=== PATIENT | female | born 1975 | race Caucasian/White ===

== ENCOUNTER 2017-08-16 11:15 | Outpatient (RCR) | payer OTHER, MEDICAID, SELFPAY ==
--- NOTE | 2017-06-28 11:58 | PT.OTN ---
Addendum entered and electronically signed by Sybil Waite, PT 06/28/17 13:56: Transition note: On June 21, 2017 our therapy services consisting of Speech, Occupational, and Physical Therapy transitioned from the [employer] electronic documentation system to a new [employer] electronic documentation system.?? All documentation prior to June 21 can be found under [employer] saved data. From June 21 forward all medical record documentation will be in [employer]. Original Note: Physical Therapy Treatment Note PT-OP-A Visit Information Start: 06/28/17 10:33 Freq: Status: Active Protocol: Activity Type Activity Date Activity User E-Sign Co-Sign Detail Recorded Client Recorded Date Recorded By Document 06/28/17 10:35 LRN [id number] 06/28/17 11:24 LRN 06/28/17 10:35 Out-Patient Physical Therapy Visit Information [Visit Information] -Visit Type Treatment Note -Visit Start Time 10:32 -Visit Stop Time 11:15 -Total Visit Minutes 43 -Visit Number 10, 3 since last Re-eval -Number of SYSTEM SAFETY ENGINEER Visits 0 [Evaluation Information] -Evaluation Date 04/22/17 PT-OP-C Subjective Start: 06/28/17 10:33 Freq: Status: Active Protocol: Activity Type Activity Date Activity User E-Sign Co-Sign Detail Recorded Client Recorded Date Recorded By Document 06/28/17 10:35 LRN [id number] 06/28/17 11:24 LRN 06/28/17 10:35 OP-PT Subjective [Patient Comments] -Patient Comments C/O stomach pain this morning. Had coffee yesterday and had to use bathroom more. -Patient Reported Progress Improving PT-OP-I Pelvic Floor Start: 06/28/17 10:33 Freq: Status: Active Protocol: Activity Type Activity Date Activity User E-Sign Co-Sign Detail Recorded Client Recorded Date Recorded By Document 06/28/17 10:35 LRN [id number] 06/28/17 11:52 LRN 06/28/17 10:35 Pelvic Floor Assessment [Pelvic Clock] -Pelvic Clock 3-6 Tenderness -Pelvic Clock Other Primarily Pelvic Clock 4- 5 PT-OP-Q Treatments Start: 06/28/17 10:33 Freq: Status: Active Protocol: Activity Type Activity Date Activity User E-Sign Co-Sign Detail Recorded Client Recorded Date Recorded By Document 06/28/17 10:35 [facility] [id number] 06/28/17 11:24 LRN 06/28/17 10:35 Cardio Equipment [Bicycle (Upright)] -Duration (Minutes) 8 -Resistance 2 -Seat Position Min Therapeutic Exercises [Supine Exercises] 4 -Supine Exercise Name PF contraction with Ball Squeeze and hips in IR -Side bilateral -Reps/Minutes 10 3 -Supine Exercise Name Happy Baby Pose -Reps/Minutes 6 2 -Supine Exercise Name MET and MFR stretch to Iliacus -Side bilateral -Reps/Minutes 3 reps 1 -Supine Exercise Name Iliopsoas stretch, followed by active hip ext -Side bilateral -Equipment Used 1 -Reps/Minutes 2 [Standing Exercises] 1 -Standing Exercise Name Squat with R hip AD T-Band resistance -Reps/Minutes 10 Manual Therapy Treatment [Soft Tissue Mobilization] 1 -Body Location Pelvic Floor stretch 3-6 O' Clock -Mobilization Type Myofascial Release Sustained Pressure Trigger Point Release -Intensity/Depth Superficial -Body Position Supine Self-Care/Home Management Treatment [Activities] -Self-Care/Home Management Activities Brief discussion of ex's this week to work on ( strengthening 3 -6 PF Clock, relaxation of PF with urinating), continuation of therapy for decreasing frequency of urination. PT-OP-T Assessment and Plan Start: 06/28/17 10:33 Freq: Status: Active Protocol: Activity Type Activity Date Activity User E-Sign Co-Sign Detail Recorded Client Recorded Date Recorded By Document 06/28/17 10:35 [facility] [id number] 06/28/17 11:24 [facility] 06/28/17 10:35 Physical Therapy Assessment [Impairments] -Impairments ROM Strength -Other Impairments Increased tone on PF Clock 3-6 . Lack of complete HEP. Increased frequency of urination. Degree of Urge 1-2/3. [Assessment Summary] -Assessment Pt has improved in degree of urgency of urination from 2-3/3 to 1-2/3 with voiding. Her frequency is high (every 1-2 hours). She has tenderness in the PF 4-5 O' Clock. Pt may have a dropped bladder from PF weakness, but tightness in the 3-6 PF Clock limiting flow with urination times higher than 10 sec's. Physical Therapy Plan [Frequency and Duration] -Frequency of Treatment 1x/Week -Duration of Treatment 7 weeks left, 3 visits since Re-eval -Plan of Care Start Date 04/22/17 -Plan of Care End Date 08/21/17 [Next Visit Focus/Plan] -Next Visit Plan Continue Current Rehabilitation Program ( decrease frequency & urgency of urination). Education in bladder retraining. Strengthen R>L Pelvic Floor. Stretch to R hip flexor > L. EMG Biofeedback for strengthening followed by relaxation of PF with bolster . Recheck hip mobility for symmetry.
--- NOTE | 2017-07-05 10:50 | PT.OTN ---
Physical Therapy Treatment Note PT-OP-A Visit Information Start: 06/28/17 10:33 Freq: Status: Active Protocol: Document 07/05/17 10:32 LRN (Rec: 07/05/17 11:21 LRN [id number]) Out-Patient Physical Therapy Visit Information Visit Information Visit Type Treatment Note Visit Start Time 10:35 Visit Stop Time 11:20 Total Visit Minutes 45 Visit Number 11, 4 since Re-eval Number of MONORAIL CRANE OPERATOR Visits 0 Evaluation Information Evaluation Date 04/22/17 PT-OP-C Subjective Start: 06/28/17 10:33 Freq: Status: Active Protocol: Document 07/05/17 10:32 LRN (Rec: 07/05/17 11:21 LRN [id number]) OP-PT Subjective Patient Comments Patient Comments Did stretches this morning. Less often voiding; there fore a little better. States last week GERD was making stomach painful. Requests hold on internal manual therapy. PT-OP-I Pelvic Floor Start: 06/28/17 10:33 Freq: Status: Active Protocol: Document 07/05/17 10:32 LRN (Rec: 07/05/17 11:21 LRN [id number]) Pelvic Floor Assessment SEMG (uV) Baseline 2.39 Quick Contraction 8.18 10 Second Contraction 7.95 Relaxation Fair PT-OP-Q Treatments Start: 06/28/17 10:33 Freq: Status: Active Protocol: Document 07/05/17 10:32 LRN (Rec: 07/05/17 11:21 LRN [id number]) Therapeutic Exercises Supine Exercises 6 Supine Exercise Name PF Long hold 10 sec strengthening Equipment Used EMG biofeedback with vaginal electrode Reps/Minutes 10 reps 5 Supine Exercise Name PF Quick contraction strengthening Equipment Used EMG biofeedback with vaginal electrode Reps/Minutes 10 3 Supine Exercise Name Happy Baby Pose Reps/Minutes 6 2 Supine Exercise Name MET and MFR stretch to Iliacus Side bilateral Reps/Minutes 3 reps 1 Supine Exercise Name Iliopsoas stretch, followed by active hip ext Side bilateral Equipment Used 1 Reps/Minutes 2 Self-Care/Home Management Treatment Activities Self-Care/Home Management Activities Pt educated and discussed PF retraining using urge deference technique to delay times between urination, with use of 1 delay for 3-10 minutes delay for a few days and progressing as tolerated. PT-OP-T Assessment and Plan Start: 06/28/17 10:33 Freq: Status: Active Protocol: Document 07/05/17 10:32 LRN (Rec: 07/08/17 17:19 LRN [id number]) Physical Therapy Assessment Assessment Summary Assessment Pt is now able to perform a visible PF contraction that is mild in intensity; therefore weakness still persists. Pt is on the end of her menstrual cycle; therefore hold on internal assessment and treatment until next visit. Physical Therapy Plan Frequency and Duration Frequency of Treatment 1x/Week Duration of Treatment 6 weeks left, 4 visits since Re-eval Plan of Care Start Date 04/22/17 Plan of Care End Date 08/21/17 Next Visit Focus/Plan Next Visit Plan Manual stretch to PF and assessment for tightness/ tenderness. Decrease frequency and urgency of urination. Strengthen R>L PF. Stretch hip flexors R>L.
--- NOTE | 2017-07-08 17:20 | PT.OTN ---
Physical Therapy Treatment Note PT-OP-A Visit Information Start: 06/28/17 10:33 Freq: Status: Active Protocol: Document 07/05/17 10:32 LRN (Rec: 07/05/17 11:21 LRN [id number]) Out-Patient Physical Therapy Visit Information Visit Information Visit Type Treatment Note Visit Start Time 10:35 Visit Stop Time 11:20 Total Visit Minutes 45 Visit Number 11, 4 since Re-eval Number of HARVEST WORKER FIELD CROP Visits 0 Evaluation Information Evaluation Date 04/22/17 PT-OP-C Subjective Start: 06/28/17 10:33 Freq: Status: Active Protocol: Document 07/05/17 10:32 LRN (Rec: 07/05/17 11:21 LRN [id number]) OP-PT Subjective Patient Comments Patient Comments Did stretches this morning. Less often voiding; there fore a little better. States last week GERD was making stomach painful. Requests hold on internal manual therapy. PT-OP-I Pelvic Floor Start: 06/28/17 10:33 Freq: Status: Active Protocol: Document 07/05/17 10:32 LRN (Rec: 07/05/17 11:21 LRN [id number]) Pelvic Floor Assessment SEMG (uV) Baseline 2.39 Quick Contraction 8.18 10 Second Contraction 7.95 Relaxation Fair PT-OP-Q Treatments Start: 06/28/17 10:33 Freq: Status: Active Protocol: Document 07/05/17 10:32 LRN (Rec: 07/05/17 11:21 LRN [id number]) Therapeutic Exercises Supine Exercises 6 Supine Exercise Name PF Long hold 10 sec strengthening Equipment Used EMG biofeedback with vaginal electrode Reps/Minutes 10 reps 5 Supine Exercise Name PF Quick contraction strengthening Equipment Used EMG biofeedback with vaginal electrode Reps/Minutes 10 3 Supine Exercise Name Happy Baby Pose Reps/Minutes 6 2 Supine Exercise Name MET and MFR stretch to Iliacus Side bilateral Reps/Minutes 3 reps 1 Supine Exercise Name Iliopsoas stretch, followed by active hip ext Side bilateral Equipment Used 1 Reps/Minutes 2 Self-Care/Home Management Treatment Activities Self-Care/Home Management Activities Pt educated and discussed PF retraining using urge deference technique to delay times between urination, with use of 1 delay for 3-10 minutes delay for a few days and progressing as tolerated. PT-OP-T Assessment and Plan Start: 06/28/17 10:33 Freq: Status: Active Protocol: Document 07/05/17 10:32 LRN (Rec: 07/08/17 17:19 LRN [id number]) Physical Therapy Assessment Assessment Summary Assessment Pt is now able to perform a visible PF contraction that is mild in intensity; therefore weakness still persists. Pt is on the end of her menstrual cycle; therefore hold on internal assessment and treatment until next visit. Physical Therapy Plan Frequency and Duration Frequency of Treatment 1x/Week Duration of Treatment 6 weeks left, 4 visits since Re-eval Plan of Care Start Date 04/22/17 Plan of Care End Date 08/21/17 Next Visit Focus/Plan Next Visit Plan Manual stretch to PF and assessment for tightness/ tenderness. Decrease frequency and urgency of urination. Strengthen R>L PF. Stretch hip flexors R>L.
--- NOTE | 2017-07-12 11:44 | PT.OTN ---
Physical Therapy Treatment Note PT-OP-A Visit Information Start: 06/28/17 10:33 Freq: Status: Active Protocol: Document 07/12/17 10:34 LRN (Rec: 07/12/17 11:43 LRN [id number]) Out-Patient Physical Therapy Visit Information Visit Information Visit Type Treatment Note Visit Start Time 10:34 Visit Stop Time 11:14 Total Visit Minutes 40 Visit Number 12, 5 since Re-eval Evaluation Information Evaluation Date 04/22/17 PT-OP-C Subjective Start: 06/28/17 10:33 Freq: Status: Active Protocol: Document 07/12/17 10:34 LRN (Rec: 07/12/17 11:43 LRN [id number]) OP-PT Subjective Patient Comments Patient Comments A little better. Has been trying to delay and it might be a little better. Changed coffee, so having more crampsa . PT-OP-I Pelvic Floor Start: 06/28/17 10:33 Freq: Status: Active Protocol: Document 07/05/17 10:32 LRN (Rec: 07/05/17 11:21 LRN [id number]) Pelvic Floor Assessment SEMG (uV) Baseline 2.39 Quick Contraction 8.18 10 Second Contraction 7.95 Relaxation Fair PT-OP-Q Treatments Start: 06/28/17 10:33 Freq: Status: Active Protocol: Document 07/12/17 10:34 LRN (Rec: 07/12/17 11:43 LRN [id number]) Cardio Equipment Bicycle (Upright) Duration (Minutes) 8 Resistance 4 Seat Position Min Therapeutic Exercises Supine Exercises 6 Supine Exercise Name PF Long hold 10 sec strengthening Equipment Used For BKFO: Lev 1 T-Band resistance for R side Reps/Minutes 10 2 Supine Exercise Name MET and MFR stretch to Iliacus Side bilateral Reps/Minutes 3 reps 1 Supine Exercise Name Iliopsoas stretch, followed by active hip ext Side bilateral Equipment Used 1 Reps/Minutes 2 Standing Exercises 1 Standing Exercise Name Down Dog pose for 10 sec PF contractions Side right Resistance T-Band Lev 1 reistive AD Reps/Minutes 10x Manual Therapy Treatment Soft Tissue Mobilization 1 Body Location Pelvic Floor lateral sides and 12-3 O'Clock Mobilization Type Myofascial Release Sustained Pressure Intensity/Depth Superficial Body Position Supine Comments 10' Self-Care/Home Management Treatment Activities Self-Care/Home Management Activities Pt I/S to do bladder diary for next few days and continue to work on urge deference tedhnique and change normal routine for the next few days. PT-OP-T Assessment and Plan Start: 06/28/17 10:33 Freq: Status: Active Protocol: Document 07/12/17 10:34 LRN (Rec: 07/12/17 11:43 LRN [id number]) Physical Therapy Assessment Assessment Summary Assessment I was able to get symmetry of the PF except at the PF 3 O' Clock area. Mild tightness was present post treatment. Physical Therapy Plan Frequency and Duration Frequency of Treatment 1x/Week Duration of Treatment 5 weeks left, 5 visits since Re-eval Plan of Care Start Date 04/22/17 Plan of Care End Date 08/21/17 Next Visit Focus/Plan Next Visit Plan Assess response to PF stretching. Work towards decrease in frequency/urgency of urination. Strengthen PF R >L, stretch to hip flexors R>L for better pelvic posturing. Please Sign and Return: I have reviewed this Plan of Care and certify that the skilled therapy services above are required to meet the patient???s needs. Physician Signature Date Printed Name and Credentials Clinical Instructor Signature Printed Name and Credentials
--- NOTE | 2017-07-19 12:44 | PT.OTN ---
Physical Therapy Treatment Note PT-OP-A Visit Information Start: 06/28/17 10:33 Freq: Status: Active Protocol: Document 07/19/17 11:21 LRN (Rec: 07/19/17 12:36 LRN [id number]) Out-Patient Physical Therapy Visit Information Visit Information Visit Type Treatment Note Visit Start Time 11:21 Visit Stop Time 12:11 Total Visit Minutes 50 Visit Number 13, 6 since Re-eval Number of BLADE GRADER OPERATOR Visits 0 Evaluation Information Evaluation Date 04/22/17 PT-OP-C Subjective Start: 06/28/17 10:33 Freq: Status: Active Protocol: Document 07/19/17 11:21 LRN (Rec: 07/19/17 12:36 LRN [id number]) OP-PT Subjective Patient Comments Patient Comments States she didn't write things down, but noticed her urination between voiding is longer and noticed the urination times were smaller 8 -12 sec's. Was travelling, so schedule was different. PT-OP-I Pelvic Floor Start: 06/28/17 10:33 Freq: Status: Active Protocol: Document 07/05/17 10:32 LRN (Rec: 07/05/17 11:21 LRN [id number]) Pelvic Floor Assessment SEMG (uV) Baseline 2.39 Quick Contraction 8.18 10 Second Contraction 7.95 Relaxation Fair PT-OP-Q Treatments Start: 06/28/17 10:33 Freq: Status: Active Protocol: Document 07/19/17 11:21 LRN (Rec: 07/19/17 12:36 LRN [id number]) Cardio Equipment Bicycle (Upright) Duration (Minutes) 8 Resistance 4 Seat Position Min Therapeutic Exercises Supine Exercises 6 Supine Exercise Name PF Long hold 10 sec strengthening Equipment Used For BKFO: Lev 1 T-Band resistance for R side Reps/Minutes 10 2 Supine Exercise Name MET and MFR stretch to Iliacus Side bilateral Reps/Minutes 1 reps 1 Supine Exercise Name Iliopsoas stretch, followed by active hip ext Side bilateral Reps/Minutes 2 reps Sidelying Exercises 2 Sidelying Exercise Name Hip AD/reverse clamshell Side right Reps/Minutes 8 Comments 2x with PF contracted f/b 2x without PF contracted 1 Sidelying Exercise Name Clamshell Side right Reps/Minutes 10 x 2 Comments 2x with PF contraction f/b 2x without PF contraction Manual Therapy Treatment Soft Tissue Mobilization 1 Body Location Pelvic Floor lateral sides and 12-6 O'Clock Mobilization Type Myofascial Release Sustained Pressure Intensity/Depth Superficial Body Position Supine Comments 10' Self-Care/Home Management Treatment Activities Self-Care/Home Management Activities I/S pt to add PF strengthening with hip AD and to monitor urination times/frequency. PT-OP-T Assessment and Plan Start: 06/28/17 10:33 Freq: Status: Active Protocol: Document 07/19/17 11:21 LRN (Rec: 07/19/17 12:36 LRN [id number]) Physical Therapy Assessment Impairments Impairments ROM Strength Other Impairments Increased tone on PF Clock 3-6 . Lack of complete HEP. Increased frequency of urination. Degree of Urge 1-2/3. Progress Towards Goals Progress Comments Pt reports less frequency of voiding in AM, and less sec's to complete voiding (8-12 sec voids). Assessment Summary Assessment After PF stretching, mild return of tightness (no pain) at PF 4 O'clock. Lower L abdominal tightness at pubic symphysis/groin was present. Physical Therapy Plan Frequency and Duration Frequency of Treatment 1x/Week Duration of Treatment 4 weeks left, 6 visits since Re-eval Plan of Care Start Date 04/22/17 Plan of Care End Date 08/21/17 Next Visit Focus/Plan Next Visit Plan Progress towards independent program with DC in 2 weeks. Strength PF R>L, stretch hip flexors R>L. Work to decr freq/urgency of urination.
--- NOTE | 2017-07-26 12:49 | PT.OTN ---
Current Diagnoses Pelvic and perineal pain (07/26/17) Physical Therapy Treatment Note PT-OP-A Visit Information Start: 06/28/17 10:33 Freq: Status: Active Protocol: Document 07/26/17 09:03 LRN (Rec: 07/26/17 09:53 LRN [id number]) Out-Patient Physical Therapy Visit Information Visit Information Visit Type Treatment Note Visit Note 7 since Re-eval Visit Start Time 09:03 Visit Stop Time 09:45 Total Visit Minutes 42 Visit Number 14 Number of LITIGATION LEGAL ASSISTANT Visits 0 PT-OP-C Subjective Start: 06/28/17 10:33 Freq: Status: Active Protocol: Document 07/26/17 09:03 LRN (Rec: 07/26/17 09:53 LRN [id number]) OP-PT Subjective Patient Comments Patient Comments States after last session the urinary flow was same or a little less. Her frequency between urination is better at 1.2hrs in the morning and as much as 3 hours in PM. She no longer has leakage but wears a minipad. Time to urinate is ~8-10 sec's. Patient Reported Progress Improving PT-OP-I Pelvic Floor Start: 06/28/17 10:33 Freq: Status: Active Protocol: Document 07/26/17 09:03 LRN (Rec: 07/26/17 09:53 LRN [id number]) Pelvic Floor Assessment Urine Leaks Per Day 0 Voiding Frequency 1.5-3 hrs. Pads Used In 24 Hours 1 Urine Pad Type Panty Liner Pelvic Clock Pelvic Clock 3-6 Tightness Pelvic Clock Other Minimal tightness of PF 3-6 Clock PT-OP-Q Treatments Start: 06/28/17 10:33 Freq: Status: Active Protocol: Document 07/26/17 09:03 LRN (Rec: 07/26/17 09:53 LRN [id number]) Therapeutic Exercises Supine Exercises 6 Supine Exercise Name PF Long hold 10 sec strengthening Equipment Used For BKFO: Lev 1 T-Band resistance for R side Reps/Minutes 10 4 Supine Exercise Name PF contraction with Ball Squeeze and hips in IR Side bilateral Reps/Minutes 10 2 Supine Exercise Name MET and MFR stretch to Iliacus Side bilateral Reps/Minutes 1 reps 1 Supine Exercise Name Iliopsoas stretch, followed by active hip ext Side bilateral Reps/Minutes 2 reps Manual Therapy Treatment Soft Tissue Mobilization 1 Body Location Pelvic Floor lateral sides and 12-6 O'Clock Mobilization Type Myofascial Release Sustained Pressure Intensity/Depth Superficial Body Position Supine Comments 9' PT-OP-T Assessment and Plan Start: 06/28/17 10:33 Freq: Status: Active Protocol: Document 07/26/17 09:03 LRN (Rec: 07/26/17 09:53 LRN [id number]) Physical Therapy Assessment Impairments Other Impairments Increased tone on PF Clock 4-5 . Goals Three Impairment Sluggish PF contractions Fci Goal (LTG) 10 reps of superficial PF contractions to be able to decrease urgency and frequency of urination. Two Impairment Decreased PF endurance of 3 sec holds Fishing Captain Goal (LTG) No leakage with pt able to hold a 10 sec PF contraction prior to fatigue to allow for more normal urination times. One Impairment Decreased PF strength of 2/5, 3/5 with assist muscles Fishing Captain Goal (LTG) PF strength to no less than 3/ 5 to decrease leakage. Progress Towards Goals Progress Comments Pt voiding times are less at 8 -10 sec's. Frequency is less in AM ~1.5 hrs between voids. In PM sometimes 3 hrs reported between voids. No leakage, but pt wearing liner daily. Assessment Summary Assessment Good relaxation of PF 4-5 O' Clock, otherwise symmetrical. Pt freq and urge has decreased and voiding sec' decreased; therefore pt PF support is improving. Physical Therapy Plan Frequency and Duration Frequency of Treatment 1x/Week Duration of Treatment 1 more visit Plan of Care Start Date 04/22/17 Plan of Care End Date 08/21/17 Next Visit Focus/Plan Next Visit Plan DC next visit, recheck strength per Biofeedback, review HEP. Strengthen PF R>L, stretch hip flexors R>L. Work to decr freq/urgency of urination. [ End ]
--- NOTE | 2017-08-09 14:05 | PT.OTN ---
Current Diagnoses Pelvic and perineal pain (08/09/17) Physical Therapy Treatment Note PT-OP-A Visit Information Start: 06/28/17 10:33 Freq: Status: Active Protocol: Document 08/09/17 11:17 LRN (Rec: 08/09/17 11:28 LRN [id number]) Out-Patient Physical Therapy Visit Information Visit Information Visit Type Treatment Note Visit Note 8 since POC Visit Start Time 11:17 Visit Stop Time 12:00 Total Visit Minutes 43 Visit Number 15 Number of CARBON DIOXIDE OPERATOR Visits 0 Evaluation Information Evaluation Date 04/22/17 PT-OP-C Subjective Start: 06/28/17 10:33 Freq: Status: Active Protocol: Document 08/09/17 11:17 LRN (Rec: 08/09/17 11:28 LRN [id number]) OP-PT Subjective Patient Comments Patient Comments Forgot Electrode, will bring next visit. Little bit improved change. As long as not drinking coffee has a good gap between voiding, 2 hours. In afternoon it is 3 hours. PT-OP-I Pelvic Floor Start: 06/28/17 10:33 Freq: Status: Active Protocol: Document 07/26/17 09:03 LRN (Rec: 07/26/17 09:53 LRN [id number]) Pelvic Floor Assessment Urine Leaks Per Day 0 Voiding Frequency 1.5-3 hrs. Pads Used In 24 Hours 1 Urine Pad Type Panty Liner Pelvic Clock Pelvic Clock 3-6 Tightness Pelvic Clock Other Minimal tightness of PF 3-6 Clock PT-OP-Q Treatments Start: 06/28/17 10:33 Freq: Status: Active Protocol: Document 08/09/17 11:17 LRN (Rec: 08/09/17 11:28 LRN [id number]) Cardio Equipment Bicycle (Upright) Duration (Minutes) 8 Resistance 4 Seat Position Min Therapeutic Exercises Supine Exercises 6 Supine Exercise Name Progressed to squat walks 2 Supine Exercise Name MET and MFR stretch to Iliacus Side bilateral Reps/Minutes 3 reps 1 Supine Exercise Name Iliopsoas stretch, followed by active hip ext Side bilateral Reps/Minutes 2 reps Sidelying Exercises 2 Sidelying Exercise Name Hip AD/reverse clamshell Side right Reps/Minutes 10 x 3 Comments 5x with PF contracted f/b 2x without PF contracted 1 Sidelying Exercise Name Clamshell Side right Reps/Minutes 10 x 3 Comments 5x with PF contraction f/b 5x without PF contraction Standing Exercises 2 Standing Exercise Name Squat walking Side bilateral Resistance Lev2 T-Band Reps/Minutes 10 stepping R, 15 stepping L - 2 sets Comments Physical cuing to maintain pelvic stability 1 Standing Exercise Name Down Dog pose for 10 sec and 10 Quick Flick PF contractions Side bilateral Reps/Minutes 10x Other Exercises 1 Other Exercise Name Kneeling Hip flexor stretch Side bilateral Reps/Minutes 4' PT-OP-T Assessment and Plan Start: 06/28/17 10:33 Freq: Status: Active Protocol: Document 08/09/17 11:17 LRN (Rec: 08/09/17 11:28 LRN [id number]) Physical Therapy Assessment Goals Three Impairment Sluggish PF contractions Jail Goal (LTG) 10 reps of superficial PF contractions to be able to decrease urgency and frequency of urination. Two Impairment Decreased PF endurance of 3 sec holds Jail Goal (LTG) No leakage with pt able to hold a 10 sec PF contraction prior to fatigue to allow for more normal urination times. One Impairment Decreased PF strength of 2/5, 3/5 with assist muscles [employer] Iam Consultant Goal (LTG) PF strength to no less than 3/ 5 to decrease leakage. Assessment Summary Assessment Pt forgot her vaginal electrode; therefore will assess PF strength at next visit. Pt needs her written HEP for good recall of ex's. Physical Therapy Plan Frequency and Duration Frequency of Treatment 1x/Week Duration of Treatment 1 more visit Plan of Care Start Date 04/22/17 Plan of Care End Date 08/21/17 Next Visit Focus/Plan Next Note Type Discharge Summary Next Visit Plan HEP, DC next visit, recheck strength per Biofeedback, review HEP. Strengthen PF R>L, stretch hip flexors R>L. Work to decr freq/urgency of urination. [ End ]
--- NOTE | 2017-08-16 17:00 | PT.OTN ---
Current Diagnoses Pelvic and perineal pain (08/16/17) Physical Therapy Treatment Note PT-OP-A Visit Information Start: 06/28/17 10:33 Freq: Status: Active Protocol: Document 08/16/17 11:20 LRN (Rec: 08/16/17 11:36 LRN [id number]) Out-Patient Physical Therapy Visit Information Visit Information Visit Type Discharge Summary Visit Note 9 since POC Visit Start Time 11:20 Visit Stop Time 12:00 Total Visit Minutes 40 Visit Number 16 Number of PUBLIC AID ELIGIBILITY ASSISTANT Visits 0 Evaluation Information Evaluation Date 04/22/17 PT-OP-C Subjective Start: 06/28/17 10:33 Freq: Status: Active Protocol: Document 08/16/17 11:20 LRN (Rec: 08/16/17 11:36 LRN [id number]) OP-PT Subjective Patient Comments Patient Comments Got IUD inserted 08/11/17 and had a seizure. Feels she is ready to be placed on HEP. PT-OP-I Pelvic Floor Start: 06/28/17 10:33 Freq: Status: Active Protocol: Document 07/26/17 09:03 LRN (Rec: 07/26/17 09:53 LRN [id number]) Pelvic Floor Assessment Urine Leaks Per Day 0 Voiding Frequency 1.5-3 hrs. Pads Used In 24 Hours 1 Urine Pad Type Panty Liner Pelvic Clock Pelvic Clock 3-6 Tightness Pelvic Clock Other Minimal tightness of PF 3-6 Clock PT-OP-K Range of Motion Start: 08/16/17 11:40 Freq: Status: Active Protocol: Document 08/16/17 11:20 LRN (Rec: 08/16/17 16:46 LRN [id number]) Hip Goniometric Range of Motion Hip Measured in Degrees Right Passive Internal Rotation 15 External Rotation 75 Left Passive Internal Rotation 20 External Rotation 75 PT-OP-Q Treatments Start: 06/28/17 10:33 Freq: Status: Active Protocol: Document 08/16/17 11:20 LRN (Rec: 08/16/17 16:46 LRN [id number]) Cardio Equipment Bicycle (Upright) Duration (Minutes) 10 Resistance 4 Seat Position Min Therapeutic Exercises Supine Exercises 1 Supine Exercise Name Iliopsoas, Hip ER, IR, Happy Baby Pose stretch Side bilateral Reps/Minutes 2 reps each Standing Exercises 3 Standing Exercise Name Plie Resistance T-Band, Ball Reps/Minutes 10 each direction Comments Extra time taken for training Self-Care/Home Management Treatment Education Patient Education Home Exercise Program Activities Self-Care/Home Management Activities Handout issued for standing ex . Reviewed self care for PF strengthening on HEP. PT-OP-T Assessment and Plan Start: 06/28/17 10:33 Freq: Status: Active Protocol: Document 08/16/17 11:20 LRN (Rec: 08/16/17 11:36 LRN [id number]) Physical Therapy Assessment Progress Towards Goals Progress Comments The pt has made some good improvement overall. Her voiding times are less at 8-10 sec's. Frequency is less in AM ~1.5 hrs between voids. In PM sometimes 3 hrs reported between voids. No leakage, but pt wearing liner daily as a precaution. Assessment Summary Assessment Overall pt has shown good relaxation of PF 4-5 O'Clock, otherwise symmetrical. Pt freq and urge has decreased and voiding sec's has decreased; therefore indicating PF support has improved. With insertion of an IUD use of a vaginal electrode is deferred; therefore the pt's HEP was reviewed and the pt will be placed on a HEP to continue to work towards PF strengthening and maintaining her PF tone and hip mobility. Physical Therapy Plan Discharge Physical Therapy Discharge Comments Unable to use vaginal electrode to assess pt PF strength. The pt has progressed through PF rehab and has been educated in a HEP that she can continue to work towards improving her level of continence. The pt may seek further therapy in the future if she has medical changes that result in changes in her level of continence. Next Visit Focus/Plan Next Visit Plan DC from PT
== END 2017-12-01 12:06 ==
LOC: PHYS 11:15
PROVIDERS: Family Provider Family Medicine; PCP Family Medicine; Visit Provider Physician Assistant
DX: R10.2 Pelvic and perineal pain (principal)
CPT/HCPCS: 97110; 97140; 97535

== ENCOUNTER → 2017-10-28 20:05 | Outpatient (CLI) | payer OTHER, MEDICAID, SELFPAY | PROVIDERS: Family Provider Family Medicine; PCP Family Medicine; Visit Provider Physician Assistant | DX: N39.0 Urinary tract infection, site not specified (principal) | CPT/HCPCS: 87086 ==

== ENCOUNTER → 2018-02-20 09:34 | Outpatient (CLI) | payer OTHER, MEDICAID, SELFPAY ==
[2018-02-20 10:36] LABS: Add Manual Diff / Slide Review NO; Basophils Percent Auto 0.4 % (0-2); Eosinophils Percent Auto 2.7 % (2-4); Hematocrit 41.3 % (36-46); Lymphocytes Percent Auto 30.3 % (25-40); Mean Corpuscular HGB Conc 33.8 % (30-36); Mean Corpuscular Hemoglobin 33.3 PG (26-34); Mean Corpuscular Volume 98.6 fL (80-100); Monocytes Percent Auto 11.6 % (3-14); Neutrophils Absolute Auto 2300 /uL (1500-7000); Platelet Count 206 X10^3/uL (150-400); Red Blood Cell Count 4.19 X10^6/uL (4.0-5.2); Red Cell Distribution Width 12.9 % (11.6-14.8); White Blood Cell Count 4.2 X10^3/uL (4.5-11.0)
[2018-02-20 10:57] LABS: Alanine Aminotransferase 25 IU/L (9-52); Albumin 4.4 g/dL (3.5-5.0); Albumin Globulin Ratio 1.5 (1.0-2.8); Alkaline Phosphatase 55 U/L (38-126); Aspartate Aminotransferase 23 IU/L (14-36); BUN Creatinine Ratio 11.3 (6-22); Bilirubin Total 0.4 mg/dL (0.2-1.3); Blood Urea Nitrogen 9 mg/dL (7-17); Calcium 9.5 mg/dL (8.4-10.2); Carbon Dioxide 30 mmol/L (22-32); Chloride 100 mmol/L (98-107); Estimated Glomerular Filt Rate > 60.0 mL/min (>60); Globulin 2.9 g/dL (1.7-4.1); Glucose 69 mg/dL (70-100); HEMOLYSIS < 15 (0-50); Potassium 4.2 mmol/L (3.4-5.1); Sodium 138 mmol/L (137-145); Total Protein 7.3 g/dL (6.3-8.2)
== END ==
PROVIDERS: Family Provider Family Medicine; PCP Family Medicine; Visit Provider Registered Nurse
DX: R10.9 Unspecified abdominal pain (principal); R19.7 Diarrhea, unspecified
CPT/HCPCS: 36415; 80053; 85025

== ENCOUNTER → 2018-02-21 15:35 | Outpatient (CLI) | payer OTHER, MEDICAID, SELFPAY | PROVIDERS: Family Provider Family Medicine; PCP Family Medicine; Visit Provider Family Medicine | DX: R19.7 Diarrhea, unspecified (principal) | CPT/HCPCS: 87015; 87045; 87177; 87427 ==

== ENCOUNTER → 2018-03-11 10:36 | Outpatient (CLI) | payer OTHER, MEDICAID, SELFPAY | PROVIDERS: Family Provider Family Medicine; PCP Family Medicine; Visit Provider Physician Assistant | DX: R10.2 Pelvic and perineal pain (principal); N89.8 Other specified noninflammatory disorders of vagina | CPT/HCPCS: 87210; 87252 ==

== ENCOUNTER 2018-03-11 10:51 | Emergency (ER) | payer OTHER, MEDICAID, SELFPAY ==
[2018-03-11 11:04] VITALS: BP 110/72; PULSE 88; RESP 18; TEMP 37; O2SAT 96; BMI 27.3
[2018-03-11 11:30] VITALS: BP 102/66; PULSE 99; O2SAT 100
[2018-03-11 11:41] LABS: Add Manual Diff / Slide Review NO; Basophils Absolute Auto 0 /uL (0-100); Basophils Percent Auto 0.3 % (0-2); Eosinophils Absolute Auto 100 /uL (0-450); Hematocrit 40.7 % (36-46); Hemoglobin 13.6 g/dL (12.0-16.0); Lymphocytes Absolute Auto 1000 /uL (1100-4500); Lymphocytes Percent Auto 18.7 % (25-40); Mean Corpuscular HGB Conc 33.4 % (30-36); Mean Corpuscular Hemoglobin 32.8 PG (26-34); Mean Corpuscular Volume 98.3 fL (80-100); Monocytes Absolute Auto 800 /uL (0-900); Monocytes Percent Auto 14.4 % (3-14); Neutrophils Absolute Auto 3600 /uL (1500-7000); Neutrophils Percent Auto 65.6 % (50-75); Platelet Count 224 X10^3/uL (150-400); Red Blood Cell Count 4.14 X10^6/uL (4.0-5.2); Red Cell Distribution Width 12.8 % (11.6-14.8); White Blood Cell Count 5.5 X10^3/uL (4.5-11.0)
[2018-03-11 11:46] LABS: BUN Creatinine Ratio 16.3 (6-22); Blood Urea Nitrogen 13 mg/dL (7-17); Calcium 9.5 mg/dL (8.4-10.2); Carbon Dioxide 28 mmol/L (22-32); Chloride 100 mmol/L (98-107); Estimated Glomerular Filt Rate > 60.0 mL/min (>60); Glucose 77 mg/dL (70-100); HEMOLYSIS 39 (0-50); Sodium 137 mmol/L (137-145)
[2018-03-11 12:03] LABS: RBC Urine None Seen (0-5/HPF)
[2018-03-11 12:14] LABS: Bacteria Urine Many (>30); Squamous Epithelial Cell Urine 1-5 /HPF; WBC Urine 1-5/HPF (0-5/HPF)
[2018-03-11 12:15] LABS: Culture Indicated Urine Specimen Cultured
--- NOTE | 2018-03-11 13:03 | ED.SEIZURE ---
HPI - Seizure <Clementine Fay PA-C - Last Filed: 03/11/18 17:14> General Chief Complaint: Seizure Stated Complaint: seizure Time Seen by Provider: 03/11/18 11:33 Source: patient and EMS Mode of arrival: EMS Limitations: no limitations History of Present Illness HPI Narrative: This 42-year-old female was at the walk-in clinic when she had a seizure. She has a long-time history of seizures for which she takes Tegretol. She states it is common for her to have breakthrough seizures when she goes to any type of medical visit. She states that she went to the clinic to be seen for possible UTI. She states that she has had frequency, urgency, and dysuria for a day or 2. She has not had any flank pain (has some chronic low back pain that is unchanged), denies nausea or vomiting, but did have a temperature in the 100-101 range yesterday and 99 this morning. She does not think that her sinus symptoms are worse. She denies any other new complaints today. She is feeling a little bit sleepy now as is typical after a seizure for her, no other complaints. Related Data Home Medications Medication Instructions Recorded Confirmed acetaminophen 325 mg PO PRN #0 01/29/16 03/11/18 Previous Rx's Medication Instructions Recorded oxybutynin chloride 5 mg PO BIDP #180 tab 10/07/16 carbamazepine 200 mg PO BID #180 tab 11/09/17 pantoprazole 40 mg tablet,delayed 40 mg PO QDAY #90 tab 01/04/18 release sertraline 100 mg tablet 100 mg PO DAILY #90 tab 01/04/18 trazodone 100 mg tablet 100 mg PO HS #90 tab 01/04/18 ciprofloxacin HCl 500 mg PO Q12H #14 tab 03/11/18 phenazopyridine 200 mg PO TID PRN #6 tab 03/11/18 Allergies Allergy/AdvReac Type Severity Reaction Status Date / Time No Known Drug Allergies Allergy Verified 03/11/18 09:44 Review of Systems <Clementine Fay PA-C - Last Filed: 03/11/18 17:14> Review of Systems ROS Unobtainable: All systems reviewed & are unremarkable except as noted in HPI and below Exam <KVNG Benitez Last Filed: 03/11/18 17:14> Narrative Exam Narrative: GENERAL APPEARANCE: Patient sitting comfortably, in no distress. HEENT: PERRL, EOMI, normal TMs and oropharynx with some PND noted, minimal generalized sinus tenderness NECK: Supple LUNGS: Clear to auscultation bilaterally. HEART: Rate and rhythm regular without murmur, normal S1 and S2, no S3 or S4. ABDOMEN: Soft, moderate suprapubic tenderness, ND, + BS x 4 quadrants. No palpable masses. No CVAT NEUROLOGIC: Alert and oriented, normal speech, and coordination. MUSCULOSKELETAL: Full Csp AROM without tenderness Initial Vital Signs Initial Vital Signs: Vital Signs Temperature 98.6 F 03/11/18 11:04 Pulse Rate 88 03/11/18 11:04 Respiratory Rate 18 03/11/18 11:04 Blood Pressure 110/72 03/11/18 11:04 Pulse Oximetry 96 03/11/18 11:04 <Naman Church DO - Last Filed: 03/11/18 17:40> Initial Vital Signs Initial Vital Signs: Vital Signs Temperature 98.6 F 03/11/18 11:04 Pulse Rate 88 03/11/18 11:04 Respiratory Rate 18 03/11/18 11:04 Blood Pressure 110/72 03/11/18 11:04 Pulse Oximetry 96 03/11/18 11:04 Course <Clementine Fay PA-C - Last Filed: 03/11/18 17:14> Additional Information: Patient has a known seizure disorder and had a seizure in medical office setting which is common for her. She appears to have early pyelonephritis versus UTI, appropriate for outpatient treatment (her fever could also be from ongoing upper respiratory/sinus symptoms, no fever here today.) She stated that she has done well with Cipro in the past so will start on this and agreed to return if any acutely worsening symptoms while cultures are pending, otherwise advised follow-up with her PCP in the next 2 or 3 days to assess progress and review cultures. Orders Ordered: ED Orders 03/11/18 10:40 Basic Metabolic Panel Stat Complete Blood Count AUTO DIFF Stat 03/11/18 11:45 Urine Culture Stat Urine Microscopic Stat Vital Signs - 8 hr 03/11/18 11:04 03/11/18 11:30 03/11/18 13:17 Temperature 98.6 F Pulse Rate 88 99 H 102 H Respiratory Rate 18 16 Blood Pressure 110/72 Blood Pressure [Left Arm] 102/66 103/63 Pulse Oximetry 96 100 97 03/11/18 13:40 Temperature Pulse Rate 97 H Respiratory Rate 18 Blood Pressure 109/74 Blood Pressure [Left Arm] Pulse Oximetry 98 <Naman Church DO - Last Filed: 03/11/18 17:40> Orders Ordered: ED Orders 03/11/18 10:40 Basic Metabolic Panel Stat Complete Blood Count AUTO DIFF Stat 03/11/18 11:45 Urine Culture Stat Urine Microscopic Stat Vital Signs - 8 hr 03/11/18 11:04 03/11/18 11:30 03/11/18 13:17 Temperature 98.6 F Pulse Rate 88 99 H 102 H Respiratory Rate 18 16 Blood Pressure 110/72 Blood Pressure [Left Arm] 102/66 103/63 Pulse Oximetry 96 100 97 03/11/18 13:40 Temperature Pulse Rate 97 H Respiratory Rate 18 Blood Pressure 109/74 Blood Pressure [Left Arm] Pulse Oximetry 98 MDM - Seizure <Clementine Fay PA-C - Last Filed: 03/11/18 17:14> Lab Data Result diagrams: 03/11/18 10:40 03/11/18 10:40 Lab Results 03/11/18 03/11/18 03/11/18 Range/Units 10:40 10:40 11:45 WBC 5.5 (4.5-11.0) X10^3/uL RBC 4.14 (4.0-5.2) X10^6/uL Hgb 13.6 (12.0-16.0) g/dL Hct 40.7 (36-46) % MCV 98.3 (80-100) fL MCH 32.8 (26-34) PG MCHC 33.4 (30-36) % RDW 12.8 (11.6-14.8) % Plt Count 224 (150-400) X10^3/uL Neut % (Auto) 65.6 (50-75) % Lymph % (Auto) 18.7 L (25-40) % [place] % (Auto) 14.4 H (3-14) % Eos % (Auto) 1.0 L (2-4) % Baso % (Auto) 0.3 (0-2) % Neut # (Auto) 3600 (8701-0538) /uL Lymph # (Auto) 1000 L (4753-0393) /uL [place] # (Auto) 800 (0-900) /uL Eos # (Auto) 100 (0-450) /uL Baso # (Auto) 0 (0-100) /uL Sodium 137 (137-145) mmol/L Potassium 4.0 (3.4-5.1) mmol/L Chloride 100 (98-107) mmol/L Carbon Dioxide 28 (22-32) mmol/L BUN 13 (7-17) mg/dL Creatinine 0.80 (0.52-1.04) mg/dL Estimated GFR > 60.0 (>60) mL/min BUN/Creatinine Ratio 16.3 (6-22) Glucose 77 (70-100) mg/dL Calcium 9.5 (8.4-10.2) mg/dL Urine RBC None seen (0-5/HPF) Urine WBC 1-5/hpf (0-5/HPF) Ur Squamous Epith Cells 1-5 /hpf Urine Bacteria Many (>30) H (None) Ur Culture Indicated? Specimen cultured Point of Care Testing Test Results Negative Urine Dip Bedside Urine Glucose Negative Bedside Urine Bilirubin - Negative Bedside Urine Ketone - Negative Urine Specific [place] 1.010 Bedside Urine Occult Blood - Negative Bedside Urine pH 7.0 Bedside Urine Protein - Negative Bedside Urine Urobilinogen - Negative Bedside Urine Nitrite - Negative Bedside Urine Leukocytes +/- 15 Esterase <Naman Church, DO - Last Filed: 03/11/18 17:40> Lab Data Lab Results 03/11/18 03/11/18 03/11/18 Range/Units 10:40 10:40 11:45 WBC 5.5 (4.5-11.0) X10^3/uL RBC 4.14 (4.0-5.2) X10^6/uL Hgb 13.6 (12.0-16.0) g/dL Hct 40.7 (36-46) % MCV 98.3 (80-100) fL MCH 32.8 (26-34) PG MCHC 33.4 (30-36) % RDW 12.8 (11.6-14.8) % Plt Count 224 (150-400) X10^3/uL Neut % (Auto) 65.6 (50-75) % Lymph % (Auto) 18.7 L (25-40) % [place] % (Auto) 14.4 H (3-14) % Eos % (Auto) 1.0 L (2-4) % Baso % (Auto) 0.3 (0-2) % Neut # (Auto) 3600 (8488-3798) /uL Lymph # (Auto) 1000 L (7601-0139) /uL [place] # (Auto) 800 (0-900) /uL Eos # (Auto) 100 (0-450) /uL Baso # (Auto) 0 (0-100) /uL Sodium 137 (137-145) mmol/L Potassium 4.0 (3.4-5.1) mmol/L Chloride 100 (98-107) mmol/L Carbon Dioxide 28 (22-32) mmol/L BUN 13 (7-17) mg/dL Creatinine 0.80 (0.52-1.04) mg/dL Estimated GFR > 60.0 (>60) mL/min BUN/Creatinine Ratio 16.3 (6-22) Glucose 77 (70-100) mg/dL Calcium 9.5 (8.4-10.2) mg/dL Urine RBC None seen (0-5/HPF) Urine WBC 1-5/hpf (0-5/HPF) Ur Squamous Epith Cells 1-5 /hpf Urine Bacteria Many (>30) H (None) Ur Culture Indicated? Specimen cultured Point of Care Testing Test Results Negative Urine Dip Bedside Urine Glucose Negative Bedside Urine Bilirubin - Negative Bedside Urine Ketone - Negative Urine Specific [place] 1.010 Bedside Urine Occult Blood - Negative Bedside Urine pH 7.0 Bedside Urine Protein - Negative Bedside Urine Urobilinogen - Negative Bedside Urine Nitrite - Negative Bedside Urine Leukocytes +/- 15 Esterase Discharge Plan Departure Patient Disposition: Home Clinical Impression: Pyelonephritis, Seizure Discharge Date/Time: 03/11/18 13:41 Interventions: ED Discharge Assessment Last Done: 03/11/18 13:40 Instructions: DI for Kidney Infection Activity Restrictions/Additional Instructions: I have sent in a prescription for ciprofloxacin for you (Cipro) to start since you have done well with this in the past. This covers bladder and kidney infections, as it seems you could have the start of a kidney infection given that you have had a bit of a fever at home. Please greens picker the prescription and started right away, take your 2nd dose this evening. I have sent in a pain reliever for the urinary tract that you can take for a couple of days if you needed. Please return as we talked about if you have any acutely worsening symptoms, or new symptoms such as vomiting. Please follow-up with your PCP in 2-3 days to assess your progress and review your urine culture Please rest after a seizure as you usually would since it is not unusual for you to have a seizure at a medical visit. Prescriptions: New ciprofloxacin HCl 500 mg tablet 500 mg PO Q12H Qty: 14 RF: 0 phenazopyridine 200 mg tablet 200 mg PO TID PRN (Reason: pain with urination) Qty: 6 RF: 0 No Action acetaminophen 325 MG tablet 325 mg PO PRNQty: 0 RF: 0 oxybutynin chloride 5 MG tablet 5 mg PO BIDP Qty: 180 RF: 3 carbamazepine 200 mg tablet 200 mg PO BID Qty: 180 RF: 1 pantoprazole 40 mg tablet,delayed release (DR/EC) 40 mg PO QDAY Qty: 90 RF: 3 sertraline 100 mg tablet 100 mg PO DAILY Qty: 90 RF: 1 trazodone 100 mg tablet 100 mg PO HS Qty: 90 RF: 1 Referrals: Kristin Borden DO [Primary Care Provider] - <Naman Church DO - Last Filed: 03/11/18 17:40> Cosign ED Attending Tay Attestation: I was available for consultation during this patient's emergency department encounter
[2018-03-11 13:17] VITALS: BP 103/63; PULSE 102; RESP 16; O2SAT 97
[2018-03-11 13:40] VITALS: BP 109/74; PULSE 97; RESP 18; O2SAT 98
== END 2018-03-11 13:41 | disposition home or self-care (01) ==
PROVIDERS: Emergency Medicine; Emergency Provider Internal Medicine; Family Provider Family Medicine; PCP Family Medicine
DX: N12 Tubulo-interstitial nephritis, not specified as acute or chronic (principal); R56.9 Unspecified convulsions
CPT/HCPCS: 80048; 81003; 81015; 81025; 85025; 87086; 99283

== ENCOUNTER → 2018-03-13 11:21 | Outpatient (CLI) | payer OTHER, MEDICAID, SELFPAY ==
[2018-03-13 13:36] LABS: Urine N gonorrhoeae NOT DETECTED
[2018-03-13 13:43] LABS: Urine Chlamydia NOT DETECTED
[2018-03-13 16:49] LABS: Hepatitis B Surface Antigen NEGATIVE s/c (NEGATIVE)
[2018-03-13 17:17] LABS: HIV 1 and 2 Antibody NEGATIVE (NEGATIVE); Hep C Virus Ab w/Reflex Quant NEGATIVE s/c (NEGATIVE)
[2018-03-15 12:26] LABS: RPR Screen Nonreactive (Nonreactive)
[2018-03-15 12:50] LABS: HSV 1 IgM Screen Negative (Negative); HSV 2 IgM Screen Negative (Negative)
== END ==
PROVIDERS: Family Provider Family Medicine; PCP Family Medicine; Visit Provider Physician Assistant
DX: R10.2 Pelvic and perineal pain (principal); N89.8 Other specified noninflammatory disorders of vagina
CPT/HCPCS: 36415; 86592; 86694; 86703; 86803; 87340; 87491; 87591

== ENCOUNTER 2018-04-18 18:12 | Emergency (ER) | payer OTHER, MEDICAID, SELFPAY ==
[2018-04-18 18:15] VITALS: BP 135/98; PULSE 69; RESP 20; TEMP 36.6; O2SAT 100
--- NOTE | 2018-04-18 19:00 | ED.HEATRA ---
HPI - Head Injury General Chief complaint: Head Injury Stated complaint: LACERATION OF RIGHT UPPER SIDE OF FACE Time Seen by Provider: 04/18/18 18:26 Source: patient Mode of arrival: ambulatory Limitations: no limitations History of Present Illness HPI Narrative: 42-year-old female nonsmoker with history of epilepsy presents to the emergency department after she tripped and fell, striking her head on a curb. She states she fell for purely mechanical reasons and upon striking her head denies loss of consciousness. She has full recall of the event and denies any neurologic symptoms such as blurred vision, numbness, tingling or weakness. She denies other injuries such as neck or back pain. She did suffer a small laceration oriented vertically above her right eyebrow. She takes no blood thinners and denies use of alcohol or street drugs. MD Complaint: head injury Onset (ago): minute(s) Mechanism of Injury: fall Place: home Loss of Consciousness: no Location of injury: frontal Severity: mild Radiation: none Other Injuries: none Associated symptoms: denies other symptoms Related Data Home Medications Medication Instructions Recorded Confirmed acetaminophen 325 mg PO PRN #0 01/29/16 03/28/18 Previous Rx's Medication Instructions Recorded oxybutynin chloride 5 mg PO BIDP #180 tab 10/07/16 carbamazepine 200 mg PO BID #180 tab 11/09/17 pantoprazole 40 mg tablet,delayed 40 mg PO QDAY #90 tab 01/04/18 release sertraline 100 mg tablet 100 mg PO DAILY #90 tab 01/04/18 trazodone 100 mg tablet 100 mg PO HS #90 tab 01/04/18 Allergies Allergy/AdvReac Type Severity Reaction Status Date / Time No Known Drug Allergies Allergy Verified 03/28/18 09:05 Review of Systems Review of Systems ROS Unobtainable: All systems reviewed & are unremarkable except as noted in HPI and below Constitutional Denies chills, Denies fever(s), Reports headache(s), Denies lethargy and Denies weakness Eyes Denies change in vision, Denies eye discharge, Denies irritation and Denies loss of vision ENT Ears, Nose, Mouth, and Throat: Denies change in voice, Reports headache(s), Denies neck pain and Denies sore throat Cardiovascular Denies chest pain, Denies irregular heart rhythm, Denies lightheadedness, Denies palpitations, Denies dyspnea, Denies dyspnea on exertion and Denies orthopnea Respiratory Denies cough, Denies dyspnea, Denies dyspnea on exertion and Denies wheezing Gastrointestinal Gastrointestinal: Denies abdominal pain, Denies change in bowel habits, Denies diarrhea, Denies nausea and Denies vomiting Genitourinary Denies hematuria, Denies flank pain, Denies urinary incontinence and Denies urinary urgency Musculoskeletal Denies neck pain Integumentary/Breasts Denies pruritus, Denies erythema, Denies rash and Reports wounds Neurologic Denies confusion, Reports headache(s), Denies loss of vision and Denies weakness Psychiatric Denies anxiety, Denies confusion, Denies depression, Denies homicidal ideation and Denies suicidal ideation Endocrine Denies palpitations Hematologic/Lymphatic Denies easy bruising Allergic/Immunologic Denies wheezing PFSH Medical History CTS (carpal tunnel syndrome) (Chronic 2007) Frequent UTI (Chronic) Ovarian cyst (Chronic) Seizures (Chronic) Abnormal Pap smear of cervix (Resolved) Anemia (Resolved 2003) Chicken pox (Resolved ~1987) Gallstone pancreatitis (Resolved) Kidney stones (Resolved 2004) Miscarriage (Resolved) Surgical History History of D&C (Resolved) History of ERCP (Resolved 01/2016) History of cholecystectomy (Resolved) Family History Grandfather Diabetes mellitus Grandmother Paraplegia Grandmother Pre-diabetes Brother No problems noted. Father No problems noted. Mother No problems noted. Grandfather No problems noted. Social History Smoking Status: Never smoker Family History Grandfather Diabetes mellitus Grandmother Paraplegia Grandmother Pre-diabetes Brother No problems noted. Father No problems noted. Mother No problems noted. Grandfather No problems noted. Social History Smoking Status: Never smoker Exam Narrative Exam Narrative: GEN: 42-year-old female appears younger than stated age. GCS 15. AOx3 and in mild distress HEAD: 1.5 cm superficial vertically oriented laceration above right brow. No hematoma or evidence depressed skull fracture NECK: no midline tenderness, step-off, pain on the midline or with axial loading EYES: Pupils are equal, round, and reactive to light and accommodation. Extraoccular muscles are intact bilaterally. There is no subconjunctival hemorrhage or exudate. CHEST: Lungs are clear to auscultation bilaterally and free of wheezes, rales, or rhonchi. Heart rate is regular rhythm, there are no murmurs, clicks, rubs, or gallops. There is no chest wall tenderness. ABD: Abdomen is soft and nontender. There is no guarding or rebound. Bowel sounds are normal in all 4 quadrants. There is no mass or organomegaly. EXT: Full painless ROM of all extremities with no loss of sensation or strength. SKIN: Warm, pink, and dry. No erythema or rash Initial Vital Signs Initial Vital Signs: Vital Signs Temperature 97.9 F 04/18/18 18:15 Pulse Rate 69 04/18/18 18:15 Respiratory Rate 20 04/18/18 18:15 Blood Pressure 135/98 H 04/18/18 18:15 Pulse Oximetry 100 04/18/18 18:15 Procedures Laceration Repair Laceration 1: Site: face Side (If applicable): right Size (cm): 1.5 Description: linear Depth: simple, single layer Pre-repair: wound explored Skin layer closed with: dermabond Course Vital Signs - 8 hr 04/18/18 18:15 04/18/18 19:18 Temperature 97.9 F 98.4 F Pulse Rate 69 71 Respiratory Rate 20 16 Blood Pressure 135/98 H Blood Pressure [Left Arm] 128/66 Pulse Oximetry 100 100 Discharge Plan Departure Patient Disposition: Home Clinical Impression: Closed head injury Qualifiers: Encounter type: initial encounter Qualified Code(s): S09.90XA - Unspecified injury of head, initial encounter Laceration of face Qualifiers: Encounter type: initial encounter Qualified Code(s): S01.81XA - Laceration without foreign body of other part of head, initial encounter Discharge Date/Time: 04/18/18 19:23 Interventions: ED Discharge Assessment Last Done: 04/18/18 19:22 Activity Restrictions/Additional Instructions: *You have been diagnosed with [ minor head injury with facial laceration ] *What to do: *Take medications as directed: Tylenol or Motrin for pain *Follow up with your primary care provider in 2-3 days, call for an appointment. Let them know you were seen in the Emergency Department and that we ask that you be seen in follow up *Return to ER if you should have any new, worsening or concerning symptoms, such as [ increasing headache, neurologic symptoms such as blurred vision, numbness or tingling of her extremities, persistent vomiting or other bothersome symptoms] Please keep the wound clean and dry to the best of your ability. Please monitor for signs of infection such as redness to the skin or increasing pain. Prescriptions: No Action acetaminophen 325 MG tablet 325 mg PO PRNQty: 0 RF: 0 oxybutynin chloride 5 MG tablet 5 mg PO BIDP Qty: 180 RF: 3 carbamazepine 200 mg tablet 200 mg PO BID Qty: 180 RF: 1 pantoprazole 40 mg tablet,delayed release (DR/EC) 40 mg PO QDAY Qty: 90 RF: 3 sertraline 100 mg tablet 100 mg PO DAILY Qty: 90 RF: 1 trazodone 100 mg tablet 100 mg PO HS Qty: 90 RF: 1 Referrals: Kristin Borden DO [Primary Care Provider] -
[2018-04-18 19:18] VITALS: BP 128/66; PULSE 71; RESP 16; TEMP 36.9; O2SAT 100
== END 2018-04-18 19:23 | disposition home or self-care (01) ==
PROVIDERS: Emergency Provider Emergency Medicine; Family Provider Family Medicine; PCP Family Medicine
DX: S01.81XA Laceration without foreign body of other part of head, initial encounter (principal); W01.0XXA Fall on same level from slipping, tripping and stumbling without subsequent striking against object, initial encounter
CPT/HCPCS: 99283

== ENCOUNTER 2018-05-05 19:08 | Emergency (ER) | payer OTHER, MEDICAID, SELFPAY ==
[2018-05-05 19:58] VITALS: BP 128/80; PULSE 110; RESP 17; TEMP 37.6; O2SAT 99
[2018-05-05] MEDS: SODIUM CHLORIDE 0.9% 1,000 ML 1000 ML IV (23:20)
[2018-05-05 23:33] LABS: Add Manual Diff / Slide Review NO; Basophils Absolute Auto 0 /uL (0-100); Basophils Percent Auto 0.3 % (0-2); Eosinophils Absolute Auto 100 /uL (0-450); Eosinophils Percent Auto 1.3 % (2-4); Hematocrit 40.6 % (36-46); Hemoglobin 13.7 g/dL (12.0-16.0); Lymphocytes Absolute Auto 1800 /uL (1100-4500); Lymphocytes Percent Auto 28.9 % (25-40); Mean Corpuscular HGB Conc 33.9 % (30-36); Mean Corpuscular Hemoglobin 33.2 PG (26-34); Monocytes Absolute Auto 500 /uL (0-900); Monocytes Percent Auto 7.5 % (3-14); Neutrophils Absolute Auto 3900 /uL (1500-7000); Platelet Count 207 X10^3/uL (150-400); Red Blood Cell Count 4.14 X10^6/uL (4.0-5.2); Red Cell Distribution Width 13.4 % (11.6-14.8); White Blood Cell Count 6.3 X10^3/uL (4.5-11.0)
--- NOTE | 2018-05-05 23:33 | ED.ABDPAIN ---
HPI - Abdominal Pain General Chief Complaint: Abdominal Pain Stated Complaint: STOMACH PAIN FEVER Time Seen by Provider: 05/05/18 23:02 Source: patient Mode of arrival: ambulatory Limitations: no limitations History of Present Illness HPI narrative: Patient is a 42-year-old female who has been feeling nauseated for the past 4 days. She has had frequent episodes of diarrhea. No actual vomiting. She also has some periumbilical pain. She has a history of pancreatitis from cholelithiasis. She has since had a cholecystectomy. His she does have some overall abdominal discomfort. She denies fever or chills. MD complaint: abdominal pain Location: periumbilical Severity: moderate Quality: cramping Related Data Home Medications Medication Instructions Recorded Confirmed acetaminophen 325 mg PO PRN #0 01/29/16 03/28/18 Previous Rx's Medication Instructions Recorded oxybutynin chloride 5 mg PO BIDP #180 tab 10/07/16 carbamazepine 200 mg PO BID #180 tab 11/09/17 pantoprazole 40 mg tablet,delayed 40 mg PO QDAY #90 tab 01/04/18 release sertraline 100 mg tablet 100 mg PO DAILY #90 tab 01/04/18 trazodone 100 mg tablet 100 mg PO HS #90 tab 01/04/18 ondansetron 4 mg PO Q6-8H PRN #10 tab 05/06/18 Allergies Allergy/AdvReac Type Severity Reaction Status Date / Time No Known Drug Allergies Allergy Verified 03/28/18 09:05 Review of Systems Review of Systems GENERAL: Denies chills, fatigue, malaise, fever, sweats, travel HEENT: Denies sinus pain, ear pain, sore throat, difficulty swallowing, neck pain RESPIRATORY: Denies dyspnea, cough, wheezing, hemoptysis, sputum. CARDIOVASCULAR: Denies chest pain, palpitations, orthopnea, edema GASTROINTESTINAL: See HPI : Denies dysuria, frequency, incontinence, hematuria, urinary retention, flank pain. MUSCULOSKELETAL: Denies weakness, joint pain, or bony pain SKIN: No rash, no erythema, no pruritus NEUROLOGIC: Denies weakness, dizziness, headache, numbness, change in speech, confusion PSYCHIATRIC: No concerning psychosocial issues. 12 point review of systems is negative except for those stated above and HPI [facility] Medical History CTS (carpal tunnel syndrome) (Chronic 2007) Frequent UTI (Chronic) Ovarian cyst (Chronic) Seizures (Chronic) Abnormal Pap smear of cervix (Resolved) Anemia (Resolved 2003) Chicken pox (Resolved ~1987) Gallstone pancreatitis (Resolved) Kidney stones (Resolved 2004) Miscarriage (Resolved) Surgical History History of D&C (Resolved) History of ERCP (Resolved 01/2016) History of cholecystectomy (Resolved) Family History Grandfather Diabetes mellitus Grandmother Paraplegia Grandmother Pre-diabetes Brother No problems noted. Father No problems noted. Mother No problems noted. Grandfather No problems noted. Social History Smoking Status: Never smoker Family History Grandfather Diabetes mellitus Grandmother Paraplegia Grandmother Pre-diabetes Brother No problems noted. Father No problems noted. Mother No problems noted. Grandfather No problems noted. Social History Smoking Status: Never smoker Exam Initial Vital Signs Initial Vital Signs: Vital Signs Temperature 99.6 F 05/05/18 19:58 Pulse Rate 110 H 05/05/18 19:58 Respiratory Rate 17 05/05/18 19:58 Blood Pressure 128/80 05/05/18 19:58 Pulse Oximetry 99 05/05/18 19:58 GENERAL: Well-appearing, well-nourished and in no acute distress. HEENT: Head atraumatic,EOMI, pupils reactive, CARDIOVASCULAR: Regular rate and rhythm without murmurs, rubs or gallops. RESPIRATORY: Breath sounds equal bilaterally, no wheezes rales or rhonchi. ABDOMEN: Soft, mild periumbilical tenderness no guarding or rebound EXTREMITIES: Normal range of motion, no clubbing or edema. Neurovascularly intact NEUROLOGICAL: Alert and oriented x4.Normal gait and speech. SKIN: Warm, dry, no laceration, no petechiae, no rashes or lesions. Course Orders Ordered: ED Orders 05/05/18 22:55 Complete Blood Count AUTO DIFF Stat Comprehensive Metabolic Panel Stat Lipase Stat Discontinued Medications Sodium Chloride (Normal Saline 0.9%) 1,000 mls @ 1,000 mls/hr IV CONT ALFONSO Last Infusion: 05/06/18 01:07 Dose: 1,000 mls/hr Admin: 05/05/18 23:20 Dose: 1,000 mls/hr Ondansetron HCl (Zofran) 4 mg IV NOW ONE Stop: 05/05/18 23:26 Last Admin: 05/05/18 23:44 Dose: 4 mg Ondansetron HCl (Zofran Odt Prepack) 1 bottle MISC SEEINSTR ONE Stop: 05/06/18 00:59 Last Admin: 05/06/18 01:14 Dose: 1 bottle Pantoprazole Sodium (Protonix) 40 mg IV NOW ONE Stop: 05/05/18 23:26 Last Admin: 05/05/18 23:44 Dose: 40 mg Vital Signs - 8 hr 05/06/18 00:25 Pulse Rate 110 H Respiratory Rate 20 Blood Pressure [Left Arm] 100/50 L Pulse Oximetry 99 MDM - Abdominal Pain Lab Data Attestation: I reviewed the patient's lab results. Result diagrams: 05/05/18 22:55 05/05/18 22:55 Lab Results 05/05/18 05/05/18 Range/Units 22:55 22:55 WBC 6.3 (4.5-11.0) X10^3/uL RBC 4.14 (4.0-5.2) X10^6/uL Hgb 13.7 (12.0-16.0) g/dL Hct 40.6 (36-46) % MCV 98.0 (80-100) fL MCH 33.2 (26-34) PG MCHC 33.9 (30-36) % RDW 13.4 (11.6-14.8) % Plt Count 207 (150-400) X10^3/uL Neut % (Auto) 62.0 (50-75) % Lymph % (Auto) 28.9 (25-40) % [place] % (Auto) 7.5 (3-14) % Eos % (Auto) 1.3 L (2-4) % Baso % (Auto) 0.3 (0-2) % Neut # (Auto) 3900 (4164-4131) /uL Lymph # (Auto) 1800 (5992-4326) /uL [place] # (Auto) 500 (0-900) /uL Eos # (Auto) 100 (0-450) /uL Baso # (Auto) 0 (0-100) /uL Sodium 138 (137-145) mmol/L Potassium 3.7 (3.4-5.1) mmol/L Chloride 102 (98-107) mmol/L Carbon Dioxide 26 (22-32) mmol/L BUN 8 (7-17) mg/dL Creatinine 0.70 (0.52-1.04) mg/dL Estimated GFR > 60.0 (>60) mL/min BUN/Creatinine Ratio 11.4 (6-22) Glucose 100 (70-100) mg/dL Calcium 9.3 (8.4-10.2) mg/dL Total Bilirubin 0.4 (0.2-1.3) mg/dL AST 25 (14-36) IU/L ALT 28 (9-52) IU/L Alkaline Phosphatase 73 (38-126) U/L Total Protein 8.1 (6.3-8.2) g/dL Albumin 4.8 (3.5-5.0) g/dL Globulin 3.3 (1.7-4.1) g/dL Albumin/Globulin Ratio 1.5 (1.0-2.8) Lipase 79 (23-300) U/L [facility] Narrative Medical decision making narrative: Abdomen is reexamined no right lower quadrant tenderness. She has no leukocytosis. At this time I see no need for any imaging. No sign of pancreatitis or appendicitis. She is tolerating oral fluids and feels better after Zofran. Discharge Plan Departure Patient Disposition: Home Clinical Impression: Gastroenteritis Discharge Date/Time: 05/06/18 01:20 Interventions: ED Discharge Assessment Last Done: 05/06/18 01:20 Instructions: DI for Viral Gastroenteritis -- Adult Activity Restrictions/Additional Instructions: *You have been diagnosed with gastroenteritis *What to do: Increase fluid intake as tolerated recommend Gatorade or Gatorade like product *Continue to take medications as directed --> [facility] [place] Zofran 4 mg every 6-8 hours if needed for nausea or vomiting *Follow up with your primary care provider in 2-3 days *Return to ER if you should have unable to tolerate oral fluids, increasing abdominal pain or any new, worsening or concerning symptoms Prescriptions: New ondansetron 4 mg tablet,disintegrating 4 mg PO Q6-8H PRN (Reason: nausea and vomiting) Qty: 10 RF: 0 No Action acetaminophen 325 MG tablet 325 mg PO PRNQty: 0 RF: 0 oxybutynin chloride 5 MG tablet 5 mg PO BIDP Qty: 180 RF: 3 carbamazepine 200 mg tablet 200 mg PO BID Qty: 180 RF: 1 pantoprazole 40 mg tablet,delayed release (DR/EC) 40 mg PO QDAY Qty: 90 RF: 3 sertraline 100 mg tablet 100 mg PO DAILY Qty: 90 RF: 1 trazodone 100 mg tablet 100 mg PO HS Qty: 90 RF: 1 Referrals: Kristin Borden DO [Primary Care Provider] -
[2018-05-05 23:42] LABS: Alanine Aminotransferase 28 IU/L (9-52); Albumin 4.8 g/dL (3.5-5.0); Albumin Globulin Ratio 1.5 (1.0-2.8); Alkaline Phosphatase 73 U/L (38-126); Aspartate Aminotransferase 25 IU/L (14-36); BUN Creatinine Ratio 11.4 (6-22); Bilirubin Total 0.4 mg/dL (0.2-1.3); Blood Urea Nitrogen 8 mg/dL (7-17); Calcium 9.3 mg/dL (8.4-10.2); Carbon Dioxide 26 mmol/L (22-32); Chloride 102 mmol/L (98-107); Estimated Glomerular Filt Rate > 60.0 mL/min (>60); Globulin 3.3 g/dL (1.7-4.1); Glucose 100 mg/dL (70-100); HEMOLYSIS < 15 (0-50); Lipase 79 U/L (23-300); Potassium 3.7 mmol/L (3.4-5.1); Sodium 138 mmol/L (137-145); Total Protein 8.1 g/dL (6.3-8.2)
[2018-05-05] MEDS: ONDANSETRON 4 MG/2 ML INJ IV (23:44)
[2018-05-05] MEDS: PANTOPRAZOLE 40 MG VIAL IV (23:44)
[2018-05-06 00:25] VITALS: BP 100/50; PULSE 110; RESP 20; O2SAT 99
[2018-05-06] MEDS: ONDANSETRON 4 MG ODT PREPACK 1 BOTTLE MISC (01:14)
== END 2018-05-06 01:20 | disposition home or self-care (01) ==
PROVIDERS: Emergency Provider Emergency Medicine; Family Provider Family Medicine; PCP Family Medicine
DX: K52.9 Noninfective gastroenteritis and colitis, unspecified (principal)
CPT/HCPCS: 80053; 83690; 85025; 96361; 96374; 96375; 99283; 99284; C9113; J2405

== ENCOUNTER → 2018-08-30 15:26 | Outpatient (CLI) | payer OTHER, MEDICAID, SELFPAY ==
[2018-08-30 17:12] LABS: Alanine Aminotransferase 23 IU/L (9-52); Albumin 4.9 g/dL (3.5-5.0); Albumin Globulin Ratio 1.6 (1.0-2.8); Alkaline Phosphatase 68 U/L (38-126); Aspartate Aminotransferase 22 IU/L (14-36); Bilirubin Total 0.4 mg/dL (0.2-1.3); Blood Urea Nitrogen 8 mg/dL (7-17); Calcium 9.7 mg/dL (8.4-10.2); Carbon Dioxide 26 mmol/L (22-32); Chloride 102 mmol/L (98-107); Estimated Glomerular Filt Rate > 60.0 mL/min (>60); Glucose 98 mg/dL (70-100); HEMOLYSIS < 15 (0-50); Potassium 3.7 mmol/L (3.4-5.1); Sodium 141 mmol/L (137-145); Total Protein 7.9 g/dL (6.3-8.2)
== END ==
PROVIDERS: PCP Family Medicine; Visit Provider Physician Assistant
DX: R19.7 Diarrhea, unspecified (principal); R10.30 Lower abdominal pain, unspecified
CPT/HCPCS: 36415; 80053; 82784; 83516; 86255

== ENCOUNTER → 2018-11-09 08:48 | Outpatient (CLI) | payer OTHER, MEDICAID, SELFPAY ==
[2018-11-09 09:35] LABS: Hematocrit 40.8 % (36-46); Hemoglobin 13.8 g/dL (12.0-16.0); Mean Corpuscular HGB Conc 33.8 % (30-36); Mean Corpuscular Hemoglobin 32.6 PG (26-34); Mean Corpuscular Volume 96.5 fL (80-100); Platelet Count 207 X10^3/uL (150-400); Red Blood Cell Count 4.23 X10^6/uL (4.0-5.2); Red Cell Distribution Width 12.8 % (11.6-14.8); White Blood Cell Count 4.9 X10^3/uL (4.5-11.0)
[2018-11-09 10:28] LABS: Rheumatoid Factor < 8.6 IU/mL (<12.0)
[2018-11-09 10:31] LABS: TSH w/ Reflex to FT4 1.03 uIU/mL (0.47-4.68)
[2018-11-09 10:39] LABS: Neutrophils Absolute Manual 3528 /uL (3000-5900); Total Cells Counted 100
[2018-11-09 10:40] LABS: RBC Morphology Normal Morphology
[2018-11-12 22:20] LABS: ANA Screen, IFA NEGATIVE (NEGATIVE)
== END ==
PROVIDERS: PCP Family Medicine; Visit Provider Family Medicine
DX: M25.50 Pain in unspecified joint (principal)
CPT/HCPCS: 36415; 84443; 85025; 86038; 86430

== ENCOUNTER → 2019-10-04 15:57 | Outpatient (CLI) | payer OTHER, MEDICAID, SELFPAY ==
[2019-10-04 18:21] LABS: Add Manual Diff / Slide Review NO; Basophils Absolute Auto 0 /uL (0-100); Basophils Percent Auto 0.5 % (0-2); Eosinophils Absolute Auto 100 /uL (0-450); Eosinophils Percent Auto 1.9 % (2-4); Hematocrit 37.3 % (36-46); Hemoglobin 12.7 g/dL (12.0-16.0); Lymphocytes Absolute Auto 1400 /uL (1100-4500); Lymphocytes Percent Auto 23.6 % (25-40); Mean Corpuscular HGB Conc 34.1 % (30-36); Mean Corpuscular Hemoglobin 32.1 PG (26-34); Mean Corpuscular Volume 94.2 fL (80-100); Monocytes Absolute Auto 500 /uL (0-900); Neutrophils Absolute Auto 3800 /uL (1500-7000); Platelet Count 257 X10^3/uL (150-400); Red Blood Cell Count 3.96 X10^6/uL (4.0-5.2); Red Cell Distribution Width 12.7 % (11.6-14.8); White Blood Cell Count 5.8 X10^3/uL (4.5-11.0)
[2019-10-04 18:38] LABS: Alanine Aminotransferase 17 IU/L (<35); Albumin 4.5 g/dL (3.5-5.0); Albumin Globulin Ratio 1.6 (1.0-2.8); Alkaline Phosphatase 76 U/L (38-126); Amylase 50 U/L (30-110); Aspartate Aminotransferase 25 IU/L (14-36); BUN Creatinine Ratio 9.5 (6-22); Bilirubin Total 0.3 mg/dL (0.2-1.3); Blood Urea Nitrogen 7 mg/dL (7-17); Calcium 9.3 mg/dL (8.4-10.2); Carbon Dioxide 28 mmol/L (22-32); Chloride 101 mmol/L (98-107); Estimated Glomerular Filt Rate > 60.0 mL/min (>60); Globulin 2.9 g/dL (1.7-4.1); Glucose 100 mg/dL (70-100); HEMOLYSIS < 15 (0-50); Lipase 83 U/L (23-300); Potassium 4.2 mmol/L (3.4-5.1); Sodium 136 mmol/L (137-145); Total Protein 7.4 g/dL (6.3-8.2)
[2019-10-04 19:03] LABS: TSH w/ Reflex to FT4 1.86 uIU/mL (0.47-4.68)
== END ==
PROVIDERS: PCP Family Medicine; Referring Provider Family Medicine; Visit Provider Family Medicine
DX: R14.0 Abdominal distension (gaseous) (principal)
CPT/HCPCS: 36415; 80053; 82150; 83690; 84443; 85025

== ENCOUNTER 2019-12-24 10:30 | Outpatient (RCR) | payer OTHER, MEDICAID, SELFPAY ==
--- NOTE | 2019-04-24 16:44 | PT.OIE ---
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) Past Medical History (Last Updated 03/05/19 @ 09:35 by Kristin Borden DO) Abnormal Pap smear of cervix (Resolved) Anemia (Resolved 2003) Chicken pox (Resolved ~1987) Choledocholithiasis (Resolved) CTS (carpal tunnel syndrome) (Chronic 2007) Cyst of ovary (Inactive 06/02/15) Frequent UTI (Chronic) Gallstone pancreatitis (Resolved) Hereditary spastic paraplegia (Acute) Kidney stones (Resolved 2004) Miscarriage (Resolved) Ovarian cyst (Chronic) Seizures (Chronic) Past Surgical History (Last Reviewed 03/05/19 @ 09:34 by Kristin Borden DO) History of cholecystectomy (Resolved) History of D&C (Resolved) History of ERCP (Resolved 01/2016) Visit Care Team Role Provider Type Kristin Borden DO Attending Provider Physician Primary Care Provider Referring Provider Specialty: Family Practice Address: [address] [place] [address], [facility] Email: [email or web address] Physical Therapy Initial Evaluation PT-OP-A Visit Information Start: 04/24/19 09:34 Freq: Status: Active Protocol: Document 04/24/19 09:45 DCW (Rec: 04/24/19 16:44 DCW [id number]) Out-Patient Physical Therapy Visit Information Visit Information Visit Type Initial Evaluation Visit Start Time 09:45 Visit Stop Time 10:30 Total Visit Minutes 45 Visit Number 1 Number of CORPORATE INVESTIGATOR Visits 0 Evaluation Information Evaluation Date 04/24/19 PT-OP-B Current Condition Start: 04/24/19 09:34 Freq: Status: Active Protocol: Document 04/24/19 09:45 DCW (Rec: 04/24/19 16:44 DCW [id number]) Current Condition History of Current Condition Current Complaints General stiffness, decreased flexibility History of Current Condition Pt is a 43 year old female presenting with a recent diagnosis of Hereditary Spastic Paraplegia. Pt notes she has notices that it has recently been a little more visible, and she has noticed some increased difficulty in doing some thing. Noticed she has felt some difficulty walking and decreased balance, as well as generalized stiffness and increased tone. Treatment Goals Patient/Caregiver Goals Pt is interested in learning how to stretch and keep herself limber to hopefully help slow progress on disease process. Personal Factors Other Personal Factors That May Effect Depression, LBP, Hx Vertigo, Therapy/Recovery Seizure disorder PT-OP-C Subjective Start: 04/24/19 13:33 Freq: Status: Active Protocol: Document 04/24/19 09:45 DCW (Rec: 04/24/19 16:44 DCW [id number]) OP-PT Subjective Patient Comments Patient Comments I know there's no cure for it , but I really need to keep everything stretched out. PT-OP-D Balance Start: 04/24/19 13:33 Freq: Status: Active Protocol: Document 04/24/19 09:45 DCW (Rec: 04/24/19 16:44 DCW [id number]) OP-PT Balance Assessment Standing Balance Static Standing Balance Ability Normal Dynamic Standing Balance Ability Fair Balance Tests Narayanan Balance Test Narayanan Balance Test Score 52/56 Single Limb Standing Single Limb- Right 3 seconds Single Limb- Left 3 seconds Tandem Tandem Standing 5 seconds Narayanan Balance Assessment Evaluation Sitting to Standing Ability Independent w/out Hands Unsupported Stance Safely- 2 minutes Sitting Unsupported, Feet on Floor Safely- 2 minutes Standing to Sitting Ability Safely, Minimal Hand Use Transfer Ability Safely, Minimal Hand Use Unsupported Stance- Eyes Closed Safely, 10 seconds Unsupported Stance- Eyes Open Independent, 1 minute Reaching Forward Standing Safely, 5 inches Pick- Up Object From Floor Independent/Safe Look Behind Shoulder - Standing Shifts Weight Well Turning 360 Degrees Turns Bilateral, < 4 secs Unsupported Stance, Alternating Feet on (I)- 8 Steps in 20 secs Stair Unsupported Tandem Stance Holds Tandem- 30 seconds Unilateral Leg Stance Lifts Leg/Holds > 3 secs Total Score Narayanan Total Score (out of 56 points) 52 Narayanan Impairment Rating 1 to 19% Impaired (Score 45-55 ) Mccurdy Fall Scale Copyright Permission PT-OP-E Functional Tests Start: 04/24/19 13:33 Freq: Status: Active Protocol: Document 04/24/19 09:45 DCW (Rec: 04/24/19 16:44 DCW [id number]) Functional Tests Functional Gait Assessment Score 18/30 Functional Gait Assessment Impairment 40 to <60% Impaired (Score 13- Rating 18) PT-OP-G Mobility & Gait Start: 04/24/19 13:33 Freq: Status: Active Protocol: Document 04/24/19 09:45 DCW (Rec: 04/24/19 16:44 DCW [id number]) OP Gait Assessment Gait Gait Assistance Required: Independent Assistive Devices Assistive Device None Gait Deviations General Gait Pattern Decreased Stride Length, Decreased Feet Clearance, Lateral Trunk Lean,Wide Based Gait Factors Limiting Gait Function Factors Limiting Gait Function Abnormal Tonal Influences,Poor Balance Comments Gait Comments Pt has significant supination during gait, walking on the lateral edge of her shoes. Stair Climbing Evaluation Devices Stair Climbing Assistive Devices None Technique/Endurance Stair Climbing Direction Ascend and Descend Stair Climbing Technique Step Over Step PT-OP-H Neuro Start: 04/24/19 13:33 Freq: Status: Active Protocol: Document 04/24/19 09:45 DCW (Rec: 04/24/19 16:44 DCW [id number]) Sensation Evaluation Gross Sensation Gross Sensation WNL Coordination Evaluation Lower Extremity Tests Right Alternate Heel to Knee; Heel to Toe Test Normal Performance Heel on Figueroa Test Normal Performance Left Alternate Heel to Knee; Heel to Toe Test Normal Performance Heel on Figueroa Test Normal Performance Deep Tendon Reflex & Clonus Assessment Deep Tendon Reflex Right Achilles Deep Tendon Reflex 3+ Normal But Brisk Right Patellar Deep Tendon Reflex 4+ Brisk Left Achilles Deep Tendon Reflex 3+ Normal But Brisk Left Patellar Deep Tendon Reflex 4+ Brisk Ankle Clonus Bilateral Clonus Assessment 3 Beats Muscle Tone Tone Assessment Lower Extremity Muscle Tone Comments Moderate-Severe hypertonicity through bilateral gastrosoleus complex PT-OP-J Posture/Palpation/Skin Start: 04/24/19 13:33 Freq: Status: Active Protocol: Document 04/24/19 09:45 DCW (Rec: 04/24/19 16:44 DCW [id number]) Posture Evaluation Position Standing Evaluation View Lateral Weight Distribution Weight Shifted Anterior Hip Posture (L) Flexed,(R) Flexed Knee Posture (L) Genu Recurvatum,(R) Genu Recurvatum Ankle/Foot Posture (L) Plantarflexed,(R) Plantarflexed Foot Arch (L) High Arch,(R) High Arch PT-OP-K Range of Motion Start: 04/24/19 13:33 Freq: Status: Active Protocol: Document 04/24/19 09:45 DCW (Rec: 04/24/19 16:44 DCW [id number]) Hip Goniometric Range of Motion Hip Right Passive Internal Rotation 5 External Rotation 48 Left Passive Testing Position Supine Internal Rotation 8 External Rotation 52 Hip ROM Limitations Hip ROM Limitations Muscle Tone Knee Goniometric Range of Motion Knee Left Patient Position Supine Flexion Active (degrees) 121 Hyper-Extension Active 6 Right Patient Position Supine Flexion Active (degrees) 122 Hyper-Extension Active 6 Ankle and Foot Goniometric Range of Motion Ankle and Foot Right Active Dorsiflexion with Knee Flexed 3 Plantarflexion 65 Inversion 40 Eversion 32 Left Active Dorsiflexion with Knee Flexed 5 Plantarflexion 65 Inversion 44 Eversion 35 Ankle and Foot ROM Limitations ROM Limitations Soft Tissue Tightness, Contracture,Muscle Tone PT-OP-L Special Tests Start: 04/24/19 13:33 Freq: Status: Active Protocol: Document 04/24/19 09:45 DCW (Rec: 04/24/19 16:44 DCW [id number]) Special Tests Hip Special Tests Straight Leg Raise Test Results Hamstring tightness at 53? bilaterally PT-OP-M Strength Start: 04/24/19 13:33 Freq: Status: Active Protocol: Document 04/24/19 09:45 DCW (Rec: 04/24/19 16:44 DCW [id number]) Hip Strength Hip Manual Muscle Testing Right Flexion (L2) 4 Good Abduction 4+ Good+ Adduction 4+ Good+ External Rotation 4 Good Internal Rotation 4 Good Left Flexion (L2) 4- Good- Abduction 4+ Good+ Adduction 4+ Good+ External Rotation 4 Good Internal Rotation 4 Good Knee Strength Knee Manual Muscle Testing Right Flexion (S2) 4+ Good+ Extension (L3) 4 Good Left Flexion (S2) 4+ Good+ Extension (L3) 4 Good Ankle/Foot Strength Ankle and Foot Manual Muscle Testing Right Dorsiflexion (L4) 4 Good Plantarflexion (S1) 4 Good Left Dorsiflexion (L4) 4- Good- Plantarflexion (S1) 4 Good PT-OP-Q Treatments Start: 04/24/19 13:33 Freq: Status: Active Protocol: Document 04/24/19 09:45 DCW (Rec: 04/24/19 16:44 DCW [id number]) Therapeutic Exercises Standing Exercises 1 Standing Exercise Name Runner's stretch Side bilateral PT-OP-T Assessment and Plan Start: 04/24/19 09:34 Freq: Status: Active Protocol: Document 04/24/19 09:45 DCW (Rec: 04/24/19 16:44 DCW [id number]) Physical Therapy Assessment Rehab Potential Rehabilitation Potential Fair Evaluation Complexity Number of Personal Factors/Comorbidities 3 or More Number of Body Systems Impaired 4 or More Clinical Presentation at Evaluation Evolving Impairments Impairments Balance,Gait,Posture,ROM,Soft Tissue Mobility,Strength,Tone Other Concerns Fall Risk Yes, per score on FGA Goals Three Impairment Pt ambulates with excessive supination Mcfp Goal (LTG) Pt to ambulate in a proper heel to gait pattern with a neutral forefoot 50% of the time without prompting LTG Duration 07/17/19 Two Impairment Pt stands with hyperextension and forward trunk lean Financial Services Education Consultant Goal (LTG) Pt to improve ankle dorsiflexion to 10? in order to allow her to stand straight upright without needing to hyperextend knees. LTG Duration 07/17/19 One Impairment Pt does not have an appropriate home exercise program Short Term Goal (STG) Pt to be independent and compliant with an appropriate HEP STG Duration 06/05/19 Assessment Summary Assessment Pt presents with increased tone, decreased ROM, impaired gait, and balance disturbances consistent with her diagnosis of Hereditary Spastic Paraplegia. Pt's postural dysfunction appears to be caused by her hypertonic gastrosoleus, resulting in an ankle that is difficult to get to neutral dorsiflexion, causing hyperextension in her knees and a forward trunk lean to maintain upright posture. Pt also ambulates with severe supination, walking only on the outer edge of her shoes, as well as increased hip sway and a wide ABDIEL during gait. Due to the progressive nature of this disorder, pt will be best served with education on increasing ROM and flexibility as much as possible, as well as training for balance, transfers, gait, and use of assistive devices as her symptoms progress. Physical Therapy Plan Frequency and Duration Frequency of Treatment 2x/Week Duration of Treatment 12 weeks Plan of Care Start Date 04/24/19 Plan of Care End Date 07/17/19 Therapeutic Interventions Therapeutic Interventions Aquatic Therapy,Balance Training,Coordination Training ,Gait Training,Home Exercise Program,Manual Therapy, Neuromuscular Re-education, Patient/Caregiver Education, Self-Care/Home Management,Soft Tissue Mobilization, Therapeutic Activities, Therapeutic Exercises Modalities Cold Pack/Ice Massage,Electric Stimulation,Hot Packs, Ultrasound Next Visit Focus/Plan Next Note Type Treatment Note Next Visit Plan Stretching/Flexibility training, STM, Gait training
--- NOTE | 2019-04-24 16:45 | PT.OPPOC ---
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) Visit Care Team Role Provider Type Kristin Borden DO Attending Provider Physician Primary Care Provider Referring Provider Specialty: Family Practice Address: [address] [place] [address], [id number] Email: [email or web address] Plan Of Care PT-OP-T Assessment and Plan Start: 04/24/19 09:34 Freq: Status: Active Protocol: Document 04/24/19 09:45 DCW (Rec: 04/24/19 16:44 DCW [id number]) Physical Therapy Assessment Rehab Potential Rehabilitation Potential Fair Evaluation Complexity Number of Personal Factors/Comorbidities 3 or More Number of Body Systems Impaired 4 or More Clinical Presentation at Evaluation Evolving Impairments Impairments Balance,Gait,Posture,ROM,Soft Tissue Mobility,Strength,Tone Other Concerns Fall Risk Yes, per score on FGA Goals Three Impairment Pt ambulates with excessive supination Pre Sales Network Engineer Goal (LTG) Pt to ambulate in a proper heel to gait pattern with a neutral forefoot 50% of the time without prompting LTG Duration 07/17/19 Two Impairment Pt stands with hyperextension and forward trunk lean Snf Goal (LTG) Pt to improve ankle dorsiflexion to 10? in order to allow her to stand straight upright without needing to hyperextend knees. LTG Duration 07/17/19 One Impairment Pt does not have an appropriate home exercise program Short Term Goal (STG) Pt to be independent and compliant with an appropriate HEP STG Duration 06/05/19 Assessment Summary Assessment Pt presents with increased tone, decreased ROM, impaired gait, and balance disturbances consistent with her diagnosis of Hereditary Spastic Paraplegia. Pt's postural dysfunction appears to be caused by her hypertonic gastrosoleus, resulting in an ankle that is difficult to get to neutral dorsiflexion, causing hyperextension in her knees and a forward trunk lean to maintain upright posture. Pt also ambulates with severe supination, walking only on the outer edge of her shoes, as well as increased hip sway and a wide ABDIEL during gait. Due to the progressive nature of this disorder, pt will be best served with education on increasing ROM and flexibility as much as possible, as well as training for balance, transfers, gait, and use of assistive devices as her symptoms progress. Physical Therapy Plan Frequency and Duration Frequency of Treatment 2x/Week Duration of Treatment 12 weeks Plan of Care Start Date 04/24/19 Plan of Care End Date 07/17/19 Therapeutic Interventions Therapeutic Interventions Aquatic Therapy,Balance Training,Coordination Training ,Gait Training,Home Exercise Program,Manual Therapy, Neuromuscular Re-education, Patient/Caregiver Education, Self-Care/Home Management,Soft Tissue Mobilization, Therapeutic Activities, Therapeutic Exercises Modalities Cold Pack/Ice Massage,Electric Stimulation,Hot Packs, Ultrasound Next Visit Focus/Plan Next Note Type Treatment Note Next Visit Plan Stretching/Flexibility training, STM, Gait training Plan of Care Dates Plan of Care Start Date 04/24/19 Plan of Care End Date 07/17/19 Electronically Signed by: Andrew Hollis, PT 04/24/19 1010 Please Sign and Return: I have reviewed this Plan of Care and certify that the skilled therapy services above are required to meet the patient?s needs. Physician Signature Date Printed Name and Credentials Clinical Instructor Signature Printed Name and Credentials
--- NOTE | 2019-04-26 09:49 | PT.OTN ---
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) Stiffness of unspecified hip, not elsewhere classified (04/26/19) Stiffness of unspecified ankle, not elsewhere classified (04/26/19) Other abnormalities of gait and mobility (04/26/19) Abnormal posture (04/26/19) Physical Therapy Treatment Note PT-OP-A Visit Information Start: 04/24/19 09:34 Freq: Status: Active Protocol: Document 04/26/19 09:04 KS (Rec: 04/26/19 10:19 KS [email or web address]) Out-Patient Physical Therapy Visit Information Visit Information Visit Type Treatment Note Visit Start Time 09:04 Visit Stop Time 09:49 Total Visit Minutes 45 Visit Number 2 Number of SUPERVISOR SOLDER MAKING Visits 1 PT-OP-B Current Condition Start: 04/24/19 09:34 Freq: Status: Active Protocol: Document 04/24/19 09:45 DCW (Rec: 04/24/19 16:44 DCW [id number]) Current Condition History of Current Condition Current Complaints General stiffness, decreased flexibility History of Current Condition Pt is a 43 year old female presenting with a recent diagnosis of Hereditary Spastic Paraplegia. Pt notes she has notices that it has recently been a little more visible, and she has noticed some increased difficulty in doing some thing. Noticed she has felt some difficulty walking and decreased balance, as well as generalized stiffness and increased tone. Treatment Goals Patient/Caregiver Goals Pt is interested in learning how to stretch and keep herself limber to hopefully help slow progress on disease process. Personal Factors Other Personal Factors That May Effect Depression, LBP, Hx Vertigo, Therapy/Recovery Seizure disorder PT-OP-C Subjective Start: 04/24/19 13:33 Freq: Status: Active Protocol: Document 04/26/19 09:04 KS (Rec: 04/26/19 10:19 KS [email or web address]) OP-PT Subjective Patient Comments Patient Comments Pt reports that she has been stretching more at home. PT-OP-D Balance Start: 04/24/19 13:33 Freq: Status: Active Protocol: Document 04/24/19 09:45 DCW (Rec: 04/24/19 16:44 DCW [id number]) OP-PT Balance Assessment Standing Balance Static Standing Balance Ability Normal Dynamic Standing Balance Ability Fair Balance Tests Narayanan Balance Test Narayanan Balance Test Score 52/56 Single Limb Standing Single Limb- Right 3 seconds Single Limb- Left 3 seconds Tandem Tandem Standing 5 seconds Narayanan Balance Assessment Evaluation Sitting to Standing Ability Independent w/out Hands Unsupported Stance Safely- 2 minutes Sitting Unsupported, Feet on Floor Safely- 2 minutes Standing to Sitting Ability Safely, Minimal Hand Use Transfer Ability Safely, Minimal Hand Use Unsupported Stance- Eyes Closed Safely, 10 seconds Unsupported Stance- Eyes Open Independent, 1 minute Reaching Forward Standing Safely, 5 inches Pick- Up Object From Floor Independent/Safe Look Behind Shoulder - Standing Shifts Weight Well Turning 360 Degrees Turns Bilateral, < 4 secs Unsupported Stance, Alternating Feet on (I)- 8 Steps in 20 secs Stair Unsupported Tandem Stance Holds Tandem- 30 seconds Unilateral Leg Stance Lifts Leg/Holds > 3 secs Total Score Narayanan Total Score (out of 56 points) 52 Narayanan Impairment Rating 1 to 19% Impaired (Score 45-55 ) Mccurdy Fall Scale Copyright Permission PT-OP-E Functional Tests Start: 04/24/19 13:33 Freq: Status: Active Protocol: Document 04/24/19 09:45 DCW (Rec: 04/24/19 16:44 DCW [id number]) Functional Tests Functional Gait Assessment Score 18/30 Functional Gait Assessment Impairment 40 to <60% Impaired (Score 13- Rating 18) PT-OP-G Mobility & Gait Start: 04/24/19 13:33 Freq: Status: Active Protocol: Document 04/24/19 09:45 DCW (Rec: 04/24/19 16:44 DCW [id number]) OP Gait Assessment Gait Gait Assistance Required: Independent Assistive Devices Assistive Device None Gait Deviations General Gait Pattern Decreased Stride Length, Decreased Feet Clearance, Lateral Trunk Lean,Wide Based Gait Factors Limiting Gait Function Factors Limiting Gait Function Abnormal Tonal Influences,Poor Balance Comments Gait Comments Pt has significant supination during gait, walking on the lateral edge of her shoes. Stair Climbing Evaluation Devices Stair Climbing Assistive Devices None Technique/Endurance Stair Climbing Direction Ascend and Descend Stair Climbing Technique Step Over Step PT-OP-H Neuro Start: 04/24/19 13:33 Freq: Status: Active Protocol: Document 04/24/19 09:45 DCW (Rec: 04/24/19 16:44 DCW [id number]) Sensation Evaluation Gross Sensation Gross Sensation WNL Coordination Evaluation Lower Extremity Tests Right Alternate Heel to Knee; Heel to Toe Test Normal Performance Heel on Figueroa Test Normal Performance Left Alternate Heel to Knee; Heel to Toe Test Normal Performance Heel on Figueroa Test Normal Performance Deep Tendon Reflex & Clonus Assessment Deep Tendon Reflex Right Achilles Deep Tendon Reflex 3+ Normal But Brisk Right Patellar Deep Tendon Reflex 4+ Brisk Left Achilles Deep Tendon Reflex 3+ Normal But Brisk Left Patellar Deep Tendon Reflex 4+ Brisk Ankle Clonus Bilateral Clonus Assessment 3 Beats Muscle Tone Tone Assessment Lower Extremity Muscle Tone Comments Moderate-Severe hypertonicity through bilateral gastrosoleus complex PT-OP-J Posture/Palpation/Skin Start: 04/24/19 13:33 Freq: Status: Active Protocol: Document 04/24/19 09:45 DCW (Rec: 04/24/19 16:44 DCW [id number]) Posture Evaluation Position Standing Evaluation View Lateral Weight Distribution Weight Shifted Anterior Hip Posture (L) Flexed,(R) Flexed Knee Posture (L) Genu Recurvatum,(R) Genu Recurvatum Ankle/Foot Posture (L) Plantarflexed,(R) Plantarflexed Foot Arch (L) High Arch,(R) High Arch PT-OP-K Range of Motion Start: 04/24/19 13:33 Freq: Status: Active Protocol: Document 04/24/19 09:45 DCW (Rec: 04/24/19 16:44 DCW [id number]) Hip Goniometric Range of Motion Hip Right Passive Internal Rotation 5 External Rotation 48 Left Passive Testing Position Supine Internal Rotation 8 External Rotation 52 Hip ROM Limitations Hip ROM Limitations Muscle Tone Knee Goniometric Range of Motion Knee Left Patient Position Supine Flexion Active (degrees) 121 Hyper-Extension Active 6 Right Patient Position Supine Flexion Active (degrees) 122 Hyper-Extension Active 6 Ankle and Foot Goniometric Range of Motion Ankle and Foot Right Active Dorsiflexion with Knee Flexed 3 Plantarflexion 65 Inversion 40 Eversion 32 Left Active Dorsiflexion with Knee Flexed 5 Plantarflexion 65 Inversion 44 Eversion 35 Ankle and Foot ROM Limitations ROM Limitations Soft Tissue Tightness, Contracture,Muscle Tone PT-OP-L Special Tests Start: 04/24/19 13:33 Freq: Status: Active Protocol: Document 04/24/19 09:45 DCW (Rec: 04/24/19 16:44 DCW [id number]) Special Tests Hip Special Tests Straight Leg Raise Test Results Hamstring tightness at 53? bilaterally PT-OP-M Strength Start: 04/24/19 13:33 Freq: Status: Active Protocol: Document 04/24/19 09:45 DCW (Rec: 04/24/19 16:44 DCW [id number]) Hip Strength Hip Manual Muscle Testing Right Flexion (L2) 4 Good Abduction 4+ Good+ Adduction 4+ Good+ External Rotation 4 Good Internal Rotation 4 Good Left Flexion (L2) 4- Good- Abduction 4+ Good+ Adduction 4+ Good+ External Rotation 4 Good Internal Rotation 4 Good Knee Strength Knee Manual Muscle Testing Right Flexion (S2) 4+ Good+ Extension (L3) 4 Good Left Flexion (S2) 4+ Good+ Extension (L3) 4 Good Ankle/Foot Strength Ankle and Foot Manual Muscle Testing Right Dorsiflexion (L4) 4 Good Plantarflexion (S1) 4 Good Left Dorsiflexion (L4) 4- Good- Plantarflexion (S1) 4 Good PT-OP-Q Treatments Start: 04/24/19 13:33 Freq: Status: Active Protocol: Document 04/26/19 09:04 KS (Rec: 04/26/19 10:19 KS [email or web address]) Cardio Equipment Recumbent Elliptical ([employer]) Duration (Minutes) 7 Resistance 5 Therapeutic Exercises Supine Exercises 6 Supine Exercise Name Figure 4 stretch Side bilateral Reps/Minutes 2x30s 5 Supine Exercise Name Hamstring stretch Side bilateral Reps/Minutes 3x30s 4 Supine Exercise Name Lower Trunk Rotation Side bilateral Reps/Minutes 10 each 2 Supine Exercise Name Bridges Side bilateral Reps/Minutes 1x10 Comments cues for pelvic tilt/ TA activation Sidelying Exercises 2 Sidelying Exercise Name Upper trunk rotation Side bilateral Reps/Minutes 10 each 1 Sidelying Exercise Name Clamshells Side bilateral Reps/Minutes 10 each Other Exercises 1 Other Exercise Name Jewels pose Comments walk hands side to side PT-OP-T Assessment and Plan Start: 04/24/19 09:34 Freq: Status: Active Protocol: Document 04/26/19 09:04 KS (Rec: 04/26/19 10:19 KS [email or web address]) Physical Therapy Assessment Rehab Potential Rehabilitation Potential Fair Evaluation Complexity Number of Personal Factors/Comorbidities 3 or More Number of Body Systems Impaired 4 or More Clinical Presentation at Evaluation Evolving Impairments Impairments Balance,Gait,Posture,ROM,Soft Tissue Mobility,Strength,Tone Other Concerns Fall Risk Yes, per score on FGA Goals Three Impairment Pt ambulates with excessive supination Fci Goal (LTG) Pt to ambulate in a proper heel to gait pattern with a neutral forefoot 50% of the time without prompting LTG Duration 07/17/19 Two Impairment Pt stands with hyperextension and forward trunk lean Protection Specialist Goal (LTG) Pt to improve ankle dorsiflexion to 10? in order to allow her to stand straight upright without needing to hyperextend knees. LTG Duration 07/17/19 One Impairment Pt does not have an appropriate home exercise program Short Term Goal (STG) Pt to be independent and compliant with an appropriate HEP STG Duration 06/05/19 Assessment Summary Assessment Pt was able to tolerate all spinal mobility and stretching exercises well today as well as glute strengthening exercises. Discussed importance of stretching 2x per day as tolerated to help maintain ROM. Pt will benefit from continued stretching, balance, and strengthening exercises in an efoort to help slow natural progression of pts disorder. Physical Therapy Plan Frequency and Duration Frequency of Treatment 2x/Week Duration of Treatment 12 weeks Plan of Care Start Date 04/24/19 Plan of Care End Date 07/17/19 Therapeutic Interventions Therapeutic Interventions Aquatic Therapy,Balance Training,Coordination Training ,Gait Training,Home Exercise Program,Manual Therapy, Neuromuscular Re-education, Patient/Caregiver Education, Self-Care/Home Management,Soft Tissue Mobilization, Therapeutic Activities, Therapeutic Exercises Modalities Cold Pack/Ice Massage,Electric Stimulation,Hot Packs, Ultrasound Next Visit Focus/Plan Next Note Type Treatment Note Next Visit Plan Stretching/Flexibility training, STM, Gait training
--- NOTE | 2019-05-01 17:11 | PT.OTN ---
Current Diagnoses Hereditary spastic paraplegia (05/01/19) Stiffness of unspecified hip, not elsewhere classified (05/01/19) Stiffness of unspecified ankle, not elsewhere classified (05/01/19) Other abnormalities of gait and mobility (05/01/19) Abnormal posture (05/01/19) Physical Therapy Treatment Note PT-OP-A Visit Information Start: 04/24/19 09:34 Freq: Status: Active Protocol: Document 05/01/19 16:45 SP (Rec: 05/01/19 16:55 SP [email or web address]) Out-Patient Physical Therapy Visit Information Visit Information Visit Type Treatment Note Visit Start Time 03:20 Visit Stop Time 03:59 Total Visit Minutes 39 Visit Number 3 Number of MANUFACTURING ASSISTANT Visits 0 PT-OP-B Current Condition Start: 04/24/19 09:34 Freq: Status: Active Protocol: Document 04/24/19 09:45 DCW (Rec: 04/24/19 16:44 DCW [id number]) Current Condition History of Current Condition Current Complaints General stiffness, decreased flexibility History of Current Condition Pt is a 43 year old female presenting with a recent diagnosis of Hereditary Spastic Paraplegia. Pt notes she has notices that it has recently been a little more visible, and she has noticed some increased difficulty in doing some thing. Noticed she has felt some difficulty walking and decreased balance, as well as generalized stiffness and increased tone. Treatment Goals Patient/Caregiver Goals Pt is interested in learning how to stretch and keep herself limber to hopefully help slow progress on disease process. Personal Factors Other Personal Factors That May Effect Depression, LBP, Hx Vertigo, Therapy/Recovery Seizure disorder PT-OP-C Subjective Start: 04/24/19 13:33 Freq: Status: Active Protocol: Document 05/01/19 16:45 SP (Rec: 05/01/19 16:55 SP [id number]) OP-PT Subjective Patient Comments Patient Comments Pt reports she has been completing her stretches daily . She walked 4 miles yesterday and felt ok but feels like her right side is more difficult to move. PT-OP-D Balance Start: 04/24/19 13:33 Freq: Status: Active Protocol: Document 04/24/19 09:45 DCW (Rec: 04/24/19 16:44 DCW [id number]) OP-PT Balance Assessment Standing Balance Static Standing Balance Ability Normal Dynamic Standing Balance Ability Fair Balance Tests Narayanan Balance Test Narayanan Balance Test Score 52/56 Single Limb Standing Single Limb- Right 3 seconds Single Limb- Left 3 seconds Tandem Tandem Standing 5 seconds Narayanan Balance Assessment Evaluation Sitting to Standing Ability Independent w/out Hands Unsupported Stance Safely- 2 minutes Sitting Unsupported, Feet on Floor Safely- 2 minutes Standing to Sitting Ability Safely, Minimal Hand Use Transfer Ability Safely, Minimal Hand Use Unsupported Stance- Eyes Closed Safely, 10 seconds Unsupported Stance- Eyes Open Independent, 1 minute Reaching Forward Standing Safely, 5 inches Pick- Up Object From Floor Independent/Safe Look Behind Shoulder - Standing Shifts Weight Well Turning 360 Degrees Turns Bilateral, < 4 secs Unsupported Stance, Alternating Feet on (I)- 8 Steps in 20 secs Stair Unsupported Tandem Stance Holds Tandem- 30 seconds Unilateral Leg Stance Lifts Leg/Holds > 3 secs Total Score Naraynaan Total Score (out of 56 points) 52 Narayanan Impairment Rating 1 to 19% Impaired (Score 45-55 ) Mccurdy Fall Scale Copyright Permission PT-OP-E Functional Tests Start: 04/24/19 13:33 Freq: Status: Active Protocol: Document 04/24/19 09:45 DCW (Rec: 04/24/19 16:44 DCW [id number]) Functional Tests Functional Gait Assessment Score 18/30 Functional Gait Assessment Impairment 40 to <60% Impaired (Score 13- Rating 18) PT-OP-G Mobility & Gait Start: 04/24/19 13:33 Freq: Status: Active Protocol: Document 04/24/19 09:45 DCW (Rec: 04/24/19 16:44 DCW [id number]) OP Gait Assessment Gait Gait Assistance Required: Independent Assistive Devices Assistive Device None Gait Deviations General Gait Pattern Decreased Stride Length, Decreased Feet Clearance, Lateral Trunk Lean,Wide Based Gait Factors Limiting Gait Function Factors Limiting Gait Function Abnormal Tonal Influences,Poor Balance Comments Gait Comments Pt has significant supination during gait, walking on the lateral edge of her shoes. Stair Climbing Evaluation Devices Stair Climbing Assistive Devices None Technique/Endurance Stair Climbing Direction Ascend and Descend Stair Climbing Technique Step Over Step PT-OP-H Neuro Start: 04/24/19 13:33 Freq: Status: Active Protocol: Document 04/24/19 09:45 DCW (Rec: 04/24/19 16:44 DCW [id number]) Sensation Evaluation Gross Sensation Gross Sensation WNL Coordination Evaluation Lower Extremity Tests Right Alternate Heel to Knee; Heel to Toe Test Normal Performance Heel on Figueroa Test Normal Performance Left Alternate Heel to Knee; Heel to Toe Test Normal Performance Heel on Figueroa Test Normal Performance Deep Tendon Reflex & Clonus Assessment Deep Tendon Reflex Right Achilles Deep Tendon Reflex 3+ Normal But Brisk Right Patellar Deep Tendon Reflex 4+ Brisk Left Achilles Deep Tendon Reflex 3+ Normal But Brisk Left Patellar Deep Tendon Reflex 4+ Brisk Ankle Clonus Bilateral Clonus Assessment 3 Beats Muscle Tone Tone Assessment Lower Extremity Muscle Tone Comments Moderate-Severe hypertonicity through bilateral gastrosoleus complex PT-OP-J Posture/Palpation/Skin Start: 04/24/19 13:33 Freq: Status: Active Protocol: Document 04/24/19 09:45 DCW (Rec: 04/24/19 16:44 DCW [id number]) Posture Evaluation Position Standing Evaluation View Lateral Weight Distribution Weight Shifted Anterior Hip Posture (L) Flexed,(R) Flexed Knee Posture (L) Genu Recurvatum,(R) Genu Recurvatum Ankle/Foot Posture (L) Plantarflexed,(R) Plantarflexed Foot Arch (L) High Arch,(R) High Arch PT-OP-K Range of Motion Start: 04/24/19 13:33 Freq: Status: Active Protocol: Document 04/24/19 09:45 DCW (Rec: 04/24/19 16:44 DCW [id number]) Hip Goniometric Range of Motion Hip Right Passive Internal Rotation 5 External Rotation 48 Left Passive Testing Position Supine Internal Rotation 8 External Rotation 52 Hip ROM Limitations Hip ROM Limitations Muscle Tone Knee Goniometric Range of Motion Knee Left Patient Position Supine Flexion Active (degrees) 121 Hyper-Extension Active 6 Right Patient Position Supine Flexion Active (degrees) 122 Hyper-Extension Active 6 Ankle and Foot Goniometric Range of Motion Ankle and Foot Right Active Dorsiflexion with Knee Flexed 3 Plantarflexion 65 Inversion 40 Eversion 32 Left Active Dorsiflexion with Knee Flexed 5 Plantarflexion 65 Inversion 44 Eversion 35 Ankle and Foot ROM Limitations ROM Limitations Soft Tissue Tightness, Contracture,Muscle Tone PT-OP-L Special Tests Start: 04/24/19 13:33 Freq: Status: Active Protocol: Document 04/24/19 09:45 DCW (Rec: 04/24/19 16:44 DCW [id number]) Special Tests Hip Special Tests Straight Leg Raise Test Results Hamstring tightness at 53? bilaterally PT-OP-M Strength Start: 04/24/19 13:33 Freq: Status: Active Protocol: Document 04/24/19 09:45 DCW (Rec: 04/24/19 16:44 DCW [id number]) Hip Strength Hip Manual Muscle Testing Right Flexion (L2) 4 Good Abduction 4+ Good+ Adduction 4+ Good+ External Rotation 4 Good Internal Rotation 4 Good Left Flexion (L2) 4- Good- Abduction 4+ Good+ Adduction 4+ Good+ External Rotation 4 Good Internal Rotation 4 Good Knee Strength Knee Manual Muscle Testing Right Flexion (S2) 4+ Good+ Extension (L3) 4 Good Left Flexion (S2) 4+ Good+ Extension (L3) 4 Good Ankle/Foot Strength Ankle and Foot Manual Muscle Testing Right Dorsiflexion (L4) 4 Good Plantarflexion (S1) 4 Good Left Dorsiflexion (L4) 4- Good- Plantarflexion (S1) 4 Good PT-OP-Q Treatments Start: 04/24/19 13:33 Freq: Status: Active Protocol: Document 05/01/19 16:45 SP (Rec: 05/01/19 16:55 SP [email or web address]) Cardio Equipment Recumbent Elliptical ([employer]) Duration (Minutes) 6 Resistance 5 Gym Equipment Shuttle Balance weightshift Comments 1. feet apart 2. feet staggered (UE support) Therapeutic Exercises Supine Exercises clam shells Side bilateral Resistance L1 Reps/Minutes 30 open book Side bilateral Reps/Minutes 10 6 Supine Exercise Name Figure 4 stretch Side bilateral Reps/Minutes 30s 5 Supine Exercise Name Hamstring stretch Side bilateral Equipment Used towel Reps/Minutes 30s 4 Supine Exercise Name Lower Trunk Rotation Side bilateral Reps/Minutes 10 each 2 Supine Exercise Name Bridges Side bilateral Reps/Minutes 2x10 Comments cues to slow down and hold at top Prone Exercises paul pose Side bilateral Standing Exercises pelvic tilts Comments on wall PT-OP-T Assessment and Plan Start: 04/24/19 09:34 Freq: Status: Active Protocol: Document 05/01/19 16:45 SP (Rec: 03/10/20 16:55 SP [email or web address]) Physical Therapy Assessment Goals Three Impairment Pt ambulates with excessive supination Extrusion Process Operator Goal (LTG) Pt to ambulate in a proper heel to gait pattern with a neutral forefoot 50% of the time without prompting LTG Duration 07/17/19 Two Impairment Pt stands with hyperextension and forward trunk lean Extrusion Process Operator Goal (LTG) Pt to improve ankle dorsiflexion to 10? in order to allow her to stand straight upright without needing to hyperextend knees. LTG Duration 07/17/19 One Impairment Pt does not have an appropriate home exercise program Short Term Goal (STG) Pt to be independent and compliant with an appropriate HEP STG Duration 06/05/19 Assessment Summary Assessment Pt was able to tolerate all stretches without increased back pain. She required cueing for pelvic tilt and bridge exercises. Pt required UE support during balance activities. Physical Therapy Plan Frequency and Duration Frequency of Treatment 2x/Week Duration of Treatment 12 weeks Plan of Care Start Date 04/24/19 Plan of Care End Date 07/17/19 Next Visit Focus/Plan Next Note Type Treatment Note Next Visit Plan stretching, gait training, PNF , balance.
--- NOTE | 2019-05-04 13:02 | PT.OTN ---
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) Stiffness of unspecified hip, not elsewhere classified (05/04/19) Stiffness of unspecified ankle, not elsewhere classified (05/04/19) Other abnormalities of gait and mobility (05/04/19) Abnormal posture (05/04/19) Physical Therapy Treatment Note PT-OP-A Visit Information Start: 04/24/19 09:34 Freq: Status: Active Protocol: Document 05/04/19 12:12 SP (Rec: 05/04/19 15:50 SP [id number]) Out-Patient Physical Therapy Visit Information Visit Information Visit Type Treatment Note Visit Start Time 12:15 Visit Stop Time 13:02 Total Visit Minutes 47 Visit Number 4 Number of ASSISTANT PROJECT ENGINEER Visits 3 PT-OP-B Current Condition Start: 04/24/19 09:34 Freq: Status: Active Protocol: Document 04/24/19 09:45 DCW (Rec: 04/24/19 16:44 DCW [id number]) Current Condition History of Current Condition Current Complaints General stiffness, decreased flexibility History of Current Condition Pt is a 43 year old female presenting with a recent diagnosis of Hereditary Spastic Paraplegia. Pt notes she has notices that it has recently been a little more visible, and she has noticed some increased difficulty in doing some thing. Noticed she has felt some difficulty walking and decreased balance, as well as generalized stiffness and increased tone. Treatment Goals Patient/Caregiver Goals Pt is interested in learning how to stretch and keep herself limber to hopefully help slow progress on disease process. Personal Factors Other Personal Factors That May Effect Depression, LBP, Hx Vertigo, Therapy/Recovery Seizure disorder PT-OP-C Subjective Start: 04/24/19 13:33 Freq: Status: Active Protocol: Document 05/04/19 12:12 SP (Rec: 05/04/19 15:50 SP [id number]) OP-PT Subjective Patient Comments Patient Comments Pt reported compliant with cat camel exercises and would like to work on the other exercises given few treatments ago due to not sure if doing correctly on side and brought a copy for her chart to view. No pain or concerns to report pre PT. PT-OP-D Balance Start: 04/24/19 13:33 Freq: Status: Active Protocol: Document 04/24/19 09:45 DCW (Rec: 04/24/19 16:44 DCW [id number]) OP-PT Balance Assessment Standing Balance Static Standing Balance Ability Normal Dynamic Standing Balance Ability Fair Balance Tests Narayanan Balance Test Narayanan Balance Test Score 52/56 Single Limb Standing Single Limb- Right 3 seconds Single Limb- Left 3 seconds Tandem Tandem Standing 5 seconds Narayanan Balance Assessment Evaluation Sitting to Standing Ability Independent w/out Hands Unsupported Stance Safely- 2 minutes Sitting Unsupported, Feet on Floor Safely- 2 minutes Standing to Sitting Ability Safely, Minimal Hand Use Transfer Ability Safely, Minimal Hand Use Unsupported Stance- Eyes Closed Safely, 10 seconds Unsupported Stance- Eyes Open Independent, 1 minute Reaching Forward Standing Safely, 5 inches Pick- Up Object From Floor Independent/Safe Look Behind Shoulder - Standing Shifts Weight Well Turning 360 Degrees Turns Bilateral, < 4 secs Unsupported Stance, Alternating Feet on (I)- 8 Steps in 20 secs Stair Unsupported Tandem Stance Holds Tandem- 30 seconds Unilateral Leg Stance Lifts Leg/Holds > 3 secs Total Score Narayanan Total Score (out of 56 points) 52 Narayanan Impairment Rating 1 to 19% Impaired (Score 45-55 ) Mccurdy Fall Scale Copyright Permission PT-OP-E Functional Tests Start: 04/24/19 13:33 Freq: Status: Active Protocol: Document 04/24/19 09:45 DCW (Rec: 04/24/19 16:44 [facility] [id number]) Functional Tests Functional Gait Assessment Score 18/30 Functional Gait Assessment Impairment 40 to <60% Impaired (Score 13- Rating 18) PT-OP-G Mobility & Gait Start: 04/24/19 13:33 Freq: Status: Active Protocol: Document 04/24/19 09:45 DCW (Rec: 04/24/19 16:44 [facility] [id number]) OP Gait Assessment Gait Gait Assistance Required: Independent Assistive Devices Assistive Device None Gait Deviations General Gait Pattern Decreased Stride Length, Decreased Feet Clearance, Lateral Trunk Lean,Wide Based Gait Factors Limiting Gait Function Factors Limiting Gait Function Abnormal Tonal Influences,Poor Balance Comments Gait Comments Pt has significant supination during gait, walking on the lateral edge of her shoes. Stair Climbing Evaluation Devices Stair Climbing Assistive Devices None Technique/Endurance Stair Climbing Direction Ascend and Descend Stair Climbing Technique Step Over Step PT-OP-H Neuro Start: 04/24/19 13:33 Freq: Status: Active Protocol: Document 04/24/19 09:45 DCW (Rec: 04/24/19 16:44 DCW [id number]) Sensation Evaluation Gross Sensation Gross Sensation WNL Coordination Evaluation Lower Extremity Tests Right Alternate Heel to Knee; Heel to Toe Test Normal Performance Heel on Figueroa Test Normal Performance Left Alternate Heel to Knee; Heel to Toe Test Normal Performance Heel on Figueroa Test Normal Performance Deep Tendon Reflex & Clonus Assessment Deep Tendon Reflex Right Achilles Deep Tendon Reflex 3+ Normal But Brisk Right Patellar Deep Tendon Reflex 4+ Brisk Left Achilles Deep Tendon Reflex 3+ Normal But Brisk Left Patellar Deep Tendon Reflex 4+ Brisk Ankle Clonus Bilateral Clonus Assessment 3 Beats Muscle Tone Tone Assessment Lower Extremity Muscle Tone Comments Moderate-Severe hypertonicity through bilateral gastrosoleus complex PT-OP-J Posture/Palpation/Skin Start: 04/24/19 13:33 Freq: Status: Active Protocol: Document 04/24/19 09:45 DCW (Rec: 04/24/19 16:44 DCW [id number]) Posture Evaluation Position Standing Evaluation View Lateral Weight Distribution Weight Shifted Anterior Hip Posture (L) Flexed,(R) Flexed Knee Posture (L) Genu Recurvatum,(R) Genu Recurvatum Ankle/Foot Posture (L) Plantarflexed,(R) Plantarflexed Foot Arch (L) High Arch,(R) High Arch PT-OP-K Range of Motion Start: 04/24/19 13:33 Freq: Status: Active Protocol: Document 04/24/19 09:45 DCW (Rec: 04/24/19 16:44 DCW [id number]) Hip Goniometric Range of Motion Hip Right Passive Internal Rotation 5 External Rotation 48 Left Passive Testing Position Supine Internal Rotation 8 External Rotation 52 Hip ROM Limitations Hip ROM Limitations Muscle Tone Knee Goniometric Range of Motion Knee Left Patient Position Supine Flexion Active (degrees) 121 Hyper-Extension Active 6 Right Patient Position Supine Flexion Active (degrees) 122 Hyper-Extension Active 6 Ankle and Foot Goniometric Range of Motion Ankle and Foot Right Active Dorsiflexion with Knee Flexed 3 Plantarflexion 65 Inversion 40 Eversion 32 Left Active Dorsiflexion with Knee Flexed 5 Plantarflexion 65 Inversion 44 Eversion 35 Ankle and Foot ROM Limitations ROM Limitations Soft Tissue Tightness, Contracture,Muscle Tone PT-OP-L Special Tests Start: 04/24/19 13:33 Freq: Status: Active Protocol: Document 04/24/19 09:45 DCW (Rec: 04/24/19 16:44 DCW [id number]) Special Tests Hip Special Tests Straight Leg Raise Test Results Hamstring tightness at 53? bilaterally PT-OP-M Strength Start: 04/24/19 13:33 Freq: Status: Active Protocol: Document 04/24/19 09:45 DCW (Rec: 04/24/19 16:44 DCW [id number]) Hip Strength Hip Manual Muscle Testing Right Flexion (L2) 4 Good Abduction 4+ Good+ Adduction 4+ Good+ External Rotation 4 Good Internal Rotation 4 Good Left Flexion (L2) 4- Good- Abduction 4+ Good+ Adduction 4+ Good+ External Rotation 4 Good Internal Rotation 4 Good Knee Strength Knee Manual Muscle Testing Right Flexion (S2) 4+ Good+ Extension (L3) 4 Good Left Flexion (S2) 4+ Good+ Extension (L3) 4 Good Ankle/Foot Strength Ankle and Foot Manual Muscle Testing Right Dorsiflexion (L4) 4 Good Plantarflexion (S1) 4 Good Left Dorsiflexion (L4) 4- Good- Plantarflexion (S1) 4 Good PT-OP-Q Treatments Start: 04/24/19 13:33 Freq: Status: Active Protocol: Document 05/04/19 12:12 SP (Rec: 05/04/19 15:50 SP [id number]) Cardio Equipment Recumbent Elliptical (Biodex) Duration (Minutes) 6 Resistance 5 Therapeutic Exercises Supine Exercises 4 Supine Exercise Name Lower Trunk Rotation Side bilateral Reps/Minutes 10 each Sidelying Exercises 2 Sidelying Exercise Name Upper trunk rotation Side bilateral Reps/Minutes 10 each Standing Exercises resisted press outs Standing Exercise Name anchored mid door press outs at navel height Side bilateral Resistance Tb #1 out to mod tension distance Reps/Minutes 2x10 Comments PPT, scap stab (add HEP) resisted side stepping Standing Exercise Name anchored mid door, hold at navel height Side bilateral Resistance TB #1 Reps/Minutes 3 side steps x5 reps R and L x2 sets Comments cued soft knee and scap stab (add HEP) lateral band walk Resistance Tb #2 loop Reps/Minutes 10 ft x2 laps R and L Comments PPT, soft knee ( add HEP) sit to stands Standing Exercise Name eccentric squats Resistance 14# DB Equipment Used 18 chair Reps/Minutes x10 Comments cued hip hinge (add HEP) Neuro Re-Education Treatment Balance Activities tandem Details add HEP Equipment back to wall, chair front Comments 1.tandem: head turns, EC Floor 2. blue cushion feet together, stagger head turns PT-OP-T Assessment and Plan Start: 04/24/19 09:34 Freq: Status: Active Protocol: Document 05/04/19 12:12 SP (Rec: 05/04/19 15:50 SP [id number]) Physical Therapy Assessment Goals Three Impairment Pt ambulates with excessive supination Fpc Goal (LTG) Pt to ambulate in a proper heel to gait pattern with a neutral forefoot 50% of the time without prompting LTG Duration 07/17/19 Two Impairment Pt stands with hyperextension and forward trunk lean Fpc Goal (LTG) Pt to improve ankle dorsiflexion to 10? in order to allow her to stand straight upright without needing to hyperextend knees. LTG Duration 07/17/19 One Impairment Pt does not have an appropriate home exercise program Short Term Goal (STG) Pt to be independent and compliant with an appropriate HEP STG Duration 06/05/19 Assessment Summary Assessment Pt responded well to added standing LE strengthening and balance exercises, no pain. Pt reported does feel tiring but in a good way. Provided cuing for proper form incluidng soft knee bend to reduce hyper knee ext finds herself doing. Only reviewed LTR stretching today, suggested to perform rest of stretching at home later with verbal agreement and felt can perform on own but would like to review all next tx for recall and fform. Physical Therapy Plan Frequency and Duration Frequency of Treatment 2x/Week Duration of Treatment 12 weeks Plan of Care Start Date 04/24/19 Plan of Care End Date 07/17/19 Therapeutic Interventions Therapeutic Interventions Aquatic Therapy,Balance Training,Coordination Training ,Gait Training,Home Exercise Program,Manual Therapy, Neuromuscular Re-education, Patient/Caregiver Education, Self-Care/Home Management,Soft Tissue Mobilization, Therapeutic Activities, Therapeutic Exercises Modalities Cold Pack/Ice Massage,Electric Stimulation,Hot Packs, Ultrasound Next Visit Focus/Plan Next Note Type Treatment Note Next Visit Plan Assess response to last tx: see assessment review ex and stretching performed last tx. Continue per PT POC: stretching, gait training, PNF , balance.
--- NOTE | 2019-05-08 09:00 | PT.OTN ---
Current Diagnoses Hereditary spastic paraplegia (05/08/19) Stiffness of unspecified hip, not elsewhere classified (05/08/19) Stiffness of unspecified ankle, not elsewhere classified (05/08/19) Other abnormalities of gait and mobility (05/08/19) Abnormal posture (05/08/19) Physical Therapy Treatment Note PT-OP-A Visit Information Start: 04/24/19 09:34 Freq: Status: Active Protocol: Document 05/08/19 08:20 SP (Rec: 05/08/19 09:02 SP [id number]) Out-Patient Physical Therapy Visit Information Visit Information Visit Type Treatment Note Visit Start Time 08:20 Visit Stop Time 09:00 Total Visit Minutes 40 Visit Number 6 Number of SECURITY ORDERLY Visits 4 PT-OP-B Current Condition Start: 04/24/19 09:34 Freq: Status: Active Protocol: Document 04/24/19 09:45 DCW (Rec: 04/24/19 16:44 DCW [id number]) Current Condition History of Current Condition Current Complaints General stiffness, decreased flexibility History of Current Condition Pt is a 43 year old female presenting with a recent diagnosis of Hereditary Spastic Paraplegia. Pt notes she has notices that it has recently been a little more visible, and she has noticed some increased difficulty in doing some thing. Noticed she has felt some difficulty walking and decreased balance, as well as generalized stiffness and increased tone. Treatment Goals Patient/Caregiver Goals Pt is interested in learning how to stretch and keep herself limber to hopefully help slow progress on disease process. Personal Factors Other Personal Factors That May Effect Depression, LBP, Hx Vertigo, Therapy/Recovery Seizure disorder PT-OP-C Subjective Start: 04/24/19 13:33 Freq: Status: Active Protocol: Document 05/08/19 08:20 SP (Rec: 05/08/19 09:02 SP [id number]) OP-PT Subjective Patient Comments Patient Comments Pt reported her R knee had discomfort so used knee brace yesterday and seems to be doing better today. LB and calves are stiff today. Pt stated didnt try balance activities given last tx but is doing strengthening/ stretching that already knows. PT-OP-D Balance Start: 04/24/19 13:33 Freq: Status: Active Protocol: Document 04/24/19 09:45 DCW (Rec: 04/24/19 16:44 DCW [id number]) OP-PT Balance Assessment Standing Balance Static Standing Balance Ability Normal Dynamic Standing Balance Ability Fair Balance Tests Narayanan Balance Test Narayanan Balance Test Score 52/56 Single Limb Standing Single Limb- Right 3 seconds Single Limb- Left 3 seconds Tandem Tandem Standing 5 seconds Narayanan Balance Assessment Evaluation Sitting to Standing Ability Independent w/out Hands Unsupported Stance Safely- 2 minutes Sitting Unsupported, Feet on Floor Safely- 2 minutes Standing to Sitting Ability Safely, Minimal Hand Use Transfer Ability Safely, Minimal Hand Use Unsupported Stance- Eyes Closed Safely, 10 seconds Unsupported Stance- Eyes Open Independent, 1 minute Reaching Forward Standing Safely, 5 inches Pick- Up Object From Floor Independent/Safe Look Behind Shoulder - Standing Shifts Weight Well Turning 360 Degrees Turns Bilateral, < 4 secs Unsupported Stance, Alternating Feet on (I)- 8 Steps in 20 secs Stair Unsupported Tandem Stance Holds Tandem- 30 seconds Unilateral Leg Stance Lifts Leg/Holds > 3 secs Total Score Narayanan Total Score (out of 56 points) 52 Narayanan Impairment Rating 1 to 19% Impaired (Score 45-55 ) Mccurdy Fall Scale Copyright Permission PT-OP-E Functional Tests Start: 04/24/19 13:33 Freq: Status: Active Protocol: Document 04/24/19 09:45 DC (Rec: 04/24/19 16:44 [facility] [id number]) Functional Tests Functional Gait Assessment Score 18/30 Functional Gait Assessment Impairment 40 to <60% Impaired (Score 13- Rating 18) PT-OP-G Mobility & Gait Start: 04/24/19 13:33 Freq: Status: Active Protocol: Document 04/24/19 09:45 DC (Rec: 04/24/19 16:44 [facility] [id number]) OP Gait Assessment Gait Gait Assistance Required: Independent Assistive Devices Assistive Device None Gait Deviations General Gait Pattern Decreased Stride Length, Decreased Feet Clearance, Lateral Trunk Lean,Wide Based Gait Factors Limiting Gait Function Factors Limiting Gait Function Abnormal Tonal Influences,Poor Balance Comments Gait Comments Pt has significant supination during gait, walking on the lateral edge of her shoes. Stair Climbing Evaluation Devices Stair Climbing Assistive Devices None Technique/Endurance Stair Climbing Direction Ascend and Descend Stair Climbing Technique Step Over Step PT-OP-H Neuro Start: 04/24/19 13:33 Freq: Status: Active Protocol: Document 04/24/19 09:45 DCW (Rec: 04/24/19 16:44 DCW [id number]) Sensation Evaluation Gross Sensation Gross Sensation WNL Coordination Evaluation Lower Extremity Tests Right Alternate Heel to Knee; Heel to Toe Test Normal Performance Heel on Figueroa Test Normal Performance Left Alternate Heel to Knee; Heel to Toe Test Normal Performance Heel on Figueroa Test Normal Performance Deep Tendon Reflex & Clonus Assessment Deep Tendon Reflex Right Achilles Deep Tendon Reflex 3+ Normal But Brisk Right Patellar Deep Tendon Reflex 4+ Brisk Left Achilles Deep Tendon Reflex 3+ Normal But Brisk Left Patellar Deep Tendon Reflex 4+ Brisk Ankle Clonus Bilateral Clonus Assessment 3 Beats Muscle Tone Tone Assessment Lower Extremity Muscle Tone Comments Moderate-Severe hypertonicity through bilateral gastrosoleus complex PT-OP-J Posture/Palpation/Skin Start: 04/24/19 13:33 Freq: Status: Active Protocol: Document 04/24/19 09:45 DCW (Rec: 04/24/19 16:44 DCW [id number]) Posture Evaluation Position Standing Evaluation View Lateral Weight Distribution Weight Shifted Anterior Hip Posture (L) Flexed,(R) Flexed Knee Posture (L) Genu Recurvatum,(R) Genu Recurvatum Ankle/Foot Posture (L) Plantarflexed,(R) Plantarflexed Foot Arch (L) High Arch,(R) High Arch PT-OP-K Range of Motion Start: 04/24/19 13:33 Freq: Status: Active Protocol: Document 04/24/19 09:45 DCW (Rec: 04/24/19 16:44 DCW [id number]) Hip Goniometric Range of Motion Hip Right Passive Internal Rotation 5 External Rotation 48 Left Passive Testing Position Supine Internal Rotation 8 External Rotation 52 Hip ROM Limitations Hip ROM Limitations Muscle Tone Knee Goniometric Range of Motion Knee Left Patient Position Supine Flexion Active (degrees) 121 Hyper-Extension Active 6 Right Patient Position Supine Flexion Active (degrees) 122 Hyper-Extension Active 6 Ankle and Foot Goniometric Range of Motion Ankle and Foot Right Active Dorsiflexion with Knee Flexed 3 Plantarflexion 65 Inversion 40 Eversion 32 Left Active Dorsiflexion with Knee Flexed 5 Plantarflexion 65 Inversion 44 Eversion 35 Ankle and Foot ROM Limitations ROM Limitations Soft Tissue Tightness, Contracture,Muscle Tone PT-OP-L Special Tests Start: 04/24/19 13:33 Freq: Status: Active Protocol: Document 04/24/19 09:45 DCW (Rec: 04/24/19 16:44 DCW [id number]) Special Tests Hip Special Tests Straight Leg Raise Test Results Hamstring tightness at 53? bilaterally PT-OP-M Strength Start: 04/24/19 13:33 Freq: Status: Active Protocol: Document 04/24/19 09:45 DCW (Rec: 04/24/19 16:44 DCW [id number]) Hip Strength Hip Manual Muscle Testing Right Flexion (L2) 4 Good Abduction 4+ Good+ Adduction 4+ Good+ External Rotation 4 Good Internal Rotation 4 Good Left Flexion (L2) 4- Good- Abduction 4+ Good+ Adduction 4+ Good+ External Rotation 4 Good Internal Rotation 4 Good Knee Strength Knee Manual Muscle Testing Right Flexion (S2) 4+ Good+ Extension (L3) 4 Good Left Flexion (S2) 4+ Good+ Extension (L3) 4 Good Ankle/Foot Strength Ankle and Foot Manual Muscle Testing Right Dorsiflexion (L4) 4 Good Plantarflexion (S1) 4 Good Left Dorsiflexion (L4) 4- Good- Plantarflexion (S1) 4 Good PT-OP-Q Treatments Start: 04/24/19 13:33 Freq: Status: Active Protocol: Document 05/08/19 08:20 SP (Rec: 05/08/19 09:02 SP [id number]) Cardio Equipment Recumbent Bicycle Duration (Minutes) 5 Resistance 4 Seat Position 2 Other responded well, good hip loosening warm up reported Therapeutic Exercises Supine Exercises clam shells Side bilateral Resistance L1 Reps/Minutes 30 open book Side bilateral Reps/Minutes 10 5 Supine Exercise Name Hamstring stretch Side bilateral Equipment Used towel/strap Reps/Minutes 30s 4 Supine Exercise Name Lower Trunk Rotation Side bilateral Reps/Minutes 10 each 2 Supine Exercise Name Bridges Side bilateral Reps/Minutes 2x10 Comments cues to slow down and hold at top Standing Exercises calf stretch Standing Exercise Name runner stretch at wall Side bilateral Reps/Minutes 30 x2 resisted press outs Standing Exercise Name anchored mid door press outs at navel height Side bilateral Resistance (Tb #1 press out HEP) orange sport cord today Reps/Minutes 2x10 Comments PPT, scap stab (HEP review) resisted side stepping Standing Exercise Name anchored mid door, hold at navel height Side bilateral Resistance (TB #1 HEP) orange sport cord today Reps/Minutes 3 side steps x5 reps R and L x2 sets Comments cued soft knee and scap stab (add HEP) sit to stands Standing Exercise Name eccentric squats Resistance 14# DB Equipment Used 18 chair Reps/Minutes x10 Comments cued hip hinge (HEP review) pelvic tilts Reps/Minutes 10 sec hold x10 Comments on wall HEP review Neuro Re-Education Treatment Balance Activities tandem Details review HEP Equipment back to wall, chair front Comments 1.tandem: head turns, EC Floor 2. blue cushion feet together, stagger head turns PT-OP-T Assessment and Plan Start: 04/24/19 09:34 Freq: Status: Active Protocol: Document 05/08/19 08:20 SP (Rec: 05/08/19 09:02 SP [id number]) Physical Therapy Assessment Goals Three Impairment Pt ambulates with excessive supination Chcf Goal (LTG) Pt to ambulate in a proper heel to gait pattern with a neutral forefoot 50% of the time without prompting LTG Duration 07/17/19 Two Impairment Pt stands with hyperextension and forward trunk lean Senior Energy Market Coordinator Goal (LTG) Pt to improve ankle dorsiflexion to 10? in order to allow her to stand straight upright without needing to hyperextend knees. LTG Duration 07/17/19 One Impairment Pt does not have an appropriate home exercise program Short Term Goal (STG) Pt to be independent and compliant with an appropriate HEP STG Duration 06/05/19 Assessment Summary Assessment HEP review, cued required for proper LB alignment and form during standing exercises to decrease LB and neck recruitment. Good from with supine and standing stretching . Physical Therapy Plan Frequency and Duration Frequency of Treatment 2x/Week Duration of Treatment 12 weeks Plan of Care Start Date 04/24/19 Plan of Care End Date 07/17/19 Therapeutic Interventions Therapeutic Interventions Aquatic Therapy,Balance Training,Coordination Training ,Gait Training,Home Exercise Program,Manual Therapy, Neuromuscular Re-education, Patient/Caregiver Education, Self-Care/Home Management,Soft Tissue Mobilization, Therapeutic Activities, Therapeutic Exercises Modalities Cold Pack/Ice Massage,Electric Stimulation,Hot Packs, Ultrasound Next Visit Focus/Plan Next Note Type Treatment Note Next Visit Plan Assess response to last tx: Continue to review HEP for proper form and recall. Next tx progress into gait progression. Continue per PT POC: stretching, gait training, PNF , balance.
--- NOTE | 2019-05-10 09:52 | PT.OTN ---
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) Stiffness of unspecified hip, not elsewhere classified (05/10/19) Stiffness of unspecified ankle, not elsewhere classified (05/10/19) Other abnormalities of gait and mobility (05/10/19) Abnormal posture (05/10/19) Physical Therapy Treatment Note PT-OP-A Visit Information Start: 04/24/19 09:34 Freq: Status: Active Protocol: Document 05/10/19 09:07 (Rec: 05/10/19 09:52 [id number]) Out-Patient Physical Therapy Visit Information Visit Information Visit Type Treatment Note Visit Start Time 09:05 Visit Stop Time 09:46 Total Visit Minutes 41 Visit Number 7 Number of SOIL CHEMIST Visits 0 PT-OP-B Current Condition Start: 04/24/19 09:34 Freq: Status: Active Protocol: Document 04/24/19 09:45 DCW (Rec: 04/24/19 16:44 DCW [id number]) Current Condition History of Current Condition Current Complaints General stiffness, decreased flexibility History of Current Condition Pt is a 43 year old female presenting with a recent diagnosis of Hereditary Spastic Paraplegia. Pt notes she has notices that it has recently been a little more visible, and she has noticed some increased difficulty in doing some thing. Noticed she has felt some difficulty walking and decreased balance, as well as generalized stiffness and increased tone. Treatment Goals Patient/Caregiver Goals Pt is interested in learning how to stretch and keep herself limber to hopefully help slow progress on disease process. Personal Factors Other Personal Factors That May Effect Depression, LBP, Hx Vertigo, Therapy/Recovery Seizure disorder PT-OP-C Subjective Start: 04/24/19 13:33 Freq: Status: Active Protocol: Document 05/10/19 09:07 (Rec: 05/10/19 09:52 [id number]) OP-PT Subjective Patient Comments Patient Comments Im doing pretty good i tend to feel less stiff once i move around and do my exercises. PT-OP-D Balance Start: 04/24/19 13:33 Freq: Status: Active Protocol: Document 04/24/19 09:45 DCW (Rec: 04/24/19 16:44 DCW [id number]) OP-PT Balance Assessment Standing Balance Static Standing Balance Ability Normal Dynamic Standing Balance Ability Fair Balance Tests Narayanan Balance Test Narayanan Balance Test Score 52/56 Single Limb Standing Single Limb- Right 3 seconds Single Limb- Left 3 seconds Tandem Tandem Standing 5 seconds Narayanan Balance Assessment Evaluation Sitting to Standing Ability Independent w/out Hands Unsupported Stance Safely- 2 minutes Sitting Unsupported, Feet on Floor Safely- 2 minutes Standing to Sitting Ability Safely, Minimal Hand Use Transfer Ability Safely, Minimal Hand Use Unsupported Stance- Eyes Closed Safely, 10 seconds Unsupported Stance- Eyes Open Independent, 1 minute Reaching Forward Standing Safely, 5 inches Pick- Up Object From Floor Independent/Safe Look Behind Shoulder - Standing Shifts Weight Well Turning 360 Degrees Turns Bilateral, < 4 secs Unsupported Stance, Alternating Feet on (I)- 8 Steps in 20 secs Stair Unsupported Tandem Stance Holds Tandem- 30 seconds Unilateral Leg Stance Lifts Leg/Holds > 3 secs Total Score Narayanan Total Score (out of 56 points) 52 Narayanan Impairment Rating 1 to 19% Impaired (Score 45-55 ) Mccurdy Fall Scale Copyright Permission PT-OP-E Functional Tests Start: 04/24/19 13:33 Freq: Status: Active Protocol: Document 04/24/19 09:45 DCW (Rec: 04/24/19 16:44 DCW [id number]) Functional Tests Functional Gait Assessment Score 18/30 Functional Gait Assessment Impairment 40 to <60% Impaired (Score 13- Rating 18) PT-OP-G Mobility & Gait Start: 04/24/19 13:33 Freq: Status: Active Protocol: Document 04/24/19 09:45 DCW (Rec: 04/24/19 16:44 DCW [id number]) OP Gait Assessment Gait Gait Assistance Required: Independent Assistive Devices Assistive Device None Gait Deviations General Gait Pattern Decreased Stride Length, Decreased Feet Clearance, Lateral Trunk Lean,Wide Based Gait Factors Limiting Gait Function Factors Limiting Gait Function Abnormal Tonal Influences,Poor Balance Comments Gait Comments Pt has significant supination during gait, walking on the lateral edge of her shoes. Stair Climbing Evaluation Devices Stair Climbing Assistive Devices None Technique/Endurance Stair Climbing Direction Ascend and Descend Stair Climbing Technique Step Over Step PT-OP-H Neuro Start: 04/24/19 13:33 Freq: Status: Active Protocol: Document 04/24/19 09:45 DCW (Rec: 04/24/19 16:44 DCW [id number]) Sensation Evaluation Gross Sensation Gross Sensation WNL Coordination Evaluation Lower Extremity Tests Right Alternate Heel to Knee; Heel to Toe Test Normal Performance Heel on Figueroa Test Normal Performance Left Alternate Heel to Knee; Heel to Toe Test Normal Performance Heel on Figueroa Test Normal Performance Deep Tendon Reflex & Clonus Assessment Deep Tendon Reflex Right Achilles Deep Tendon Reflex 3+ Normal But Brisk Right Patellar Deep Tendon Reflex 4+ Brisk Left Achilles Deep Tendon Reflex 3+ Normal But Brisk Left Patellar Deep Tendon Reflex 4+ Brisk Ankle Clonus Bilateral Clonus Assessment 3 Beats Muscle Tone Tone Assessment Lower Extremity Muscle Tone Comments Moderate-Severe hypertonicity through bilateral gastrosoleus complex PT-OP-J Posture/Palpation/Skin Start: 04/24/19 13:33 Freq: Status: Active Protocol: Document 04/24/19 09:45 DCW (Rec: 04/24/19 16:44 DCW [id number]) Posture Evaluation Position Standing Evaluation View Lateral Weight Distribution Weight Shifted Anterior Hip Posture (L) Flexed,(R) Flexed Knee Posture (L) Genu Recurvatum,(R) Genu Recurvatum Ankle/Foot Posture (L) Plantarflexed,(R) Plantarflexed Foot Arch (L) High Arch,(R) High Arch PT-OP-K Range of Motion Start: 04/24/19 13:33 Freq: Status: Active Protocol: Document 04/24/19 09:45 DCW (Rec: 04/24/19 16:44 DCW [id number]) Hip Goniometric Range of Motion Hip Right Passive Internal Rotation 5 External Rotation 48 Left Passive Testing Position Supine Internal Rotation 8 External Rotation 52 Hip ROM Limitations Hip ROM Limitations Muscle Tone Knee Goniometric Range of Motion Knee Left Patient Position Supine Flexion Active (degrees) 121 Hyper-Extension Active 6 Right Patient Position Supine Flexion Active (degrees) 122 Hyper-Extension Active 6 Ankle and Foot Goniometric Range of Motion Ankle and Foot Right Active Dorsiflexion with Knee Flexed 3 Plantarflexion 65 Inversion 40 Eversion 32 Left Active Dorsiflexion with Knee Flexed 5 Plantarflexion 65 Inversion 44 Eversion 35 Ankle and Foot ROM Limitations ROM Limitations Soft Tissue Tightness, Contracture,Muscle Tone PT-OP-L Special Tests Start: 04/24/19 13:33 Freq: Status: Active Protocol: Document 04/24/19 09:45 DCW (Rec: 04/24/19 16:44 DCW [id number]) Special Tests Hip Special Tests Straight Leg Raise Test Results Hamstring tightness at 53? bilaterally PT-OP-M Strength Start: 04/24/19 13:33 Freq: Status: Active Protocol: Document 04/24/19 09:45 DCW (Rec: 04/24/19 16:44 DCW [id number]) Hip Strength Hip Manual Muscle Testing Right Flexion (L2) 4 Good Abduction 4+ Good+ Adduction 4+ Good+ External Rotation 4 Good Internal Rotation 4 Good Left Flexion (L2) 4- Good- Abduction 4+ Good+ Adduction 4+ Good+ External Rotation 4 Good Internal Rotation 4 Good Knee Strength Knee Manual Muscle Testing Right Flexion (S2) 4+ Good+ Extension (L3) 4 Good Left Flexion (S2) 4+ Good+ Extension (L3) 4 Good Ankle/Foot Strength Ankle and Foot Manual Muscle Testing Right Dorsiflexion (L4) 4 Good Plantarflexion (S1) 4 Good Left Dorsiflexion (L4) 4- Good- Plantarflexion (S1) 4 Good PT-OP-Q Treatments Start: 04/24/19 13:33 Freq: Status: Active Protocol: Document 05/10/19 09:07 (Rec: 05/10/19 09:52 [id number]) Cardio Equipment Elliptical Duration (Minutes) 5 Resistance 1 Recumbent Stepper (Sci-Fit) Duration (Minutes) 5 Resistance 5 Gym Equipment Shuttle Balance red Details PT provides perturbations Comments knee unlocked. static stance x 5 mins with perturbations. followed by staggered stance weightshift Details ankle rocks with unlocked knees Reps/Duration red Comments 5 mins Neuro Re-Education Treatment Balance Activities balance discs Surface yellow and blue discs Reps/Duration 8 mins Comments semi- squat positions. next to grab bar ankle board Equipment ankle board Reps/Duration 6 mins Comments knee unlocked + ball throw/ catch with PT PT-OP-T Assessment and Plan Start: 04/24/19 09:34 Freq: Status: Active Protocol: Document 05/10/19 09:07 (Rec: 05/10/19 09:52 [id number]) Physical Therapy Assessment Goals Three Impairment Pt ambulates with excessive supination Lap Runner Goal (LTG) Pt to ambulate in a proper heel to gait pattern with a neutral forefoot 50% of the time without prompting LTG Duration 07/17/19 Two Impairment Pt stands with hyperextension and forward trunk lean Lap Runner Goal (LTG) Pt to improve ankle dorsiflexion to 10? in order to allow her to stand straight upright without needing to hyperextend knees. LTG Duration 07/17/19 One Impairment Pt does not have an appropriate home exercise program Short Term Goal (STG) Pt to be independent and compliant with an appropriate HEP STG Duration 06/05/19 Assessment Summary Assessment Tx focused primarily ankle strategy on balance board, balance disc, ankle board. Pt needed cues to avoid knee extension during balancing activities. Pt timoteo tx well. Physical Therapy Plan Next Visit Focus/Plan Next Note Type Treatment Note Next Visit Plan Assess response to last tx: Continue to review HEP for proper form and recall. Next tx progress into gait progression. Continue per PT POC: ankle strategy and static and dynamic balance training stretching, gait training, PNF , balance.
--- NOTE | 2019-05-14 13:05 | PT-OP ANOTE ---
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 Pt confirmed and would like to keep next appt as scheduled on 05/29/19.
--- NOTE | 2019-08-21 11:16 | PT.OTN ---
Current Diagnoses Hereditary spastic paraplegia (08/21/19) Stiffness of unspecified hip, not elsewhere classified (08/21/19) Stiffness of unspecified ankle, not elsewhere classified (08/21/19) Abnormal posture (08/21/19) Physical Therapy Treatment Note PT-OP-A Visit Information Start: 04/24/19 09:34 Freq: Status: Active Protocol: Document 08/21/19 10:31 [facility] (Rec: 08/21/19 11:16 [facility] [id number]) Out-Patient Physical Therapy Visit Information Visit Information Visit Type Treatment Note Visit Start Time 10:31 Visit Stop Time 11:11 Total Visit Minutes 40 Visit Number 8 Number of REHABILITATION SUPERVISOR Visits 0 PT-OP-B Current Condition Start: 04/24/19 09:34 Freq: Status: Active Protocol: Document 04/24/19 09:45 DCW (Rec: 04/24/19 16:44 DCW [id number]) Current Condition History of Current Condition Current Complaints General stiffness, decreased flexibility History of Current Condition Pt is a 43 year old female presenting with a recent diagnosis of Hereditary Spastic Paraplegia. Pt notes she has notices that it has recently been a little more visible, and she has noticed some increased difficulty in doing some thing. Noticed she has felt some difficulty walking and decreased balance, as well as generalized stiffness and increased tone. Treatment Goals Patient/Caregiver Goals Pt is interested in learning how to stretch and keep herself limber to hopefully help slow progress on disease process. Personal Factors Other Personal Factors That May Effect Depression, LBP, Hx Vertigo, Therapy/Recovery Seizure disorder PT-OP-C Subjective Start: 04/24/19 13:33 Freq: Status: Active Protocol: Document 08/21/19 10:31 [facility] (Rec: 08/21/19 11:16 [facility] [id number]) OP-PT Subjective Patient Comments Patient Comments Pt reports doing exercises but wants to go over how to do them PT-OP-D Balance Start: 04/24/19 13:33 Freq: Status: Active Protocol: Document 04/24/19 09:45 DCW (Rec: 04/24/19 16:44 DCW [id number]) OP-PT Balance Assessment Standing Balance Static Standing Balance Ability Normal Dynamic Standing Balance Ability Fair Balance Tests Narayanan Balance Test Narayanan Balance Test Score 52/56 Single Limb Standing Single Limb- Right 3 seconds Single Limb- Left 3 seconds Tandem Tandem Standing 5 seconds Narayanan Balance Assessment Evaluation Sitting to Standing Ability Independent w/out Hands Unsupported Stance Safely- 2 minutes Sitting Unsupported, Feet on Floor Safely- 2 minutes Standing to Sitting Ability Safely, Minimal Hand Use Transfer Ability Safely, Minimal Hand Use Unsupported Stance- Eyes Closed Safely, 10 seconds Unsupported Stance- Eyes Open Independent, 1 minute Reaching Forward Standing Safely, 5 inches Pick- Up Object From Floor Independent/Safe Look Behind Shoulder - Standing Shifts Weight Well Turning 360 Degrees Turns Bilateral, < 4 secs Unsupported Stance, Alternating Feet on (I)- 8 Steps in 20 secs Stair Unsupported Tandem Stance Holds Tandem- 30 seconds Unilateral Leg Stance Lifts Leg/Holds > 3 secs Total Score Narayanan Total Score (out of 56 points) 52 Narayanan Impairment Rating 1 to 19% Impaired (Score 45-55 ) Mccurdy Fall Scale Copyright Permission PT-OP-E Functional Tests Start: 04/24/19 13:33 Freq: Status: Active Protocol: Document 04/24/19 09:45 DCW (Rec: 04/24/19 16:44 DCW [id number]) Functional Tests Functional Gait Assessment Score 18/30 Functional Gait Assessment Impairment 40 to <60% Impaired (Score 13- Rating 18) PT-OP-G Mobility & Gait Start: 04/24/19 13:33 Freq: Status: Active Protocol: Document 04/24/19 09:45 DCW (Rec: 04/24/19 16:44 DCW [id number]) OP Gait Assessment Gait Gait Assistance Required: Independent Assistive Devices Assistive Device None Gait Deviations General Gait Pattern Decreased Stride Length, Decreased Feet Clearance, Lateral Trunk Lean,Wide Based Gait Factors Limiting Gait Function Factors Limiting Gait Function Abnormal Tonal Influences,Poor Balance Comments Gait Comments Pt has significant supination during gait, walking on the lateral edge of her shoes. Stair Climbing Evaluation Devices Stair Climbing Assistive Devices None Technique/Endurance Stair Climbing Direction Ascend and Descend Stair Climbing Technique Step Over Step PT-OP-H Neuro Start: 04/24/19 13:33 Freq: Status: Active Protocol: Document 04/24/19 09:45 DCW (Rec: 04/24/19 16:44 DCW [id number]) Sensation Evaluation Gross Sensation Gross Sensation WNL Coordination Evaluation Lower Extremity Tests Right Alternate Heel to Knee; Heel to Toe Test Normal Performance Heel on Figueroa Test Normal Performance Left Alternate Heel to Knee; Heel to Toe Test Normal Performance Heel on Figueroa Test Normal Performance Deep Tendon Reflex & Clonus Assessment Deep Tendon Reflex Right Achilles Deep Tendon Reflex 3+ Normal But Brisk Right Patellar Deep Tendon Reflex 4+ Brisk Left Achilles Deep Tendon Reflex 3+ Normal But Brisk Left Patellar Deep Tendon Reflex 4+ Brisk Ankle Clonus Bilateral Clonus Assessment 3 Beats Muscle Tone Tone Assessment Lower Extremity Muscle Tone Comments Moderate-Severe hypertonicity through bilateral gastrosoleus complex PT-OP-J Posture/Palpation/Skin Start: 04/24/19 13:33 Freq: Status: Active Protocol: Document 04/24/19 09:45 DCW (Rec: 04/24/19 16:44 DCW [id number]) Posture Evaluation Position Standing Evaluation View Lateral Weight Distribution Weight Shifted Anterior Hip Posture (L) Flexed,(R) Flexed Knee Posture (L) Genu Recurvatum,(R) Genu Recurvatum Ankle/Foot Posture (L) Plantarflexed,(R) Plantarflexed Foot Arch (L) High Arch,(R) High Arch PT-OP-K Range of Motion Start: 04/24/19 13:33 Freq: Status: Active Protocol: Document 08/21/19 10:31 [facility] (Rec: 08/21/19 11:16 [facility] [id number]) Ankle and Foot Goniometric Range of Motion Ankle and Foot Right Active Dorsiflexion with Knee Flexed 10 Dorsiflexion with Knee Extended 10 Left Active Dorsiflexion with Knee Flexed 10 Dorsiflexion with Knee Extended 10 Ankle and Foot ROM Limitations ROM Limitations Soft Tissue Tightness, Contracture,Muscle Tone PT-OP-L Special Tests Start: 04/24/19 13:33 Freq: Status: Active Protocol: Document 04/24/19 09:45 DCW (Rec: 04/24/19 16:44 DCW [id number]) Special Tests Hip Special Tests Straight Leg Raise Test Results Hamstring tightness at 53? bilaterally PT-OP-M Strength Start: 04/24/19 13:33 Freq: Status: Active Protocol: Document 08/21/19 10:31 [facility] (Rec: 08/21/19 11:16 [facility] [id number]) Hip Strength Hip Manual Muscle Testing Right Flexion (L2) 3+ Fair+ Extension (S1) 4 Good Abduction 4 Good External Rotation 3+ Fair+ Internal Rotation 3+ Fair+ Left Flexion (L2) 3+ Fair+ Extension (S1) 4 Good Abduction 4- Good- External Rotation 3+ Fair+ Internal Rotation 3+ Fair+ Comments pain abd Knee Strength Knee Manual Muscle Testing Right Flexion (S2) 4+ Good+ Extension (L3) 4+ Good+ Left Flexion (S2) 4+ Good+ Extension (L3) 4+ Good+ Ankle/Foot Strength Ankle and Foot Manual Muscle Testing Right Dorsiflexion (L4) 4 Good Plantarflexion (S1) 3+ Fair+ Comments 8 calf raisesR Left Dorsiflexion (L4) 4- Good- Plantarflexion (S1) 2+ Poor+ Comments unable to single leg heel raises PT-OP-Q Treatments Start: 04/24/19 13:33 Freq: Status: Active Protocol: Document 08/21/19 10:31 [facility] (Rec: 08/21/19 11:16 [facility] [id number]) Cardio Equipment Recumbent Stepper (Sci-Fit) Duration (Minutes) 5 Resistance 3 Therapeutic Exercises Standing Exercises resisted press outs Standing Exercise Name anchored mid door press outs at navel height Side bilateral Resistance (Tb #1 press out HEP) orange sport cord today Reps/Minutes 8 Comments PPT, scap stab (HEP review) resisted side stepping Standing Exercise Name anchored mid door, hold at navel height Side bilateral Resistance (TB #1 HEP) orange sport cord today Reps/Minutes 3 side steps x5 reps R and L x2 sets Comments cued soft knee and scap stab (add HEP) lateral band walk Resistance Tb #1 loop Reps/Minutes 10 ft laps R and L Comments PPT, soft knee ( add HEP) sit to stands Standing Exercise Name squat Reps/Minutes 8 Other Exercises 1 Other Exercise Name cat/camel Neuro Re-Education Treatment Balance Activities FGA Details PT-OP-T Assessment and Plan Start: 04/24/19 09:34 Freq: Status: Active Protocol: Document 08/21/19 10:31 [facility] (Rec: 08/21/19 11:16 [facility] [id number]) Physical Therapy Assessment Goals balance Impairment FGA Levee Superintendent Goal (LTG) Pt will improve FGA to to dec risk for falls. LTG Duration 10/21/19 Three Impairment Pt ambulates with excessive supination Levee Superintendent Goal (LTG) Pt to ambulate in a proper heel to gait pattern with a neutral forefoot 50% of the time without prompting LTG Duration 10/21/19 Two Impairment Pt stands with hyperextension and forward trunk lean Fdc Goal (LTG) Pt to improve ankle dorsiflexion to 10? in order to allow her to stand straight upright without needing to hyperextend knees. LTG Duration achieved One Impairment Pt does not have an appropriate home exercise program Short Term Goal (STG) Pt to be independent and compliant with an appropriate HEP STG Duration 09/20/19 Fdc Goal (LTG) Pt will have at least 4+/5 LE strength in all planes to allow greater ease of activity LTG Duration 10/21/19 Assessment Summary Assessment Pt has made progress with ankle flexibility, but is demonstrating inc weakness over the 3 months pt was not attending PT d/t clinic closure and COVID concerns. She would beneit from resuming PT to cont to work on her gait, balance, and strength. Physical Therapy Plan Frequency and Duration Frequency of Treatment 2x/Week Duration of Treatment 2 months Plan of Care Start Date 08/21/19 Plan of Care End Date 10/21/19 Therapeutic Interventions Therapeutic Interventions Aquatic Therapy,Balance Training,Coordination Training ,Gait Training,Home Exercise Program,Manual Therapy, Neuromuscular Re-education, Patient/Caregiver Education, Self-Care/Home Management,Soft Tissue Mobilization, Therapeutic Activities, Therapeutic Exercises Modalities Cold Pack/Ice Massage,Electric Stimulation,Hot Packs, Ultrasound Next Visit Focus/Plan Next Note Type Treatment Note Next Visit Plan work on balance and standing dynamic strengthening
--- NOTE | 2019-08-21 11:16 | PT.OPPOC ---
Physical, Occupational & Speech Therapy At [facility] Current Diagnoses Hereditary spastic paraplegia (08/21/19) Stiffness of unspecified hip, not elsewhere classified (08/21/19) Stiffness of unspecified ankle, not elsewhere classified (08/21/19) Abnormal posture (08/21/19) Visit Care Team Role Provider Type Kristin Borden DO Attending Provider Physician Primary Care Provider Referring Provider Specialty: [facility] Address: [address] [place] [address], [address] Email: [email or web address] Plan Of Care PT-OP-T Assessment and Plan Start: 04/24/19 09:34 Freq: Status: Active Protocol: Document 08/21/19 10:31 [facility] (Rec: 08/21/19 11:16 [facility] [id number]) Physical Therapy Assessment Goals balance Impairment FGA Cherry Cutter Goal (LTG) Pt will improve FGA to /30 to dec risk for falls. LTG Duration 10/21/19 Three Impairment Pt ambulates with excessive supination Assisted Goal (LTG) Pt to ambulate in a proper heel to gait pattern with a neutral forefoot 50% of the time without prompting LTG Duration 10/21/19 Two Impairment Pt stands with hyperextension and forward trunk lean Cherry Cutter Goal (LTG) Pt to improve ankle dorsiflexion to 10? in order to allow her to stand straight upright without needing to hyperextend knees. LTG Duration achieved One Impairment Pt does not have an appropriate home exercise program Short Term Goal (STG) Pt to be independent and compliant with an appropriate HEP STG Duration 09/20/19 Assisted Goal (LTG) Pt will have at least 4+/5 LE strength in all planes to allow greater ease of activity LTG Duration 10/21/19 Assessment Summary Assessment Pt has made progress with ankle flexibility, but is demonstrating inc weakness over the 3 months pt was not attending PT d/t clinic closure and COVID concerns. She would beneit from resuming PT to cont to work on her gait, balance, and strength. Physical Therapy Plan Frequency and Duration Frequency of Treatment 2x/Week Duration of Treatment 2 months Plan of Care Start Date 08/21/19 Plan of Care End Date 10/21/19 Therapeutic Interventions Therapeutic Interventions Aquatic Therapy,Balance Training,Coordination Training ,Gait Training,Home Exercise Program,Manual Therapy, Neuromuscular Re-education, Patient/Caregiver Education, Self-Care/Home Management,Soft Tissue Mobilization, Therapeutic Activities, Therapeutic Exercises Modalities Cold Pack/Ice Massage,Electric Stimulation,Hot Packs, Ultrasound Next Visit Focus/Plan Next Note Type Treatment Note Next Visit Plan work on balance and standing dynamic strengthening Plan of Care Dates Plan of Care Start Date 08/21/19 Plan of Care End Date 10/21/19 Electronically Signed by: Amparo Stallworth, PT 08/21/19 9009 Please Sign and Return: I have reviewed this Plan of Care and certify that the skilled therapy services above are required to meet the patient?s needs. Physician Signature Date Printed Name and Credentials Clinical Instructor Signature Printed Name and Credentials
--- NOTE | 2019-08-27 13:45 | PT.OTN ---
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) Stiffness of unspecified hip, not elsewhere classified (08/27/19) Stiffness of unspecified ankle, not elsewhere classified (08/27/19) Abnormal posture (08/27/19) Physical Therapy Treatment Note PT-OP-A Visit Information Start: 04/24/19 09:34 Freq: Status: Active Protocol: Document 08/27/19 13:00 SP (Rec: 08/27/19 14:07 SP [id number]) Out-Patient Physical Therapy Visit Information Visit Information Visit Type Treatment Note Visit Start Time 13:00 Visit Stop Time 13:45 Total Visit Minutes 45 Visit Number 9 Number of CHAIN DYER Visits 1 PT-OP-B Current Condition Start: 04/24/19 09:34 Freq: Status: Active Protocol: Document 04/24/19 09:45 DCW (Rec: 04/24/19 16:44 DCW [id number]) Current Condition History of Current Condition Current Complaints General stiffness, decreased flexibility History of Current Condition Pt is a 43 year old female presenting with a recent diagnosis of Hereditary Spastic Paraplegia. Pt notes she has notices that it has recently been a little more visible, and she has noticed some increased difficulty in doing some thing. Noticed she has felt some difficulty walking and decreased balance, as well as generalized stiffness and increased tone. Treatment Goals Patient/Caregiver Goals Pt is interested in learning how to stretch and keep herself limber to hopefully help slow progress on disease process. Personal Factors Other Personal Factors That May Effect Depression, LBP, Hx Vertigo, Therapy/Recovery Seizure disorder PT-OP-C Subjective Start: 04/24/19 13:33 Freq: Status: Active Protocol: Document 08/27/19 13:00 SP (Rec: 08/27/19 14:07 SP [id number]) OP-PT Subjective Patient Comments Patient Comments Pt stated compliant with HEP standing with no problems. PT-OP-D Balance Start: 04/24/19 13:33 Freq: Status: Active Protocol: Document 04/24/19 09:45 DCW (Rec: 04/24/19 16:44 DCW [id number]) OP-PT Balance Assessment Standing Balance Static Standing Balance Ability Normal Dynamic Standing Balance Ability Fair Balance Tests Narayanan Balance Test Narayanan Balance Test Score 52/56 Single Limb Standing Single Limb- Right 3 seconds Single Limb- Left 3 seconds Tandem Tandem Standing 5 seconds Narayanan Balance Assessment Evaluation Sitting to Standing Ability Independent w/out Hands Unsupported Stance Safely- 2 minutes Sitting Unsupported, Feet on Floor Safely- 2 minutes Standing to Sitting Ability Safely, Minimal Hand Use Transfer Ability Safely, Minimal Hand Use Unsupported Stance- Eyes Closed Safely, 10 seconds Unsupported Stance- Eyes Open Independent, 1 minute Reaching Forward Standing Safely, 5 inches Pick- Up Object From Floor Independent/Safe Look Behind Shoulder - Standing Shifts Weight Well Turning 360 Degrees Turns Bilateral, < 4 secs Unsupported Stance, Alternating Feet on (I)- 8 Steps in 20 secs Stair Unsupported Tandem Stance Holds Tandem- 30 seconds Unilateral Leg Stance Lifts Leg/Holds > 3 secs Total Score Narayanan Total Score (out of 56 points) 52 Narayanan Impairment Rating 1 to 19% Impaired (Score 45-55 ) Mccurdy Fall Scale Copyright Permission PT-OP-E Functional Tests Start: 04/24/19 13:33 Freq: Status: Active Protocol: Document 04/24/19 09:45 DCW (Rec: 04/24/19 16:44 DCW [id number]) Functional Tests Functional Gait Assessment Score 18/30 Functional Gait Assessment Impairment 40 to <60% Impaired (Score 13- Rating 18) PT-OP-G Mobility & Gait Start: 04/24/19 13:33 Freq: Status: Active Protocol: Document 04/24/19 09:45 DCW (Rec: 04/24/19 16:44 DCW [id number]) OP Gait Assessment Gait Gait Assistance Required: Independent Assistive Devices Assistive Device None Gait Deviations General Gait Pattern Decreased Stride Length, Decreased Feet Clearance, Lateral Trunk Lean,Wide Based Gait Factors Limiting Gait Function Factors Limiting Gait Function Abnormal Tonal Influences,Poor Balance Comments Gait Comments Pt has significant supination during gait, walking on the lateral edge of her shoes. Stair Climbing Evaluation Devices Stair Climbing Assistive Devices None Technique/Endurance Stair Climbing Direction Ascend and Descend Stair Climbing Technique Step Over Step PT-OP-H Neuro Start: 04/24/19 13:33 Freq: Status: Active Protocol: Document 04/24/19 09:45 DCW (Rec: 04/24/19 16:44 DCW [id number]) Sensation Evaluation Gross Sensation Gross Sensation WNL Coordination Evaluation Lower Extremity Tests Right Alternate Heel to Knee; Heel to Toe Test Normal Performance Heel on Figueroa Test Normal Performance Left Alternate Heel to Knee; Heel to Toe Test Normal Performance Heel on Figueroa Test Normal Performance Deep Tendon Reflex & Clonus Assessment Deep Tendon Reflex Right Achilles Deep Tendon Reflex 3+ Normal But Brisk Right Patellar Deep Tendon Reflex 4+ Brisk Left Achilles Deep Tendon Reflex 3+ Normal But Brisk Left Patellar Deep Tendon Reflex 4+ Brisk Ankle Clonus Bilateral Clonus Assessment 3 Beats Muscle Tone Tone Assessment Lower Extremity Muscle Tone Comments Moderate-Severe hypertonicity through bilateral gastrosoleus complex PT-OP-J Posture/Palpation/Skin Start: 04/24/19 13:33 Freq: Status: Active Protocol: Document 04/24/19 09:45 DCW (Rec: 04/24/19 16:44 DCW [id number]) Posture Evaluation Position Standing Evaluation View Lateral Weight Distribution Weight Shifted Anterior Hip Posture (L) Flexed,(R) Flexed Knee Posture (L) Genu Recurvatum,(R) Genu Recurvatum Ankle/Foot Posture (L) Plantarflexed,(R) Plantarflexed Foot Arch (L) High Arch,(R) High Arch PT-OP-K Range of Motion Start: 04/24/19 13:33 Freq: Status: Active Protocol: Document 08/21/19 10:31 [facility] (Rec: 08/21/19 11:16 [facility] [id number]) Ankle and Foot Goniometric Range of Motion Ankle and Foot Right Active Dorsiflexion with Knee Flexed 10 Dorsiflexion with Knee Extended 10 Left Active Dorsiflexion with Knee Flexed 10 Dorsiflexion with Knee Extended 10 Ankle and Foot ROM Limitations ROM Limitations Soft Tissue Tightness, Contracture,Muscle Tone PT-OP-L Special Tests Start: 04/24/19 13:33 Freq: Status: Active Protocol: Document 04/24/19 09:45 DCW (Rec: 04/24/19 16:44 DCW [id number]) Special Tests Hip Special Tests Straight Leg Raise Test Results Hamstring tightness at 53? bilaterally PT-OP-M Strength Start: 04/24/19 13:33 Freq: Status: Active Protocol: Document 08/21/19 10:31 [facility] (Rec: 08/21/19 11:16 [facility] [id number]) Hip Strength Hip Manual Muscle Testing Right Flexion (L2) 3+ Fair+ Extension (S1) 4 Good Abduction 4 Good External Rotation 3+ Fair+ Internal Rotation 3+ Fair+ Left Flexion (L2) 3+ Fair+ Extension (S1) 4 Good Abduction 4- Good- External Rotation 3+ Fair+ Internal Rotation 3+ Fair+ Comments pain abd Knee Strength Knee Manual Muscle Testing Right Flexion (S2) 4+ Good+ Extension (L3) 4+ Good+ Left Flexion (S2) 4+ Good+ Extension (L3) 4+ Good+ Ankle/Foot Strength Ankle and Foot Manual Muscle Testing Right Dorsiflexion (L4) 4 Good Plantarflexion (S1) 3+ Fair+ Comments 8 calf raisesR Left Dorsiflexion (L4) 4- Good- Plantarflexion (S1) 2+ Poor+ Comments unable to single leg heel raises PT-OP-Q Treatments Start: 04/24/19 13:33 Freq: Status: Active Protocol: Document 08/27/19 13:00 SP (Rec: 08/27/19 14:07 SP [id number]) Cardio Equipment Recumbent Stepper (Sci-Fit) Duration (Minutes) 6 Resistance 3 Therapeutic Exercises Supine Exercises soheila stretch w/ strap Side bilateral Reps/Minutes 30 x2 figure 4 Side bilateral Reps/Minutes 30x3 HS stretch Side bilateral Reps/Minutes 30 x3 Standing Exercises eccentric squat taps Resistance AROM, 10# DB Chris Reps/Minutes 10 reps each (18 chair) Comments cued knees parallel with feet Single Leg Stance Standing Exercise Name step taps Equipment Used 8 step Reps/Minutes 3x10 alternating BLE Comments cued level pelvis calf stretch Standing Exercise Name gastroc/soleus Side bilateral Reps/Minutes 30 x3 resisted press outs Standing Exercise Name anchored mid door press outs at navel height Side bilateral Resistance (Tb #1 press out HEP) orange sport cord today Reps/Minutes 8 Comments PPT, scap stab (HEP review) resisted side stepping Standing Exercise Name anchored mid door, hold at navel height Side bilateral Resistance (TB #1 HEP) orange sport cord today Reps/Minutes 3 side steps x5 reps R and L x2 sets Comments cued soft knee and scap stab (add HEP) lateral band walk Resistance Tb green loop (L2 HEP) Reps/Minutes 10 ft x2 laps Comments PPT, soft knee, scap stab Other Exercises 1 Other Exercise Name quadruped cat/camel Reps/Minutes x10 PT-OP-T Assessment and Plan Start: 04/24/19 09:34 Freq: Status: Active Protocol: Document 08/27/19 13:00 SP (Rec: 08/27/19 14:07 SP [id number]) Physical Therapy Assessment Goals balance Impairment FGA 30 Custodial Goal (LTG) Pt will improve FGA to 25/30 to dec risk for falls. LTG Duration 10/21/19 Three Impairment Pt ambulates with excessive supination Custodial Goal (LTG) Pt to ambulate in a proper heel to gait pattern with a neutral forefoot 50% of the time without prompting LTG Duration 10/21/19 Two Impairment Pt stands with hyperextension and forward trunk lean Protection Specialist Goal (LTG) Pt to improve ankle dorsiflexion to 10? in order to allow her to stand straight upright without needing to hyperextend knees. LTG Duration achieved One Impairment Pt does not have an appropriate home exercise program Short Term Goal (STG) Pt to be independent and compliant with an appropriate HEP STG Duration 09/20/19 Protection Specialist Goal (LTG) Pt will have at least 4+/5 LE strength in all planes to allow greater ease of activity LTG Duration 10/21/19 Assessment Summary Assessment Pt required cuing for proper form during TB/Sport cord and assist recall, provided hand outs for visual assist. Add LE stretching to assist tightness reported experiences with positive feedback. Introduced single leg step taps initally WB into moving foot initially then encouraged light contact to improve balance with little more challenged on SLS on L but able to perform. Physical Therapy Plan Frequency and Duration Frequency of Treatment 2x/Week Duration of Treatment 2 months Plan of Care Start Date 08/21/19 Plan of Care End Date 10/21/19 Therapeutic Interventions Therapeutic Interventions Aquatic Therapy,Balance Training,Coordination Training ,Gait Training,Home Exercise Program,Manual Therapy, Neuromuscular Re-education, Patient/Caregiver Education, Self-Care/Home Management,Soft Tissue Mobilization, Therapeutic Activities, Therapeutic Exercises Modalities Cold Pack/Ice Massage,Electric Stimulation,Hot Packs, Ultrasound Next Visit Focus/Plan Next Note Type Treatment Note Next Visit Plan Assess response to last tx. Continue HEP review for recall with sheets in chair has at home. Dynamic standing strengthening and flexibility.
--- NOTE | 2019-08-29 09:51 | PT.OTN ---
Current Diagnoses Hereditary spastic paraplegia (08/29/19) Stiffness of unspecified hip, not elsewhere classified (08/29/19) Stiffness of unspecified ankle, not elsewhere classified (08/29/19) Abnormal posture (08/29/19) Physical Therapy Treatment Note PT-OP-A Visit Information Start: 04/24/19 09:34 Freq: Status: Active Protocol: Document 08/29/19 09:07 [facility] (Rec: 08/29/19 09:49 [facility] [id number]) Out-Patient Physical Therapy Visit Information Visit Information Visit Type Treatment Note Visit Start Time 09:05 Visit Stop Time 09:44 Total Visit Minutes 39 Visit Number 10 Number of ADVERTISING 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 Pt notes she has notices that it has recently been a little more visible, and she has noticed some increased difficulty in doing some thing. Noticed she has felt some difficulty walking and decreased balance, as well as generalized stiffness and increased tone. Treatment Goals Patient/Caregiver Goals Pt is interested in learning how to stretch and keep herself limber to hopefully help slow progress on disease process. Personal Factors Other Personal Factors That May Effect Depression, LBP, Hx Vertigo, Therapy/Recovery Seizure disorder PT-OP-C Subjective Start: 04/24/19 13:33 Freq: Status: Active Protocol: Document 08/29/19 09:07 [facility] (Rec: 08/29/19 09:49 [facility] [id number]) OP-PT Subjective Patient Comments Patient Comments The stair stepping exercise sometimes irritates her knee. She has been doing exercises but wants to make sure she is doing them well PT-OP-D Balance Start: 04/24/19 13:33 Freq: Status: Active Protocol: Document 04/24/19 09:45 DCW (Rec: 04/24/19 16:44 DCW [id number]) OP-PT Balance Assessment Standing Balance Static Standing Balance Ability Normal Dynamic Standing Balance Ability Fair Balance Tests Narayanan Balance Test Narayanan Balance Test Score 52/56 Single Limb Standing Single Limb- Right 3 seconds Single Limb- Left 3 seconds Tandem Tandem Standing 5 seconds Narayanan Balance Assessment Evaluation Sitting to Standing Ability Independent w/out Hands Unsupported Stance Safely- 2 minutes Sitting Unsupported, Feet on Floor Safely- 2 minutes Standing to Sitting Ability Safely, Minimal Hand Use Transfer Ability Safely, Minimal Hand Use Unsupported Stance- Eyes Closed Safely, 10 seconds Unsupported Stance- Eyes Open Independent, 1 minute Reaching Forward Standing Safely, 5 inches Pick- Up Object From Floor Independent/Safe Look Behind Shoulder - Standing Shifts Weight Well Turning 360 Degrees Turns Bilateral, < 4 secs Unsupported Stance, Alternating Feet on (I)- 8 Steps in 20 secs Stair Unsupported Tandem Stance Holds Tandem- 30 seconds Unilateral Leg Stance Lifts Leg/Holds > 3 secs Total Score Narayanan Total Score (out of 56 points) 52 Narayanan Impairment Rating 1 to 19% Impaired (Score 45-55 ) Mccurdy Fall Scale Copyright Permission PT-OP-E Functional Tests Start: 04/24/19 13:33 Freq: Status: Active Protocol: Document 04/24/19 09:45 DCW (Rec: 04/24/19 16:44 DCW [id number]) Functional Tests Functional Gait Assessment Score 18/30 Functional Gait Assessment Impairment 40 to <60% Impaired (Score 13- Rating 18) PT-OP-G Mobility & Gait Start: 04/24/19 13:33 Freq: Status: Active Protocol: Document 04/24/19 09:45 DCW (Rec: 04/24/19 16:44 DCW [id number]) OP Gait Assessment Gait Gait Assistance Required: Independent Assistive Devices Assistive Device None Gait Deviations General Gait Pattern Decreased Stride Length, Decreased Feet Clearance, Lateral Trunk Lean,Wide Based Gait Factors Limiting Gait Function Factors Limiting Gait Function Abnormal Tonal Influences,Poor Balance Comments Gait Comments Pt has significant supination during gait, walking on the lateral edge of her shoes. Stair Climbing Evaluation Devices Stair Climbing Assistive Devices None Technique/Endurance Stair Climbing Direction Ascend and Descend Stair Climbing Technique Step Over Step PT-OP-H Neuro Start: 04/24/19 13:33 Freq: Status: Active Protocol: Document 04/24/19 09:45 DCW (Rec: 04/24/19 16:44 DCW [id number]) Sensation Evaluation Gross Sensation Gross Sensation WNL Coordination Evaluation Lower Extremity Tests Right Alternate Heel to Knee; Heel to Toe Test Normal Performance Heel on Figueroa Test Normal Performance Left Alternate Heel to Knee; Heel to Toe Test Normal Performance Heel on Figueroa Test Normal Performance Deep Tendon Reflex & Clonus Assessment Deep Tendon Reflex Right Achilles Deep Tendon Reflex 3+ Normal But Brisk Right Patellar Deep Tendon Reflex 4+ Brisk Left Achilles Deep Tendon Reflex 3+ Normal But Brisk Left Patellar Deep Tendon Reflex 4+ Brisk Ankle Clonus Bilateral Clonus Assessment 3 Beats Muscle Tone Tone Assessment Lower Extremity Muscle Tone Comments Moderate-Severe hypertonicity through bilateral gastrosoleus complex PT-OP-J Posture/Palpation/Skin Start: 04/24/19 13:33 Freq: Status: Active Protocol: Document 04/24/19 09:45 DCW (Rec: 04/24/19 16:44 [facility] [id number]) Posture Evaluation Position Standing Evaluation View Lateral Weight Distribution Weight Shifted Anterior Hip Posture (L) Flexed,(R) Flexed Knee Posture (L) Genu Recurvatum,(R) Genu Recurvatum Ankle/Foot Posture (L) Plantarflexed,(R) Plantarflexed Foot Arch (L) High Arch,(R) High Arch PT-OP-K Range of Motion Start: 04/24/19 13:33 Freq: Status: Active Protocol: Document 08/21/19 10:31 [facility] (Rec: 08/21/19 11:16 [facility] [id number]) Ankle and Foot Goniometric Range of Motion Ankle and Foot Right Active Dorsiflexion with Knee Flexed 10 Dorsiflexion with Knee Extended 10 Left Active Dorsiflexion with Knee Flexed 10 Dorsiflexion with Knee Extended 10 Ankle and Foot ROM Limitations ROM Limitations Soft Tissue Tightness, Contracture,Muscle Tone PT-OP-L Special Tests Start: 04/24/19 13:33 Freq: Status: Active Protocol: Document 04/24/19 09:45 DCW (Rec: 04/24/19 16:44 [facility] [id number]) Special Tests Hip Special Tests Straight Leg Raise Test Results Hamstring tightness at 53? bilaterally PT-OP-M Strength Start: 04/24/19 13:33 Freq: Status: Active Protocol: Document 08/21/19 10:31 [facility] (Rec: 08/21/19 11:16 [facility] [id number]) Hip Strength Hip Manual Muscle Testing Right Flexion (L2) 3+ Fair+ Extension (S1) 4 Good Abduction 4 Good External Rotation 3+ Fair+ Internal Rotation 3+ Fair+ Left Flexion (L2) 3+ Fair+ Extension (S1) 4 Good Abduction 4- Good- External Rotation 3+ Fair+ Internal Rotation 3+ Fair+ Comments pain abd Knee Strength Knee Manual Muscle Testing Right Flexion (S2) 4+ Good+ Extension (L3) 4+ Good+ Left Flexion (S2) 4+ Good+ Extension (L3) 4+ Good+ Ankle/Foot Strength Ankle and Foot Manual Muscle Testing Right Dorsiflexion (L4) 4 Good Plantarflexion (S1) 3+ Fair+ Comments 8 calf raisesR Left Dorsiflexion (L4) 4- Good- Plantarflexion (S1) 2+ Poor+ Comments unable to single leg heel raises PT-OP-Q Treatments Start: 04/24/19 13:33 Freq: Status: Active Protocol: Document 08/29/19 09:07 [facility] (Rec: 08/29/19 09:49 [facility] [id number]) Cardio Equipment Recumbent Stepper (Sci-Fit) Duration (Minutes) 6 Resistance 4 Gym Equipment Shuttle Balance red Comments fwd & side: WBOS & NBOS fwd; staggered stance Therapeutic Exercises Supine Exercises soheila stretch w/ strap Side bilateral Reps/Minutes 30 Comments no strap figure 4 Side bilateral Reps/Minutes 30 HS stretch Side bilateral Reps/Minutes 30 Standing Exercises eccentric squat taps Resistance 10# DB Chris Reps/Minutes 15 Comments cued knees parallel with feet Single Leg Stance Standing Exercise Name step taps Equipment Used 8 step Reps/Minutes 15 alternating BLE Comments cued level pelvis calf stretch Standing Exercise Name gastroc/soleus Side bilateral Reps/Minutes 30 x3 resisted press outs Standing Exercise Name anchored mid door press outs at navel height Side bilateral Resistance (Tb #1 press out HEP) orange sport cord today Reps/Minutes 10 Comments PPT, scap stab (HEP review) resisted side stepping Standing Exercise Name anchored mid door, hold at navel height Side bilateral Resistance L2 Reps/Minutes 3 stepsx8 ea Comments cued soft knee and scap stab (add HEP) lateral band walk Resistance Tb green loop (L2 HEP) Reps/Minutes 20ft Comments PPT, soft knee, scap stab PT-OP-T Assessment and Plan Start: 04/24/19 09:34 Freq: Status: Active Protocol: Document 08/29/19 09:07 [facility] (Rec: 08/29/19 09:49 [facility] [id number]) Physical Therapy Assessment Goals balance Impairment FGA Market Research Manager Goal (LTG) Pt will improve FGA to 25/30 to dec risk for falls. LTG Duration 10/21/19 Three Impairment Pt ambulates with excessive supination Market Research Manager Goal (LTG) Pt to ambulate in a proper heel to gait pattern with a neutral forefoot 50% of the time without prompting LTG Duration 10/21/19 Two Impairment Pt stands with hyperextension and forward trunk lean Market Research Manager Goal (LTG) Pt to improve ankle dorsiflexion to 10? in order to allow her to stand straight upright without needing to hyperextend knees. LTG Duration achieved One Impairment Pt does not have an appropriate home exercise program Short Term Goal (STG) Pt to be independent and compliant with an appropriate HEP STG Duration 09/20/19 Market Research Manager Goal (LTG) Pt will have at least 4+/5 LE strength in all planes to allow greater ease of activity LTG Duration 10/21/19 Assessment Summary Assessment Pt required cueing with squats for knee position and posture with other standing exercises . Challenged on balance board with side facing & staggered stance Physical Therapy Plan Frequency and Duration Frequency of Treatment 2x/Week Duration of Treatment 2 months Plan of Care Start Date 08/21/19 Plan of Care End Date 10/21/19 Next Visit Focus/Plan Next Note Type Treatment Note Next Visit Plan review HEP as needed and cont to work on balance and strengthening
--- NOTE | 2019-09-04 09:43 | PT.OTN ---
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) Stiffness of unspecified hip, not elsewhere classified (09/04/19) Stiffness of unspecified ankle, not elsewhere classified (09/04/19) Abnormal posture (09/04/19) Physical Therapy Treatment Note PT-OP-A Visit Information Start: 04/24/19 09:34 Freq: Status: Active Protocol: Document 09/04/19 09:04 [facility] (Rec: 09/04/19 09:43 [facility] [id number]) Out-Patient Physical Therapy Visit Information Visit Information Visit Type Treatment Note Visit Start Time 09:02 Visit Stop Time 09:42 Total Visit Minutes 40 Visit Number 11 Number of CARBURETOR REPAIRER Visits 0 PT-OP-B Current Condition Start: 04/24/19 09:34 Freq: Status: Active Protocol: Document 04/24/19 09:45 DCW (Rec: 04/24/19 16:44 DCW [id number]) Current Condition History of Current Condition Current Complaints General stiffness, decreased flexibility History of Current Condition Pt is a 43 year old female presenting with a recent diagnosis of Hereditary Spastic Paraplegia. Pt notes she has notices that it has recently been a little more visible, and she has noticed some increased difficulty in doing some thing. Noticed she has felt some difficulty walking and decreased balance, as well as generalized stiffness and increased tone. Treatment Goals Patient/Caregiver Goals Pt is interested in learning how to stretch and keep herself limber to hopefully help slow progress on disease process. Personal Factors Other Personal Factors That May Effect Depression, LBP, Hx Vertigo, Therapy/Recovery Seizure disorder PT-OP-C Subjective Start: 04/24/19 13:33 Freq: Status: Active Protocol: Document 09/04/19 09:04 [facility] (Rec: 09/04/19 09:43 [facility] [id number]) OP-PT Subjective Patient Comments Patient Comments Pt reports she did a long walk this weekend which was good. Wants to cont to work on her form with her current exercises. PT-OP-D Balance Start: 04/24/19 13:33 Freq: Status: Active Protocol: Document 04/24/19 09:45 DCW (Rec: 04/24/19 16:44 DCW [id number]) OP-PT Balance Assessment Standing Balance Static Standing Balance Ability Normal Dynamic Standing Balance Ability Fair Balance Tests Narayanan Balance Test Narayanan Balance Test Score 52/56 Single Limb Standing Single Limb- Right 3 seconds Single Limb- Left 3 seconds Tandem Tandem Standing 5 seconds Narayanan Balance Assessment Evaluation Sitting to Standing Ability Independent w/out Hands Unsupported Stance Safely- 2 minutes Sitting Unsupported, Feet on Floor Safely- 2 minutes Standing to Sitting Ability Safely, Minimal Hand Use Transfer Ability Safely, Minimal Hand Use Unsupported Stance- Eyes Closed Safely, 10 seconds Unsupported Stance- Eyes Open Independent, 1 minute Reaching Forward Standing Safely, 5 inches Pick- Up Object From Floor Independent/Safe Look Behind Shoulder - Standing Shifts Weight Well Turning 360 Degrees Turns Bilateral, < 4 secs Unsupported Stance, Alternating Feet on (I)- 8 Steps in 20 secs Stair Unsupported Tandem Stance Holds Tandem- 30 seconds Unilateral Leg Stance Lifts Leg/Holds > 3 secs Total Score Narayanan Total Score (out of 56 points) 52 Narayanan Impairment Rating 1 to 19% Impaired (Score 45-55 ) Mccurdy Fall Scale Copyright Permission PT-OP-E Functional Tests Start: 04/24/19 13:33 Freq: Status: Active Protocol: Document 04/24/19 09:45 DCW (Rec: 04/24/19 16:44 DCW [id number]) Functional Tests Functional Gait Assessment Score 18/30 Functional Gait Assessment Impairment 40 to <60% Impaired (Score 13- Rating 18) PT-OP-G Mobility & Gait Start: 04/24/19 13:33 Freq: Status: Active Protocol: Document 04/24/19 09:45 DCW (Rec: 04/24/19 16:44 DCW [id number]) OP Gait Assessment Gait Gait Assistance Required: Independent Assistive Devices Assistive Device None Gait Deviations General Gait Pattern Decreased Stride Length, Decreased Feet Clearance, Lateral Trunk Lean,Wide Based Gait Factors Limiting Gait Function Factors Limiting Gait Function Abnormal Tonal Influences,Poor Balance Comments Gait Comments Pt has significant supination during gait, walking on the lateral edge of her shoes. Stair Climbing Evaluation Devices Stair Climbing Assistive Devices None Technique/Endurance Stair Climbing Direction Ascend and Descend Stair Climbing Technique Step Over Step PT-OP-H Neuro Start: 04/24/19 13:33 Freq: Status: Active Protocol: Document 04/24/19 09:45 DCW (Rec: 04/24/19 16:44 DCW [id number]) Sensation Evaluation Gross Sensation Gross Sensation WNL Coordination Evaluation Lower Extremity Tests Right Alternate Heel to Knee; Heel to Toe Test Normal Performance Heel on Figueroa Test Normal Performance Left Alternate Heel to Knee; Heel to Toe Test Normal Performance Heel on Figueroa Test Normal Performance Deep Tendon Reflex & Clonus Assessment Deep Tendon Reflex Right Achilles Deep Tendon Reflex 3+ Normal But Brisk Right Patellar Deep Tendon Reflex 4+ Brisk Left Achilles Deep Tendon Reflex 3+ Normal But Brisk Left Patellar Deep Tendon Reflex 4+ Brisk Ankle Clonus Bilateral Clonus Assessment 3 Beats Muscle Tone Tone Assessment Lower Extremity Muscle Tone Comments Moderate-Severe hypertonicity through bilateral gastrosoleus complex PT-OP-J Posture/Palpation/Skin Start: 04/24/19 13:33 Freq: Status: Active Protocol: Document 04/24/19 09:45 DCW (Rec: 04/24/19 16:44 [facility] [id number]) Posture Evaluation Position Standing Evaluation View Lateral Weight Distribution Weight Shifted Anterior Hip Posture (L) Flexed,(R) Flexed Knee Posture (L) Genu Recurvatum,(R) Genu Recurvatum Ankle/Foot Posture (L) Plantarflexed,(R) Plantarflexed Foot Arch (L) High Arch,(R) High Arch PT-OP-K Range of Motion Start: 04/24/19 13:33 Freq: Status: Active Protocol: Document 08/21/19 10:31 [facility] (Rec: 08/21/19 11:16 [facility] [id number]) Ankle and Foot Goniometric Range of Motion Ankle and Foot Right Active Dorsiflexion with Knee Flexed 10 Dorsiflexion with Knee Extended 10 Left Active Dorsiflexion with Knee Flexed 10 Dorsiflexion with Knee Extended 10 Ankle and Foot ROM Limitations ROM Limitations Soft Tissue Tightness, Contracture,Muscle Tone PT-OP-L Special Tests Start: 04/24/19 13:33 Freq: Status: Active Protocol: Document 04/24/19 09:45 DCW (Rec: 04/24/19 16:44 [facility] [id number]) Special Tests Hip Special Tests Straight Leg Raise Test Results Hamstring tightness at 53? bilaterally PT-OP-M Strength Start: 04/24/19 13:33 Freq: Status: Active Protocol: Document 08/21/19 10:31 [facility] (Rec: 08/21/19 11:16 [facility] [id number]) Hip Strength Hip Manual Muscle Testing Right Flexion (L2) 3+ Fair+ Extension (S1) 4 Good Abduction 4 Good External Rotation 3+ Fair+ Internal Rotation 3+ Fair+ Left Flexion (L2) 3+ Fair+ Extension (S1) 4 Good Abduction 4- Good- External Rotation 3+ Fair+ Internal Rotation 3+ Fair+ Comments pain abd Knee Strength Knee Manual Muscle Testing Right Flexion (S2) 4+ Good+ Extension (L3) 4+ Good+ Left Flexion (S2) 4+ Good+ Extension (L3) 4+ Good+ Ankle/Foot Strength Ankle and Foot Manual Muscle Testing Right Dorsiflexion (L4) 4 Good Plantarflexion (S1) 3+ Fair+ Comments 8 calf raisesR Left Dorsiflexion (L4) 4- Good- Plantarflexion (S1) 2+ Poor+ Comments unable to single leg heel raises PT-OP-Q Treatments Start: 04/24/19 13:33 Freq: Status: Active Protocol: Document 09/04/19 09:04 [facility] (Rec: 09/04/19 09:43 [facility] [id number]) Cardio Equipment Recumbent Elliptical (Biodex) Duration (Minutes) 6 Resistance 5 Seat Position 3 Gym Equipment Shuttle Balance red Reps/Duration head turns with fwd WBOS & NBOS Comments fwd & side: WBOS & NBOS fwd; staggered stance weightshift Details fwd/back &side/side Therapeutic Exercises Standing Exercises eccentric squat taps Resistance 10# DB Chris Reps/Minutes 3x10 Comments cued knees parallel with feet Single Leg Stance Standing Exercise Name step taps Equipment Used 8 step Reps/Minutes 15 alternating BLE Comments cued level pelvis calf stretch Standing Exercise Name gastroc/soleus Side bilateral Reps/Minutes 30sec resisted press outs Standing Exercise Name anchored mid door press outs at navel height Side bilateral Resistance L2 Reps/Minutes 10x3 Comments -in slight squat resisted side stepping Standing Exercise Name anchored mid door, hold at navel height Side bilateral Resistance L2 Reps/Minutes 3 stepsx8 ea Comments cued soft knee and scap stab (add HEP) lateral band walk Resistance Tb green loop (L2 HEP) Reps/Minutes 20ft Comments PPT, soft knee, scap stab 3 Standing Exercise Name wall posture 2 Standing Exercise Name hip flexor stretch Side bilateral Reps/Minutes 30 sec PT-OP-T Assessment and Plan Start: 04/24/19 09:34 Freq: Status: Active Protocol: Document 09/04/19 09:04 [facility] (Rec: 09/04/19 09:43 [facility] [id number]) Physical Therapy Assessment Goals balance Impairment FGA Usp Goal (LTG) Pt will improve FGA to 25/30 to dec risk for falls. LTG Duration 10/21/19 Three Impairment Pt ambulates with excessive supination Usp Goal (LTG) Pt to ambulate in a proper heel to gait pattern with a neutral forefoot 50% of the time without prompting LTG Duration 10/21/19 Two Impairment Pt stands with hyperextension and forward trunk lean Zig Zag Stitcher Goal (LTG) Pt to improve ankle dorsiflexion to 10? in order to allow her to stand straight upright without needing to hyperextend knees. LTG Duration achieved One Impairment Pt does not have an appropriate home exercise program Short Term Goal (STG) Pt to be independent and compliant with an appropriate HEP STG Duration 09/20/19 Zig Zag Stitcher Goal (LTG) Pt will have at least 4+/5 LE strength in all planes to allow greater ease of activity LTG Duration 10/21/19 Assessment Summary Assessment PT requires cueing for back posture and occasionally for shoulders during exercises. Pt 's inc lordosis likely affects ability to get into good posture but she is able to self correct some to be in a better position but requires cueing. Physical Therapy Plan Frequency and Duration Frequency of Treatment 2x/Week Duration of Treatment 2 months Plan of Care Start Date 08/21/19 Plan of Care End Date 10/21/19 Next Visit Focus/Plan Next Note Type Treatment Note Next Visit Plan review HEP as needed and cont to work on balance and strengthening
--- NOTE | 2019-09-06 14:31 | PT.OTN ---
Current Diagnoses Hereditary spastic paraplegia (09/06/19) Stiffness of unspecified hip, not elsewhere classified (09/06/19) Stiffness of unspecified ankle, not elsewhere classified (09/06/19) Abnormal posture (09/06/19) Physical Therapy Treatment Note PT-OP-A Visit Information Start: 04/24/19 09:34 Freq: Status: Active Protocol: Document 09/06/19 13:41 [facility] (Rec: 09/06/19 14:31 [facility] [id number]) Out-Patient Physical Therapy Visit Information Visit Information Visit Type Treatment Note Visit Start Time 13:46 Visit Stop Time 14:25 Total Visit Minutes 39 Visit Number 12 Number of OFFICE SUPPORT CLERK Visits 0 PT-OP-B Current Condition Start: 04/24/19 09:34 Freq: Status: Active Protocol: Document 04/24/19 09:45 DCW (Rec: 04/24/19 16:44 DCW [id number]) Current Condition History of Current Condition Current Complaints General stiffness, decreased flexibility History of Current Condition Pt is a 43 year old female presenting with a recent diagnosis of Hereditary Spastic Paraplegia. Pt notes she has notices that it has recently been a little more visible, and she has noticed some increased difficulty in doing some thing. Noticed she has felt some difficulty walking and decreased balance, as well as generalized stiffness and increased tone. Treatment Goals Patient/Caregiver Goals Pt is interested in learning how to stretch and keep herself limber to hopefully help slow progress on disease process. Personal Factors Other Personal Factors That May Effect Depression, LBP, Hx Vertigo, Therapy/Recovery Seizure disorder PT-OP-C Subjective Start: 04/24/19 13:33 Freq: Status: Active Protocol: Document 09/06/19 13:41 [facility] (Rec: 09/06/19 14:31 [facility] [id number]) OP-PT Subjective Patient Comments Patient Comments Pt just did a mile walk with a hill so unsure if she will be a little tired. Feels like posture and balance ae her main problems PT-OP-D Balance Start: 04/24/19 13:33 Freq: Status: Active Protocol: Document 04/24/19 09:45 DCW (Rec: 04/24/19 16:44 DCW [id number]) OP-PT Balance Assessment Standing Balance Static Standing Balance Ability Normal Dynamic Standing Balance Ability Fair Balance Tests Narayanan Balance Test Narayanan Balance Test Score 52/56 Single Limb Standing Single Limb- Right 3 seconds Single Limb- Left 3 seconds Tandem Tandem Standing 5 seconds Narayanan Balance Assessment Evaluation Sitting to Standing Ability Independent w/out Hands Unsupported Stance Safely- 2 minutes Sitting Unsupported, Feet on Floor Safely- 2 minutes Standing to Sitting Ability Safely, Minimal Hand Use Transfer Ability Safely, Minimal Hand Use Unsupported Stance- Eyes Closed Safely, 10 seconds Unsupported Stance- Eyes Open Independent, 1 minute Reaching Forward Standing Safely, 5 inches Pick- Up Object From Floor Independent/Safe Look Behind Shoulder - Standing Shifts Weight Well Turning 360 Degrees Turns Bilateral, < 4 secs Unsupported Stance, Alternating Feet on (I)- 8 Steps in 20 secs Stair Unsupported Tandem Stance Holds Tandem- 30 seconds Unilateral Leg Stance Lifts Leg/Holds > 3 secs Total Score Narayanan Total Score (out of 56 points) 52 Narayanan Impairment Rating 1 to 19% Impaired (Score 45-55 ) Mccurdy Fall Scale Copyright Permission PT-OP-E Functional Tests Start: 04/24/19 13:33 Freq: Status: Active Protocol: Document 04/24/19 09:45 DCW (Rec: 04/24/19 16:44 DCW [id number]) Functional Tests Functional Gait Assessment Score 18/30 Functional Gait Assessment Impairment 40 to <60% Impaired (Score 13- Rating 18) PT-OP-G Mobility & Gait Start: 04/24/19 13:33 Freq: Status: Active Protocol: Document 04/24/19 09:45 DCW (Rec: 04/24/19 16:44 DCW [id number]) OP Gait Assessment Gait Gait Assistance Required: Independent Assistive Devices Assistive Device None Gait Deviations General Gait Pattern Decreased Stride Length, Decreased Feet Clearance, Lateral Trunk Lean,Wide Based Gait Factors Limiting Gait Function Factors Limiting Gait Function Abnormal Tonal Influences,Poor Balance Comments Gait Comments Pt has significant supination during gait, walking on the lateral edge of her shoes. Stair Climbing Evaluation Devices Stair Climbing Assistive Devices None Technique/Endurance Stair Climbing Direction Ascend and Descend Stair Climbing Technique Step Over Step PT-OP-H Neuro Start: 04/24/19 13:33 Freq: Status: Active Protocol: Document 04/24/19 09:45 DCW (Rec: 04/24/19 16:44 DCW [id number]) Sensation Evaluation Gross Sensation Gross Sensation WNL Coordination Evaluation Lower Extremity Tests Right Alternate Heel to Knee; Heel to Toe Test Normal Performance Heel on Figueroa Test Normal Performance Left Alternate Heel to Knee; Heel to Toe Test Normal Performance Heel on Figueroa Test Normal Performance Deep Tendon Reflex & Clonus Assessment Deep Tendon Reflex Right Achilles Deep Tendon Reflex 3+ Normal But Brisk Right Patellar Deep Tendon Reflex 4+ Brisk Left Achilles Deep Tendon Reflex 3+ Normal But Brisk Left Patellar Deep Tendon Reflex 4+ Brisk Ankle Clonus Bilateral Clonus Assessment 3 Beats Muscle Tone Tone Assessment Lower Extremity Muscle Tone Comments Moderate-Severe hypertonicity through bilateral gastrosoleus complex PT-OP-J Posture/Palpation/Skin Start: 04/24/19 13:33 Freq: Status: Active Protocol: Document 04/24/19 09:45 DCW (Rec: 04/24/19 16:44 DCW [id number]) Posture Evaluation Position Standing Evaluation View Lateral Weight Distribution Weight Shifted Anterior Hip Posture (L) Flexed,(R) Flexed Knee Posture (L) Genu Recurvatum,(R) Genu Recurvatum Ankle/Foot Posture (L) Plantarflexed,(R) Plantarflexed Foot Arch (L) High Arch,(R) High Arch PT-OP-K Range of Motion Start: 04/24/19 13:33 Freq: Status: Active Protocol: Document 08/21/19 10:31 [facility] (Rec: 08/21/19 11:16 [facility] [id number]) Ankle and Foot Goniometric Range of Motion Ankle and Foot Right Active Dorsiflexion with Knee Flexed 10 Dorsiflexion with Knee Extended 10 Left Active Dorsiflexion with Knee Flexed 10 Dorsiflexion with Knee Extended 10 Ankle and Foot ROM Limitations ROM Limitations Soft Tissue Tightness, Contracture,Muscle Tone PT-OP-L Special Tests Start: 04/24/19 13:33 Freq: Status: Active Protocol: Document 04/24/19 09:45 DCW (Rec: 04/24/19 16:44 DCW [id number]) Special Tests Hip Special Tests Straight Leg Raise Test Results Hamstring tightness at 53? bilaterally PT-OP-M Strength Start: 04/24/19 13:33 Freq: Status: Active Protocol: Document 08/21/19 10:31 [facility] (Rec: 08/21/19 11:16 [facility] [id number]) Hip Strength Hip Manual Muscle Testing Right Flexion (L2) 3+ Fair+ Extension (S1) 4 Good Abduction 4 Good External Rotation 3+ Fair+ Internal Rotation 3+ Fair+ Left Flexion (L2) 3+ Fair+ Extension (S1) 4 Good Abduction 4- Good- External Rotation 3+ Fair+ Internal Rotation 3+ Fair+ Comments pain abd Knee Strength Knee Manual Muscle Testing Right Flexion (S2) 4+ Good+ Extension (L3) 4+ Good+ Left Flexion (S2) 4+ Good+ Extension (L3) 4+ Good+ Ankle/Foot Strength Ankle and Foot Manual Muscle Testing Right Dorsiflexion (L4) 4 Good Plantarflexion (S1) 3+ Fair+ Comments 8 calf raisesR Left Dorsiflexion (L4) 4- Good- Plantarflexion (S1) 2+ Poor+ Comments unable to single leg heel raises PT-OP-Q Treatments Start: 04/24/19 13:33 Freq: Status: Active Protocol: Document 09/06/19 13:41 [facility] (Rec: 09/06/19 14:31 [facility] [id number]) Cardio Equipment Recumbent Elliptical (Biodex) Duration (Minutes) 6 Resistance 5 Seat Position 3 Gym Equipment Shuttle Balance red Reps/Duration head turns with fwd WBOS & NBOS Comments fwd & side: WBOS & NBOS fwd; staggered stance Therapeutic Exercises Standing Exercises eccentric squat taps Reps/Minutes 15 Comments cued knees parallel with feet Single Leg Stance Standing Exercise Name step taps Equipment Used 8 step Reps/Minutes 15 alternating BLE Comments cued level pelvis calf stretch Standing Exercise Name gastroc/soleus Side bilateral Reps/Minutes 30sec resisted press outs Standing Exercise Name anchored mid door press outs at navel height Side bilateral Resistance L2 Reps/Minutes 10x3 Comments -in slight squat resisted side stepping Standing Exercise Name anchored mid door, hold at navel height Side bilateral Resistance L2 Reps/Minutes 3 stepsx8 ea Comments cued soft knee and scap stab (add HEP) lateral band walk Resistance Tb green loop (L2 HEP) Reps/Minutes 20ft Comments PPT, soft knee, scap stab 3 Standing Exercise Name wall posture Comments 90/90 ER 2 Standing Exercise Name hip flexor stretch Side bilateral Reps/Minutes 30 sec Manual Therapy Treatment Soft Tissue Mobilization 1 Body Location hip flexor B Mobilization Type Sustained Pressure Comments soheila test position Joint Mobilizations thoracic Joint T5-8 Direction PA Grade II Neuro Re-Education Treatment Balance Activities hurdles Details over hurdles Reps/Duration 2 blue forms Comments 4x PT-OP-T Assessment and Plan Start: 04/24/19 09:34 Freq: Status: Active Protocol: Document 09/06/19 13:41 [facility] (Rec: 09/06/19 14:31 [facility] [id number]) Physical Therapy Assessment Goals balance Impairment FGA Agricultural Engineer Goal (LTG) Pt will improve FGA to to dec risk for falls. LTG Duration 10/21/19 Three Impairment Pt ambulates with excessive supination Care Home Goal (LTG) Pt to ambulate in a proper heel to gait pattern with a neutral forefoot 50% of the time without prompting LTG Duration 10/21/19 Two Impairment Pt stands with hyperextension and forward trunk lean Care Home Goal (LTG) Pt to improve ankle dorsiflexion to 10? in order to allow her to stand straight upright without needing to hyperextend knees. LTG Duration achieved One Impairment Pt does not have an appropriate home exercise program Short Term Goal (STG) Pt to be independent and compliant with an appropriate HEP STG Duration 09/20/19 Care Home Goal (LTG) Pt will have at least 4+/5 LE strength in all planes to allow greater ease of activity LTG Duration 10/21/19 Assessment Summary Assessment Worked on manual treatment to help with improvement of posture. Cueing required only for posture during exercises Physical Therapy Plan Frequency and Duration Frequency of Treatment 2x/Week Duration of Treatment 2 months Plan of Care Start Date 08/21/19 Plan of Care End Date 10/21/19 Next Visit Focus/Plan Next Note Type Treatment Note Next Visit Plan review HEP as needed and cont to work on balance and strengthening
--- NOTE | 2019-09-10 14:30 | PT.OTN ---
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) Stiffness of unspecified hip, not elsewhere classified (09/10/19) Stiffness of unspecified ankle, not elsewhere classified (09/10/19) Abnormal posture (09/10/19) Physical Therapy Treatment Note PT-OP-A Visit Information Start: 04/24/19 09:34 Freq: Status: Active Protocol: Document 09/10/19 13:46 SP (Rec: 09/10/19 15:37 SP [id number]) Out-Patient Physical Therapy Visit Information Visit Information Visit Type Treatment Note Visit Start Time 13:46 Visit Stop Time 14:30 Total Visit Minutes 44 Visit Number 13 Number of FREEZER ASSISTANT Visits 1 PT-OP-B Current Condition Start: 04/24/19 09:34 Freq: Status: Active Protocol: Document 04/24/19 09:45 DCW (Rec: 04/24/19 16:44 DCW [id number]) Current Condition History of Current Condition Current Complaints General stiffness, decreased flexibility History of Current Condition Pt is a 43 year old female presenting with a recent diagnosis of Hereditary Spastic Paraplegia. Pt notes she has notices that it has recently been a little more visible, and she has noticed some increased difficulty in doing some thing. Noticed she has felt some difficulty walking and decreased balance, as well as generalized stiffness and increased tone. Treatment Goals Patient/Caregiver Goals Pt is interested in learning how to stretch and keep herself limber to hopefully help slow progress on disease process. Personal Factors Other Personal Factors That May Effect Depression, LBP, Hx Vertigo, Therapy/Recovery Seizure disorder PT-OP-C Subjective Start: 04/24/19 13:33 Freq: Status: Active Protocol: Document 09/10/19 13:46 SP (Rec: 09/10/19 15:37 SP [id number]) OP-PT Subjective Patient Comments Patient Comments Pt stated L irritated today, usually R. Not wearing her R knee brace, doesn't want to rely on it. Compliant with some exercises at home, not as much balance in corner one. PT-OP-D Balance Start: 04/24/19 13:33 Freq: Status: Active Protocol: Document 04/24/19 09:45 DCW (Rec: 04/24/19 16:44 DCW [id number]) OP-PT Balance Assessment Standing Balance Static Standing Balance Ability Normal Dynamic Standing Balance Ability Fair Balance Tests Narayanan Balance Test Narayanan Balance Test Score 52/56 Single Limb Standing Single Limb- Right 3 seconds Single Limb- Left 3 seconds Tandem Tandem Standing 5 seconds Narayanan Balance Assessment Evaluation Sitting to Standing Ability Independent w/out Hands Unsupported Stance Safely- 2 minutes Sitting Unsupported, Feet on Floor Safely- 2 minutes Standing to Sitting Ability Safely, Minimal Hand Use Transfer Ability Safely, Minimal Hand Use Unsupported Stance- Eyes Closed Safely, 10 seconds Unsupported Stance- Eyes Open Independent, 1 minute Reaching Forward Standing Safely, 5 inches Pick- Up Object From Floor Independent/Safe Look Behind Shoulder - Standing Shifts Weight Well Turning 360 Degrees Turns Bilateral, < 4 secs Unsupported Stance, Alternating Feet on (I)- 8 Steps in 20 secs Stair Unsupported Tandem Stance Holds Tandem- 30 seconds Unilateral Leg Stance Lifts Leg/Holds > 3 secs Total Score Narayanan Total Score (out of 56 points) 52 Narayanan Impairment Rating 1 to 19% Impaired (Score 45-55 ) Mccurdy Fall Scale Copyright Permission PT-OP-E Functional Tests Start: 04/24/19 13:33 Freq: Status: Active Protocol: Document 04/24/19 09:45 DCW (Rec: 04/24/19 16:44 DCW [id number]) Functional Tests Functional Gait Assessment Score 18/30 Functional Gait Assessment Impairment 40 to <60% Impaired (Score 13- Rating 18) PT-OP-G Mobility & Gait Start: 04/24/19 13:33 Freq: Status: Active Protocol: Document 04/24/19 09:45 DCW (Rec: 04/24/19 16:44 DCW [id number]) OP Gait Assessment Gait Gait Assistance Required: Independent Assistive Devices Assistive Device None Gait Deviations General Gait Pattern Decreased Stride Length, Decreased Feet Clearance, Lateral Trunk Lean,Wide Based Gait Factors Limiting Gait Function Factors Limiting Gait Function Abnormal Tonal Influences,Poor Balance Comments Gait Comments Pt has significant supination during gait, walking on the lateral edge of her shoes. Stair Climbing Evaluation Devices Stair Climbing Assistive Devices None Technique/Endurance Stair Climbing Direction Ascend and Descend Stair Climbing Technique Step Over Step PT-OP-H Neuro Start: 04/24/19 13:33 Freq: Status: Active Protocol: Document 04/24/19 09:45 DCW (Rec: 04/24/19 16:44 DCW [id number]) Sensation Evaluation Gross Sensation Gross Sensation WNL Coordination Evaluation Lower Extremity Tests Right Alternate Heel to Knee; Heel to Toe Test Normal Performance Heel on Figueroa Test Normal Performance Left Alternate Heel to Knee; Heel to Toe Test Normal Performance Heel on Figueroa Test Normal Performance Deep Tendon Reflex & Clonus Assessment Deep Tendon Reflex Right Achilles Deep Tendon Reflex 3+ Normal But Brisk Right Patellar Deep Tendon Reflex 4+ Brisk Left Achilles Deep Tendon Reflex 3+ Normal But Brisk Left Patellar Deep Tendon Reflex 4+ Brisk Ankle Clonus Bilateral Clonus Assessment 3 Beats Muscle Tone Tone Assessment Lower Extremity Muscle Tone Comments Moderate-Severe hypertonicity through bilateral gastrosoleus complex PT-OP-J Posture/Palpation/Skin Start: 04/24/19 13:33 Freq: Status: Active Protocol: Document 04/24/19 09:45 DCW (Rec: 04/24/19 16:44 DCW [id number]) Posture Evaluation Position Standing Evaluation View Lateral Weight Distribution Weight Shifted Anterior Hip Posture (L) Flexed,(R) Flexed Knee Posture (L) Genu Recurvatum,(R) Genu Recurvatum Ankle/Foot Posture (L) Plantarflexed,(R) Plantarflexed Foot Arch (L) High Arch,(R) High Arch PT-OP-K Range of Motion Start: 04/24/19 13:33 Freq: Status: Active Protocol: Document 08/21/19 10:31 [facility] (Rec: 08/21/19 11:16 [facility] [id number]) Ankle and Foot Goniometric Range of Motion Ankle and Foot Right Active Dorsiflexion with Knee Flexed 10 Dorsiflexion with Knee Extended 10 Left Active Dorsiflexion with Knee Flexed 10 Dorsiflexion with Knee Extended 10 Ankle and Foot ROM Limitations ROM Limitations Soft Tissue Tightness, Contracture,Muscle Tone PT-OP-L Special Tests Start: 04/24/19 13:33 Freq: Status: Active Protocol: Document 04/24/19 09:45 DCW (Rec: 04/24/19 16:44 DCW [id number]) Special Tests Hip Special Tests Straight Leg Raise Test Results Hamstring tightness at 53? bilaterally PT-OP-M Strength Start: 04/24/19 13:33 Freq: Status: Active Protocol: Document 08/21/19 10:31 [facility] (Rec: 08/21/19 11:16 [facility] [id number]) Hip Strength Hip Manual Muscle Testing Right Flexion (L2) 3+ Fair+ Extension (S1) 4 Good Abduction 4 Good External Rotation 3+ Fair+ Internal Rotation 3+ Fair+ Left Flexion (L2) 3+ Fair+ Extension (S1) 4 Good Abduction 4- Good- External Rotation 3+ Fair+ Internal Rotation 3+ Fair+ Comments pain abd Knee Strength Knee Manual Muscle Testing Right Flexion (S2) 4+ Good+ Extension (L3) 4+ Good+ Left Flexion (S2) 4+ Good+ Extension (L3) 4+ Good+ Ankle/Foot Strength Ankle and Foot Manual Muscle Testing Right Dorsiflexion (L4) 4 Good Plantarflexion (S1) 3+ Fair+ Comments 8 calf raisesR Left Dorsiflexion (L4) 4- Good- Plantarflexion (S1) 2+ Poor+ Comments unable to single leg heel raises PT-OP-Q Treatments Start: 04/24/19 13:33 Freq: Status: Active Protocol: Document 09/10/19 13:46 SP (Rec: 09/10/19 15:37 SP [id number]) Cardio Equipment Bicycle (Upright) Duration (Minutes) 8 Resistance 4 Seat Position 1 Gym Equipment Shuttle Balance red Reps/Duration head turns with fwd WBOS & NBOS Comments fwd & side: WBOS & NBOS fwd; staggered stance, balloon hitting Therapeutic Exercises Supine Exercises soheila stretch w/ strap Side bilateral Equipment Used w/ out then with strap Reps/Minutes 30 Comments no strap with cuing for PPT, better Standing Exercises eccentric squat taps Standing Exercise Name arms across chest Reps/Minutes 15 Comments cued knees parallel with feet Single Leg Stance Standing Exercise Name step taps Equipment Used 8 step Reps/Minutes 15 alternating BLE Comments cued level pelvis 2 Standing Exercise Name hip flexor stretch Side bilateral Reps/Minutes 30 sec Neuro Re-Education Treatment Balance Activities hurdles Details over 6 hurdles Reps/Duration 2 blue forms Comments x4 la ps tandem Details back to corner, chair front Surface level floor Reps/Duration 4 min Comments head turns, vertical: cuing or COG over ABDIEL before head movement. PT-OP-T Assessment and Plan Start: 04/24/19 09:34 Freq: Status: Active Protocol: Document 09/10/19 13:46 SP (Rec: 09/10/19 15:37 SP [id number]) Physical Therapy Assessment Goals balance Impairment FGA Halfway Goal (LTG) Pt will improve FGA to / to dec risk for falls. LTG Duration 10/21/19 Three Impairment Pt ambulates with excessive supination Hyster Machine Operator Goal (LTG) Pt to ambulate in a proper heel to gait pattern with a neutral forefoot 50% of the time without prompting LTG Duration 10/21/19 Two Impairment Pt stands with hyperextension and forward trunk lean Hyster Machine Operator Goal (LTG) Pt to improve ankle dorsiflexion to 10? in order to allow her to stand straight upright without needing to hyperextend knees. LTG Duration achieved One Impairment Pt does not have an appropriate home exercise program Short Term Goal (STG) Pt to be independent and compliant with an appropriate HEP STG Duration 09/20/19 Hyster Machine Operator Goal (LTG) Pt will have at least 4+/5 LE strength in all planes to allow greater ease of activity LTG Duration 10/21/19 Assessment Summary Assessment Pt required cuing for proper set up, upright posture, soft knee quad, glut and core facilitation to assist COG over ABDIEL balance activities to improve posture with PPT awareness. Pt was able to improve SLS zoran transition step over step slow pacing control. Encouraged incorporating more balance HEP before next tx at home. Physical Therapy Plan Frequency and Duration Frequency of Treatment 2x/Week Duration of Treatment 2 months Plan of Care Start Date 08/21/19 Plan of Care End Date 10/21/19 Therapeutic Interventions Therapeutic Interventions Aquatic Therapy,Balance Training,Coordination Training ,Gait Training,Home Exercise Program,Manual Therapy, Neuromuscular Re-education, Patient/Caregiver Education, Self-Care/Home Management,Soft Tissue Mobilization, Therapeutic Activities, Therapeutic Exercises Modalities Cold Pack/Ice Massage,Electric Stimulation,Hot Packs, Ultrasound Next Visit Focus/Plan Next Note Type Treatment Note Next Visit Plan Assess response to last tx: balance activities, supine and stand soheila stretch. Review HEP as needed and cont to work on balance and strengthening
--- NOTE | 2019-09-12 10:36 | PT.OTN ---
Current Diagnoses Hereditary spastic paraplegia (09/12/19) Stiffness of unspecified hip, not elsewhere classified (09/12/19) Stiffness of unspecified ankle, not elsewhere classified (09/12/19) Abnormal posture (09/12/19) Physical Therapy Treatment Note PT-OP-A Visit Information Start: 04/24/19 09:34 Freq: Status: Active Protocol: Document 09/12/19 09:57 [facility] (Rec: 09/12/19 10:36 [facility] [id number]) Out-Patient Physical Therapy Visit Information Visit Information Visit Type Treatment Note Visit Start Time 09:49 Visit Stop Time 10:29 Total Visit Minutes 40 Visit Number 14 Number of AIR DRIER MACHINE OPERATOR Visits 0 PT-OP-B Current Condition Start: 04/24/19 09:34 Freq: Status: Active Protocol: Document 04/24/19 09:45 DCW (Rec: 04/24/19 16:44 DCW [id number]) Current Condition History of Current Condition Current Complaints General stiffness, decreased flexibility History of Current Condition Pt is a 43 year old female presenting with a recent diagnosis of Hereditary Spastic Paraplegia. Pt notes she has notices that it has recently been a little more visible, and she has noticed some increased difficulty in doing some thing. Noticed she has felt some difficulty walking and decreased balance, as well as generalized stiffness and increased tone. Treatment Goals Patient/Caregiver Goals Pt is interested in learning how to stretch and keep herself limber to hopefully help slow progress on disease process. Personal Factors Other Personal Factors That May Effect Depression, LBP, Hx Vertigo, Therapy/Recovery Seizure disorder PT-OP-C Subjective Start: 04/24/19 13:33 Freq: Status: Active Protocol: Document 09/12/19 09:57 [facility] (Rec: 09/12/19 10:36 [facility] [id number]) OP-PT Subjective Patient Comments Patient Comments Pt reports she had dififculty sleeping last night PT-OP-D Balance Start: 04/24/19 13:33 Freq: Status: Active Protocol: Document 04/24/19 09:45 DCW (Rec: 04/24/19 16:44 DCW [id number]) OP-PT Balance Assessment Standing Balance Static Standing Balance Ability Normal Dynamic Standing Balance Ability Fair Balance Tests Narayanan Balance Test Narayanan Balance Test Score 52/56 Single Limb Standing Single Limb- Right 3 seconds Single Limb- Left 3 seconds Tandem Tandem Standing 5 seconds Narayanan Balance Assessment Evaluation Sitting to Standing Ability Independent w/out Hands Unsupported Stance Safely- 2 minutes Sitting Unsupported, Feet on Floor Safely- 2 minutes Standing to Sitting Ability Safely, Minimal Hand Use Transfer Ability Safely, Minimal Hand Use Unsupported Stance- Eyes Closed Safely, 10 seconds Unsupported Stance- Eyes Open Independent, 1 minute Reaching Forward Standing Safely, 5 inches Pick- Up Object From Floor Independent/Safe Look Behind Shoulder - Standing Shifts Weight Well Turning 360 Degrees Turns Bilateral, < 4 secs Unsupported Stance, Alternating Feet on (I)- 8 Steps in 20 secs Stair Unsupported Tandem Stance Holds Tandem- 30 seconds Unilateral Leg Stance Lifts Leg/Holds > 3 secs Total Score Narayanan Total Score (out of 56 points) 52 Narayanan Impairment Rating 1 to 19% Impaired (Score 45-55 ) Mccurdy Fall Scale Copyright Permission PT-OP-E Functional Tests Start: 04/24/19 13:33 Freq: Status: Active Protocol: Document 04/24/19 09:45 DCW (Rec: 04/24/19 16:44 DCW [id number]) Functional Tests Functional Gait Assessment Score 18/30 Functional Gait Assessment Impairment 40 to <60% Impaired (Score 13- Rating 18) PT-OP-G Mobility & Gait Start: 04/24/19 13:33 Freq: Status: Active Protocol: Document 04/24/19 09:45 DCW (Rec: 04/24/19 16:44 DCW [id number]) OP Gait Assessment Gait Gait Assistance Required: Independent Assistive Devices Assistive Device None Gait Deviations General Gait Pattern Decreased Stride Length, Decreased Feet Clearance, Lateral Trunk Lean,Wide Based Gait Factors Limiting Gait Function Factors Limiting Gait Function Abnormal Tonal Influences,Poor Balance Comments Gait Comments Pt has significant supination during gait, walking on the lateral edge of her shoes. Stair Climbing Evaluation Devices Stair Climbing Assistive Devices None Technique/Endurance Stair Climbing Direction Ascend and Descend Stair Climbing Technique Step Over Step PT-OP-H Neuro Start: 04/24/19 13:33 Freq: Status: Active Protocol: Document 04/24/19 09:45 DCW (Rec: 04/24/19 16:44 DCW [id number]) Sensation Evaluation Gross Sensation Gross Sensation WNL Coordination Evaluation Lower Extremity Tests Right Alternate Heel to Knee; Heel to Toe Test Normal Performance Heel on Figueroa Test Normal Performance Left Alternate Heel to Knee; Heel to Toe Test Normal Performance Heel on Figueroa Test Normal Performance Deep Tendon Reflex & Clonus Assessment Deep Tendon Reflex Right Achilles Deep Tendon Reflex 3+ Normal But Brisk Right Patellar Deep Tendon Reflex 4+ Brisk Left Achilles Deep Tendon Reflex 3+ Normal But Brisk Left Patellar Deep Tendon Reflex 4+ Brisk Ankle Clonus Bilateral Clonus Assessment 3 Beats Muscle Tone Tone Assessment Lower Extremity Muscle Tone Comments Moderate-Severe hypertonicity through bilateral gastrosoleus complex PT-OP-J Posture/Palpation/Skin Start: 04/24/19 13:33 Freq: Status: Active Protocol: Document 04/24/19 09:45 DCW (Rec: 04/24/19 16:44 DCW [id number]) Posture Evaluation Position Standing Evaluation View Lateral Weight Distribution Weight Shifted Anterior Hip Posture (L) Flexed,(R) Flexed Knee Posture (L) Genu Recurvatum,(R) Genu Recurvatum Ankle/Foot Posture (L) Plantarflexed,(R) Plantarflexed Foot Arch (L) High Arch,(R) High Arch PT-OP-K Range of Motion Start: 04/24/19 13:33 Freq: Status: Active Protocol: Document 08/21/19 10:31 [facility] (Rec: 08/21/19 11:16 [facility] [id number]) Ankle and Foot Goniometric Range of Motion Ankle and Foot Right Active Dorsiflexion with Knee Flexed 10 Dorsiflexion with Knee Extended 10 Left Active Dorsiflexion with Knee Flexed 10 Dorsiflexion with Knee Extended 10 Ankle and Foot ROM Limitations ROM Limitations Soft Tissue Tightness, Contracture,Muscle Tone PT-OP-L Special Tests Start: 04/24/19 13:33 Freq: Status: Active Protocol: Document 04/24/19 09:45 DCW (Rec: 04/24/19 16:44 DCW [id number]) Special Tests Hip Special Tests Straight Leg Raise Test Results Hamstring tightness at 53? bilaterally PT-OP-M Strength Start: 04/24/19 13:33 Freq: Status: Active Protocol: Document 08/21/19 10:31 [facility] (Rec: 08/21/19 11:16 [facility] [id number]) Hip Strength Hip Manual Muscle Testing Right Flexion (L2) 3+ Fair+ Extension (S1) 4 Good Abduction 4 Good External Rotation 3+ Fair+ Internal Rotation 3+ Fair+ Left Flexion (L2) 3+ Fair+ Extension (S1) 4 Good Abduction 4- Good- External Rotation 3+ Fair+ Internal Rotation 3+ Fair+ Comments pain abd Knee Strength Knee Manual Muscle Testing Right Flexion (S2) 4+ Good+ Extension (L3) 4+ Good+ Left Flexion (S2) 4+ Good+ Extension (L3) 4+ Good+ Ankle/Foot Strength Ankle and Foot Manual Muscle Testing Right Dorsiflexion (L4) 4 Good Plantarflexion (S1) 3+ Fair+ Comments 8 calf raisesR Left Dorsiflexion (L4) 4- Good- Plantarflexion (S1) 2+ Poor+ Comments unable to single leg heel raises PT-OP-Q Treatments Start: 04/24/19 13:33 Freq: Status: Active Protocol: Document 09/12/19 09:57 [facility] (Rec: 09/12/19 10:36 [facility] [id number]) Cardio Equipment Recumbent Elliptical (Biodex) Duration (Minutes) 6 Resistance 6 Seat Position 3 Gym Equipment Shuttle Balance red Reps/Duration head turns with fwd WBOS & NBOS Comments fwd & side: WBOS & NBOS& staggered stance weightshift Details fwd/bakc & side side on red clips Therapeutic Exercises Standing Exercises lateral band walk Resistance Tb green loop (L2 HEP) Reps/Minutes 20ft Comments PPT, soft knee, scap stab 3 Standing Exercise Name CRISTIANA stretch Reps/Minutes 30sec Therapeutic Activity Therapeutic Activity sleep Name supine & s/l positioning Neuro Re-Education Treatment Balance Activities hurdles Details over 6 hurdles Reps/Duration 2 blue forms Comments x6 laps balance discs Comments 1. blue foam NBOS & WBOS EC 2. staggered stance on blue tpads EO head turns & EC PT-OP-T Assessment and Plan Start: 04/24/19 09:34 Freq: Status: Active Protocol: Document 09/12/19 09:57 [facility] (Rec: 09/12/19 10:36 [facility] [id number]) Physical Therapy Assessment Goals balance Impairment FGA 19/30 Cracker Dough Mixer Goal (LTG) Pt will improve FGA to 25/30 to dec risk for falls. LTG Duration 10/21/19 Three Impairment Pt ambulates with excessive supination Alf Goal (LTG) Pt to ambulate in a proper heel to gait pattern with a neutral forefoot 50% of the time without prompting LTG Duration 10/21/19 Two Impairment Pt stands with hyperextension and forward trunk lean Cracker Dough Mixer Goal (LTG) Pt to improve ankle dorsiflexion to 10? in order to allow her to stand straight upright without needing to hyperextend knees. LTG Duration achieved One Impairment Pt does not have an appropriate home exercise program Short Term Goal (STG) Pt to be independent and compliant with an appropriate HEP STG Duration 09/20/19 Alf Goal (LTG) Pt will have at least 4+/5 LE strength in all planes to allow greater ease of activity LTG Duration 10/21/19 Assessment Summary Assessment Pt did well with static balance but was challenged during staggered stance positions today. Was given sleep psoiting to help improve ability to sleep thoguh night . Physical Therapy Plan Frequency and Duration Frequency of Treatment 2x/Week Duration of Treatment 2 months Plan of Care Start Date 08/21/19 Plan of Care End Date 10/21/19 Next Visit Focus/Plan Next Note Type Treatment Note Next Visit Plan review HEP as needed and cont to work on balance and strengthening
--- NOTE | 2019-09-19 11:16 | PT.OTN ---
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 (Rec: 09/19/19 11:16 [facility] [id number]) Out-Patient Physical Therapy Visit Information Visit Information Visit Type Treatment Note Visit Start Time 10:31 Visit Stop Time 11:10 Total Visit Minutes 39 Visit Number 15 Number of STATE AUDITOR Visits 0 PT-OP-B Current Condition Start: 04/24/19 09:34 Freq: Status: Active Protocol: Document 04/24/19 09:45 DCW (Rec: 04/24/19 16:44 DCW [id number]) Current Condition History of Current Condition Current Complaints General stiffness, decreased flexibility History of Current Condition Pt is a 43 year old female presenting with a recent diagnosis of Hereditary Spastic Paraplegia. Pt notes she has notices that it has recently been a little more visible, and she has noticed some increased difficulty in doing some thing. Noticed she has felt some difficulty walking and decreased balance, as well as generalized stiffness and increased tone. Treatment Goals Patient/Caregiver Goals Pt is interested in learning how to stretch and keep herself limber to hopefully help slow progress on disease process. Personal Factors Other Personal Factors That May Effect Depression, LBP, Hx Vertigo, Therapy/Recovery Seizure disorder PT-OP-C Subjective Start: 04/24/19 13:33 Freq: Status: Active Protocol: Document 09/19/19 10:34 [facility] (Rec: 09/19/19 11:16 [facility] [id number]) OP-PT Subjective Patient Comments Patient Comments Pt did some hiking over the weekend while camping and needed help with some over tree branch activities. PT-OP-D Balance Start: 04/24/19 13:33 Freq: Status: Active Protocol: Document 04/24/19 09:45 DCW (Rec: 04/24/19 16:44 DCW [id number]) OP-PT Balance Assessment Standing Balance Static Standing Balance Ability Normal Dynamic Standing Balance Ability Fair Balance Tests Narayanan Balance Test Narayanan Balance Test Score 52/56 Single Limb Standing Single Limb- Right 3 seconds Single Limb- Left 3 seconds Tandem Tandem Standing 5 seconds Narayanan Balance Assessment Evaluation Sitting to Standing Ability Independent w/out Hands Unsupported Stance Safely- 2 minutes Sitting Unsupported, Feet on Floor Safely- 2 minutes Standing to Sitting Ability Safely, Minimal Hand Use Transfer Ability Safely, Minimal Hand Use Unsupported Stance- Eyes Closed Safely, 10 seconds Unsupported Stance- Eyes Open Independent, 1 minute Reaching Forward Standing Safely, 5 inches Pick- Up Object From Floor Independent/Safe Look Behind Shoulder - Standing Shifts Weight Well Turning 360 Degrees Turns Bilateral, < 4 secs Unsupported Stance, Alternating Feet on (I)- 8 Steps in 20 secs Stair Unsupported Tandem Stance Holds Tandem- 30 seconds Unilateral Leg Stance Lifts Leg/Holds > 3 secs Total Score Narayanan Total Score (out of 56 points) 52 Narayanan Impairment Rating 1 to 19% Impaired (Score 45-55 ) Mccurdy Fall Scale Copyright Permission PT-OP-E Functional Tests Start: 04/24/19 13:33 Freq: Status: Active Protocol: Document 04/24/19 09:45 DCW (Rec: 04/24/19 16:44 DCW [id number]) Functional Tests Functional Gait Assessment Score 18/30 Functional Gait Assessment Impairment 40 to <60% Impaired (Score 13- Rating 18) PT-OP-G Mobility & Gait Start: 04/24/19 13:33 Freq: Status: Active Protocol: Document 04/24/19 09:45 DCW (Rec: 04/24/19 16:44 DCW [id number]) OP Gait Assessment Gait Gait Assistance Required: Independent Assistive Devices Assistive Device None Gait Deviations General Gait Pattern Decreased Stride Length, Decreased Feet Clearance, Lateral Trunk Lean,Wide Based Gait Factors Limiting Gait Function Factors Limiting Gait Function Abnormal Tonal Influences,Poor Balance Comments Gait Comments Pt has significant supination during gait, walking on the lateral edge of her shoes. Stair Climbing Evaluation Devices Stair Climbing Assistive Devices None Technique/Endurance Stair Climbing Direction Ascend and Descend Stair Climbing Technique Step Over Step PT-OP-H Neuro Start: 04/24/19 13:33 Freq: Status: Active Protocol: Document 04/24/19 09:45 DCW (Rec: 04/24/19 16:44 DCW [id number]) Sensation Evaluation Gross Sensation Gross Sensation WNL Coordination Evaluation Lower Extremity Tests Right Alternate Heel to Knee; Heel to Toe Test Normal Performance Heel on Figueroa Test Normal Performance Left Alternate Heel to Knee; Heel to Toe Test Normal Performance Heel on Figueroa Test Normal Performance Deep Tendon Reflex & Clonus Assessment Deep Tendon Reflex Right Achilles Deep Tendon Reflex 3+ Normal But Brisk Right Patellar Deep Tendon Reflex 4+ Brisk Left Achilles Deep Tendon Reflex 3+ Normal But Brisk Left Patellar Deep Tendon Reflex 4+ Brisk Ankle Clonus Bilateral Clonus Assessment 3 Beats Muscle Tone Tone Assessment Lower Extremity Muscle Tone Comments Moderate-Severe hypertonicity through bilateral gastrosoleus complex PT-OP-J Posture/Palpation/Skin Start: 04/24/19 13:33 Freq: Status: Active Protocol: Document 04/24/19 09:45 DCW (Rec: 04/24/19 16:44 DCW [id number]) Posture Evaluation Position Standing Evaluation View Lateral Weight Distribution Weight Shifted Anterior Hip Posture (L) Flexed,(R) Flexed Knee Posture (L) Genu Recurvatum,(R) Genu Recurvatum Ankle/Foot Posture (L) Plantarflexed,(R) Plantarflexed Foot Arch (L) High Arch,(R) High Arch PT-OP-K Range of Motion Start: 04/24/19 13:33 Freq: Status: Active Protocol: Document 08/21/19 10:31 [facility] (Rec: 08/21/19 11:16 [facility] [id number]) Ankle and Foot Goniometric Range of Motion Ankle and Foot Right Active Dorsiflexion with Knee Flexed 10 Dorsiflexion with Knee Extended 10 Left Active Dorsiflexion with Knee Flexed 10 Dorsiflexion with Knee Extended 10 Ankle and Foot ROM Limitations ROM Limitations Soft Tissue Tightness, Contracture,Muscle Tone PT-OP-L Special Tests Start: 04/24/19 13:33 Freq: Status: Active Protocol: Document 04/24/19 09:45 DCW (Rec: 04/24/19 16:44 DCW [id number]) Special Tests Hip Special Tests Straight Leg Raise Test Results Hamstring tightness at 53? bilaterally PT-OP-M Strength Start: 04/24/19 13:33 Freq: Status: Active Protocol: Document 08/21/19 10:31 [facility] (Rec: 08/21/19 11:16 [facility] [id number]) Hip Strength Hip Manual Muscle Testing Right Flexion (L2) 3+ Fair+ Extension (S1) 4 Good Abduction 4 Good External Rotation 3+ Fair+ Internal Rotation 3+ Fair+ Left Flexion (L2) 3+ Fair+ Extension (S1) 4 Good Abduction 4- Good- External Rotation 3+ Fair+ Internal Rotation 3+ Fair+ Comments pain abd Knee Strength Knee Manual Muscle Testing Right Flexion (S2) 4+ Good+ Extension (L3) 4+ Good+ Left Flexion (S2) 4+ Good+ Extension (L3) 4+ Good+ Ankle/Foot Strength Ankle and Foot Manual Muscle Testing Right Dorsiflexion (L4) 4 Good Plantarflexion (S1) 3+ Fair+ Comments 8 calf raisesR Left Dorsiflexion (L4) 4- Good- Plantarflexion (S1) 2+ Poor+ Comments unable to single leg heel raises PT-OP-Q Treatments Start: 04/24/19 13:33 Freq: Status: Active Protocol: Document 09/19/19 10:34 [facility] (Rec: 09/19/19 11:16 [facility] [id number]) Cardio Equipment Recumbent Elliptical (Biodex) Duration (Minutes) 6 Resistance 6 Seat Position 3 Gym Equipment Shuttle Balance red Reps/Duration all but side staggered stance & NBOS w/balloon volley Comments fwd & side: WBOS & NBOS& staggered stance Therapeutic Ball seated Ball Size/Color 55cm Comments 1.pelvic tilts x20 2. pelvic circles B x10 3. heel slide x15 B Therapeutic Exercises Sidelying Exercises 2 Sidelying Exercise Name hip flexor/quad stretch Side left Reps/Minutes 30 sec Standing Exercises 3 Standing Exercise Name lunges Side bilateral Reps/Minutes 20ftx2 2 Standing Exercise Name hip flexor stretch Side bilateral Reps/Minutes 30 sec Comments standing then half kneeing Therapeutic Activity Therapeutic Activity posture Name standing in mirror PT-OP-T Assessment and Plan Start: 04/24/19 09:34 Freq: Status: Active Protocol: Document 09/19/19 10:34 [facility] (Rec: 09/19/19 11:16 [facility] [id number]) Physical Therapy Assessment Goals balance Impairment FGA 19/30 Longterm Goal (LTG) Pt will improve FGA to 25/30 to dec risk for falls. LTG Duration 10/21/19 Three Impairment Pt ambulates with excessive supination Longterm Goal (LTG) Pt to ambulate in a proper heel to gait pattern with a neutral forefoot 50% of the time without prompting LTG Duration 10/21/19 Two Impairment Pt stands with hyperextension and forward trunk lean Longterm Goal (LTG) Pt to improve ankle dorsiflexion to 10? in order to allow her to stand straight upright without needing to hyperextend knees. LTG Duration achieved One Impairment Pt does not have an appropriate home exercise program Short Term Goal (STG) Pt to be independent and compliant with an appropriate HEP STG Duration 09/20/19 Nitroglycerin Supervisor Goal (LTG) Pt will have at least 4+/5 LE strength in all planes to allow greater ease of activity LTG Duration 10/21/19 Assessment Summary Assessment Pt was more challenged with balloon volely on balance board. Required cueing throughout session for posture and required tactile cueing for pelvic tilts on ball Physical Therapy Plan Frequency and Duration Frequency of Treatment 2x/Week Duration of Treatment 2 months Plan of Care Start Date 08/21/19 Plan of Care End Date 10/21/19 Next Visit Focus/Plan Next Note Type Treatment Note Next Visit Plan cont to work on postural stability w/balance
--- NOTE | 2019-09-25 11:18 | PT.OTN ---
Current Diagnoses Hereditary spastic paraplegia (09/25/19) Stiffness of unspecified hip, not elsewhere classified (09/25/19) Stiffness of unspecified ankle, not elsewhere classified (09/25/19) Abnormal posture (09/25/19) Physical Therapy Treatment Note PT-OP-A Visit Information Start: 04/24/19 09:34 Freq: Status: Active Protocol: Document 09/25/19 10:38 [facility] (Rec: 09/25/19 11:18 [facility] [id number]) Out-Patient Physical Therapy Visit Information Visit Information Visit Type Treatment Note Visit Start Time 10:33 Visit Stop Time 11:13 Total Visit Minutes 40 Visit Number 16 Number of MOBILE MARKETING SPECIALIST Visits 0 PT-OP-B Current Condition Start: 04/24/19 09:34 Freq: Status: Active Protocol: Document 04/24/19 09:45 DCW (Rec: 04/24/19 16:44 DCW [id number]) Current Condition History of Current Condition Current Complaints General stiffness, decreased flexibility History of Current Condition Pt is a 43 year old female presenting with a recent diagnosis of Hereditary Spastic Paraplegia. Pt notes she has notices that it has recently been a little more visible, and she has noticed some increased difficulty in doing some thing. Noticed she has felt some difficulty walking and decreased balance, as well as generalized stiffness and increased tone. Treatment Goals Patient/Caregiver Goals Pt is interested in learning how to stretch and keep herself limber to hopefully help slow progress on disease process. Personal Factors Other Personal Factors That May Effect Depression, LBP, Hx Vertigo, Therapy/Recovery Seizure disorder PT-OP-C Subjective Start: 04/24/19 13:33 Freq: Status: Active Protocol: Document 09/25/19 10:38 [facility] (Rec: 09/25/19 11:18 [facility] [id number]) OP-PT Subjective Patient Comments Patient Comments Pt reports a long walk this weekend. Feels like she has to make sure she does her stretches. PT-OP-D Balance Start: 04/24/19 13:33 Freq: Status: Active Protocol: Document 04/24/19 09:45 DCW (Rec: 04/24/19 16:44 DCW [id number]) OP-PT Balance Assessment Standing Balance Static Standing Balance Ability Normal Dynamic Standing Balance Ability Fair Balance Tests Narayanan Balance Test Narayanan Balance Test Score 52/56 Single Limb Standing Single Limb- Right 3 seconds Single Limb- Left 3 seconds Tandem Tandem Standing 5 seconds Narayanan Balance Assessment Evaluation Sitting to Standing Ability Independent w/out Hands Unsupported Stance Safely- 2 minutes Sitting Unsupported, Feet on Floor Safely- 2 minutes Standing to Sitting Ability Safely, Minimal Hand Use Transfer Ability Safely, Minimal Hand Use Unsupported Stance- Eyes Closed Safely, 10 seconds Unsupported Stance- Eyes Open Independent, 1 minute Reaching Forward Standing Safely, 5 inches Pick- Up Object From Floor Independent/Safe Look Behind Shoulder - Standing Shifts Weight Well Turning 360 Degrees Turns Bilateral, < 4 secs Unsupported Stance, Alternating Feet on (I)- 8 Steps in 20 secs Stair Unsupported Tandem Stance Holds Tandem- 30 seconds Unilateral Leg Stance Lifts Leg/Holds > 3 secs Total Score Narayanan Total Score (out of 56 points) 52 Narayanan Impairment Rating 1 to 19% Impaired (Score 45-55 ) Mccurdy Fall Scale Copyright Permission PT-OP-E Functional Tests Start: 04/24/19 13:33 Freq: Status: Active Protocol: Document 04/24/19 09:45 DCW (Rec: 04/24/19 16:44 DCW [id number]) Functional Tests Functional Gait Assessment Score 18/30 Functional Gait Assessment Impairment 40 to <60% Impaired (Score 13- Rating 18) PT-OP-G Mobility & Gait Start: 04/24/19 13:33 Freq: Status: Active Protocol: Document 04/24/19 09:45 DCW (Rec: 04/24/19 16:44 DCW [id number]) OP Gait Assessment Gait Gait Assistance Required: Independent Assistive Devices Assistive Device None Gait Deviations General Gait Pattern Decreased Stride Length, Decreased Feet Clearance, Lateral Trunk Lean,Wide Based Gait Factors Limiting Gait Function Factors Limiting Gait Function Abnormal Tonal Influences,Poor Balance Comments Gait Comments Pt has significant supination during gait, walking on the lateral edge of her shoes. Stair Climbing Evaluation Devices Stair Climbing Assistive Devices None Technique/Endurance Stair Climbing Direction Ascend and Descend Stair Climbing Technique Step Over Step PT-OP-H Neuro Start: 04/24/19 13:33 Freq: Status: Active Protocol: Document 04/24/19 09:45 DCW (Rec: 04/24/19 16:44 DCW [id number]) Sensation Evaluation Gross Sensation Gross Sensation WNL Coordination Evaluation Lower Extremity Tests Right Alternate Heel to Knee; Heel to Toe Test Normal Performance Heel on Figueroa Test Normal Performance Left Alternate Heel to Knee; Heel to Toe Test Normal Performance Heel on Figueroa Test Normal Performance Deep Tendon Reflex & Clonus Assessment Deep Tendon Reflex Right Achilles Deep Tendon Reflex 3+ Normal But Brisk Right Patellar Deep Tendon Reflex 4+ Brisk Left Achilles Deep Tendon Reflex 3+ Normal But Brisk Left Patellar Deep Tendon Reflex 4+ Brisk Ankle Clonus Bilateral Clonus Assessment 3 Beats Muscle Tone Tone Assessment Lower Extremity Muscle Tone Comments Moderate-Severe hypertonicity through bilateral gastrosoleus complex PT-OP-J Posture/Palpation/Skin Start: 04/24/19 13:33 Freq: Status: Active Protocol: Document 04/24/19 09:45 DCW (Rec: 04/24/19 16:44 DCW [id number]) Posture Evaluation Position Standing Evaluation View Lateral Weight Distribution Weight Shifted Anterior Hip Posture (L) Flexed,(R) Flexed Knee Posture (L) Genu Recurvatum,(R) Genu Recurvatum Ankle/Foot Posture (L) Plantarflexed,(R) Plantarflexed Foot Arch (L) High Arch,(R) High Arch PT-OP-K Range of Motion Start: 04/24/19 13:33 Freq: Status: Active Protocol: Document 08/21/19 10:31 [facility] (Rec: 08/21/19 11:16 [facility] [id number]) Ankle and Foot Goniometric Range of Motion Ankle and Foot Right Active Dorsiflexion with Knee Flexed 10 Dorsiflexion with Knee Extended 10 Left Active Dorsiflexion with Knee Flexed 10 Dorsiflexion with Knee Extended 10 Ankle and Foot ROM Limitations ROM Limitations Soft Tissue Tightness, Contracture,Muscle Tone PT-OP-L Special Tests Start: 04/24/19 13:33 Freq: Status: Active Protocol: Document 04/24/19 09:45 DCW (Rec: 04/24/19 16:44 DCW [id number]) Special Tests Hip Special Tests Straight Leg Raise Test Results Hamstring tightness at 53? bilaterally PT-OP-M Strength Start: 04/24/19 13:33 Freq: Status: Active Protocol: Document 08/21/19 10:31 [facility] (Rec: 08/21/19 11:16 [facility] [id number]) Hip Strength Hip Manual Muscle Testing Right Flexion (L2) 3+ Fair+ Extension (S1) 4 Good Abduction 4 Good External Rotation 3+ Fair+ Internal Rotation 3+ Fair+ Left Flexion (L2) 3+ Fair+ Extension (S1) 4 Good Abduction 4- Good- External Rotation 3+ Fair+ Internal Rotation 3+ Fair+ Comments pain abd Knee Strength Knee Manual Muscle Testing Right Flexion (S2) 4+ Good+ Extension (L3) 4+ Good+ Left Flexion (S2) 4+ Good+ Extension (L3) 4+ Good+ Ankle/Foot Strength Ankle and Foot Manual Muscle Testing Right Dorsiflexion (L4) 4 Good Plantarflexion (S1) 3+ Fair+ Comments 8 calf raisesR Left Dorsiflexion (L4) 4- Good- Plantarflexion (S1) 2+ Poor+ Comments unable to single leg heel raises PT-OP-Q Treatments Start: 04/24/19 13:33 Freq: Status: Active Protocol: Document 09/25/19 10:38 [facility] (Rec: 09/25/19 11:18 [facility] [id number]) Cardio Equipment Recumbent Elliptical (Biodex) Duration (Minutes) 6 Resistance 6 Seat Position 3 Gym Equipment Shuttle Balance red Reps/Duration w/hitting balloon Comments fwd &side: WBOS & NBOS fwd:staggered stance weightshift Details fwd/bakc & side side on red clips Therapeutic Exercises Sitting Exercises stretches Sitting Exercise Name 1.ER 2. piriformis 3. HS/calf Side bilateral Reps/Minutes 30 sec ea Standing Exercises 3 Standing Exercise Name lunges Side bilateral Reps/Minutes 20ftx2 Comments walking 2 Standing Exercise Name hip flexor stretch Side bilateral Reps/Minutes 30 sec Comments standing then half kneeing 1 Standing Exercise Name wall posture Side bilateral Reps/Minutes 10 Comments 90/90 ER Therapeutic Activity Therapeutic Activity posture Name standing in mirror Neuro Re-Education Treatment Balance Activities bosu Details squats Equipment 12 PT-OP-T Assessment and Plan Start: 04/24/19 09:34 Freq: Status: Active Protocol: Document 09/25/19 10:38 [facility] (Rec: 09/25/19 11:18 [facility] [id number]) Physical Therapy Assessment Goals balance Impairment FGA 19/30 Penitentiary Goal (LTG) Pt will improve FGA to 25/30 to dec risk for falls. LTG Duration 8/30/20 Three Impairment Pt ambulates with excessive supination Penitentiary Goal (LTG) Pt to ambulate in a proper heel to gait pattern with a neutral forefoot 50% of the time without prompting LTG Duration 10/21/19 Two Impairment Pt stands with hyperextension and forward trunk lean Manager Transfer Goal (LTG) Pt to improve ankle dorsiflexion to 10? in order to allow her to stand straight upright without needing to hyperextend knees. LTG Duration achieved One Impairment Pt does not have an appropriate home exercise program Short Term Goal (STG) Pt to be independent and compliant with an appropriate HEP STG Duration 09/20/19 Penitentiary Goal (LTG) Pt will have at least 4+/5 LE strength in all planes to allow greater ease of activity LTG Duration 10/21/19 Assessment Summary Assessment Pt was cued throughout exercises to maintain posture which made all exercises more difficult as she worked on changing her position of her ribcage on pelvis. She is doing better maintaining better posture during activities. Physical Therapy Plan Frequency and Duration Frequency of Treatment 2x/Week Duration of Treatment 2 months Plan of Care Start Date 08/21/19 Plan of Care End Date 10/21/19 Next Visit Focus/Plan Next Note Type Treatment Note Next Visit Plan cont to work on postural stability w/balance
--- NOTE | 2019-10-02 11:16 | PT.OTN ---
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 (Rec: 10/02/19 11:16 [facility] [id number]) Out-Patient Physical Therapy Visit Information Visit Information Visit Type Treatment Note Visit Start Time 10:32 Visit Stop Time 11:10 Total Visit Minutes 38 Visit Number 17 Number of BIOMEDICAL ANALYTICAL SCIENTIST Visits 0 PT-OP-B Current Condition Start: 04/24/19 09:34 Freq: Status: Active Protocol: Document 04/24/19 09:45 DCW (Rec: 04/24/19 16:44 DCW [id number]) Current Condition History of Current Condition Current Complaints General stiffness, decreased flexibility History of Current Condition Pt is a 43 year old female presenting with a recent diagnosis of Hereditary Spastic Paraplegia. Pt notes she has notices that it has recently been a little more visible, and she has noticed some increased difficulty in doing some thing. Noticed she has felt some difficulty walking and decreased balance, as well as generalized stiffness and increased tone. Treatment Goals Patient/Caregiver Goals Pt is interested in learning how to stretch and keep herself limber to hopefully help slow progress on disease process. Personal Factors Other Personal Factors That May Effect Depression, LBP, Hx Vertigo, Therapy/Recovery Seizure disorder PT-OP-C Subjective Start: 04/24/19 13:33 Freq: Status: Active Protocol: Document 10/02/19 10:37 [facility] (Rec: 10/02/19 11:16 [facility] [id number]) OP-PT Subjective Patient Comments Patient Comments compliance with HEP PT-OP-D Balance Start: 04/24/19 13:33 Freq: Status: Active Protocol: Document 04/24/19 09:45 DCW (Rec: 04/24/19 16:44 DCW [id number]) OP-PT Balance Assessment Standing Balance Static Standing Balance Ability Normal Dynamic Standing Balance Ability Fair Balance Tests Narayanan Balance Test Narayanan Balance Test Score 52/56 Single Limb Standing Single Limb- Right 3 seconds Single Limb- Left 3 seconds Tandem Tandem Standing 5 seconds Narayanan Balance Assessment Evaluation Sitting to Standing Ability Independent w/out Hands Unsupported Stance Safely- 2 minutes Sitting Unsupported, Feet on Floor Safely- 2 minutes Standing to Sitting Ability Safely, Minimal Hand Use Transfer Ability Safely, Minimal Hand Use Unsupported Stance- Eyes Closed Safely, 10 seconds Unsupported Stance- Eyes Open Independent, 1 minute Reaching Forward Standing Safely, 5 inches Pick- Up Object From Floor Independent/Safe Look Behind Shoulder - Standing Shifts Weight Well Turning 360 Degrees Turns Bilateral, < 4 secs Unsupported Stance, Alternating Feet on (I)- 8 Steps in 20 secs Stair Unsupported Tandem Stance Holds Tandem- 30 seconds Unilateral Leg Stance Lifts Leg/Holds > 3 secs Total Score Narayanan Total Score (out of 56 points) 52 Narayanan Impairment Rating 1 to 19% Impaired (Score 45-55 ) Mccurdy Fall Scale Copyright Permission PT-OP-E Functional Tests Start: 04/24/19 13:33 Freq: Status: Active Protocol: Document 04/24/19 09:45 DCW (Rec: 04/24/19 16:44 DCW [id number]) Functional Tests Functional Gait Assessment Score 18/30 Functional Gait Assessment Impairment 40 to <60% Impaired (Score 13- Rating 18) PT-OP-G Mobility & Gait Start: 04/24/19 13:33 Freq: Status: Active Protocol: Document 04/24/19 09:45 DCW (Rec: 04/24/19 16:44 DCW [id number]) OP Gait Assessment Gait Gait Assistance Required: Independent Assistive Devices Assistive Device None Gait Deviations General Gait Pattern Decreased Stride Length, Decreased Feet Clearance, Lateral Trunk Lean,Wide Based Gait Factors Limiting Gait Function Factors Limiting Gait Function Abnormal Tonal Influences,Poor Balance Comments Gait Comments Pt has significant supination during gait, walking on the lateral edge of her shoes. Stair Climbing Evaluation Devices Stair Climbing Assistive Devices None Technique/Endurance Stair Climbing Direction Ascend and Descend Stair Climbing Technique Step Over Step PT-OP-H Neuro Start: 04/24/19 13:33 Freq: Status: Active Protocol: Document 04/24/19 09:45 DCW (Rec: 04/24/19 16:44 DCW [id number]) Sensation Evaluation Gross Sensation Gross Sensation WNL Coordination Evaluation Lower Extremity Tests Right Alternate Heel to Knee; Heel to Toe Test Normal Performance Heel on Figueroa Test Normal Performance Left Alternate Heel to Knee; Heel to Toe Test Normal Performance Heel on Figueroa Test Normal Performance Deep Tendon Reflex & Clonus Assessment Deep Tendon Reflex Right Achilles Deep Tendon Reflex 3+ Normal But Brisk Right Patellar Deep Tendon Reflex 4+ Brisk Left Achilles Deep Tendon Reflex 3+ Normal But Brisk Left Patellar Deep Tendon Reflex 4+ Brisk Ankle Clonus Bilateral Clonus Assessment 3 Beats Muscle Tone Tone Assessment Lower Extremity Muscle Tone Comments Moderate-Severe hypertonicity through bilateral gastrosoleus complex PT-OP-J Posture/Palpation/Skin Start: 04/24/19 13:33 Freq: Status: Active Protocol: Document 04/24/19 09:45 DCW (Rec: 04/24/19 16:44 DCW [id number]) Posture Evaluation Position Standing Evaluation View Lateral Weight Distribution Weight Shifted Anterior Hip Posture (L) Flexed,(R) Flexed Knee Posture (L) Genu Recurvatum,(R) Genu Recurvatum Ankle/Foot Posture (L) Plantarflexed,(R) Plantarflexed Foot Arch (L) High Arch,(R) High Arch PT-OP-K Range of Motion Start: 04/24/19 13:33 Freq: Status: Active Protocol: Document 08/21/19 10:31 [facility] (Rec: 08/21/19 11:16 [facility] [id number]) Ankle and Foot Goniometric Range of Motion Ankle and Foot Right Active Dorsiflexion with Knee Flexed 10 Dorsiflexion with Knee Extended 10 Left Active Dorsiflexion with Knee Flexed 10 Dorsiflexion with Knee Extended 10 Ankle and Foot ROM Limitations ROM Limitations Soft Tissue Tightness, Contracture,Muscle Tone PT-OP-L Special Tests Start: 04/24/19 13:33 Freq: Status: Active Protocol: Document 04/24/19 09:45 DCW (Rec: 04/24/19 16:44 DCW [id number]) Special Tests Hip Special Tests Straight Leg Raise Test Results Hamstring tightness at 53? bilaterally PT-OP-M Strength Start: 04/24/19 13:33 Freq: Status: Active Protocol: Document 08/21/19 10:31 [facility] (Rec: 08/21/19 11:16 [facility] [id number]) Hip Strength Hip Manual Muscle Testing Right Flexion (L2) 3+ Fair+ Extension (S1) 4 Good Abduction 4 Good External Rotation 3+ Fair+ Internal Rotation 3+ Fair+ Left Flexion (L2) 3+ Fair+ Extension (S1) 4 Good Abduction 4- Good- External Rotation 3+ Fair+ Internal Rotation 3+ Fair+ Comments pain abd Knee Strength Knee Manual Muscle Testing Right Flexion (S2) 4+ Good+ Extension (L3) 4+ Good+ Left Flexion (S2) 4+ Good+ Extension (L3) 4+ Good+ Ankle/Foot Strength Ankle and Foot Manual Muscle Testing Right Dorsiflexion (L4) 4 Good Plantarflexion (S1) 3+ Fair+ Comments 8 calf raisesR Left Dorsiflexion (L4) 4- Good- Plantarflexion (S1) 2+ Poor+ Comments unable to single leg heel raises PT-OP-Q Treatments Start: 04/24/19 13:33 Freq: Status: Active Protocol: Document 10/02/19 10:37 [facility] (Rec: 10/02/19 11:16 [facility] [id number]) Cardio Equipment Recumbent Stepper (Sci-Fit) Duration (Minutes) 6 Resistance 5 Seat Position 5 Gym Equipment Shuttle Balance red Comments NBOS w/EC & stagered stance balance fwd weightshift Details fwd/back Therapeutic Exercises Supine Exercises soheila stretch w/ strap Supine Exercise Name no strap off edg eof bed Side bilateral Reps/Minutes 30 sec 6 Supine Exercise Name pelvic tilts Comments max cueing 5 Supine Exercise Name foam roll: flex & Habd Side bilateral Reps/Minutes 15 ea Comments w/focus on pelvic tilt Standing Exercises 1 Standing Exercise Name wall posture Side bilateral Reps/Minutes 10x3 Comments 90/90 ER Therapeutic Activity Therapeutic Activity posture Name standing in mirror Comments tactile cueing & help with positioning PT-OP-T Assessment and Plan Start: 04/24/19 09:34 Freq: Status: Active Protocol: Document 10/02/19 10:37 [facility] (Rec: 10/02/19 11:16 [facility] [id number]) Physical Therapy Assessment Goals balance Impairment FGA Fci Goal (LTG) Pt will improve FGA to 2530 to dec risk for falls. LTG Duration 10/21/19 Three Impairment Pt ambulates with excessive supination Cell Room Supervisor Goal (LTG) Pt to ambulate in a proper heel to gait pattern with a neutral forefoot 50% of the time without prompting LTG Duration 10/21/19 Two Impairment Pt stands with hyperextension and forward trunk lean Cell Room Supervisor Goal (LTG) Pt to improve ankle dorsiflexion to 10? in order to allow her to stand straight upright without needing to hyperextend knees. LTG Duration achieved One Impairment Pt does not have an appropriate home exercise program Short Term Goal (STG) Pt to be independent and compliant with an appropriate HEP STG Duration 09/20/19 Cell Room Supervisor Goal (LTG) Pt will have at least 4+/5 LE strength in all planes to allow greater ease of activity LTG Duration 10/21/19 Assessment Summary Assessment Significant time has been spent with pelvic tilts today as pt had signfiicant difficulty with movement which likely affects her ability to get into good posture without tactile cueing as assistance to position. Physical Therapy Plan Frequency and Duration Frequency of Treatment 2x/Week Duration of Treatment 2 months Plan of Care Start Date 08/21/19 Plan of Care End Date 10/21/19 Next Visit Focus/Plan Next Note Type Treatment Note Next Visit Plan cont to work on postural stability w/balance
--- NOTE | 2019-10-09 11:15 | PT.OTN ---
Current Diagnoses Hereditary spastic paraplegia (10/09/19) Stiffness of unspecified hip, not elsewhere classified (10/09/19) Stiffness of unspecified ankle, not elsewhere classified (10/09/19) Abnormal posture (10/09/19) Physical Therapy Treatment Note PT-OP-A Visit Information Start: 04/24/19 09:34 Freq: Status: Active Protocol: Document 10/09/19 10:27 SP (Rec: 10/09/19 11:23 SP [id number]) Out-Patient Physical Therapy Visit Information Visit Information Visit Type Treatment Note Visit Note Progress note due next visit, 10/16/19. Visit Start Time 10:30 Visit Stop Time 11:15 Total Visit Minutes 45 Visit Number 18 Number of NEWS LIBRARIAN Visits 1 PT-OP-B Current Condition Start: 04/24/19 09:34 Freq: Status: Active Protocol: Document 04/24/19 09:45 DCW (Rec: 04/24/19 16:44 DCW [id number]) Current Condition History of Current Condition Current Complaints General stiffness, decreased flexibility History of Current Condition Pt is a 43 year old female presenting with a recent diagnosis of Hereditary Spastic Paraplegia. Pt notes she has notices that it has recently been a little more visible, and she has noticed some increased difficulty in doing some thing. Noticed she has felt some difficulty walking and decreased balance, as well as generalized stiffness and increased tone. Treatment Goals Patient/Caregiver Goals Pt is interested in learning how to stretch and keep herself limber to hopefully help slow progress on disease process. Personal Factors Other Personal Factors That May Effect Depression, LBP, Hx Vertigo, Therapy/Recovery Seizure disorder PT-OP-C Subjective Start: 04/24/19 13:33 Freq: Status: Active Protocol: Document 10/09/19 10:27 SP (Rec: 10/09/19 11:23 SP [id number]) OP-PT Subjective Patient Comments Patient Comments Pt stated frustrated over the weekend. Was in [place] and walked alot in her sneakers about couple of hours visiting shops with little normal discomfort hips and leg muscle, later in evening decreased balance, more pain and no endurance walking with elevated boots with wide heel and unsure why but stated it's been about a yr since wore them. PT-OP-D Balance Start: 04/24/19 13:33 Freq: Status: Active Protocol: Document 04/24/19 09:45 DCW (Rec: 04/24/19 16:44 DCW [id number]) OP-PT Balance Assessment Standing Balance Static Standing Balance Ability Normal Dynamic Standing Balance Ability Fair Balance Tests Narayanan Balance Test Narayanan Balance Test Score 52/56 Single Limb Standing Single Limb- Right 3 seconds Single Limb- Left 3 seconds Tandem Tandem Standing 5 seconds Narayanan Balance Assessment Evaluation Sitting to Standing Ability Independent w/out Hands Unsupported Stance Safely- 2 minutes Sitting Unsupported, Feet on Floor Safely- 2 minutes Standing to Sitting Ability Safely, Minimal Hand Use Transfer Ability Safely, Minimal Hand Use Unsupported Stance- Eyes Closed Safely, 10 seconds Unsupported Stance- Eyes Open Independent, 1 minute Reaching Forward Standing Safely, 5 inches Pick- Up Object From Floor Independent/Safe Look Behind Shoulder - Standing Shifts Weight Well Turning 360 Degrees Turns Bilateral, < 4 secs Unsupported Stance, Alternating Feet on (I)- 8 Steps in 20 secs Stair Unsupported Tandem Stance Holds Tandem- 30 seconds Unilateral Leg Stance Lifts Leg/Holds > 3 secs Total Score Narayanan Total Score (out of 56 points) 52 Narayanan Impairment Rating 1 to 19% Impaired (Score 45-55 ) Mccurdy Fall Scale Copyright Permission PT-OP-E Functional Tests Start: 04/24/19 13:33 Freq: Status: Active Protocol: Document 04/24/19 09:45 DCW (Rec: 04/24/19 16:44 [facility] [id number]) Functional Tests Functional Gait Assessment Score 18/30 Functional Gait Assessment Impairment 40 to <60% Impaired (Score 13- Rating 18) PT-OP-G Mobility & Gait Start: 04/24/19 13:33 Freq: Status: Active Protocol: Document 04/24/19 09:45 DCW (Rec: 04/24/19 16:44 [facility] [id number]) OP Gait Assessment Gait Gait Assistance Required: Independent Assistive Devices Assistive Device None Gait Deviations General Gait Pattern Decreased Stride Length, Decreased Feet Clearance, Lateral Trunk Lean,Wide Based Gait Factors Limiting Gait Function Factors Limiting Gait Function Abnormal Tonal Influences,Poor Balance Comments Gait Comments Pt has significant supination during gait, walking on the lateral edge of her shoes. Stair Climbing Evaluation Devices Stair Climbing Assistive Devices None Technique/Endurance Stair Climbing Direction Ascend and Descend Stair Climbing Technique Step Over Step PT-OP-H Neuro Start: 04/24/19 13:33 Freq: Status: Active Protocol: Document 04/24/19 09:45 DCW (Rec: 04/24/19 16:44 DCW [id number]) Sensation Evaluation Gross Sensation Gross Sensation WNL Coordination Evaluation Lower Extremity Tests Right Alternate Heel to Knee; Heel to Toe Test Normal Performance Heel on Figueroa Test Normal Performance Left Alternate Heel to Knee; Heel to Toe Test Normal Performance Heel on Figueroa Test Normal Performance Deep Tendon Reflex & Clonus Assessment Deep Tendon Reflex Right Achilles Deep Tendon Reflex 3+ Normal But Brisk Right Patellar Deep Tendon Reflex 4+ Brisk Left Achilles Deep Tendon Reflex 3+ Normal But Brisk Left Patellar Deep Tendon Reflex 4+ Brisk Ankle Clonus Bilateral Clonus Assessment 3 Beats Muscle Tone Tone Assessment Lower Extremity Muscle Tone Comments Moderate-Severe hypertonicity through bilateral gastrosoleus complex PT-OP-J Posture/Palpation/Skin Start: 04/24/19 13:33 Freq: Status: Active Protocol: Document 04/24/19 09:45 DCW (Rec: 04/24/19 16:44 DCW [id number]) Posture Evaluation Position Standing Evaluation View Lateral Weight Distribution Weight Shifted Anterior Hip Posture (L) Flexed,(R) Flexed Knee Posture (L) Genu Recurvatum,(R) Genu Recurvatum Ankle/Foot Posture (L) Plantarflexed,(R) Plantarflexed Foot Arch (L) High Arch,(R) High Arch PT-OP-K Range of Motion Start: 04/24/19 13:33 Freq: Status: Active Protocol: Document 08/21/19 10:31 LR (Rec: 08/21/19 11:16 LR [id number]) Ankle and Foot Goniometric Range of Motion Ankle and Foot Right Active Dorsiflexion with Knee Flexed 10 Dorsiflexion with Knee Extended 10 Left Active Dorsiflexion with Knee Flexed 10 Dorsiflexion with Knee Extended 10 Ankle and Foot ROM Limitations ROM Limitations Soft Tissue Tightness, Contracture,Muscle Tone PT-OP-L Special Tests Start: 04/24/19 13:33 Freq: Status: Active Protocol: Document 04/24/19 09:45 DCW (Rec: 04/24/19 16:44 DCW [id number]) Special Tests Hip Special Tests Straight Leg Raise Test Results Hamstring tightness at 53? bilaterally PT-OP-M Strength Start: 04/24/19 13:33 Freq: Status: Active Protocol: Document 08/21/19 10:31 LR (Rec: 08/21/19 11:16 LR [id number]) Hip Strength Hip Manual Muscle Testing Right Flexion (L2) 3+ Fair+ Extension (S1) 4 Good Abduction 4 Good External Rotation 3+ Fair+ Internal Rotation 3+ Fair+ Left Flexion (L2) 3+ Fair+ Extension (S1) 4 Good Abduction 4- Good- External Rotation 3+ Fair+ Internal Rotation 3+ Fair+ Comments pain abd Knee Strength Knee Manual Muscle Testing Right Flexion (S2) 4+ Good+ Extension (L3) 4+ Good+ Left Flexion (S2) 4+ Good+ Extension (L3) 4+ Good+ Ankle/Foot Strength Ankle and Foot Manual Muscle Testing Right Dorsiflexion (L4) 4 Good Plantarflexion (S1) 3+ Fair+ Comments 8 calf raisesR Left Dorsiflexion (L4) 4- Good- Plantarflexion (S1) 2+ Poor+ Comments unable to single leg heel raises PT-OP-Q Treatments Start: 04/24/19 13:33 Freq: Status: Active Protocol: Document 10/09/19 10:27 SP (Rec: 10/09/19 11:23 SP [id number]) Cardio Equipment Recumbent Stepper (Sci-Fit) Duration (Minutes) 6 Resistance 5 Seat Position 5 Therapeutic Exercises Supine Exercises segmental bridge (PPT) Reps/Minutes 2x5 Comments max verbal and tactile cuing PPT with core facilitation soheila stretch w/ strap Supine Exercise Name no strap off edg eof bed Side bilateral Reps/Minutes 30 sec 6 Supine Exercise Name pelvic tilts Comments max cueing Prone Exercises bird dog Reps/Minutes x5 alternate R and L Comments Cued PPT and level pelvis Therapeutic Activity Therapeutic Activity posture Name standing back to wall, seated, unix systems administrator mirror Comments tactile cueing & help with positioning Pillow support behind back if sitting deep chair PT-OP-T Assessment and Plan Start: 04/24/19 09:34 Freq: Status: Active Protocol: Document 10/09/19 10:27 SP (Rec: 10/09/19 11:23 SP [id number]) Physical Therapy Assessment Goals balance Impairment FGA Residential Goal (LTG) Pt will improve FGA to 25/30 to dec risk for falls. LTG Duration 10/21/19 Three Impairment Pt ambulates with excessive supination Audiovisual Lead Technician Goal (LTG) Pt to ambulate in a proper heel to gait pattern with a neutral forefoot 50% of the time without prompting LTG Duration 10/21/19 Two Impairment Pt stands with hyperextension and forward trunk lean Residential Goal (LTG) Pt to improve ankle dorsiflexion to 10? in order to allow her to stand straight upright without needing to hyperextend knees. LTG Duration achieved One Impairment Pt does not have an appropriate home exercise program Short Term Goal (STG) Pt to be independent and compliant with an appropriate HEP STG Duration 09/20/19 Residential Goal (LTG) Pt will have at least 4+/5 LE strength in all planes to allow greater ease of activity LTG Duration 10/21/19 Assessment Summary Assessment Significant time spend on PPT for core facilitation today. Pt had signfiicant difficulty with movement which likely affects her ability to get into good posture without tactile cueing as assistance to position. Pt was able to coordinate segmental bridge with Minimal cuing, provided hand out for home application, improved PPT standing in mirror end of tx carryover. Physical Therapy Plan Frequency and Duration Frequency of Treatment 2x/Week Duration of Treatment 2 months Plan of Care Start Date 08/21/19 Plan of Care End Date 10/21/19 Therapeutic Interventions Therapeutic Interventions Aquatic Therapy,Balance Training,Coordination Training ,Gait Training,Home Exercise Program,Manual Therapy, Neuromuscular Re-education, Patient/Caregiver Education, Self-Care/Home Management,Soft Tissue Mobilization, Therapeutic Activities, Therapeutic Exercises Modalities Cold Pack/Ice Massage,Electric Stimulation,Hot Packs, Ultrasound Next Visit Focus/Plan Next Note Type Treatment Note Next Visit Plan Progress note due next visit . cont to work on postural stability w/balance
--- NOTE | 2019-10-16 11:27 | PT.OTN ---
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) Stiffness of unspecified hip, not elsewhere classified (10/16/19) Stiffness of unspecified ankle, not elsewhere classified (10/16/19) Abnormal posture (10/16/19) Physical Therapy Treatment Note PT-OP-A Visit Information Start: 04/24/19 09:34 Freq: Status: Active Protocol: Document 10/16/19 10:37 [facility] (Rec: 10/16/19 11:27 [facility] [id number]) Out-Patient Physical Therapy Visit Information Visit Information Visit Type Treatment Note Visit Start Time 10:29 Visit Stop Time 11:09 Total Visit Minutes 40 Visit Number 19 Number of APPLICATION PACKAGER Visits 0 PT-OP-B Current Condition Start: 04/24/19 09:34 Freq: Status: Active Protocol: Document 04/24/19 09:45 DCW (Rec: 04/24/19 16:44 DCW [id number]) Current Condition History of Current Condition Current Complaints General stiffness, decreased flexibility History of Current Condition Pt is a 43 year old female presenting with a recent diagnosis of Hereditary Spastic Paraplegia. Pt notes she has notices that it has recently been a little more visible, and she has noticed some increased difficulty in doing some thing. Noticed she has felt some difficulty walking and decreased balance, as well as generalized stiffness and increased tone. Treatment Goals Patient/Caregiver Goals Pt is interested in learning how to stretch and keep herself limber to hopefully help slow progress on disease process. Personal Factors Other Personal Factors That May Effect Depression, LBP, Hx Vertigo, Therapy/Recovery Seizure disorder PT-OP-C Subjective Start: 04/24/19 13:33 Freq: Status: Active Protocol: Document 10/16/19 10:37 [facility] (Rec: 10/16/19 11:27 [facility] [id number]) OP-PT Subjective Patient Comments Patient Comments Pt reports working on exercises. Feels like therapy is helping PT-OP-D Balance Start: 04/24/19 13:33 Freq: Status: Active Protocol: Document 04/24/19 09:45 DCW (Rec: 04/24/19 16:44 DCW [id number]) OP-PT Balance Assessment Standing Balance Static Standing Balance Ability Normal Dynamic Standing Balance Ability Fair Balance Tests Narayanan Balance Test Narayanan Balance Test Score 52/56 Single Limb Standing Single Limb- Right 3 seconds Single Limb- Left 3 seconds Tandem Tandem Standing 5 seconds Narayanan Balance Assessment Evaluation Sitting to Standing Ability Independent w/out Hands Unsupported Stance Safely- 2 minutes Sitting Unsupported, Feet on Floor Safely- 2 minutes Standing to Sitting Ability Safely, Minimal Hand Use Transfer Ability Safely, Minimal Hand Use Unsupported Stance- Eyes Closed Safely, 10 seconds Unsupported Stance- Eyes Open Independent, 1 minute Reaching Forward Standing Safely, 5 inches Pick- Up Object From Floor Independent/Safe Look Behind Shoulder - Standing Shifts Weight Well Turning 360 Degrees Turns Bilateral, < 4 secs Unsupported Stance, Alternating Feet on (I)- 8 Steps in 20 secs Stair Unsupported Tandem Stance Holds Tandem- 30 seconds Unilateral Leg Stance Lifts Leg/Holds > 3 secs Total Score Narayanan Total Score (out of 56 points) 52 Narayanan Impairment Rating 1 to 19% Impaired (Score 45-55 ) Mccurdy Fall Scale Copyright Permission PT-OP-E Functional Tests Start: 04/24/19 13:33 Freq: Status: Active Protocol: Document 10/16/19 10:37 [facility] (Rec: 10/16/19 11:27 [facility] [id number]) Functional Tests Functional Gait Assessment Score 2430 PT-OP-G Mobility & Gait Start: 04/24/19 13:33 Freq: Status: Active Protocol: Document 04/24/19 09:45 DCW (Rec: 04/24/19 16:44 DCW [id number]) OP Gait Assessment Gait Gait Assistance Required: Independent Assistive Devices Assistive Device None Gait Deviations General Gait Pattern Decreased Stride Length, Decreased Feet Clearance, Lateral Trunk Lean,Wide Based Gait Factors Limiting Gait Function Factors Limiting Gait Function Abnormal Tonal Influences,Poor Balance Comments Gait Comments Pt has significant supination during gait, walking on the lateral edge of her shoes. Stair Climbing Evaluation Devices Stair Climbing Assistive Devices None Technique/Endurance Stair Climbing Direction Ascend and Descend Stair Climbing Technique Step Over Step PT-OP-H Neuro Start: 04/24/19 13:33 Freq: Status: Active Protocol: Document 04/24/19 09:45 DCW (Rec: 04/24/19 16:44 DCW [id number]) Sensation Evaluation Gross Sensation Gross Sensation WNL Coordination Evaluation Lower Extremity Tests Right Alternate Heel to Knee; Heel to Toe Test Normal Performance Heel on Figueroa Test Normal Performance Left Alternate Heel to Knee; Heel to Toe Test Normal Performance Heel on Figueroa Test Normal Performance Deep Tendon Reflex & Clonus Assessment Deep Tendon Reflex Right Achilles Deep Tendon Reflex 3+ Normal But Brisk Right Patellar Deep Tendon Reflex 4+ Brisk Left Achilles Deep Tendon Reflex 3+ Normal But Brisk Left Patellar Deep Tendon Reflex 4+ Brisk Ankle Clonus Bilateral Clonus Assessment 3 Beats Muscle Tone Tone Assessment Lower Extremity Muscle Tone Comments Moderate-Severe hypertonicity through bilateral gastrosoleus complex PT-OP-J Posture/Palpation/Skin Start: 04/24/19 13:33 Freq: Status: Active Protocol: Document 10/16/19 10:37 [facility] (Rec: 10/16/19 11:27 [facility] [id number]) Posture Evaluation Leanne Postural Classification System Leanne Postural Classifications Anterior/Posterior Lumbar Protective Mechanism Left AP 0 Lumbar Protective Mechanism Right AP 1 Lumbar Protective Mechanism Left PA 0 Lumbar Protective Mechanism Right PA 0 PT-OP-K Range of Motion Start: 04/24/19 13:33 Freq: Status: Active Protocol: Document 08/21/19 10:31 [facility] (Rec: 08/21/19 11:16 [facility] [id number]) Ankle and Foot Goniometric Range of Motion Ankle and Foot Right Active Dorsiflexion with Knee Flexed 10 Dorsiflexion with Knee Extended 10 Left Active Dorsiflexion with Knee Flexed 10 Dorsiflexion with Knee Extended 10 Ankle and Foot ROM Limitations ROM Limitations Soft Tissue Tightness, Contracture,Muscle Tone PT-OP-L Special Tests Start: 04/24/19 13:33 Freq: Status: Active Protocol: Document 04/24/19 09:45 DC[facility] (Rec: 04/24/19 16:44 DCW [id number]) Special Tests Hip Special Tests Straight Leg Raise Test Results Hamstring tightness at 53? bilaterally PT-OP-M Strength Start: 04/24/19 13:33 Freq: Status: Active Protocol: Document 10/16/19 10:37 [facility] (Rec: 10/16/19 11:27 [facility] [id number]) Hip Strength Hip Manual Muscle Testing Right Flexion (L2) 4 Good Extension (S1) 4+ Good+ Abduction 4 Good External Rotation 4 Good Internal Rotation 3+ Fair+ Left Flexion (L2) 4- Good- Extension (S1) 4 Good Abduction 4+ Good+ External Rotation 4 Good Internal Rotation 4 Good Comments pain abd Knee Strength Knee Manual Muscle Testing Right Flexion (S2) 5 Normal Extension (L3) 5 Normal Left Flexion (S2) 5 Normal Extension (L3) 5 Normal Ankle/Foot Strength Ankle and Foot Manual Muscle Testing Right Dorsiflexion (L4) 5 Normal Plantarflexion (S1) 5 Normal Inversion 5 Normal Eversion (S1) 5 Normal Left Dorsiflexion (L4) 5 Normal Plantarflexion (S1) 4+ Good+ Inversion 5 Normal Eversion (S1) 5 Normal Comments 16 calf raises PT-OP-Q Treatments Start: 04/24/19 13:33 Freq: Status: Active Protocol: Document 10/16/19 10:37 [facility] (Rec: 10/16/19 11:27 [facility] [id number]) Cardio Equipment Recumbent Elliptical (Biodex) Duration (Minutes) 7 Resistance 6 Seat Position 3 Therapeutic Exercises Supine Exercises segmental bridge (PPT) Reps/Minutes 2x5 Comments max verbal and tactile cuing PPT with core facilitation 6 Supine Exercise Name pelvic tilts Reps/Minutes 10 w/knees bent. 5 w/ea knee bent 5 w/knees straight Comments max cueing Standing Exercises 3 Standing Exercise Name pelvic tilt Reps/Minutes 5 Neuro Re-Education Treatment Balance Activities FGA Details PT-OP-T Assessment and Plan Start: 04/24/19 09:34 Freq: Status: Active Protocol: Document 10/16/19 10:37 [facility] (Rec: 10/16/19 11:27 [facility] [id number]) Physical Therapy Assessment Goals posture Roastmaster Goal (LTG) Pt will improve with standing posture to better positioning shown by scoring 3/5 in all planes w/LPM LTG Duration 12/16/19 balance Impairment FGA Roastmaster Goal (LTG) Pt will improve FGA to to dec risk for falls. 10/15- LTG Duration 12/16/19 Three Impairment Pt ambulates with excessive supination Roastmaster Goal (LTG) Pt to ambulate in a proper heel to gait pattern with a neutral forefoot 50% of the time without prompting 10/15- improving LTG Duration 12/16/19 Two Impairment Pt stands with hyperextension and forward trunk lean Roastmaster Goal (LTG) Pt to improve ankle dorsiflexion to 10? in order to allow her to stand straight upright without needing to hyperextend knees. LTG Duration achieved One Impairment Pt does not have an appropriate home exercise program Short Term Goal (STG) Pt to be independent and compliant with an appropriate HEP STG Duration achieved progressing as needed Roastmaster Goal (LTG) Pt will have at least 4+/5 LE strength in all planes to allow greater ease of activity 10/15-progressing LTG Duration 12/16/19 Assessment Summary Assessment Pt has made excellent progress with her balance and overall strength, but still has some balance impairments, strength deficits especailly core d/t postural dysfunction. She is improving with postural positioning but still has significant ant tilt in standing Physical Therapy Plan Frequency and Duration Frequency of Treatment 1x/Week Duration of Treatment 2 months Plan of Care Start Date 10/16/19 Plan of Care End Date 12/16/19 Therapeutic Interventions Therapeutic Interventions Aquatic Therapy,Balance Training,Coordination Training ,Gait Training,Home Exercise Program,Manual Therapy, Neuromuscular Re-education, Patient/Caregiver Education, Self-Care/Home Management,Soft Tissue Mobilization, Therapeutic Activities, Therapeutic Exercises Modalities Cold Pack/Ice Massage,Electric Stimulation,Hot Packs, Ultrasound Next Visit Focus/Plan Next Note Type Treatment Note Next Visit Plan cont to work on postural stability & w/balance
--- NOTE | 2019-10-16 11:27 | PT.OPPOC ---
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 Address: [address] [place] [address], [id number] Email: [email or web address] Plan Of Care PT-OP-T Assessment and Plan Start: 04/24/19 09:34 Freq: Status: Active Protocol: Document 10/16/19 10:37 [facility] (Rec: 10/16/19 11:27 [facility] [id number]) Physical Therapy Assessment Goals posture Care Home Goal (LTG) Pt will improve with standing posture to better positioning shown by scoring 3/5 in all planes w/LPM LTG Duration 12/16/19 balance Impairment FGA Lining Folder Goal (LTG) Pt will improve FGA to to dec risk for falls. 10/15- LTG Duration 12/16/19 Three Impairment Pt ambulates with excessive supination Care Home Goal (LTG) Pt to ambulate in a proper heel to gait pattern with a neutral forefoot 50% of the time without prompting 10/15- improving LTG Duration 12/16/19 Two Impairment Pt stands with hyperextension and forward trunk lean Lining Folder Goal (LTG) Pt to improve ankle dorsiflexion to 10? in order to allow her to stand straight upright without needing to hyperextend knees. LTG Duration achieved One Impairment Pt does not have an appropriate home exercise program Short Term Goal (STG) Pt to be independent and compliant with an appropriate HEP STG Duration achieved progressing as needed Care Home Goal (LTG) Pt will have at least 4+/5 LE strength in all planes to allow greater ease of activity 10/15-progressing LTG Duration 12/16/19 Assessment Summary Assessment Pt has made excellent progress with her balance and overall strength, but still has some balance impairments, strength deficits especailly core d/t postural dysfunction. She is improving with postural positioning but still has significant ant tilt in standing Physical Therapy Plan Frequency and Duration Frequency of Treatment 1x/Week Duration of Treatment 2 months Plan of Care Start Date 10/16/19 Plan of Care End Date 12/16/19 Therapeutic Interventions Therapeutic Interventions Aquatic Therapy,Balance Training,Coordination Training ,Gait Training,Home Exercise Program,Manual Therapy, Neuromuscular Re-education, Patient/Caregiver Education, Self-Care/Home Management,Soft Tissue Mobilization, Therapeutic Activities, Therapeutic Exercises Modalities Cold Pack/Ice Massage,Electric Stimulation,Hot Packs, Ultrasound Next Visit Focus/Plan Next Note Type Treatment Note Next Visit Plan cont to work on postural stability & w/balance Plan of Care Dates Plan of Care Start Date 10/16/19 Plan of Care End Date 12/16/19 Electronically Signed by: Amparo Stallworth, PT 10/16/19 [id number] Please Sign and Return: I have reviewed this Plan of Care and certify that the skilled therapy services above are required to meet the patient?s needs. Physician Signature Date Printed Name and Credentials Clinical Instructor Signature Printed Name and Credentials
--- NOTE | 2019-10-23 17:47 | PT.OTN ---
Current Diagnoses Hereditary spastic paraplegia (10/23/19) Stiffness of unspecified hip, not elsewhere classified (10/23/19) Stiffness of unspecified ankle, not elsewhere classified (10/23/19) Abnormal posture (10/23/19) Physical Therapy Treatment Note PT-OP-A Visit Information Start: 04/24/19 09:34 Freq: Status: Active Protocol: Document 10/23/19 17:43 [facility] (Rec: 10/23/19 17:47 [facility] [id number]) Out-Patient Physical Therapy Visit Information Visit Information Visit Type Treatment Note Visit Start Time 10:35 Visit Stop Time 11:15 Total Visit Minutes 40 Visit Number 20 Number of HOUSEHOLD MANAGER Visits 0 PT-OP-B Current Condition Start: 04/24/19 09:34 Freq: Status: Active Protocol: Document 04/24/19 09:45 DCW (Rec: 04/24/19 16:44 DCW [id number]) Current Condition History of Current Condition Current Complaints General stiffness, decreased flexibility History of Current Condition Pt is a 43 year old female presenting with a recent diagnosis of Hereditary Spastic Paraplegia. Pt notes she has notices that it has recently been a little more visible, and she has noticed some increased difficulty in doing some thing. Noticed she has felt some difficulty walking and decreased balance, as well as generalized stiffness and increased tone. Treatment Goals Patient/Caregiver Goals Pt is interested in learning how to stretch and keep herself limber to hopefully help slow progress on disease process. Personal Factors Other Personal Factors That May Effect Depression, LBP, Hx Vertigo, Therapy/Recovery Seizure disorder PT-OP-C Subjective Start: 04/24/19 13:33 Freq: Status: Active Protocol: Document 10/23/19 17:43 [facility] (Rec: 10/23/19 17:47 [facility] [id number]) OP-PT Subjective Patient Comments Patient Comments Pt reports working on her posture PT-OP-D Balance Start: 04/24/19 13:33 Freq: Status: Active Protocol: Document 04/24/19 09:45 [facility] (Rec: 04/24/19 16:44 DCW [id number]) OP-PT Balance Assessment Standing Balance Static Standing Balance Ability Normal Dynamic Standing Balance Ability Fair Balance Tests Narayanan Balance Test Narayanan Balance Test Score 52/56 Single Limb Standing Single Limb- Right 3 seconds Single Limb- Left 3 seconds Tandem Tandem Standing 5 seconds Narayanan Balance Assessment Evaluation Sitting to Standing Ability Independent w/out Hands Unsupported Stance Safely- 2 minutes Sitting Unsupported, Feet on Floor Safely- 2 minutes Standing to Sitting Ability Safely, Minimal Hand Use Transfer Ability Safely, Minimal Hand Use Unsupported Stance- Eyes Closed Safely, 10 seconds Unsupported Stance- Eyes Open Independent, 1 minute Reaching Forward Standing Safely, 5 inches Pick- Up Object From Floor Independent/Safe Look Behind Shoulder - Standing Shifts Weight Well Turning 360 Degrees Turns Bilateral, < 4 secs Unsupported Stance, Alternating Feet on (I)- 8 Steps in 20 secs Stair Unsupported Tandem Stance Holds Tandem- 30 seconds Unilateral Leg Stance Lifts Leg/Holds > 3 secs Total Score Narayanan Total Score (out of 56 points) 52 Narayanan Impairment Rating 1 to 19% Impaired (Score 45-55 ) Mccurdy Fall Scale Copyright Permission PT-OP-E Functional Tests Start: 04/24/19 13:33 Freq: Status: Active Protocol: Document 10/16/19 10:37 [facility] (Rec: 10/16/19 11:27 [facility] [id number]) Functional Tests Functional Gait Assessment Score PT-OP-G Mobility & Gait Start: 04/24/19 13:33 Freq: Status: Active Protocol: Document 04/24/19 09:45 [facility] (Rec: 04/24/19 16:44 DCW [id number]) OP Gait Assessment Gait Gait Assistance Required: Independent Assistive Devices Assistive Device None Gait Deviations General Gait Pattern Decreased Stride Length, Decreased Feet Clearance, Lateral Trunk Lean,Wide Based Gait Factors Limiting Gait Function Factors Limiting Gait Function Abnormal Tonal Influences,Poor Balance Comments Gait Comments Pt has significant supination during gait, walking on the lateral edge of her shoes. Stair Climbing Evaluation Devices Stair Climbing Assistive Devices None Technique/Endurance Stair Climbing Direction Ascend and Descend Stair Climbing Technique Step Over Step PT-OP-H Neuro Start: 04/24/19 13:33 Freq: Status: Active Protocol: Document 04/24/19 09:45 [facility] (Rec: 04/24/19 16:44 DCW [id number]) Sensation Evaluation Gross Sensation Gross Sensation WNL Coordination Evaluation Lower Extremity Tests Right Alternate Heel to Knee; Heel to Toe Test Normal Performance Heel on Figueroa Test Normal Performance Left Alternate Heel to Knee; Heel to Toe Test Normal Performance Heel on Figueroa Test Normal Performance Deep Tendon Reflex & Clonus Assessment Deep Tendon Reflex Right Achilles Deep Tendon Reflex 3+ Normal But Brisk Right Patellar Deep Tendon Reflex 4+ Brisk Left Achilles Deep Tendon Reflex 3+ Normal But Brisk Left Patellar Deep Tendon Reflex 4+ Brisk Ankle Clonus Bilateral Clonus Assessment 3 Beats Muscle Tone Tone Assessment Lower Extremity Muscle Tone Comments Moderate-Severe hypertonicity through bilateral gastrosoleus complex PT-OP-J Posture/Palpation/Skin Start: 04/24/19 13:33 Freq: Status: Active Protocol: Document 10/16/19 10:37 [facility] (Rec: 10/16/19 11:27 [facility] [id number]) Posture Evaluation Leanne Postural Classification System Leanne Postural Classifications Anterior/Posterior Lumbar Protective Mechanism Left AP 0 Lumbar Protective Mechanism Right AP 1 Lumbar Protective Mechanism Left PA 0 Lumbar Protective Mechanism Right PA 0 PT-OP-K Range of Motion Start: 04/24/19 13:33 Freq: Status: Active Protocol: Document 08/21/19 10:31 [facility] (Rec: 08/21/19 11:16 [facility] [id number]) Ankle and Foot Goniometric Range of Motion Ankle and Foot Right Active Dorsiflexion with Knee Flexed 10 Dorsiflexion with Knee Extended 10 Left Active Dorsiflexion with Knee Flexed 10 Dorsiflexion with Knee Extended 10 Ankle and Foot ROM Limitations ROM Limitations Soft Tissue Tightness, Contracture,Muscle Tone PT-OP-L Special Tests Start: 04/24/19 13:33 Freq: Status: Active Protocol: Document 04/24/19 09:45 [facility] (Rec: 04/24/19 16:44 DCW [id number]) Special Tests Hip Special Tests Straight Leg Raise Test Results Hamstring tightness at 53? bilaterally PT-OP-M Strength Start: 04/24/19 13:33 Freq: Status: Active Protocol: Document 10/16/19 10:37 [facility] (Rec: 10/16/19 11:27 [facility] [id number]) Hip Strength Hip Manual Muscle Testing Right Flexion (L2) 4 Good Extension (S1) 4+ Good+ Abduction 4 Good External Rotation 4 Good Internal Rotation 3+ Fair+ Left Flexion (L2) 4- Good- Extension (S1) 4 Good Abduction 4+ Good+ External Rotation 4 Good Internal Rotation 4 Good Comments pain abd Knee Strength Knee Manual Muscle Testing Right Flexion (S2) 5 Normal Extension (L3) 5 Normal Left Flexion (S2) 5 Normal Extension (L3) 5 Normal Ankle/Foot Strength Ankle and Foot Manual Muscle Testing Right Dorsiflexion (L4) 5 Normal Plantarflexion (S1) 5 Normal Inversion 5 Normal Eversion (S1) 5 Normal Left Dorsiflexion (L4) 5 Normal Plantarflexion (S1) 4+ Good+ Inversion 5 Normal Eversion (S1) 5 Normal Comments 16 calf raises PT-OP-Q Treatments Start: 04/24/19 13:33 Freq: Status: Active Protocol: Document 10/23/19 17:43 [facility] (Rec: 10/23/19 17:47 [facility] [id number]) Therapeutic Exercises Supine Exercises 6 Supine Exercise Name pelvic tilts Reps/Minutes 10 w/knees bent. 5 w/ea knee bent 5 w/knees straight Comments max cueing Standing Exercises pelvic tilts Reps/Minutes x10 on wall & x10 on in mirror Therapeutic Activity Therapeutic Activity posture Comments standing in mirror Neuro Re-Education Treatment Balance Activities SLS April w/ posture focus & 1 hand hold prn balance discs Comments staggered stance w/posture on blue tpads w/EC PT-OP-T Assessment and Plan Start: 04/24/19 09:34 Freq: Status: Active Protocol: Document 10/23/19 17:43 [facility] (Rec: 10/23/19 17:47 [facility] [id number]) Physical Therapy Assessment Goals posture Fpc Goal (LTG) Pt will improve with standing posture to better positioning shown by scoring 3/5 in all planes w/LPM LTG Duration 12/16/19 balance Impairment FGA Human Resources Representative Goal (LTG) Pt will improve FGA to to dec risk for falls. 10/15- LTG Duration 12/16/19 Three Impairment Pt ambulates with excessive supination Human Resources Representative Goal (LTG) Pt to ambulate in a proper heel to gait pattern with a neutral forefoot 50% of the time without prompting 10/15- improving LTG Duration 12/16/19 One Impairment Pt does not have an appropriate home exercise program Short Term Goal (STG) Pt to be independent and compliant with an appropriate HEP STG Duration achieved progressing as needed Human Resources Representative Goal (LTG) Pt will have at least 4+/5 LE strength in all planes to allow greater ease of activity 10/15-progressing LTG Duration 12/16/19 Assessment Summary Assessment Pt has made excellent progress with her posture and is doing better with pelvic tilts but does still occasionly require tactile cueing. Physical Therapy Plan Frequency and Duration Frequency of Treatment 1x/Week Duration of Treatment 2 months Plan of Care Start Date 10/16/19 Plan of Care End Date 12/16/19 Next Visit Focus/Plan Next Note Type Treatment Note Next Visit Plan cont to work on postural stability & w/balance
--- NOTE | 2019-11-06 11:15 | PT.OTN ---
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 Pt notes she has notices that it has recently been a little more visible, and she has noticed some increased difficulty in doing some thing. Noticed she has felt some difficulty walking and decreased balance, as well as generalized stiffness and increased tone. Treatment Goals Patient/Caregiver Goals Pt is interested in learning how to stretch and keep herself limber to hopefully help slow progress on disease process. Personal Factors Other Personal Factors That May Effect Depression, LBP, Hx Vertigo, Therapy/Recovery Seizure disorder PT-OP-C Subjective Start: 04/24/19 13:33 Freq: Status: Active Protocol: Document 11/06/19 10:34 SP (Rec: 11/06/19 11:20 SP [id number]) OP-PT Subjective Patient Comments Patient Comments Pt reported has been as active with smoke outside lately. PT-OP-D Balance Start: 04/24/19 13:33 Freq: Status: Active Protocol: Document 04/24/19 09:45 DCW (Rec: 04/24/19 16:44 DCW [id number]) OP-PT Balance Assessment Standing Balance Static Standing Balance Ability Normal Dynamic Standing Balance Ability Fair Balance Tests Narayanan Balance Test Narayanan Balance Test Score 52/56 Single Limb Standing Single Limb- Right 3 seconds Single Limb- Left 3 seconds Tandem Tandem Standing 5 seconds Narayanan Balance Assessment Evaluation Sitting to Standing Ability Independent w/out Hands Unsupported Stance Safely- 2 minutes Sitting Unsupported, Feet on Floor Safely- 2 minutes Standing to Sitting Ability Safely, Minimal Hand Use Transfer Ability Safely, Minimal Hand Use Unsupported Stance- Eyes Closed Safely, 10 seconds Unsupported Stance- Eyes Open Independent, 1 minute Reaching Forward Standing Safely, 5 inches Pick- Up Object From Floor Independent/Safe Look Behind Shoulder - Standing Shifts Weight Well Turning 360 Degrees Turns Bilateral, < 4 secs Unsupported Stance, Alternating Feet on (I)- 8 Steps in 20 secs Stair Unsupported Tandem Stance Holds Tandem- 30 seconds Unilateral Leg Stance Lifts Leg/Holds > 3 secs Total Score Narayanan Total Score (out of 56 points) 52 Narayanan Impairment Rating 1 to 19% Impaired (Score 45-55 ) Mccurdy Fall Scale Copyright Permission PT-OP-E Functional Tests Start: 04/24/19 13:33 Freq: Status: Active Protocol: Document 10/16/19 10:37 [facility] (Rec: 10/16/19 11:27 [facility] [id number]) Functional Tests Functional Gait Assessment Score PT-OP-G Mobility & Gait Start: 04/24/19 13:33 Freq: Status: Active Protocol: Document 04/24/19 09:45 DCW (Rec: 04/24/19 16:44 DCW [id number]) OP Gait Assessment Gait Gait Assistance Required: Independent Assistive Devices Assistive Device None Gait Deviations General Gait Pattern Decreased Stride Length, Decreased Feet Clearance, Lateral Trunk Lean,Wide Based Gait Factors Limiting Gait Function Factors Limiting Gait Function Abnormal Tonal Influences,Poor Balance Comments Gait Comments Pt has significant supination during gait, walking on the lateral edge of her shoes. Stair Climbing Evaluation Devices Stair Climbing Assistive Devices None Technique/Endurance Stair Climbing Direction Ascend and Descend Stair Climbing Technique Step Over Step PT-OP-H Neuro Start: 04/24/19 13:33 Freq: Status: Active Protocol: Document 04/24/19 09:45 DCW (Rec: 04/24/19 16:44 DCW [id number]) Sensation Evaluation Gross Sensation Gross Sensation WNL Coordination Evaluation Lower Extremity Tests Right Alternate Heel to Knee; Heel to Toe Test Normal Performance Heel on Figueroa Test Normal Performance Left Alternate Heel to Knee; Heel to Toe Test Normal Performance Heel on Figueroa Test Normal Performance Deep Tendon Reflex & Clonus Assessment Deep Tendon Reflex Right Achilles Deep Tendon Reflex 3+ Normal But Brisk Right Patellar Deep Tendon Reflex 4+ Brisk Left Achilles Deep Tendon Reflex 3+ Normal But Brisk Left Patellar Deep Tendon Reflex 4+ Brisk Ankle Clonus Bilateral Clonus Assessment 3 Beats Muscle Tone Tone Assessment Lower Extremity Muscle Tone Comments Moderate-Severe hypertonicity through bilateral gastrosoleus complex PT-OP-J Posture/Palpation/Skin Start: 04/24/19 13:33 Freq: Status: Active Protocol: Document 10/16/19 10:37 [facility] (Rec: 10/16/19 11:27 [facility] [id number]) Posture Evaluation [facility] Postural Classification System Leanne Postural Classifications Anterior/Posterior Lumbar Protective Mechanism Left AP 0 Lumbar Protective Mechanism Right AP 1 Lumbar Protective Mechanism Left PA 0 Lumbar Protective Mechanism Right PA 0 PT-OP-K Range of Motion Start: 04/24/19 13:33 Freq: Status: Active Protocol: Document 08/21/19 10:31 [facility] (Rec: 08/21/19 11:16 [facility] [id number]) Ankle and Foot Goniometric Range of Motion Ankle and Foot Right Active Dorsiflexion with Knee Flexed 10 Dorsiflexion with Knee Extended 10 Left Active Dorsiflexion with Knee Flexed 10 Dorsiflexion with Knee Extended 10 Ankle and Foot ROM Limitations ROM Limitations Soft Tissue Tightness, Contracture,Muscle Tone PT-OP-L Special Tests Start: 04/24/19 13:33 Freq: Status: Active Protocol: Document 04/24/19 09:45 DCW (Rec: 04/24/19 16:44 DCW [id number]) Special Tests Hip Special Tests Straight Leg Raise Test Results Hamstring tightness at 53? bilaterally PT-OP-M Strength Start: 04/24/19 13:33 Freq: Status: Active Protocol: Document 10/16/19 10:37 [facility] (Rec: 10/16/19 11:27 [facility] [id number]) Hip Strength Hip Manual Muscle Testing Right Flexion (L2) 4 Good Extension (S1) 4+ Good+ Abduction 4 Good External Rotation 4 Good Internal Rotation 3+ Fair+ Left Flexion (L2) 4- Good- Extension (S1) 4 Good Abduction 4+ Good+ External Rotation 4 Good Internal Rotation 4 Good Comments pain abd Knee Strength Knee Manual Muscle Testing Right Flexion (S2) 5 Normal Extension (L3) 5 Normal Left Flexion (S2) 5 Normal Extension (L3) 5 Normal Ankle/Foot Strength Ankle and Foot Manual Muscle Testing Right Dorsiflexion (L4) 5 Normal Plantarflexion (S1) 5 Normal Inversion 5 Normal Eversion (S1) 5 Normal Left Dorsiflexion (L4) 5 Normal Plantarflexion (S1) 4+ Good+ Inversion 5 Normal Eversion (S1) 5 Normal Comments 16 calf raises PT-OP-Q Treatments Start: 04/24/19 13:33 Freq: Status: Active Protocol: Document 11/06/19 10:34 SP (Rec: 11/06/19 11:20 SP [id number]) Therapeutic Exercises Supine Exercises 6 Supine Exercise Name pelvic tilts Reps/Minutes 10 w/knees bent. 10 w/ea knee bent, 5 w/ knees straight Comments Min cuing 5 Supine Exercise Name TA bridge Reps/Minutes 2-3 sec x10 Comments occasional cuing Standing Exercises 3 Standing Exercise Name wall posture w/ UE ER Reps/Minutes x8 reps Comments intermittent cuing PPT Therapeutic Activity Therapeutic Activity posture Comments standing and SLS in mirror Neuro Re-Education Treatment Balance Activities forward marching w/ TA Surface floor Equipment mirror Reps/Duration 2 laps Comments 1. stationary 2. F/B SLS Details march w/ posture focus near counter for support Equipment mirror, green discs balance discs Comments staggered stance w/posture on blue tpads w/EC PT-OP-T Assessment and Plan Start: 04/24/19 09:34 Freq: Status: Active Protocol: Document 11/06/19 10:34 SP (Rec: 11/06/19 11:20 SP [id number]) Physical Therapy Assessment Goals posture Energy Conservation Engineer Goal (LTG) Pt will improve with standing posture to better positioning shown by scoring 3/5 in all planes w/LPM LTG Duration 12/16/19 balance Impairment FGA Energy Conservation Engineer Goal (LTG) Pt will improve FGA to to dec risk for falls. 10/15- LTG Duration 12/16/19 Three Impairment Pt ambulates with excessive supination Half-Way Goal (LTG) Pt to ambulate in a proper heel to gait pattern with a neutral forefoot 50% of the time without prompting 10/15- improving LTG Duration 12/16/19 One Impairment Pt does not have an appropriate home exercise program Short Term Goal (STG) Pt to be independent and compliant with an appropriate HEP STG Duration achieved progressing as needed Energy Conservation Engineer Goal (LTG) Pt will have at least 4+/5 LE strength in all planes to allow greater ease of activity 10/15-progressing LTG Duration 12/16/19 Assessment Summary Assessment Pt made great progress with TA activation during standing activities and occasional self corrections, does still need occasional tactile and verbal cuing. Physical Therapy Plan Frequency and Duration Frequency of Treatment 1x/Week Duration of Treatment 2 months Plan of Care Start Date 10/16/19 Plan of Care End Date 12/16/19 Therapeutic Interventions Therapeutic Interventions Aquatic Therapy,Balance Training,Coordination Training ,Gait Training,Home Exercise Program,Manual Therapy, Neuromuscular Re-education, Patient/Caregiver Education, Self-Care/Home Management,Soft Tissue Mobilization, Therapeutic Activities, Therapeutic Exercises Modalities Cold Pack/Ice Massage,Electric Stimulation,Hot Packs, Ultrasound Next Visit Focus/Plan Next Note Type Treatment Note Next Visit Plan cont to work on postural stability & w/balance
--- NOTE | 2019-11-13 13:45 | PT.OTN ---
Current Diagnoses Hereditary spastic paraplegia (11/13/19) Stiffness of unspecified hip, not elsewhere classified (11/13/19) Stiffness of unspecified ankle, not elsewhere classified (11/13/19) Abnormal posture (11/13/19) Physical Therapy Treatment Note PT-OP-A Visit Information Start: 04/24/19 09:34 Freq: Status: Active Protocol: Document 11/13/19 12:57 SP (Rec: 11/13/19 16:23 SP [id number]) Out-Patient Physical Therapy Visit Information Visit Information Visit Type Treatment Note Visit Start Time 13:00 Visit Stop Time 13:45 Total Visit Minutes 45 Visit Number 22 Number of [employer] Visits 2 PT-OP-B Current Condition Start: 04/24/19 09:34 Freq: Status: Active Protocol: Document 04/24/19 09:45 DCW (Rec: 04/24/19 16:44 DCW [id number]) Current Condition History of Current Condition Current Complaints General stiffness, decreased flexibility History of Current Condition Pt is a 43 year old female presenting with a recent diagnosis of Hereditary Spastic Paraplegia. Pt notes she has notices that it has recently been a little more visible, and she has noticed some increased difficulty in doing some thing. Noticed she has felt some difficulty walking and decreased balance, as well as generalized stiffness and increased tone. Treatment Goals Patient/Caregiver Goals Pt is interested in learning how to stretch and keep herself limber to hopefully help slow progress on disease process. Personal Factors Other Personal Factors That May Effect Depression, LBP, Hx Vertigo, Therapy/Recovery Seizure disorder PT-OP-C Subjective Start: 04/24/19 13:33 Freq: Status: Active Protocol: Document 11/13/19 12:57 SP (Rec: 11/13/19 16:23 SP [id number]) OP-PT Subjective Patient Comments Patient Comments Pt reported had a massage since last tx and was supine with B feet in a bucket causing LB to arch, continually self corrected but challenged for length time in supine, ended prone with no pillow under pelvis. Back was stiff getting off table and still sore, 07/31. PT-OP-D Balance Start: 04/24/19 13:33 Freq: Status: Active Protocol: Document 04/24/19 09:45 DCW (Rec: 04/24/19 16:44 DCW [id number]) OP-PT Balance Assessment Standing Balance Static Standing Balance Ability Normal Dynamic Standing Balance Ability Fair Balance Tests Narayanan Balance Test Narayanan Balance Test Score 52/56 Single Limb Standing Single Limb- Right 3 seconds Single Limb- Left 3 seconds Tandem Tandem Standing 5 seconds Narayanan Balance Assessment Evaluation Sitting to Standing Ability Independent w/out Hands Unsupported Stance Safely- 2 minutes Sitting Unsupported, Feet on Floor Safely- 2 minutes Standing to Sitting Ability Safely, Minimal Hand Use Transfer Ability Safely, Minimal Hand Use Unsupported Stance- Eyes Closed Safely, 10 seconds Unsupported Stance- Eyes Open Independent, 1 minute Reaching Forward Standing Safely, 5 inches Pick- Up Object From Floor Independent/Safe Look Behind Shoulder - Standing Shifts Weight Well Turning 360 Degrees Turns Bilateral, < 4 secs Unsupported Stance, Alternating Feet on (I)- 8 Steps in 20 secs Stair Unsupported Tandem Stance Holds Tandem- 30 seconds Unilateral Leg Stance Lifts Leg/Holds > 3 secs Total Score Narayanan Total Score (out of 56 points) 52 Narayanan Impairment Rating 1 to 19% Impaired (Score 45-55 ) Mccurdy Fall Scale Copyright Permission PT-OP-E Functional Tests Start: 04/24/19 13:33 Freq: Status: Active Protocol: Document 10/16/19 10:37 [facility] (Rec: 10/16/19 11:27 [facility] [id number]) Functional Tests Functional Gait Assessment Score 2430 PT-OP-G Mobility & Gait Start: 04/24/19 13:33 Freq: Status: Active Protocol: Document 04/24/19 09:45 DCW (Rec: 04/24/19 16:44 DCW [id number]) OP Gait Assessment Gait Gait Assistance Required: Independent Assistive Devices Assistive Device None Gait Deviations General Gait Pattern Decreased Stride Length, Decreased Feet Clearance, Lateral Trunk Lean,Wide Based Gait Factors Limiting Gait Function Factors Limiting Gait Function Abnormal Tonal Influences,Poor Balance Comments Gait Comments Pt has significant supination during gait, walking on the lateral edge of her shoes. Stair Climbing Evaluation Devices Stair Climbing Assistive Devices None Technique/Endurance Stair Climbing Direction Ascend and Descend Stair Climbing Technique Step Over Step PT-OP-H Neuro Start: 04/24/19 13:33 Freq: Status: Active Protocol: Document 04/24/19 09:45 DCW (Rec: 04/24/19 16:44 DCW [id number]) Sensation Evaluation Gross Sensation Gross Sensation WNL Coordination Evaluation Lower Extremity Tests Right Alternate Heel to Knee; Heel to Toe Test Normal Performance Heel on Figueroa Test Normal Performance Left Alternate Heel to Knee; Heel to Toe Test Normal Performance Heel on Figueroa Test Normal Performance Deep Tendon Reflex & Clonus Assessment Deep Tendon Reflex Right Achilles Deep Tendon Reflex 3+ Normal But Brisk Right Patellar Deep Tendon Reflex 4+ Brisk Left Achilles Deep Tendon Reflex 3+ Normal But Brisk Left Patellar Deep Tendon Reflex 4+ Brisk Ankle Clonus Bilateral Clonus Assessment 3 Beats Muscle Tone Tone Assessment Lower Extremity Muscle Tone Comments Moderate-Severe hypertonicity through bilateral gastrosoleus complex PT-OP-J Posture/Palpation/Skin Start: 04/24/19 13:33 Freq: Status: Active Protocol: Document 10/16/19 10:37 [facility] (Rec: 10/16/19 11:27 [facility] [id number]) Posture Evaluation Leanne Postural Classification System Leanne Postural Classifications Anterior/Posterior Lumbar Protective Mechanism Left AP 0 Lumbar Protective Mechanism Right AP 1 Lumbar Protective Mechanism Left PA 0 Lumbar Protective Mechanism Right PA 0 PT-OP-K Range of Motion Start: 04/24/19 13:33 Freq: Status: Active Protocol: Document 08/21/19 10:31 [facility] (Rec: 08/21/19 11:16 [facility] [id number]) Ankle and Foot Goniometric Range of Motion Ankle and Foot Right Active Dorsiflexion with Knee Flexed 10 Dorsiflexion with Knee Extended 10 Left Active Dorsiflexion with Knee Flexed 10 Dorsiflexion with Knee Extended 10 Ankle and Foot ROM Limitations ROM Limitations Soft Tissue Tightness, Contracture,Muscle Tone PT-OP-L Special Tests Start: 04/24/19 13:33 Freq: Status: Active Protocol: Document 04/24/19 09:45 DC (Rec: 04/24/19 16:44 [facility] [id number]) Special Tests Hip Special Tests Straight Leg Raise Test Results Hamstring tightness at 53? bilaterally PT-OP-M Strength Start: 04/24/19 13:33 Freq: Status: Active Protocol: Document 10/16/19 10:37 [facility] (Rec: 10/16/19 11:27 [facility] [id number]) Hip Strength Hip Manual Muscle Testing Right Flexion (L2) 4 Good Extension (S1) 4+ Good+ Abduction 4 Good External Rotation 4 Good Internal Rotation 3+ Fair+ Left Flexion (L2) 4- Good- Extension (S1) 4 Good Abduction 4+ Good+ External Rotation 4 Good Internal Rotation 4 Good Comments pain abd Knee Strength Knee Manual Muscle Testing Right Flexion (S2) 5 Normal Extension (L3) 5 Normal Left Flexion (S2) 5 Normal Extension (L3) 5 Normal Ankle/Foot Strength Ankle and Foot Manual Muscle Testing Right Dorsiflexion (L4) 5 Normal Plantarflexion (S1) 5 Normal Inversion 5 Normal Eversion (S1) 5 Normal Left Dorsiflexion (L4) 5 Normal Plantarflexion (S1) 4+ Good+ Inversion 5 Normal Eversion (S1) 5 Normal Comments 16 calf raises PT-OP-Q Treatments Start: 04/24/19 13:33 Freq: Status: Active Protocol: Document 11/13/19 12:57 SP (Rec: 11/13/19 16:23 SP [id number]) Cardio Equipment Recumbent Stepper (Sci-Fit) Duration (Minutes) 8 Resistance 2 Seat Position 5 Gym Equipment Shuttle Balance red Comments WBOS, NBOS f/b/ side wt shifts with intermittent cuing for PPT with follwo through corrections. Improving in self awaress. Therapeutic Exercises Sitting Exercises stretches Sitting Exercise Name glut/pirformis IR& ER, QL Side bilateral Reps/Minutes 30 x2 Comments help when out walking in city Standing Exercises hip flexor stretch Standing Exercise Name lunge into chair Side bilateral Equipment Used contact back chair Reps/Minutes 30 x2 Comments help when out walking in city rows Resistance TB #2 Reps/Minutes x8 Comments cued PPT, elevated ribcage core resisted side stepping Resistance Tb #2 Reps/Minutes 5 reps R and L Comments cued PPT, elevated ribcage, level pelvis during mobility- good self correct Neuro Re-Education Treatment Balance Activities single stance in mirror Surface lelvel Reps/Duration 20 x3 B PT-OP-T Assessment and Plan Start: 04/24/19 09:34 Freq: Status: Active Protocol: Document 11/13/19 12:57 SP (Rec: 11/13/19 16:23 SP [id number]) Physical Therapy Assessment Goals posture Detention Goal (LTG) Pt will improve with standing posture to better positioning shown by scoring 3/5 in all planes w/LPM LTG Duration 12/16/19 balance Impairment FGA Loan Officer Goal (LTG) Pt will improve FGA to to dec risk for falls. 10/15- LTG Duration 12/16/19 Three Impairment Pt ambulates with excessive supination Detention Goal (LTG) Pt to ambulate in a proper heel to gait pattern with a neutral forefoot 50% of the time without prompting 10/15- improving LTG Duration 12/16/19 One Impairment Pt does not have an appropriate home exercise program Short Term Goal (STG) Pt to be independent and compliant with an appropriate HEP STG Duration achieved progressing as needed Loan Officer Goal (LTG) Pt will have at least 4+/5 LE strength in all planes to allow greater ease of activity 10/15-progressing LTG Duration 12/16/19 Assessment Summary Assessment Pt making gains on TA and PPT self corrections, improved awareness. Tx focused on TA and PPT awareness throughout tx with increased challenge in balance and TB with occasional self corrections and cuing when needed wtih increase challenge (shuttle balance) and assist with focus on task, easily distractable. Intiated self stretching for long walks as in city along with cuing for seated rest breaks when needed, tiring especially incline/declines. Physical Therapy Plan Frequency and Duration Frequency of Treatment 1x/Week Duration of Treatment 2 months Plan of Care Start Date 10/16/19 Plan of Care End Date 12/16/19 Therapeutic Interventions Therapeutic Interventions Aquatic Therapy,Balance Training,Coordination Training ,Gait Training,Home Exercise Program,Manual Therapy, Neuromuscular Re-education, Patient/Caregiver Education, Self-Care/Home Management,Soft Tissue Mobilization, Therapeutic Activities, Therapeutic Exercises Modalities Cold Pack/Ice Massage,Electric Stimulation,Hot Packs, Ultrasound Next Visit Focus/Plan Next Note Type Treatment Note Next Visit Plan cont to work on postural stability & w/balance
--- NOTE | 2019-11-28 13:22 | PT.OTN ---
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) Stiffness of unspecified hip, not elsewhere classified (11/28/19) Stiffness of unspecified ankle, not elsewhere classified (11/28/19) Abnormal posture (11/28/19) Physical Therapy Treatment Note PT-OP-A Visit Information Start: 04/24/19 09:34 Freq: Status: Active Protocol: Document 11/28/19 10:37 [facility] (Rec: 11/28/19 13:22 [facility] [id number]) Out-Patient Physical Therapy Visit Information Visit Information Visit Type Treatment Note Visit Start Time 10:35 Visit Stop Time 11:14 Total Visit Minutes 39 Visit Number 23 Number of STAMP PRESSER Visits 0 PT-OP-B Current Condition Start: 04/24/19 09:34 Freq: Status: Active Protocol: Document 04/24/19 09:45 DCW (Rec: 04/24/19 16:44 DCW [id number]) Current Condition History of Current Condition Current Complaints General stiffness, decreased flexibility History of Current Condition Pt is a 43 year old female presenting with a recent diagnosis of Hereditary Spastic Paraplegia. Pt notes she has notices that it has recently been a little more visible, and she has noticed some increased difficulty in doing some thing. Noticed she has felt some difficulty walking and decreased balance, as well as generalized stiffness and increased tone. Treatment Goals Patient/Caregiver Goals Pt is interested in learning how to stretch and keep herself limber to hopefully help slow progress on disease process. Personal Factors Other Personal Factors That May Effect Depression, LBP, Hx Vertigo, Therapy/Recovery Seizure disorder PT-OP-C Subjective Start: 04/24/19 13:33 Freq: Status: Active Protocol: Document 11/28/19 10:37 [facility] (Rec: 11/28/19 13:22 [facility] [id number]) OP-PT Subjective Patient Comments Patient Comments Pt reports she did a scavenger [place] in [place] and back and feet were sore. She does some 90 min walks on flat walks. She has done little cranberry appiah some. PT-OP-D Balance Start: 04/24/19 13:33 Freq: Status: Active Protocol: Document 04/24/19 09:45 DCW (Rec: 04/24/19 16:44 DCW [id number]) OP-PT Balance Assessment Standing Balance Static Standing Balance Ability Normal Dynamic Standing Balance Ability Fair Balance Tests Narayanan Balance Test Narayanan Balance Test Score 52/56 Single Limb Standing Single Limb- Right 3 seconds Single Limb- Left 3 seconds Tandem Tandem Standing 5 seconds Narayanan Balance Assessment Evaluation Sitting to Standing Ability Independent w/out Hands Unsupported Stance Safely- 2 minutes Sitting Unsupported, Feet on Floor Safely- 2 minutes Standing to Sitting Ability Safely, Minimal Hand Use Transfer Ability Safely, Minimal Hand Use Unsupported Stance- Eyes Closed Safely, 10 seconds Unsupported Stance- Eyes Open Independent, 1 minute Reaching Forward Standing Safely, 5 inches Pick- Up Object From Floor Independent/Safe Look Behind Shoulder - Standing Shifts Weight Well Turning 360 Degrees Turns Bilateral, < 4 secs Unsupported Stance, Alternating Feet on (I)- 8 Steps in 20 secs Stair Unsupported Tandem Stance Holds Tandem- 30 seconds Unilateral Leg Stance Lifts Leg/Holds > 3 secs Total Score Narayanan Total Score (out of 56 points) 52 Narayanan Impairment Rating 1 to 19% Impaired (Score 45-55 ) Mccurdy Fall Scale Copyright Permission PT-OP-E Functional Tests Start: 04/24/19 13:33 Freq: Status: Active Protocol: Document 10/16/19 10:37 [facility] (Rec: 10/16/19 11:27 [facility] [id number]) Functional Tests Functional Gait Assessment Score 24/30 PT-OP-G Mobility & Gait Start: 04/24/19 13:33 Freq: Status: Active Protocol: Document 04/24/19 09:45 DCW (Rec: 04/24/19 16:44 DCW [id number]) OP Gait Assessment Gait Gait Assistance Required: Independent Assistive Devices Assistive Device None Gait Deviations General Gait Pattern Decreased Stride Length, Decreased Feet Clearance, Lateral Trunk Lean,Wide Based Gait Factors Limiting Gait Function Factors Limiting Gait Function Abnormal Tonal Influences,Poor Balance Comments Gait Comments Pt has significant supination during gait, walking on the lateral edge of her shoes. Stair Climbing Evaluation Devices Stair Climbing Assistive Devices None Technique/Endurance Stair Climbing Direction Ascend and Descend Stair Climbing Technique Step Over Step PT-OP-H Neuro Start: 04/24/19 13:33 Freq: Status: Active Protocol: Document 04/24/19 09:45 DCW (Rec: 04/24/19 16:44 DCW [id number]) Sensation Evaluation Gross Sensation Gross Sensation WNL Coordination Evaluation Lower Extremity Tests Right Alternate Heel to Knee; Heel to Toe Test Normal Performance Heel on Figueroa Test Normal Performance Left Alternate Heel to Knee; Heel to Toe Test Normal Performance Heel on Figueroa Test Normal Performance Deep Tendon Reflex & Clonus Assessment Deep Tendon Reflex Right Achilles Deep Tendon Reflex 3+ Normal But Brisk Right Patellar Deep Tendon Reflex 4+ Brisk Left Achilles Deep Tendon Reflex 3+ Normal But Brisk Left Patellar Deep Tendon Reflex 4+ Brisk Ankle Clonus Bilateral Clonus Assessment 3 Beats Muscle Tone Tone Assessment Lower Extremity Muscle Tone Comments Moderate-Severe hypertonicity through bilateral gastrosoleus complex PT-OP-J Posture/Palpation/Skin Start: 04/24/19 13:33 Freq: Status: Active Protocol: Document 10/16/19 10:37 [facility] (Rec: 10/16/19 11:27 [facility] [id number]) Posture Evaluation [facility] Postural Classification System Leanne Postural Classifications Anterior/Posterior Lumbar Protective Mechanism Left AP 0 Lumbar Protective Mechanism Right AP 1 Lumbar Protective Mechanism Left PA 0 Lumbar Protective Mechanism Right PA 0 PT-OP-K Range of Motion Start: 04/24/19 13:33 Freq: Status: Active Protocol: Document 08/21/19 10:31 [facility] (Rec: 08/21/19 11:16 [facility] [id number]) Ankle and Foot Goniometric Range of Motion Ankle and Foot Right Active Dorsiflexion with Knee Flexed 10 Dorsiflexion with Knee Extended 10 Left Active Dorsiflexion with Knee Flexed 10 Dorsiflexion with Knee Extended 10 Ankle and Foot ROM Limitations ROM Limitations Soft Tissue Tightness, Contracture,Muscle Tone PT-OP-L Special Tests Start: 04/24/19 13:33 Freq: Status: Active Protocol: Document 04/24/19 09:45 DCW (Rec: 04/24/19 16:44 DCW [id number]) Special Tests Hip Special Tests Straight Leg Raise Test Results Hamstring tightness at 53? bilaterally PT-OP-M Strength Start: 04/24/19 13:33 Freq: Status: Active Protocol: Document 10/16/19 10:37 [facility] (Rec: 10/16/19 11:27 [facility] [id number]) Hip Strength Hip Manual Muscle Testing Right Flexion (L2) 4 Good Extension (S1) 4+ Good+ Abduction 4 Good External Rotation 4 Good Internal Rotation 3+ Fair+ Left Flexion (L2) 4- Good- Extension (S1) 4 Good Abduction 4+ Good+ External Rotation 4 Good Internal Rotation 4 Good Comments pain abd Knee Strength Knee Manual Muscle Testing Right Flexion (S2) 5 Normal Extension (L3) 5 Normal Left Flexion (S2) 5 Normal Extension (L3) 5 Normal Ankle/Foot Strength Ankle and Foot Manual Muscle Testing Right Dorsiflexion (L4) 5 Normal Plantarflexion (S1) 5 Normal Inversion 5 Normal Eversion (S1) 5 Normal Left Dorsiflexion (L4) 5 Normal Plantarflexion (S1) 4+ Good+ Inversion 5 Normal Eversion (S1) 5 Normal Comments 16 calf raises PT-OP-Q Treatments Start: 04/24/19 13:33 Freq: Status: Active Protocol: Document 11/28/19 10:37 [facility] (Rec: 11/28/19 13:22 [facility] [id number]) Gym Equipment Shuttle Balance red Details fwd & side WBOS & NBOS Comments focus on posture Sport Cord sidestep Exercise Details b Cord/Resistance green Reps/Duration 8 Ea Comments focus on neutral posture & slow controlled motion fwd/back Exercise Details fwd/back walking then back/fwd walking Cord/Resistance green Reps/Duration 10 ea Comments focus on neutral posture & slow controlled motion Therapeutic Activity Therapeutic Activity posture Comments standing Neuro Re-Education Treatment Balance Activities single stance in mirror Surface lelvel Reps/Duration 20 x3 B PT-OP-T Assessment and Plan Start: 04/24/19 09:34 Freq: Status: Active Protocol: Document 11/28/19 10:37 [facility] (Rec: 11/28/19 13:22 [facility] [id number]) Physical Therapy Assessment Assessment Summary Assessment Pt is improving with postural awareness and ability to achieve neutral posture with less cueing. She still does require cueing throughout exercises for appropriate posture. Physical Therapy Plan Frequency and Duration Frequency of Treatment 1x/Week Duration of Treatment 2 months Plan of Care Start Date 10/16/19 Plan of Care End Date 12/16/19 Therapeutic Interventions Therapeutic Interventions Aquatic Therapy,Balance Training,Coordination Training ,Gait Training,Home Exercise Program,Manual Therapy, Neuromuscular Re-education, Patient/Caregiver Education, Self-Care/Home Management,Soft Tissue Mobilization, Therapeutic Activities, Therapeutic Exercises Modalities Cold Pack/Ice Massage,Electric Stimulation,Hot Packs, Ultrasound Next Visit Focus/Plan Next Note Type Treatment Note Next Visit Plan cont to work on postural stability & w/balance
--- NOTE | 2019-12-11 18:03 | PT.OTN ---
Current Diagnoses Hereditary spastic paraplegia (12/11/19) Stiffness of unspecified hip, not elsewhere classified (12/11/19) Stiffness of unspecified ankle, not elsewhere classified (12/11/19) Abnormal posture (12/11/19) Physical Therapy Treatment Note PT-OP-A Visit Information Start: 04/24/19 09:34 Freq: Status: Active Protocol: Document 12/11/19 17:59 [facility] (Rec: 12/11/19 18:03 [facility] [id number]) Out-Patient Physical Therapy Visit Information Visit Information Visit Type Treatment Note Visit Start Time 10:37 Visit Stop Time 11:15 Total Visit Minutes 38 Visit Number 24 Number of CHIEF ELECTRICIAN Visits 0 PT-OP-B Current Condition Start: 04/24/19 09:34 Freq: Status: Active Protocol: Document 04/24/19 09:45 DCW (Rec: 04/24/19 16:44 DCW [id number]) Current Condition History of Current Condition Current Complaints General stiffness, decreased flexibility History of Current Condition Pt is a 43 year old female presenting with a recent diagnosis of Hereditary Spastic Paraplegia. Pt notes she has notices that it has recently been a little more visible, and she has noticed some increased difficulty in doing some thing. Noticed she has felt some difficulty walking and decreased balance, as well as generalized stiffness and increased tone. Treatment Goals Patient/Caregiver Goals Pt is interested in learning how to stretch and keep herself limber to hopefully help slow progress on disease process. Personal Factors Other Personal Factors That May Effect Depression, LBP, Hx Vertigo, Therapy/Recovery Seizure disorder PT-OP-C Subjective Start: 04/24/19 13:33 Freq: Status: Active Protocol: Document 12/11/19 17:59 [facility] (Rec: 12/11/19 18:03 [facility] [id number]) OP-PT Subjective Patient Comments Patient Comments Pt reports she ordered a bosu & hurdles for home PT-OP-D Balance Start: 04/24/19 13:33 Freq: Status: Active Protocol: Document 04/24/19 09:45 DCW (Rec: 04/24/19 16:44 DCW [id number]) OP-PT Balance Assessment Standing Balance Static Standing Balance Ability Normal Dynamic Standing Balance Ability Fair Balance Tests Narayanan Balance Test Narayanan Balance Test Score 52/56 Single Limb Standing Single Limb- Right 3 seconds Single Limb- Left 3 seconds Tandem Tandem Standing 5 seconds Narayanan Balance Assessment Evaluation Sitting to Standing Ability Independent w/out Hands Unsupported Stance Safely- 2 minutes Sitting Unsupported, Feet on Floor Safely- 2 minutes Standing to Sitting Ability Safely, Minimal Hand Use Transfer Ability Safely, Minimal Hand Use Unsupported Stance- Eyes Closed Safely, 10 seconds Unsupported Stance- Eyes Open Independent, 1 minute Reaching Forward Standing Safely, 5 inches Pick- Up Object From Floor Independent/Safe Look Behind Shoulder - Standing Shifts Weight Well Turning 360 Degrees Turns Bilateral, < 4 secs Unsupported Stance, Alternating Feet on (I)- 8 Steps in 20 secs Stair Unsupported Tandem Stance Holds Tandem- 30 seconds Unilateral Leg Stance Lifts Leg/Holds > 3 secs Total Score Narayanan Total Score (out of 56 points) 52 Narayanan Impairment Rating 1 to 19% Impaired (Score 45-55 ) Mccurdy Fall Scale Copyright Permission PT-OP-E Functional Tests Start: 04/24/19 13:33 Freq: Status: Active Protocol: Document 10/16/19 10:37 [facility] (Rec: 10/16/19 11:27 [facility] [id number]) Functional Tests Functional Gait Assessment Score 2430 PT-OP-G Mobility & Gait Start: 04/24/19 13:33 Freq: Status: Active Protocol: Document 04/24/19 09:45 DCW (Rec: 04/24/19 16:44 DCW [id number]) OP Gait Assessment Gait Gait Assistance Required: Independent Assistive Devices Assistive Device None Gait Deviations General Gait Pattern Decreased Stride Length, Decreased Feet Clearance, Lateral Trunk Lean,Wide Based Gait Factors Limiting Gait Function Factors Limiting Gait Function Abnormal Tonal Influences,Poor Balance Comments Gait Comments Pt has significant supination during gait, walking on the lateral edge of her shoes. Stair Climbing Evaluation Devices Stair Climbing Assistive Devices None Technique/Endurance Stair Climbing Direction Ascend and Descend Stair Climbing Technique Step Over Step PT-OP-H Neuro Start: 04/24/19 13:33 Freq: Status: Active Protocol: Document 04/24/19 09:45 DCW (Rec: 04/24/19 16:44 DCW [id number]) Sensation Evaluation Gross Sensation Gross Sensation WNL Coordination Evaluation Lower Extremity Tests Right Alternate Heel to Knee; Heel to Toe Test Normal Performance Heel on Figueroa Test Normal Performance Left Alternate Heel to Knee; Heel to Toe Test Normal Performance Heel on Figueroa Test Normal Performance Deep Tendon Reflex & Clonus Assessment Deep Tendon Reflex Right Achilles Deep Tendon Reflex 3+ Normal But Brisk Right Patellar Deep Tendon Reflex 4+ Brisk Left Achilles Deep Tendon Reflex 3+ Normal But Brisk Left Patellar Deep Tendon Reflex 4+ Brisk Ankle Clonus Bilateral Clonus Assessment 3 Beats Muscle Tone Tone Assessment Lower Extremity Muscle Tone Comments Moderate-Severe hypertonicity through bilateral gastrosoleus complex PT-OP-J Posture/Palpation/Skin Start: 04/24/19 13:33 Freq: Status: Active Protocol: Document 10/16/19 10:37 [facility] (Rec: 10/16/19 11:27 [facility] [id number]) Posture Evaluation Leanne Postural Classification System Leanne Postural Classifications Anterior/Posterior Lumbar Protective Mechanism Left AP 0 Lumbar Protective Mechanism Right AP 1 Lumbar Protective Mechanism Left PA 0 Lumbar Protective Mechanism Right PA 0 PT-OP-K Range of Motion Start: 04/24/19 13:33 Freq: Status: Active Protocol: Document 08/21/19 10:31 [facility] (Rec: 08/21/19 11:16 [facility] [id number]) Ankle and Foot Goniometric Range of Motion Ankle and Foot Right Active Dorsiflexion with Knee Flexed 10 Dorsiflexion with Knee Extended 10 Left Active Dorsiflexion with Knee Flexed 10 Dorsiflexion with Knee Extended 10 Ankle and Foot ROM Limitations ROM Limitations Soft Tissue Tightness, Contracture,Muscle Tone PT-OP-L Special Tests Start: 04/24/19 13:33 Freq: Status: Active Protocol: Document 04/24/19 09:45 DCW (Rec: 04/24/19 16:44 DCW [id number]) Special Tests Hip Special Tests Straight Leg Raise Test Results Hamstring tightness at 53? bilaterally PT-OP-M Strength Start: 04/24/19 13:33 Freq: Status: Active Protocol: Document 10/16/19 10:37 [facility] (Rec: 10/16/19 11:27 [facility] [id number]) Hip Strength Hip Manual Muscle Testing Right Flexion (L2) 4 Good Extension (S1) 4+ Good+ Abduction 4 Good External Rotation 4 Good Internal Rotation 3+ Fair+ Left Flexion (L2) 4- Good- Extension (S1) 4 Good Abduction 4+ Good+ External Rotation 4 Good Internal Rotation 4 Good Comments pain abd Knee Strength Knee Manual Muscle Testing Right Flexion (S2) 5 Normal Extension (L3) 5 Normal Left Flexion (S2) 5 Normal Extension (L3) 5 Normal Ankle/Foot Strength Ankle and Foot Manual Muscle Testing Right Dorsiflexion (L4) 5 Normal Plantarflexion (S1) 5 Normal Inversion 5 Normal Eversion (S1) 5 Normal Left Dorsiflexion (L4) 5 Normal Plantarflexion (S1) 4+ Good+ Inversion 5 Normal Eversion (S1) 5 Normal Comments 16 calf raises PT-OP-Q Treatments Start: 04/24/19 13:33 Freq: Status: Active Protocol: Document 12/11/19 17:59 [facility] (Rec: 12/11/19 18:03 [facility] [id number]) Gym Equipment Shuttle Balance red Details fwd & side WBOS & NBOS; fwd staggered stance Comments focus on posture & hitting balloon Therapeutic Exercises Standing Exercises 3 Standing Exercise Name wall posture Therapeutic Activity Therapeutic Activity posture Comments standing -focus on neutral lumbar spine Neuro Re-Education Treatment Balance Activities bosu Comments 1.s tep up then balance 2 sec x10 B 2. squats x10 3. lunge fwd & side B x10 ea 4.standing balancingo n blue 5. seated on upside down with pelvic circlses hurdles Comments 1.single leg tap over fwd & side x10 B PT-OP-T Assessment and Plan Start: 04/24/19 09:34 Freq: Status: Active Protocol: Document 12/11/19 17:59 [facility] (Rec: 12/11/19 18:03 [facility] [id number]) Physical Therapy Assessment Goals posture Processing Technician Goal (LTG) Pt will improve with standing posture to better positioning shown by scoring 3/5 in all planes w/LPM LTG Duration 12/16/19 balance Impairment FGA Processing Technician Goal (LTG) Pt will improve FGA to to dec risk for falls. 10/15- LTG Duration 12/16/19 Three Impairment Pt ambulates with excessive supination Intermediate Goal (LTG) Pt to ambulate in a proper heel to gait pattern with a neutral forefoot 50% of the time without prompting 10/15- improving LTG Duration 12/16/19 One Impairment Pt does not have an appropriate home exercise program Short Term Goal (STG) Pt to be independent and compliant with an appropriate HEP STG Duration achieved progressing as needed Processing Technician Goal (LTG) Pt will have at least 4+/5 LE strength in all planes to allow greater ease of activity 10/15-progressing LTG Duration 12/16/19 Assessment Summary Assessment Pt doing better with posture and able to achieve with less cueing. Pt educated on ways to use bosu and how to set up at home near baniser and window so supports on either side Physical Therapy Plan Frequency and Duration Frequency of Treatment 1x/Week Duration of Treatment 2 months Plan of Care Start Date 10/16/19 Plan of Care End Date 12/16/19 Next Visit Focus/Plan Next Note Type Progress Note Next Visit Plan DC next session-review exercises
--- NOTE | 2019-12-24 18:09 | PT.OTN ---
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 (Rec: 12/24/19 18:09 [facility] [id number]) Out-Patient Physical Therapy Visit Information Visit Information Visit Type Treatment Note Visit Start Time 10:36 Visit Stop Time 11:18 Total Visit Minutes 42 Visit Number 24 Number of AIR COMPRESSOR MECHANIC Visits 0 PT-OP-B Current Condition Start: 04/24/19 09:34 Freq: Status: Active Protocol: Document 04/24/19 09:45 DCW (Rec: 04/24/19 16:44 DCW [id number]) Current Condition History of Current Condition Current Complaints General stiffness, decreased flexibility History of Current Condition Pt is a 43 year old female presenting with a recent diagnosis of Hereditary Spastic Paraplegia. Pt notes she has notices that it has recently been a little more visible, and she has noticed some increased difficulty in doing some thing. Noticed she has felt some difficulty walking and decreased balance, as well as generalized stiffness and increased tone. Treatment Goals Patient/Caregiver Goals Pt is interested in learning how to stretch and keep herself limber to hopefully help slow progress on disease process. Personal Factors Other Personal Factors That May Effect Depression, LBP, Hx Vertigo, Therapy/Recovery Seizure disorder PT-OP-C Subjective Start: 04/24/19 13:33 Freq: Status: Active Protocol: Document 12/24/19 11:00 [facility] (Rec: 12/24/19 18:09 [facility] [id number]) OP-PT Subjective Patient Comments Patient Comments Pt reports she wants to go over exercise plan for home. PT-OP-D Balance Start: 04/24/19 13:33 Freq: Status: Active Protocol: Document 04/24/19 09:45 DCW (Rec: 04/24/19 16:44 DCW [id number]) OP-PT Balance Assessment Standing Balance Static Standing Balance Ability Normal Dynamic Standing Balance Ability Fair Balance Tests Narayanan Balance Test Narayanan Balance Test Score 52/56 Single Limb Standing Single Limb- Right 3 seconds Single Limb- Left 3 seconds Tandem Tandem Standing 5 seconds Narayanan Balance Assessment Evaluation Sitting to Standing Ability Independent w/out Hands Unsupported Stance Safely- 2 minutes Sitting Unsupported, Feet on Floor Safely- 2 minutes Standing to Sitting Ability Safely, Minimal Hand Use Transfer Ability Safely, Minimal Hand Use Unsupported Stance- Eyes Closed Safely, 10 seconds Unsupported Stance- Eyes Open Independent, 1 minute Reaching Forward Standing Safely, 5 inches Pick- Up Object From Floor Independent/Safe Look Behind Shoulder - Standing Shifts Weight Well Turning 360 Degrees Turns Bilateral, < 4 secs Unsupported Stance, Alternating Feet on (I)- 8 Steps in 20 secs Stair Unsupported Tandem Stance Holds Tandem- 30 seconds Unilateral Leg Stance Lifts Leg/Holds > 3 secs Total Score Narayanan Total Score (out of 56 points) 52 Narayanan Impairment Rating 1 to 19% Impaired (Score 45-55 ) Mccurdy Fall Scale Copyright Permission PT-OP-E Functional Tests Start: 04/24/19 13:33 Freq: Status: Active Protocol: Document 10/16/19 10:37 [facility] (Rec: 10/16/19 11:27 [facility] [id number]) Functional Tests Functional Gait Assessment Score 2430 PT-OP-G Mobility & Gait Start: 04/24/19 13:33 Freq: Status: Active Protocol: Document 04/24/19 09:45 DCW (Rec: 04/24/19 16:44 DCW [id number]) OP Gait Assessment Gait Gait Assistance Required: Independent Assistive Devices Assistive Device None Gait Deviations General Gait Pattern Decreased Stride Length, Decreased Feet Clearance, Lateral Trunk Lean,Wide Based Gait Factors Limiting Gait Function Factors Limiting Gait Function Abnormal Tonal Influences,Poor Balance Comments Gait Comments Pt has significant supination during gait, walking on the lateral edge of her shoes. Stair Climbing Evaluation Devices Stair Climbing Assistive Devices None Technique/Endurance Stair Climbing Direction Ascend and Descend Stair Climbing Technique Step Over Step PT-OP-H Neuro Start: 04/24/19 13:33 Freq: Status: Active Protocol: Document 04/24/19 09:45 DCW (Rec: 04/24/19 16:44 DCW [id number]) Sensation Evaluation Gross Sensation Gross Sensation WNL Coordination Evaluation Lower Extremity Tests Right Alternate Heel to Knee; Heel to Toe Test Normal Performance Heel on Figueroa Test Normal Performance Left Alternate Heel to Knee; Heel to Toe Test Normal Performance Heel on Figu[place]a Test Normal Performance Deep Tendon Reflex & Clonus Assessment Deep Tendon Reflex Right Achilles Deep Tendon Reflex 3+ Normal But Brisk Right Patellar Deep Tendon Reflex 4+ Brisk Left Achilles Deep Tendon Reflex 3+ Normal But Brisk Left Patellar Deep Tendon Reflex 4+ Brisk Ankle Clonus Bilateral Clonus Assessment 3 Beats Muscle Tone Tone Assessment Lower Extremity Muscle Tone Comments Moderate-Severe hypertonicity through bilateral gastrosoleus complex PT-OP-J Posture/Palpation/Skin Start: 04/24/19 13:33 Freq: Status: Active Protocol: Document 10/16/19 10:37 [facility] (Rec: 10/16/19 11:27 [facility] [id number]) Posture Evaluation Leanne Postural Classification System Leanne Postural Classifications Anterior/Posterior Lumbar Protective Mechanism Left AP 0 Lumbar Protective Mechanism Right AP 1 Lumbar Protective Mechanism Left PA 0 Lumbar Protective Mechanism Right PA 0 PT-OP-K Range of Motion Start: 04/24/19 13:33 Freq: Status: Active Protocol: Document 08/21/19 10:31 [facility] (Rec: 08/21/19 11:16 [facility] [id number]) Ankle and Foot Goniometric Range of Motion Ankle and Foot Right Active Dorsiflexion with Knee Flexed 10 Dorsiflexion with Knee Extended 10 Left Active Dorsiflexion with Knee Flexed 10 Dorsiflexion with Knee Extended 10 Ankle and Foot ROM Limitations ROM Limitations Soft Tissue Tightness, Contracture,Muscle Tone PT-OP-L Special Tests Start: 04/24/19 13:33 Freq: Status: Active Protocol: Document 04/24/19 09:45 DCW (Rec: 04/24/19 16:44 DCW [id number]) Special Tests Hip Special Tests Straight Leg Raise Test Results Hamstring tightness at 53? bilaterally PT-OP-M Strength Start: 04/24/19 13:33 Freq: Status: Active Protocol: Document 12/24/19 11:00 [facility] (Rec: 12/24/19 11:05 [facility] [id number]) Hip Strength Hip Manual Muscle Testing Right Flexion (L2) 4+ Good+ Extension (S1) 4+ Good+ Abduction 4+ Good+ External Rotation 5 Normal Internal Rotation 5 Normal Left Flexion (L2) 4 Good Extension (S1) 4 Good Abduction 4 Good External Rotation 5 Normal Internal Rotation 4 Good Comments pain IR & abd Knee Strength Knee Manual Muscle Testing Right Flexion (S2) 5 Normal Extension (L3) 5 Normal Left Flexion (S2) 5 Normal Extension (L3) 5 Normal Ankle/Foot Strength Ankle and Foot Manual Muscle Testing Right Dorsiflexion (L4) 5 Normal Plantarflexion (S1) 5 Normal Inversion 5 Normal Eversion (S1) 5 Normal Comments 20 calf raisesR Left Dorsiflexion (L4) 5 Normal Plantarflexion (S1) 5 Normal Inversion 5 Normal Eversion (S1) 5 Normal Comments 20 calf raises PT-OP-Q Treatments Start: 04/24/19 13:33 Freq: Status: Active Protocol: Document 12/24/19 11:00 [facility] (Rec: 12/24/19 18:09 [facility] [id number]) Therapeutic Exercises Supine Exercises figure 4 Side bilateral Reps/Minutes 30 2 Supine Exercise Name piriformis Side bilateral Reps/Minutes 30 sec Sitting Exercises stretches Sitting Exercise Name piriformis Side bilateral Reps/Minutes 30 sec Manual Therapy Treatment Soft Tissue Mobilization 1 Body Location L glutes & along sacral border Mobilization Type Rolling,Sustained Pressure Intensity/Depth Moderate Body Position Prone Joint Mobilizations hip Joint L Direction on axis ER & IR FM Neuro Re-Education Treatment Balance Activities bosu Comments 1.s tep up then balance 2 sec x5 B 2. squats x5 3. lunge fwd & side B x5 ea 5. seated on upside down with pelvic circlses hurdles Comments 1.single leg tap over fwd & side x3 B Self-Care/Home Management Treatment Education Patient Education Home Exercise Program Other Education edu on using tennis ball on glutes, edu on cont to walk with general gradual progression, review of HEP and discussed strengthening every other day PT-OP-T Assessment and Plan Start: 04/24/19 09:34 Freq: Status: Active Protocol: Document 12/24/19 11:00 [facility] (Rec: 12/24/19 18:09 [facility] [id number]) Physical Therapy Assessment Goals posture Equipment Service Engineer Goal (LTG) Pt will improve with standing posture to better positioning shown by scoring 3/5 in all planes w/LPM 12/23-n/t LTG Duration 12/16/19 balance Impairment FGA Shelter Goal (LTG) Pt will improve FGA to to dec risk for falls. 10/15- 12/23-n/t LTG Duration 12/16/19 Three Impairment Pt ambulates with excessive supination Equipment Service Engineer Goal (LTG) Pt to ambulate in a proper heel to gait pattern with a neutral forefoot 50% of the time without prompting 10/15- improving LTG Duration achieved One Impairment Pt does not have an appropriate home exercise program Short Term Goal (STG) Pt to be independent and compliant with an appropriate HEP STG Duration achieved progressing as needed Shelter Goal (LTG) Pt will have at least 4+/5 LE strength in all planes to allow greater ease of activity 10/15-progressing LTG Duration progressed achieved R but not L d/t hip pain Assessment Summary Assessment Pt has made excellent progress w/ balance, strength and gait with PT. She is now indep with HEP and has gotten home equipment to help work on her cont deficits. She presented w /c/o L buttocks pain today which likely is affecting her L side strength today. Day was focused on reviewing exercises to cont and home and reviewing old HEP programs and discussing which exercises to keep.P t is d/c to home program at this time. Physical Therapy Plan Frequency and Duration Frequency of Treatment 1x/Week Duration of Treatment 1 day Plan of Care Start Date 12/24/19 Plan of Care End Date 12/24/19 Therapeutic Interventions Therapeutic Interventions Aquatic Therapy,Balance Training,Coordination Training ,Gait Training,Home Exercise Program,Manual Therapy, Neuromuscular Re-education, Patient/Caregiver Education, Self-Care/Home Management,Soft Tissue Mobilization, Therapeutic Activities, Therapeutic Exercises Modalities Cold Pack/Ice Massage,Electric Stimulation,Hot Packs, Ultrasound Discharge Physical Therapy Discharge Comments insurance visit limitation
--- NOTE | 2019-12-24 18:09 | PT.OPPOC ---
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) Stiffness of unspecified hip, not elsewhere classified (12/24/19) Stiffness of unspecified ankle, not elsewhere classified (12/24/19) Abnormal posture (12/24/19) Visit Care Team Role Provider Type Kristin Borden DO Attending Provider Physician Primary Care Provider Referring Provider Specialty: [facility] Practice Address: [address] [place] [address], [facility] [place], [address] Email: [email or web address] Plan Of Care PT-OP-T Assessment and Plan Start: 04/24/19 09:34 Freq: Status: Active Protocol: Document 12/24/19 11:00 [facility] (Rec: 12/24/19 18:09 [facility] [id number]) Physical Therapy Assessment Goals posture Computer Assistant Goal (LTG) Pt will improve with standing posture to better positioning shown by scoring 3/5 in all planes w/LPM 12/23-n/t LTG Duration 12/16/19 balance Impairment FGA Alf Goal (LTG) Pt will improve FGA to to dec risk for falls. 10/15-2-n/t LTG Duration 12/16/19 Three Impairment Pt ambulates with excessive supination Alf Goal (LTG) Pt to ambulate in a proper heel to gait pattern with a neutral forefoot 50% of the time without prompting 10/15- improving LTG Duration achieved One Impairment Pt does not have an appropriate home exercise program Short Term Goal (STG) Pt to be independent and compliant with an appropriate HEP STG Duration achieved progressing as needed Computer Assistant Goal (LTG) Pt will have at least 4+/5 LE strength in all planes to allow greater ease of activity 10/15-progressing LTG Duration progressed achieved R but not L d/t hip pain Assessment Summary Assessment Pt has made excellent progress w/ balance, strength and gait with PT. She is now indep with HEP and has gotten home equipment to help work on her cont deficits. She presented w /c/o L buttocks pain today which likely is affecting her L side strength today. Day was focused on reviewing exercises to cont and home and reviewing old HEP programs and discussing which exercises to keep.P t is d/c to home program at this time. Physical Therapy Plan Frequency and Duration Frequency of Treatment 1x/Week Duration of Treatment 1 day Plan of Care Start Date 12/24/19 Plan of Care End Date 12/24/19 Therapeutic Interventions Therapeutic Interventions Aquatic Therapy,Balance Training,Coordination Training ,Gait Training,Home Exercise Program,Manual Therapy, Neuromuscular Re-education, Patient/Caregiver Education, Self-Care/Home Management,Soft Tissue Mobilization, Therapeutic Activities, Therapeutic Exercises Modalities Cold Pack/Ice Massage,Electric Stimulation,Hot Packs, Ultrasound Discharge Physical Therapy Discharge Comments insurance visit limitation Plan of Care Dates Plan of Care Start Date 12/24/19 Plan of Care End Date 12/24/19 Electronically Signed by: Amparo Stallworth, PT 12/24/19 1036 Please Sign and Return: I have reviewed this Plan of Care and certify that the skilled therapy services above are required to meet the patient?s needs. Physician Signature Date Printed Name and Credentials Clinical Instructor Signature Printed Name and Credentials
== END 2019-12-31 15:16 ==
LOC: PHYS 10:30
PROVIDERS: PCP Family Medicine; Referring Provider Family Medicine; Visit Provider Family Medicine
DX: G11.4 Hereditary spastic paraplegia (principal); R29.3 Abnormal posture; M25.659 Stiffness of unspecified hip, not elsewhere classified; M25.673 Stiffness of unspecified ankle, not elsewhere classified
CPT/HCPCS: 97110; 97112; 97140; 97162; 97530; 97535

== ENCOUNTER → 2020-01-08 14:25 | Outpatient (CLI) | payer OTHER, MEDICAID, SELFPAY ==
[2020-01-08 16:53] LABS: Appearance Urine UA CLEAR; Bilirubin Urine UA NEGATIVE (NEGATIVE); Color Urine UA YELLOW; Glucose Urine UA NEGATIVE (Negative); Ketones Urine UA NEGATIVE (NEGATIVE); Leukocyte Esterase Urine UA NEGATIVE (NEGATIVE); Nitrite Urine UA NEGATIVE (Negative); Occult Blood Urine UA NEGATIVE (Negative); Protein Urine UA NEGATIVE (Negative); Urobilinogen Urine UA 0.2 E.U./dL (0.2)
[2020-01-08 16:59] LABS: pH Urine UA 6.5 (4.5-8.0)
== END ==
PROVIDERS: PCP Family Medicine; Referring Provider Family Medicine; Visit Provider Family Medicine
DX: R30.0 Dysuria (principal)
CPT/HCPCS: 81003

== ENCOUNTER → 2020-04-04 12:03 | Outpatient (CLI) | payer OTHER, MEDICAID, SELFPAY ==
[2020-04-04 12:13] LABS: Bacteria Urine None Seen; WBC Urine None Seen (0-5/HPF)
[2020-04-04 13:14] LABS: Add Manual Diff / Slide Review NO; Basophils Absolute Auto 0 /uL (0-100); Basophils Percent Auto 0.4 % (0-2); Eosinophils Absolute Auto 100 /uL (0-450); Hematocrit 38.5 % (36-46); Hemoglobin 12.8 g/dL (12.0-16.0); Lymphocytes Absolute Auto 1300 /uL (1100-4500); Lymphocytes Percent Auto 24.2 % (25-40); Mean Corpuscular HGB Conc 33.2 % (30-36); Mean Corpuscular Hemoglobin 31.2 PG (26-34); Mean Corpuscular Volume 93.9 fL (80-100); Monocytes Absolute Auto 400 /uL (0-900); Monocytes Percent Auto 7.3 % (3-14); Neutrophils Absolute Auto 3600 /uL (1500-7000); Neutrophils Percent Auto 66.1 % (50-75); Platelet Count 282 X10^3/uL (150-400); Red Cell Distribution Width 12.9 % (11.6-14.8); White Blood Cell Count 5.4 X10^3/uL (4.5-11.0)
[2020-04-04 13:34] LABS: Alanine Aminotransferase 19 IU/L (<35); Albumin 4.5 g/dL (3.5-5.0); Albumin Globulin Ratio 1.4 (1.0-2.8); Alkaline Phosphatase 71 U/L (38-126); Amylase 59 U/L (30-110); Aspartate Aminotransferase 29 IU/L (14-36); BUN Creatinine Ratio 15.4 (6-22); Bilirubin Total 0.2 mg/dL (0.2-1.3); Blood Urea Nitrogen 10 mg/dL (7-17); Calcium 9.5 mg/dL (8.4-10.2); Carbon Dioxide 28 mmol/L (22-32); Chloride 101 mmol/L (98-107); Estimated Glomerular Filt Rate > 60.0 mL/min (>60); Globulin 3.3 g/dL (1.7-4.1); Glucose 86 mg/dL (70-100); HEMOLYSIS < 15 (0-50); Lipase 65 U/L (23-300); Potassium 4.1 mmol/L (3.4-5.1); Sodium 135 mmol/L (137-145); Total Protein 7.8 g/dL (6.3-8.2)
[2020-04-04 14:58] LABS: Appearance Urine UA CLEAR; Bilirubin Urine UA NEGATIVE (NEGATIVE); Color Urine UA YELLOW; Glucose Urine UA NEGATIVE (Negative); Ketones Urine UA NEGATIVE (NEGATIVE); Leukocyte Esterase Urine UA NEGATIVE (NEGATIVE); Nitrite Urine UA NEGATIVE (Negative); Occult Blood Urine UA NEGATIVE (Negative); Protein Urine UA NEGATIVE (Negative); Specific Gravity Urine UA 1.015 (1.000-1.035); Urobilinogen Urine UA 0.2 E.U./dL (0.2)
[2020-04-04 15:05] LABS: pH Urine UA 6.5 (4.5-8.0)
[2020-04-04 15:22] LABS: RBC Urine 1-5/HPF (0-5/HPF); Squamous Epithelial Cell Urine 1-5 /HPF (0-5/HPF)
[2020-04-04 15:23] LABS: Culture Indicated Urine Cult Not Indicated
== END ==
PROVIDERS: PCP Family Medicine; Referring Provider Family Medicine; Visit Provider Family Medicine
DX: R10.9 Unspecified abdominal pain (principal); R35.0 Frequency of micturition; R39.15 Urgency of urination
CPT/HCPCS: 36415; 80053; 81001; 82150; 83690; 84443; 85025

== ENCOUNTER → 2020-12-26 07:42 | Outpatient (CLI) | payer OTHER, MEDICAID, SELFPAY ==
--- NOTE | 2020-12-26 | DI.NM.S_ITS ---
PROCEDURE: NM GASTRIC EMPTYING STUDY RADIOPHARMACEUTICAL: 1.1 mCi Tc-99m sulfur colloid in an egg sandwich. INDICATIONS: Hereditary spastic paraplegia TECHNIQUE: A Tc-99m labeled sulfur colloid labeled egg sandwich or oatmeal was served to the patient. Anterior and posterior planar images of the abdomen were obtained at 0 minutes and 30 minutes, then at hourly intervals up to 4 hours. The patient was upright and ambulating during the interval. COMPARISON: None. FINDINGS: The stomach has normal size, morphology, and position. There is normal emptying of solid gastric contents from the stomach by visual inspection. No gastroesophageal reflux is visualized. The percentage of tracer retained at specific time points are as follows: Time point Percent gastric retention Normal range 30 minutes 85% 70% or more 1 hour 54% 30% to 90% 2 hours 22% 60% or less 3 hours 6% 30% or less IMPRESSION: Normal examination without evidence of delayed gastric emptying. Dictated by: Marium Vogel MD, PhD on 12/26/2020 at 11:30 Approved by: Marium Vogel MD, PhD on 12/26/2020 at 11:31
== END ==
PROVIDERS: PCP Family Medicine; Referring Provider Physician Assistant; Visit Provider Physician Assistant
DX: G11.4 Hereditary spastic paraplegia (principal); R12 Heartburn; R14.0 Abdominal distension (gaseous); R10.9 Unspecified abdominal pain
CPT/HCPCS: 78264; A9541

== ENCOUNTER → 2020-12-27 14:21 | Outpatient (CLI) | payer OTHER, MEDICAID, SELFPAY ==
[2020-12-27 15:18] LABS: COVID19 -Nasal RAPID POSITIVE (Negative)
== END ==
PROVIDERS: PCP Family Medicine; Visit Provider Physician Assistant
DX: U07.1 COVID-19 (principal)
CPT/HCPCS: 87635

== ENCOUNTER → 2021-01-20 17:48 | Outpatient (CLI) | payer OTHER, MEDICAID, SELFPAY ==
[2021-01-20 18:33] LABS: COVID19 -Nasal RAPID Negative (Negative)
== END ==
PROVIDERS: PCP Family Medicine; Visit Provider Physician Assistant
DX: Z20.822 Contact with and (suspected) exposure to COVID-19 (principal)
CPT/HCPCS: 87635

== ENCOUNTER → 2021-05-05 15:22 | Outpatient (CLI) | payer OTHER, MEDICAID, SELFPAY ==
[2021-05-05 15:55] LABS: Add Manual Diff / Slide Review NO; Basophils Absolute Auto 0 /uL (0-100); Basophils Percent Auto 0.4 % (0-2); Eosinophils Absolute Auto 100 /uL (0-450); Eosinophils Percent Auto 2.8 % (2-4); Hematocrit 38.7 % (36-46); Hemoglobin 13.3 g/dL (12.0-16.0); Lymphocytes Absolute Auto 1200 /uL (1100-4500); Lymphocytes Percent Auto 25.9 % (25-40); Mean Corpuscular HGB Conc 34.4 % (30-36); Mean Corpuscular Hemoglobin 31.9 PG (26-34); Mean Corpuscular Volume 92.8 fL (80-100); Monocytes Absolute Auto 300 /uL (0-900); Monocytes Percent Auto 7.1 % (3-14); Neutrophils Absolute Auto 3000 /uL (1500-7000); Neutrophils Percent Auto 63.8 % (50-75); Platelet Count 263 X10^3/uL (150-400); Red Blood Cell Count 4.17 X10^6/uL (4.0-5.2); Red Cell Distribution Width 12.7 % (11.6-14.8); White Blood Cell Count 4.7 X10^3/uL (4.5-11.0)
[2021-05-05 16:07] LABS: Alanine Aminotransferase 19 IU/L (<35); Albumin 4.7 g/dL (3.5-5.0); Albumin Globulin Ratio 1.4 (1.0-2.8); Alkaline Phosphatase 63 U/L (38-126); Amylase 67 U/L (30-110); Aspartate Aminotransferase 26 IU/L (14-36); BUN Creatinine Ratio 13.7 (6-22); Bilirubin Total 0.4 mg/dL (0.2-1.3); Blood Urea Nitrogen 13 mg/dL (7-17); Calcium 9.7 mg/dL (8.4-10.2); Carbon Dioxide 32 mmol/L (22-32); Chloride 101 mmol/L (98-107); Estimated Glomerular Filt Rate > 60.0 mL/min (>60); Globulin 3.3 g/dL (1.7-4.1); Glucose 105 mg/dL (70-100); HEMOLYSIS < 15 (0-50); Lipase 65 U/L (23-300); Potassium 4.1 mmol/L (3.4-5.1); Sodium 138 mmol/L (137-145)
== END ==
PROVIDERS: PCP Family Medicine; Referring Provider Family Medicine; Visit Provider Family Medicine
DX: K85.10 Biliary acute pancreatitis without necrosis or infection (principal); R10.9 Unspecified abdominal pain
CPT/HCPCS: 36415; 80053; 82150; 83690; 85025

== ENCOUNTER → 2021-05-22 12:48 | Outpatient (CLI) | payer OTHER, MEDICAID, SELFPAY | PROVIDERS: PCP Family Medicine; Visit Provider Physician Assistant | DX: R30.0 Dysuria (principal) | CPT/HCPCS: 81002; 87086 ==

== ENCOUNTER 2021-06-10 17:15 | Emergency (ER) | payer OTHER, MEDICAID, SELFPAY ==
[2021-06-10 17:19] VITALS: BP 161/64; PULSE 109; RESP 20; TEMP 36.8; O2SAT 100; BMI 31.2
[2021-06-10 18:28] VITALS: BP 130/72; PULSE 90; RESP 16; O2SAT 100
[2021-06-10 18:30] VITALS: BP 127/73; PULSE 89; RESP 17; O2SAT 100
[2021-06-10 18:37] LABS: Add Manual Diff / Slide Review NO; Basophils Absolute Auto 0 /uL (0-100); Basophils Percent Auto 0.6 % (0-2); Eosinophils Absolute Auto 100 /uL (0-450); Eosinophils Percent Auto 1.3 % (2-4); Hematocrit 37.7 % (36-46); Lymphocytes Absolute Auto 1600 /uL (1100-4500); Lymphocytes Percent Auto 25.6 % (25-40); Mean Corpuscular HGB Conc 34.5 % (30-36); Mean Corpuscular Hemoglobin 32.2 PG (26-34); Mean Corpuscular Volume 93.3 fL (80-100); Monocytes Absolute Auto 300 /uL (0-900); Monocytes Percent Auto 5.6 % (3-14); Neutrophils Absolute Auto 4200 /uL (1500-7000); Neutrophils Percent Auto 66.9 % (50-75); Platelet Count 287 X10^3/uL (150-400); Red Blood Cell Count 4.05 X10^6/uL (4.0-5.2); White Blood Cell Count 6.3 X10^3/uL (4.5-11.0)
[2021-06-10 18:41] LABS: Alanine Aminotransferase 19 IU/L (<35); Albumin Globulin Ratio 1.4 (1.0-2.8); Alkaline Phosphatase 65 U/L (38-126); Aspartate Aminotransferase 25 IU/L (14-36); BUN Creatinine Ratio 12.5 (6-22); Bilirubin Total 0.4 mg/dL (0.2-1.3); Blood Urea Nitrogen 10 mg/dL (7-17); Calcium 9.5 mg/dL (8.4-10.2); Carbon Dioxide 28 mmol/L (22-32); Chloride 102 mmol/L (98-107); Estimated Glomerular Filt Rate > 60 mL/min (>60); Globulin 3.5 g/dL (1.7-4.1); Glucose 99 mg/dL (70-100); HEMOLYSIS < 15 (0-50); Lipase 55 U/L (23-300); Potassium 3.7 mmol/L (3.4-5.1); Sodium 140 mmol/L (137-145); Total Protein 8.5 g/dL (6.3-8.2)
[2021-06-10 18:45] LABS: Bacteria Urine Few (2-10); Culture Indicated Urine Cult Not Indicated; RBC Urine None Seen (0-5/HPF); Squamous Epithelial Cell Urine 5-10 /HPF (0-5/HPF); WBC Urine 1-5/HPF (0-5/HPF)
[2021-06-10 19:00] VITALS: BP 125/73; PULSE 83; RESP 16; O2SAT 100
--- NOTE | 2021-06-10 19:27 | ED_ITS ---
HPI - General Adult General Chief complaint: Abdominal Pain Stated complaint: abd pain, fever, diarrhea, sent by GI doc Time Seen by Provider: 06/10/21 18:05 Source: patient Mode of arrival: Ambulatory History of Present Illness HPI narrative: Patient is a 45-year-old female. Has a history of GI issues and is being followed by a GI provider. She is here for evaluation of abdominal pain, subjective fevers comfort diarrhea. The abdominal pain and diarrhea is not new however she has been feeling chilled recently and when she contacted her GI doctor she was instructed to come to the emergency department for further evaluation. Related Data Home Medications Medication Instructions Recorded Confirmed acetaminophen 325 mg tablet 325 mg PO PRN #0 01/29/16 05/22/21 levetiracetam 1,000 mg tablet 1,000 mg PO BID 03/05/19 05/22/21 (Keppra) Previous Rx's Medication Instructions Recorded oxybutynin chloride 5 mg tablet 5 mg PO BIDP #180 tab 10/07/16 trazodone 100 mg tablet 100 mg PO HS #90 tab 01/04/18 ondansetron 4 mg disintegrating 4 mg PO Q6-8H PRN #10 tab 01/24/19 tablet sertraline 100 mg tablet 100 mg PO DAILY #90 tab 05/25/19 pantoprazole 40 mg tablet,delayed 40 mg PO BID #60 tab 09/11/19 release valacyclovir 500 mg tablet 500 mg PO BID PRN #6 tab 12/17/19 amoxicillin 875 mg-potassium 1 tab PO BID #20 tab 04/04/20 clavulanate 125 mg tablet (Augmentin) diazepam 5 mg tablet See Rx Instructions PO DAILY PRN 04/15/20 #5 tab Allergies Allergy/AdvReac Type Severity Reaction Status Date / Time No Known Drug Allergies Allergy Verified 05/22/21 12:56 Review of Systems Constitutional Constitutional: Reports as per HPI and Reports system reviewed and no additional complaints, except as documented Cardiovascular Cardiovascular: Reports system reviewed and no additional complaints, except as documented Respiratory Respiratory: Reports system reviewed and no additional complaints, except as documented Gastrointestinal Gastrointestinal: Reports as per HPI and Reports system reviewed and no additional complaints, except as documented Genitourinary Genitourinary: Denies dysuria Musculoskeletal Musculoskeletal: Reports system reviewed and no additional complaints, except as documented Integumentary/Breasts Skin/Breast: Reports system reviewed and no additional complaints, except as documented Hematologic/Lymphatic On Anticoagulants: No Patient History Medical History Abnormal Pap smear of cervix Anemia (2003) Chicken pox (~1987) Choledocholithiasis CTS (carpal tunnel syndrome) (2007) Cyst of ovary (06/02/15) Frequent UTI Gallstone pancreatitis Hereditary spastic paraplegia Kidney stones (2004) Miscarriage Obesity (BMI 30-39.9) Ovarian cyst Seizures Surgical History History of cholecystectomy History of D&C History of ERCP (01/2016) Family History Grandfather Diabetes mellitus Grandmother Paraplegia Grandmother Pre-diabetes Brother No problems noted. Father No problems noted. Mother No problems noted. Grandfather No problems noted. Social History Smoking Status: Never smoker alcohol intake: current (1 cup a week) substance use type: does not use Smoking Status: Never smoker alcohol intake frequency: a few times a week Alcohol type: beer Substance Use Type: does not use Exam Initial Vital Signs Initial Vital Signs: Vital Signs Temperature 98.2 F 06/10/21 17:19 Pulse Rate 109 H 06/10/21 17:19 Respiratory Rate 20 06/10/21 17:19 Blood Pressure 161/64 H 06/10/21 17:19 Pulse Oximetry 100 06/10/21 17:19 HENMT Head: normal to inspection Resp Effort & Inspection: normal respiratory effort Auscultation: clear to auscultation bilaterally Cardio Rate: regular rate Rhythm: regular rhythm GI Inspection: normal to inspection and non-distended Palpation: soft Back/Spine/Pelvis Back: normal to inspection Skin General: no rashes or lesions noted Neuro General: patient alert, patient awake and patient oriented x3 Extrem General: normal to inspection Course Orders Ordered: ED Orders 06/10/21 17:25 Consult to SCHOOL SUPERINTENDENT - Gaming Director Stat 06/10/21 17:27 EKG-12 Lead Stat 06/10/21 17:53 Urine Microscopic Stat 06/10/21 18:16 Complete Blood Count AUTO DIFF Stat Comprehensive Metabolic Panel Stat Lipase Stat Vital Signs Vital signs: Vital Signs - 8 hr 06/10/21 17:19 06/10/21 18:28 06/10/21 18:30 Temperature 98.2 F Pulse Rate 109 H 90 89 Respiratory Rate 20 16 17 Blood Pressure 161/64 H 130/72 127/73 Pulse Oximetry 100 100 100 06/10/21 19:00 Temperature Pulse Rate 83 Respiratory Rate 16 Blood Pressure 125/73 Pulse Oximetry 100 Medical Decision Making Lab Data Lab results reviewed: Yes I reviewed the patient's lab results. Result diagrams: 06/10/21 18:16 06/10/21 18:16 Labs: Lab Results 06/10/21 06/10/21 06/10/21 Range/Units 17:53 18:16 18:16 WBC 6.3 (4.5-11.0) X10^3/uL RBC 4.05 (4.0-5.2) X10^6/uL Hgb 13.0 (12.0-16.0) g/dL Hct 37.7 (36-46) % MCV 93.3 (80-100) fL MCH 32.2 (26-34) PG MCHC 34.5 (30-36) % RDW 13.0 (11.6-14.8) % Plt Count 287 (150-400) X10^3/uL Neut % (Auto) 66.9 (50-75) % Lymph % (Auto) 25.6 (25-40) % [place] % (Auto) 5.6 (3-14) % Eos % (Auto) 1.3 L (2-4) % Baso % (Auto) 0.6 (0-2) % Neut # (Auto) 4200 (5282-5029) /uL Lymph # (Auto) 1600 (6387-4191) /uL [place] # (Auto) 300 (0-900) /uL Eos # (Auto) 100 (0-450) /uL Baso # (Auto) 0 (0-100) /uL Sodium 140 (137-145) mmol/L Potassium 3.7 (3.4-5.1) mmol/L Chloride 102 (98-107) mmol/L Carbon Dioxide 28 (22-32) mmol/L BUN 10 (7-17) mg/dL Creatinine 0.80 (0.52-1.04) mg/dL Estimated GFR > 60 (>60) mL/min BUN/Creatinine Ratio 12.5 (6-22) Glucose 99 (70-100) mg/dL Calcium 9.5 (8.4-10.2) mg/dL Total Bilirubin 0.4 (0.2-1.3) mg/dL AST 25 (14-36) IU/L ALT 19 (<35) IU/L Alkaline Phosphatase 65 (38-126) U/L Total Protein 8.5 H (6.3-8.2) g/dL Albumin 5.0 (3.5-5.0) g/dL Globulin 3.5 (1.7-4.1) g/dL Albumin/Globulin Ratio 1.4 (1.0-2.8) Lipase 55 (23-300) U/L Urine RBC None seen (0-5/HPF) Urine WBC 1-5/hpf (0-5/HPF) Ur Squamous Epith Cells 5-10 /hpf H (0-5/HPF) Urine Bacteria Few (2-10) H (None) Ur Culture Indicated? Cult not indicated Point of Care Testing Test Results Negative Urine Dip Bedside Urine Glucose Negative Bedside Urine Bilirubin - Negative Bedside Urine Ketone +/- 5 Urine Specific [place] 1.030 Bedside Urine Occult Blood - Negative Bedside Urine pH 6.0 Bedside Urine Protein - Negative Bedside Urine Urobilinogen - Negative Bedside Urine Nitrite - Negative Bedside Urine Leukocytes +/- 15 Esterase Point of care testing: Point of Care Testing Test Results Negative Urine Dip Bedside Urine Glucose Negative Bedside Urine Bilirubin - Negative Bedside Urine Ketone +/- 5 Urine Specific [place] 1.030 Bedside Urine Occult Blood - Negative Bedside Urine pH 6.0 Bedside Urine Protein - Negative Bedside Urine Urobilinogen - Negative Bedside Urine Nitrite - Negative Bedside Urine Leukocytes +/- 15 Esterase MDM Narrative Medical decision making narrative: Labs unremarkable. Exam is unremarkable. Vital signs unremarkable. Low suspicion for acute surgical intra-abdominal pathology. Do feel that we can hold on any radiologic studies for now. Patient is under the care of GI already if she was instructed to contact them for follow-up. She was given return precautions. She expressed understanding and agreement. Discharge Plan Departure Patient Disposition: Home Clinical Impression: Abdominal pain, Diarrhea Instructions: Diarrhea, DI for Abdominal Pain-Adult Activity Restrictions/Additional Instructions: I recommend that you continue to take all of your medications as directed. Keep all of your scheduled medical appointments. You can consider trying any anti diarrheal medicine such as Imodium/loperamide. You can purchase this [id number]. Return to the emergency department for any new or worsening symptoms. Prescriptions: No Action levetiracetam [Keppra] 1,000 mg tablet 1,000 mg PO BID 0RF diazepam 5 mg tablet See Rx Instructions PO DAILY PRN (Reason: preprocedural ) Qty: 5 0RF Rx Instructions: Take 1/2 tablet 30 min prior to procedure, may repeat x1 PO daily PRN; amoxicillin-pot clavulanate [Augmentin] 875-125 mg tablet 1 tab PO BID Qty: 20 0RF acetaminophen 325 MG tablet 325 mg PO PRNQty: 0 0RF oxybutynin chloride 5 MG tablet 5 mg PO BIDP Qty: 180 3RF trazodone 100 mg tablet 100 mg PO HS Qty: 90 1RF ondansetron 4 mg tablet,disintegrating 4 mg PO Q6-8H PRN (Reason: nausea and vomiting) Qty: 10 0RF sertraline 100 mg tablet 100 mg PO DAILY Qty: 90 1RF pantoprazole 40 mg tablet,delayed release (DR/EC) 40 mg PO BID Qty: 60 5RF valacyclovir 500 mg tablet 500 mg PO BID PRN (Reason: outbreak) Qty: 6 6RF Referrals: Kristin Borden DO [Primary Care Provider] -
== END 2021-06-10 19:37 | disposition home or self-care (01) ==
PROVIDERS: Emergency Medicine; Emergency Provider Emergency Medicine; PCP Family Medicine
DX: R10.9 Unspecified abdominal pain (principal); R19.7 Diarrhea, unspecified; R68.83 Chills (without fever); R03.0 Elevated blood-pressure reading, without diagnosis of hypertension
CPT/HCPCS: 36415; 80053; 81003; 81015; 81025; 83690; 85025; 93005; 99283

== ENCOUNTER → 2021-07-14 16:45 | Outpatient (CLI) | payer OTHER, MEDICAID, SELFPAY ==
--- NOTE | 2021-07-14 16:47 | DI.RAD.S_ITS ---
PROCEDURE: XR LUMBAR SPINE 2-3V INDICATIONS: left low back pain TECHNIQUE: 3 views of the lumbar spine were acquired. COMPARISON: None. FINDINGS: Bones: 5 [id number] vertebrae are present. There is normal bony alignment. No vertebral body compression fractures. No suspicious bony lesions. Mild degenerative disc changes noted throughout the lumbar spine. Mild L3-L4, L4-L5 and L5-S1 facet arthropathy. Soft tissues: Overlying bowel gas pattern is normal. No suspicious soft tissue calcifications. IMPRESSION: 1. Multilevel degenerative disc disease. 2. Multilevel facet arthropathy. 3. No fracture. No acute osseous lesion. If symptoms and/or clinical suspicion for pathology persists, evaluation with MRI should be considered for further assessment. Dictated by: Marium Vogel MD, PhD on 07/15/2021 at 11:36 Approved by: Marium Vogel MD, PhD on 07/15/2021 at 11:51
== END ==
PROVIDERS: Family Provider Family Medicine; PCP Family Medicine; Referring Provider Family Medicine; Visit Provider Family Medicine
DX: M54.50 Low back pain, unspecified (principal); M51.36 Other intervertebral disc degeneration, lumbar region; M47.816 Spondylosis without myelopathy or radiculopathy, lumbar region
CPT/HCPCS: 72100

== ENCOUNTER → 2021-08-14 14:37 | Outpatient (CLI) | payer OTHER, MEDICAID, SELFPAY | PROVIDERS: Family Provider Family Medicine; PCP Family Medicine; Visit Provider Physician Assistant | DX: R35.0 Frequency of micturition (principal) | CPT/HCPCS: 81002 ==

== ENCOUNTER → 2021-10-31 14:23 | Outpatient (CLI) | payer OTHER, MEDICAID, SELFPAY | PROVIDERS: Family Provider Family Medicine; PCP Family Medicine; Visit Provider Nurse Practitioner Family | DX: R30.0 Dysuria (principal); N89.8 Other specified noninflammatory disorders of vagina | CPT/HCPCS: 81002; 81025; 87086; 87210 ==

== ENCOUNTER 2021-11-05 20:15 | Emergency (ER) | payer OTHER, MEDICAID, SELFPAY ==
[2021-11-05 20:27] VITALS: BP 147/91; PULSE 114; RESP 18; TEMP 36.6; O2SAT 98; BMI 29.9
--- NOTE | 2021-11-05 21:02 | DI.RAD.S_ITS ---
PROCEDURE: XR CHEST 1V INDICATIONS: chest pain TECHNIQUE: One view of the chest was acquired. COMPARISON: None. FINDINGS: Surgical changes and devices: None. Lungs and pleura: Lungs are clear. No pleural effusions or pneumothorax. Mediastinum: Mediastinal contours appear normal. Heart size is normal. Bones and chest wall: No suspicious bony lesions. Overlying soft tissues appear unremarkable. IMPRESSION: 1. No acute cardiopulmonary disease. Dictated by: Natanael Krishna M.D. on 11/05/2021 at 23:42 Approved by: Natanael Krishna M.D. on 11/05/2021 at 23:42
[2021-11-05 21:21] LABS: Add Manual Diff / Slide Review NO; Basophils Absolute Auto 0 /uL (0-100); Basophils Percent Auto 0.2 % (0-2); Eosinophils Absolute Auto 0 /uL (0-450); Eosinophils Percent Auto 0.2 % (2-4); Hematocrit 38.3 % (36-46); Lymphocytes Absolute Auto 1100 /uL (1100-4500); Lymphocytes Percent Auto 15.8 % (25-40); Mean Corpuscular HGB Conc 33.9 % (30-36); Mean Corpuscular Hemoglobin 31.8 PG (26-34); Mean Corpuscular Volume 93.8 fL (80-100); Monocytes Absolute Auto 500 /uL (0-900); Monocytes Percent Auto 7.3 % (3-14); Neutrophils Absolute Auto 5200 /uL (1500-7000); Neutrophils Percent Auto 76.5 % (50-75); Platelet Count 275 X10^3/uL (150-400); Red Blood Cell Count 4.08 X10^6/uL (4.0-5.2); Red Cell Distribution Width 12.7 % (11.6-14.8); White Blood Cell Count 6.8 X10^3/uL (4.5-11.0)
[2021-11-05 21:32] LABS: Alanine Aminotransferase 30 IU/L (<35); Albumin 4.4 g/dL (3.5-5.0); Albumin Globulin Ratio 1.3 (1.0-2.8); Alkaline Phosphatase 70 U/L (38-126); Aspartate Aminotransferase 26 IU/L (14-36); BUN Creatinine Ratio 11.6 (6-22); Bilirubin Total 0.3 mg/dL (0.2-1.3); Blood Urea Nitrogen 8 mg/dL (7-17); Calcium 9.4 mg/dL (8.4-10.2); Carbon Dioxide 24 mmol/L (22-32); Chloride 102 mmol/L (98-107); Creatine Kinase 90 U/L (30-135); Estimated Glomerular Filt Rate > 60 mL/min (>60); Globulin 3.4 g/dL (1.7-4.1); Glucose 113 mg/dL (70-100); HEMOLYSIS < 15 (0-50); Lipase 86 U/L (23-300); Magnesium 2.3 mg/dL (1.6-2.3); Potassium 3.9 mmol/L (3.4-5.1); Sodium 136 mmol/L (137-145); Total Protein 7.8 g/dL (6.3-8.2)
[2021-11-05 21:43] LABS: Troponin I < 0.012 ng/mL (0.01-0.034)
[2021-11-05 22:30] VITALS: BP 135/83; PULSE 98; RESP 20; O2SAT 98
[2021-11-05 22:35] LABS: D Dimer 1591 ng/ml (<500)
[2021-11-05 23:00] VITALS: BP 123/76; PULSE 107; RESP 22; O2SAT 98
--- NOTE | 2021-11-05 23:29 | ED.CHESTPAIN ---
HPI - Chest Pain General Chief Complaint: Chest Pain Stated Complaint: Heart fluttering Time Seen by Provider: 11/05/21 22:26 Source: patient Mode of arrival: Ambulatory Limitations: no limitations History of Present Illness HPI narrative: This is a pleasant 45-year-old female who comes with a history of hereditary spastic paraplegia, seizure disorder with complaint of tachycardia, she is felt but not had any fevers chills she is had some mild epigastric discomfort. Patient states that she is felt like she can not take a deep breath and that her heart rate is fast but she does not feel short of breath. She denies any upper chest pain. She is had some mild nausea but no vomiting. She intermittently has diarrhea and states that she is had some today but that is not new. No new urinary symptoms she does take medication to help with urination. She states that her feet may have been a little bit more swollen. Patient states she is been quite stressed her mother unlabored a unexpectedly of a cardiac event or suspected cardiac event, she states the home lost her heart so they have not been able to have an autopsy. She found out her aunt who is visiting has atrial fibrillation. Patient states she does not have any known cardiac issues otherwise, no tobacco occasional alcohol sometimes on the weekend, occasional edible THC. She denies any known drug allergies. She is had a prior cholecystectomy. Dr. Borden is her primary care physician. Related Data Home Medications Medication Instructions Recorded Confirmed acetaminophen 325 mg tablet 325 mg PO PRN ##0 01/29/16 10/31/21 levetiracetam 1,000 mg tablet 1,000 mg PO BID 03/05/19 10/31/21 (Keppra) dicyclomine 10 mg capsule 10 mg PO TID 07/14/21 10/31/21 tizanidine 2 mg tablet 2 mg PO Q8H PRN 07/14/21 10/31/21 L.acidophil,salivari-Bifido 1 cap PO DAILY 07/21/21 10/31/21 bifidum-Strep thermoph 175 mg capsule (Acidophilus Probiotic Blend) calcium-magnesium 300 mg-300 mg 1 tab PO DAILY 07/21/21 10/31/21 tablet cetirizine 10 mg tablet (Aller-Karan) 10 mg PO DAILY PRN 07/21/21 10/31/21 cholecalciferol (vitamin D3) 25 25 mcg PO DAILY 07/21/21 10/31/21 mcg (1,000 unit) capsule fluticasone propionate 50 1 spray intranasal DAILY 07/21/21 10/31/21 mcg/actuation nasal spray,suspension multivitamin (Multiple Vitamins 1 tab PO DAILY 07/21/21 10/31/21 tablet) omega 7-gjg-pev-fish oil 250 cap PO 07/21/21 10/31/21 mg-500 mg-1,000 mg capsule zinc gluconate 50 mg tablet 50 mg PO DAILY 07/21/21 10/31/21 Previous Rx's Medication Instructions Recorded oxybutynin chloride 5 mg tablet 5 mg PO BIDP #180 tabs 10/07/16 norgestimate 0.25 mg-ethinyl 1 tab PO DAILY #84 tabs 07/14/21 estradiol 35 mcg tablet (Sprintec (28)) sertraline 100 mg tablet See Rx Instructions PO DAILY #30 07/23/21 tabs valacyclovir 500 mg tablet See Rx Instructions .Route 10/06/21 .COMPLEX #6 tabs metronidazole 500 mg tablet 500 mg PO BID 7 days #14 tabs 10/31/21 lorazepam 0.5 mg tablet (Ativan) 0.5 mg PO TID PRN anxiety #10 tabs 11/06/21 Allergies Allergy/AdvReac Type Severity Reaction Status Date / Time No Known Drug Allergies Allergy Verified 10/31/21 14:38 Review of Systems Review of Systems ROS Unobtainable: All systems reviewed & are unremarkable except as noted in HPI and below Patient History Medical History Abnormal Pap smear of cervix Anemia (2003) Chicken pox (~1987) Choledocholithiasis CTS (carpal tunnel syndrome) (2007) Cyst of ovary (06/02/15) Frequent UTI Gallstone pancreatitis Hereditary spastic paraplegia IBS (irritable bowel syndrome) Kidney stones (2004) Miscarriage Obesity (BMI 30-39.9) Ovarian cyst Seizures Surgical History History of cholecystectomy History of D&C History of ERCP (01/2016) Family History Grandfather Diabetes mellitus Grandmother Paraplegia Grandmother Pre-diabetes Brother No problems noted. Father No problems noted. Mother No problems noted. Grandfather No problems noted. Social History Smoking Status: Never smoker alcohol intake: current (1 cup a week) substance use type: does not use Smoking Status: Never smoker alcohol intake frequency: a few times a week Alcohol type: beer Substance Use Type: does not use Exam Narrative Exam Narrative: GEN: well nourished, well appearing female, alert and oriented x 3, patient appears to be in mild distress. Patient is quite anxious. HEENT: Atraumatic, pupils are equal round reactive to light, extraocular movements are intact, nares are clear. HEART: Tachycardic but Regular rate and rhythm without murmur, clicks, rubs. pulses are equal in upper and lower extremities. No JVD. No swelling bilateral lower extremities. LUNGS:Lungs clear to auscultation, no wheezes, rales, crackles, chest moves symmetrically, no tachypnea accessory muscle use. Patient speaks in full sentences. ABD:bowel sounds normal, soft, non-tender, no guarding, rebound, rigidity, no masses noted, no hepatosplenomegaly :No CVA tenderness, MSCL: Non-tender, no edema bilateral lower extremities appreciated. NEURO:CN 2-12 intact, sensation normal SKIN: No rash, erythema or other skin changes noted. Initial Vital Signs Initial Vital Signs: Vital Signs Temperature 97.8 F 11/05/21 20:27 Pulse Rate 114 H 11/05/21 20:27 Respiratory Rate 18 11/05/21 20:27 Blood Pressure 147/91 H 11/05/21 20:27 Pulse Oximetry 98 11/05/21 20:27 Oxygen Delivery Method 11/05/21 20:27 Course Orders Ordered: ED Orders 11/05/21 23:30 CT angio chest PE protocol Stat 11/06/21 01:50 EKG-12 Lead Stat 11/06/21 01:55 Trop I [Troponin I] Stat Discontinued Medications Sodium Chloride (Normal Saline 0.9%) 1,000 mls @ 1,000 mls/hr IV BOLUS ONE Stop: 11/06/21 02:41 Last Infusion: 11/06/21 03:00 Dose: 0 mls/hr Documented By: Admin: 11/06/21 01:57 Dose: 1,000 mls/hr Documented By: DAHIANA Lorazepam (Lorazepam 0.5 Mg Tablet) 1 mg PO NOW ONE Stop: 11/06/21 01:43 Last Admin: 11/06/21 01:52 Dose: 1 mg Documented By: DAHIANA Vital Signs Vital signs: Vital Signs - 8 hr 11/05/21 23:00 11/06/21 00:37 11/06/21 01:00 Pulse Rate 107 H 123 H 107 H Respiratory Rate 22 22 18 Blood Pressure 123/76 Pulse Oximetry 98 97 97 Oxygen Delivery Method Room Air 11/06/21 01:30 11/06/21 02:00 11/06/21 02:30 Pulse Rate 111 H 105 H 101 H Respiratory Rate 18 11 L 17 Blood Pressure Pulse Oximetry 97 96 99 Oxygen Delivery Method 11/06/21 02:57 11/06/21 02:57 11/06/21 03:00 Pulse Rate 94 H Respiratory Rate 15 Blood Pressure 112/62 111/61 Pulse Oximetry 96 Oxygen Delivery Method 11/06/21 03:00 Pulse Rate 94 H Respiratory Rate 14 Blood Pressure Pulse Oximetry 96 Oxygen Delivery Method MDM - Chest Pain Lab Data Result diagrams: 11/05/21 21:11 11/05/21 21:11 Labs: Lab Results 11/05/21 11/05/21 11/05/21 Range/Units 21:11 21:11 21:11 WBC 6.8 (4.5-11.0) X10^3/uL RBC 4.08 (4.0-5.2) X10^6/uL Hgb 13.0 (12.0-16.0) g/dL Hct 38.3 (36-46) % MCV 93.8 (80-100) fL MCH 31.8 (26-34) PG MCHC 33.9 (30-36) % RDW 12.7 (11.6-14.8) % Plt Count 275 (150-400) X10^3/uL Neut % (Auto) 76.5 H (50-75) % Lymph % (Auto) 15.8 L (25-40) % [place] % (Auto) 7.3 (3-14) % Eos % (Auto) 0.2 L (2-4) % Baso % (Auto) 0.2 (0-2) % Neut # (Auto) 5200 (6712-7754) /uL Lymph # (Auto) 1100 (6861-4587) /uL [place] # (Auto) 500 (0-900) /uL Eos # (Auto) 0 (0-450) /uL Baso # (Auto) 0 (0-100) /uL D-Dimer 1591 H (<500) ng/ml Sodium 136 L (137-145) mmol/L Potassium 3.9 (3.4-5.1) mmol/L Chloride 102 (98-107) mmol/L Carbon Dioxide 24 (22-32) mmol/L BUN 8 (7-17) mg/dL Creatinine 0.69 (0.52-1.04) mg/dL Estimated GFR > 60 (>60) mL/min BUN/Creatinine Ratio 11.6 (6-22) Glucose 113 H (70-100) mg/dL Calcium 9.4 (8.4-10.2) mg/dL Magnesium 2.3 (1.6-2.3) mg/dL Total Bilirubin 0.3 (0.2-1.3) mg/dL AST 26 (14-36) IU/L ALT 30 (<35) IU/L Alkaline Phosphatase 70 (38-126) U/L Total Creatine Kinase 90 (30-135) U/L CK-MB (CK-2) TNP CK-MB (CK-2) Rel Index TNP Troponin I < 0.012 (0.01-0.034) ng/mL Total Protein 7.8 (6.3-8.2) g/dL Albumin 4.4 (3.5-5.0) g/dL Globulin 3.4 (1.7-4.1) g/dL Albumin/Globulin Ratio 1.3 (1.0-2.8) Lipase 86 (23-300) U/L Serum , Qual (Negative) 11/05/21 11/06/21 Range/Units 21:11 01:55 WBC (4.5-11.0) X10^3/uL RBC (4.0-5.2) X10^6/uL Hgb (12.0-16.0) g/dL Hct (36-46) % MCV (80-100) fL MCH (26-34) PG MCHC (30-36) % RDW (11.6-14.8) % Plt Count (150-400) X10^3/uL Neut % (Auto) (50-75) % Lymph % (Auto) (25-40) % [place] % (Auto) (3-14) % Eos % (Auto) (2-4) % Baso % (Auto) (0-2) % Neut # (Auto) (9807-5948) /uL Lymph # (Auto) (5397-4944) /uL [place] # (Auto) (0-900) /uL Eos # (Auto) (0-450) /uL Baso # (Auto) (0-100) /uL D-Dimer (<500) ng/ml Sodium (137-145) mmol/L Potassium (3.4-5.1) mmol/L Chloride (98-107) mmol/L Carbon Dioxide (22-32) mmol/L BUN (7-17) mg/dL Creatinine (0.52-1.04) mg/dL Estimated GFR (>60) mL/min BUN/Creatinine Ratio (6-22) Glucose (70-100) mg/dL Calcium (8.4-10.2) mg/dL Magnesium (1.6-2.3) mg/dL Total Bilirubin (0.2-1.3) mg/dL AST (14-36) IU/L ALT (<35) IU/L Alkaline Phosphatase (38-126) U/L Total Creatine Kinase (30-135) U/L CK-MB (CK-2) CK-MB (CK-2) Rel Index Troponin I < 0.012 (0.01-0.034) ng/mL Total Protein (6.3-8.2) g/dL Albumin (3.5-5.0) g/dL Globulin (1.7-4.1) g/dL Albumin/Globulin Ratio (1.0-2.8) Lipase (23-300) U/L Serum , Qual Negative (Negative) Imaging Data CT scan - chest: Radiologist's Impression: Diagnostics Reports Daniela Griffin??45??F??1975 ? Allergy/Adv: No Known Drug Allergies (More??) Close Chest CTA (Signed) Natanael Krishna 11/05/21 Chest X-Ray (Signed) Natanael Krishna - 11/05/21 Lumbar Spine X-Ray (Signed) Marium Vogel - 07/14/21 Gastric Emptying Nuclear Medicine (Signed) Marium Vogel - 12/26/20 Launch?[address] [address] [address] Scan Report Signed Patient: Daniela Griffin MR#: [id number] : 1975 Acct:[id number] Age/Sex: 45 / F Date of Service: 11/05/21 Loc: ED Accession Number: [id number] ?? Procedure: CT angio chest PE protocol Ordering Provider: Digna Paula D.O. PROCEDURE:? CT ANGIO CHEST PE PROTOCOL ? INDICATIONS:? chest pain, tachycardia ? TECHNIQUE:? After the administration of intravenous contrast, 2 mm thick sections acquired from the pulmonary apices to the posterior costophrenic angles.? 3-dimensional maximum intensity projection (MIP) coronal and sagittal reformats were then acquired through the thorax.? For radiation dose reduction, the following was used:? automated exposure control, adjustment of mA and/or kV according to patient size.? ? COMPARISON:? None. ? FINDINGS:? Image quality:? Excellent.? ? Pulmonary arteries:? Pulmonary arteries are normal in size, and demonstrate no intraluminal filling defects to suggest central pulmonary embolism.? ? Lower Neck: No lymphadenopathy by size criteria. Thyroid:? Visualized thyroid demonstrates no discrete nodules. Axillae: No lymphadenopathy by size criteria. Chest Wall:? Unremarkable.? Bones: Visualized osseous structures demonstrate no suspicious lesions. ? Lungs and Airways:? No acute consolidation.? No suspicious pulmonary nodules. The trachea and central airways are patent. Pleura: No pneumothorax or pleural effusions.? ? Heart: Heart size is normal.? No pericardial effusion. Thoracic Vessels: The thoracic aorta is normal in size.? Mediastinum and Huma: No lymphadenopathy by size criteria. Esophagus: No wall thickening. No hiatal hernia. ? Abdomen:? Visualized upper abdominal solid organs appear normal in the early arterial phase of enhancement.? ? IMPRESSION:? ? 1. No evidence of pulmonary embolism. ? 2. No acute airspace consolidation.? ? Dictated by: Natanael Krishna M.D. on 11/06/2021 at 0:58 ? ? Approved by: Natanael Krishna M.D. on 11/06/2021 at 1:00?? Chest x-ray: Radiologist's Impression: Close Chest CTA (Signed) Natanael Krishna - 11/05/21 Chest X-Ray (Signed) Natanael Krishna - 11/05/21 Lumbar Spine X-Ray (Signed) Marium Vogel - 07/14/21 Gastric Emptying Nuclear Medicine (Signed) Marium Vogel - 12/26/20 Launch?[place] [address] XRay Report Signed Patient: Daniela Griffin MR#: [id number] : 1975 Acct:[id number] Age/Sex: 45 / F Date of Service: 11/05/21 Loc: ED Accession Number: [id number] ?? Procedure: XR chest 1V Ordering Provider: Digna Paula D.O. PROCEDURE:? XR CHEST 1V ? INDICATIONS:? chest pain ? TECHNIQUE:? One view of the chest was acquired.? ? COMPARISON:? None. ? FINDINGS:? ? Surgical changes and devices:? None.? ? Lungs and pleura:? Lungs are clear.? No pleural effusions or pneumothorax.? ? Mediastinum:? Mediastinal contours appear normal.? Heart size is normal.? ? Bones and chest wall:? No suspicious bony lesions.? Overlying soft tissues appear unremarkable.? ? IMPRESSION:? ? 1.? No acute cardiopulmonary disease. ? ? ? Dictated by: Natanael Krishna M.D. on 11/05/2021 at 23:42 ? ? Approved by: Natanael Krishna M.D. on 11/05/2021 at 23:42? ECG Data Attestation: I personally reviewed and interpreted this ECG as follows: Prior ECG tracings: not available for review Interpretation: Sinus tachycardia with a rate of 118 [place] 156, QRS is 74 and QTC of 434. Patient has a RSR with some ST depression in 3 and AVF. No elevation. No priors for comparsion. Tachycardic rate of 108 [place] 162 QRS is 74 and QTC of 442. No acute ST changes noted patient's EKG appears similar to prior. There is some ST depression in lead 3 that is present on the 1st EKG as well. MDM Narrative Medical decision making narrative: This is a 45-year-old female who presents with tachycardia she is had a little bit of epigastric discomfort but denies chest pain otherwise she does not feel discretely short of breath but states she can not take a deep breath she is had some mild nausea. Patient is tachycardic has been persistently. Patient's labs do not show major abnormalities for the cause D-dimer was included based on patient's persistent tachycardia was quite elevated CT angio does not show pulmonary emboli, signs of infection or other changes that would be likely cause. No unclear infectious changes noted today. Patient has had significant stressors her mom unexpectedly of a possibly cardiac cause on this year. They are supposed to have the [facility] or visitation today at 11:00 a.m. and she notes that the home has misplaced her mother's heart which was not expected. She has an aunt with AFib. Patient was given fluids, dose of oral Ativan, repeat EKG and troponin show no acute change. Patient's tachycardia resolved with fluids she did have a dose of oral benzodiazepine which was also helpful. Discussed options such as following with primary care and counseling if needed if patient feels like her reaction to her mother's is abnormal. Return precautions discussed. Discharge Plan Departure Patient Disposition: Home Clinical Impression: Grief reaction, Sinus tachycardia Instructions: Coping with Grief Activity Restrictions/Additional Instructions: Please follow-up if you are having persistent symptoms or feel like your heart rate is fast abnormally. You can talk with your physician and they can obtain a Holter monitor or ZIO patch. You may take anxiety medication 1 tablet every 8 hours as needed. This medication can make you sleepy do not perform hazardous activities while taking this medication. Prescription sent to [facility] in [place]. Please return for persistently fast heart rate, passing out, new chest pain, shortness of breath, persistent vomiting or other new or concerning symptoms. Prescriptions: New lorazepam [Ativan] 0.5 mg tablet 0.5 mg PO TID PRN (Reason: anxiety) Qty: 10 0RF No Action levetiracetam [Keppra] 1,000 mg tablet 1,000 mg PO BID norgestimate-ethinyl estradiol [Sprintec (28)] 0.25-35 mg-mcg tablet 1 tab PO DAILY Qty: 84 3RF dicyclomine 10 mg capsule 10 mg PO TID tizanidine 2 mg tablet 2 mg PO Q8H PRN metronidazole 500 mg tablet 500 mg PO BID 7 Days Qty: 14 0RF acetaminophen 325 MG tablet 325 mg PO PRNQty: 0 oxybutynin chloride 5 MG tablet 5 mg PO BIDP Qty: 180 3RF cetirizine [Aller-Karan] 10 mg tablet 10 mg PO DAILY PRN cholecalciferol (vitamin D3) 25 mcg (1,000 unit) capsule 25 mcg PO DAILY multivitamin [Multiple Vitamins] Tablet 1 tab PO DAILY zinc gluconate 50 mg tablet 50 mg PO DAILY L.acidoph,saliva-B.bif-S.therm [Acidophilus Probiotic Blend] 175 mg capsule 1 cap PO DAILY omega 7-wsa-wzk-fish oil 250-500-1,000 mg capsule PO calcium-magnesium 300-300 mg tablet 1 tab PO DAILY Rx Instructions: administer with a meal fluticasone propionate 50 mcg/actuation spray,suspension 1 spray intranasal DAILY Rx Instructions: administer into each nostril sertraline 100 mg tablet See Rx Instructions PO DAILY Qty: 30 5RF Rx Instructions: Take one half tablet daily for 1 week then increase to one whole tablet valacyclovir 500 mg tablet See Rx Instructions .ROUTE .COMPLEX Qty: 6 5RF Dose Instruction: take 1 tablet by mouth twice a day if needed Rx Instructions: take 1 tablet by mouth twice a day if needed Referrals: Kristin Borden DO [Primary Care Provider] - Visit Report Forms: Patient Portal/API
--- NOTE | 2021-11-05 23:30 | DI.CT.S_ITS ---
PROCEDURE: CT ANGIO CHEST PE PROTOCOL INDICATIONS: chest pain, tachycardia TECHNIQUE: After the administration of intravenous contrast, 2 mm thick sections acquired from the pulmonary apices to the posterior costophrenic angles. 3-dimensional maximum intensity projection (MIP) coronal and sagittal reformats were then acquired through the thorax. For radiation dose reduction, the following was used: automated exposure control, adjustment of mA and/or kV according to patient size. COMPARISON: None. FINDINGS: Image quality: Excellent. Pulmonary arteries: Pulmonary arteries are normal in size, and demonstrate no intraluminal filling defects to suggest central pulmonary embolism. Lower Neck: No lymphadenopathy by size criteria. Thyroid: Visualized thyroid demonstrates no discrete nodules. Axillae: No lymphadenopathy by size criteria. Chest Wall: Unremarkable. Bones: Visualized osseous structures demonstrate no suspicious lesions. Lungs and Airways: No acute consolidation. No suspicious pulmonary nodules. The trachea and central airways are patent. Pleura: No pneumothorax or pleural effusions. Heart: Heart size is normal. No pericardial effusion. Thoracic Vessels: The thoracic aorta is normal in size. Mediastinum and Huma: No lymphadenopathy by size criteria. Esophagus: No wall thickening. No hiatal hernia. Abdomen: Visualized upper abdominal solid organs appear normal in the early arterial phase of enhancement. IMPRESSION: 1. No evidence of pulmonary embolism. 2. No acute airspace consolidation. Dictated by: Natanael Krishna M.D. on 11/06/2021 at 0:58 Approved by: Natanael Krishna M.D. on 11/06/2021 at 1:00
[2021-11-05 23:43] LABS: Pregnancy Test Serum,Qual Negative (Negative)
[2021-11-06] VITALS (7 sets, daily range): BP systolic 111–112; BP diastolic 61–62; PULSE 94–123; RESP 11–22; O2SAT 96–99
[2021-11-06] MEDS: LORazepam 0.5 MG TABLET 1 MG PO (01:52)
[2021-11-06] MEDS: SODIUM CHLORIDE 0.9% 1,000 ML 1000 ML IV (01:57)
[2021-11-06 02:38] LABS: Troponin I < 0.012 ng/mL (0.01-0.034)
== END 2021-11-06 03:36 | disposition home or self-care (01) ==
PROVIDERS: Emergency Provider Emergency Medicine; Family Provider Family Medicine; PCP Family Medicine
DX: R00.0 Tachycardia, unspecified (principal); R10.13 Epigastric pain; R07.9 Chest pain, unspecified; F43.21 Adjustment disorder with depressed mood
CPT/HCPCS: 36415; 71045; 71275; 80053; 82550; 83690; 83735; 84484; 84703; 85025; 85379; 93005; 96360; 99284; Q9967

== ENCOUNTER 2021-11-24 20:51 | Emergency (ER) | payer OTHER, MEDICAID, SELFPAY ==
[2021-11-24 21:02] VITALS: BP 145/91; PULSE 139; RESP 20; TEMP 36.1; O2SAT 96; BMI 29.2
--- NOTE | 2021-11-24 21:10 | DI.RAD.S_ITS ---
PROCEDURE: XR CHEST 1V INDICATIONS: chest pain TECHNIQUE: One view of the chest was acquired. COMPARISON: [facility], CR, XR CHEST 1V, 11/05/2021, 21:27. FINDINGS: Surgical changes and devices: None. Lungs and pleura: Lungs are clear. No pleural effusions or pneumothorax. Mediastinum: Mediastinal contours appear normal. Heart size is normal. Bones and chest wall: No suspicious bony lesions. Overlying soft tissues appear unremarkable. IMPRESSION: 1. No acute cardiopulmonary disease. Dictated by: Natanael Krishna M.D. on 11/24/2021 at 23:02 Approved by: Natanael Krishna M.D. on 11/24/2021 at 23:03
[2021-11-24 22:58] LABS: Add Manual Diff / Slide Review NO; Basophils Absolute Auto 0 /uL (0-100); Basophils Percent Auto 0.1 % (0-2); Eosinophils Absolute Auto 0 /uL (0-450); Eosinophils Percent Auto 0.1 % (2-4); Hematocrit 39.6 % (36-46); Hemoglobin 13.5 g/dL (12.0-16.0); Lymphocytes Absolute Auto 1000 /uL (1100-4500); Lymphocytes Percent Auto 9.1 % (25-40); Mean Corpuscular HGB Conc 34.1 % (30-36); Mean Corpuscular Hemoglobin 31.7 PG (26-34); Monocytes Absolute Auto 500 /uL (0-900); Monocytes Percent Auto 4.3 % (3-14); Neutrophils Absolute Auto 9500 /uL (1500-7000); Neutrophils Percent Auto 86.4 % (50-75); Platelet Count 259 X10^3/uL (150-400); Red Blood Cell Count 4.25 X10^6/uL (4.0-5.2); Red Cell Distribution Width 12.9 % (11.6-14.8)
[2021-11-24 22:59] LABS: D Dimer 1350 ng/ml (<500)
[2021-11-24 23:02] LABS: Lactate (Lactic Acid) 1.3 mmol/L (0.7-2.1)
[2021-11-24 23:04] LABS: Alanine Aminotransferase 25 IU/L (<35); Albumin 4.7 g/dL (3.5-5.0); Albumin Globulin Ratio 1.3 (1.0-2.8); Alkaline Phosphatase 82 U/L (38-126); Aspartate Aminotransferase 25 IU/L (14-36); BUN Creatinine Ratio 9.9 (6-22); Bilirubin Total 0.5 mg/dL (0.2-1.3); Blood Urea Nitrogen 7 mg/dL (7-17); Calcium 9.2 mg/dL (8.4-10.2); Carbon Dioxide 21 mmol/L (22-32); Chloride 102 mmol/L (98-107); Creatine Kinase 84 U/L (30-135); Estimated Glomerular Filt Rate > 60 mL/min (>60); Globulin 3.5 g/dL (1.7-4.1); Glucose 145 mg/dL (70-100); Magnesium 1.9 mg/dL (1.6-2.3); Potassium 3.6 mmol/L (3.4-5.1); Sodium 135 mmol/L (137-145); Total Protein 8.2 g/dL (6.3-8.2)
[2021-11-24 23:05] LABS: HEMOLYSIS 17 (0-50); Lipase 59 U/L (23-300)
[2021-11-24 23:15] LABS: Troponin I < 0.012 ng/mL (0.01-0.034)
--- NOTE | 2021-11-24 23:31 | PC.NURSE ---
Patient placed on continuous secured entrance monitor, BP cuff and 02 probe. She appears very anxious with intermittent tremors in legs and arms bilaterally. Patient endorses anxiety and is requesting a muscle relaxer and medication for anxiety. Warm blankets are given and ice pack upon request.
[2021-11-24] MEDS: SODIUM CHLORIDE 0.9% 1,000 ML 1000 ML IV (23:33)
[2021-11-24 23:40] LABS: Thyroid Stimulating Hormone 2.45 uIU/mL (0.47-4.68)
--- NOTE | 2021-11-25 00:13 | ED_ITS ---
HPI - Arrhythmia/Palpitations General Chief Complaint: Arrhythmia/Palpitations Stated Complaint: states sinus tachycardia is acting up Time Seen by Provider: 11/24/21 21:37 Source: patient Mode of arrival: Wheelchair History of Present Illness HPI narrative: Patient is a 46-year-old female history of hereditary spastic paraplegia, seizure disorder presenting today with palpitations. He has a she feels like her heart rate is racing her blood pressure is 5 overall just does not feel well. She denies any fevers or chills. She has some lower abdominal discomfort but she has had ongoing. She states her mother unexpectedly of a cardiac cause this past he recently had a memorial and visitation for her. She said she was going through some of her mother's things do felt that her heart started acting up. She was seen and evaluated here about 2 weeks ago this is similar. She said out with Ativan and fluids. She had a full workup at that time including CT angio for an elevated D-dimer. She denies any shortness of breath. She currently is complaining of severe back spasm in her lower back which happens. She feels like her spasms have also gotten worse while in the emergency department. He states she recently had bacterial vaginosis infection. She says she has a difficult time telling she has a bladder infection she said she initially was able to tell but not so much anymore. She was ultimately diagnosed with a grief reaction at her last ED visit. Related Data Home Medications Medication Instructions Recorded Confirmed acetaminophen 325 mg tablet 325 mg PO PRN ##0 01/29/16 10/31/21 levetiracetam 1,000 mg tablet 1,000 mg PO BID 03/05/19 10/31/21 (Keppra) dicyclomine 10 mg capsule 10 mg PO TID 07/14/21 10/31/21 tizanidine 2 mg tablet 2 mg PO Q8H PRN 07/14/21 10/31/21 L.acidophil,salivari-Bifido 1 cap PO DAILY 07/21/21 10/31/21 bifidum-Strep thermoph 175 mg capsule (Acidophilus Probiotic Blend) calcium-magnesium 300 mg-300 mg 1 tab PO DAILY 07/21/21 10/31/21 tablet cetirizine 10 mg tablet (Aller-Karan) 10 mg PO DAILY PRN 07/21/21 10/31/21 cholecalciferol (vitamin D3) 25 25 mcg PO DAILY 07/21/21 10/31/21 mcg (1,000 unit) capsule fluticasone propionate 50 1 spray intranasal DAILY 07/21/21 10/31/21 mcg/actuation nasal spray,suspension multivitamin (Multiple Vitamins 1 tab PO DAILY 07/21/21 10/31/21 tablet) omega 2-mhr-tzi-fish oil 250 cap PO 07/21/21 10/31/21 mg-500 mg-1,000 mg capsule zinc gluconate 50 mg tablet 50 mg PO DAILY 07/21/21 10/31/21 Previous Rx's Medication Instructions Recorded oxybutynin chloride 5 mg tablet 5 mg PO BIDP #180 tabs 10/07/16 norgestimate 0.25 mg-ethinyl 1 tab PO DAILY #84 tabs 07/14/21 estradiol 35 mcg tablet (Sprintec (28)) sertraline 100 mg tablet See Rx Instructions PO DAILY #30 07/23/21 tabs valacyclovir 500 mg tablet See Rx Instructions .Route 10/06/21 .COMPLEX #6 tabs lorazepam 0.5 mg tablet (Ativan) 0.5 mg PO TID PRN anxiety #10 tabs 11/13/21 Allergies Allergy/AdvReac Type Severity Reaction Status Date / Time No Known Drug Allergies Allergy Verified 10/31/21 14:38 Review of Systems Review of Systems Narrative: GENERAL: Denies chills, fatigue, malaise, fever, sweats, travel HEENT: Denies sinus pain, ear pain, sore throat, difficulty swallowing, neck pain RESPIRATORY: Denies dyspnea, cough, wheezing, hemoptysis, sputum. CARDIOVASCULAR: See HPI GASTROINTESTINAL: Denies nausea, vomiting, abdominal pain, diarrhea, const ipation, melena. : Denies dysuria, frequency, incontinence, hematuria, urinary retention, flank pain. MUSCULOSKELETAL: Denies weakness, joint pain, or bony pain SKIN: No rash, no erythema, no pruritus NEUROLOGIC: See HPI PSYCHIATRIC: No concerning psychosocial issues. 12 point review of systems is negative except for those stated above and HPI Patient History Medical History Abnormal Pap smear of cervix Anemia (2003) Chicken pox (~1987) Choledocholithiasis CTS (carpal tunnel syndrome) (2007) Cyst of ovary (06/02/15) Frequent UTI Gallstone pancreatitis Hereditary spastic paraplegia IBS (irritable bowel syndrome) Kidney stones (2004) Miscarriage Obesity (BMI 30-39.9) Ovarian cyst Seizures Surgical History History of cholecystectomy History of D&C History of ERCP (01/2016) Family History Grandfather Diabetes mellitus Grandmother Paraplegia Grandmother Pre-diabetes Brother No problems noted. Father No problems noted. Mother No problems noted. Grandfather No problems noted. Social History Smoking Status: Never smoker alcohol intake: current (1 cup a week) substance use type: does not use Smoking Status: Never smoker alcohol intake frequency: a few times a week Alcohol type: beer Substance Use Type: marijuana Exam Initial Vital Signs Initial Vital Signs: Vital Signs Temperature 97.0 F L 11/24/21 21:02 Pulse Rate 139 H 11/24/21 21:02 Respiratory Rate 20 11/24/21 21:02 Blood Pressure 145/91 H 11/24/21 21:02 Pulse Oximetry 96 11/24/21 21:02 Oxygen Delivery Method 11/24/21 21:02 GENERAL: Alert pleasant 46-year-old female HEENT: Head atraumatic,EOMI, pupils reactive, face symmetric, [moist] mucous membranes CARDIOVASCULAR: Regular rate and rhythm without murmurs, rubs or gallops. RESPIRATORY: Breath sounds equal bilaterally, no wheezes rales or rhonchi. ABDOMEN: Soft, mild abdominal discomfort guarding or rebound no significant distension EXTREMITIES: Normal range of motion, no clubbing or edema. Neurovascularly intact NEUROLOGICAL: Alert and oriented x4. Moving all extremities at baseline SKIN: Warm, dry, no laceration, no petechiae, no rashes or lesions. Course Orders Ordered: ED Orders 11/24/21 21:10 XR chest 1V Stat 11/24/21 21:26 EKG-12 Lead Stat 11/24/21 22:35 Complete Blood Count AUTO DIFF Stat Comprehensive Metabolic Panel Stat D Dimer Stat Lactate (Lactic Acid) Stat Lipase Stat Magnesium Stat TSH [Thyroid Stimulating Hormone] Stat Troponin & CK Cardiac Panel Stat Discontinued Medications Sodium Chloride (Normal Saline 0.9%) 1,000 mls @ 1,000 mls/hr IV BOLUS ONE Stop: 11/24/21 22:37 Last Infusion: 11/25/21 01:24 Dose: 0 mls/hr Documented By: Admin: 11/24/21 23:33 Dose: 1,000 mls/hr Documented By: SILVANO Ketorolac Tromethamine (Ketorolac 30 Mg/Ml Vial) 15 mg IV NOW ONE Stop: 11/25/21 00:26 Last Admin: 11/25/21 00:30 Dose: 15 mg Documented By: SILVANO Lorazepam (Lorazepam 2 Mg/Ml Inj) 0.5 mg IV NOW ONE Stop: 11/25/21 00:26 Last Admin: 11/25/21 00:30 Dose: 0.5 mg Documented By: SILVANO Vital Signs Vital signs: Vital Signs - 8 hr 11/25/21 00:50 11/25/21 01:05 11/25/21 01:38 Pulse Rate 115 H 108 H 113 H Respiratory Rate 16 16 Blood Pressure 137/76 137/76 Pulse Oximetry 96 97 Oxygen Delivery Method Room Air 11/25/21 02:25 Pulse Rate 99 H Respiratory Rate 16 Blood Pressure 132/77 Pulse Oximetry 98 Oxygen Delivery Method Room Air MDM - Arrhythmia/Palpitations Lab Data Result diagrams: 11/24/21 22:35 11/24/21 22:35 Labs: Lab Results 11/24/21 11/24/21 11/24/21 Range/Units 22:35 22:35 22:35 WBC 11.0 (4.5-11.0) X10^3/uL RBC 4.25 (4.0-5.2) X10^6/uL Hgb 13.5 (12.0-16.0) g/dL Hct 39.6 (36-46) % MCV 93.0 (80-100) fL MCH 31.7 (26-34) PG MCHC 34.1 (30-36) % RDW 12.9 (11.6-14.8) % Plt Count 259 (150-400) X10^3/uL Neut % (Auto) 86.4 H (50-75) % Lymph % (Auto) 9.1 L (25-40) % [place] % (Auto) 4.3 (3-14) % Eos % (Auto) 0.1 L (2-4) % Baso % (Auto) 0.1 (0-2) % Neut # (Auto) 9500 H (0459-8647) /uL Lymph # (Auto) 1000 L (1370-3600) /uL [place] # (Auto) 500 (0-900) /uL Eos # (Auto) 0 (0-450) /uL Baso # (Auto) 0 (0-100) /uL D-Dimer 1350 H (<500) ng/ml Sodium 135 L (137-145) mmol/L Potassium 3.6 (3.4-5.1) mmol/L Chloride 102 (98-107) mmol/L Carbon Dioxide 21 L (22-32) mmol/L BUN 7 (7-17) mg/dL Creatinine 0.71 (0.52-1.04) mg/dL Estimated GFR > 60 (>60) mL/min BUN/Creatinine Ratio 9.9 (6-22) Glucose 145 H (70-100) mg/dL Lactate (0.7-2.1) mmol/L Calcium 9.2 (8.4-10.2) mg/dL Magnesium 1.9 (1.6-2.3) mg/dL Total Bilirubin 0.5 (0.2-1.3) mg/dL AST 25 (14-36) IU/L ALT 25 (<35) IU/L Alkaline Phosphatase 82 (38-126) U/L Total Creatine Kinase 84 (30-135) U/L CK-MB (CK-2) TNP CK-MB (CK-2) Rel Index TNP Troponin I < 0.012 (0.01-0.034) ng/mL Total Protein 8.2 (6.3-8.2) g/dL Albumin 4.7 (3.5-5.0) g/dL Globulin 3.5 (1.7-4.1) g/dL Albumin/Globulin Ratio 1.3 (1.0-2.8) Lipase 59 (23-300) U/L TSH (0.47-4.68) uIU/mL 11/24/21 11/24/21 Range/Units 22:35 22:35 WBC (4.5-11.0) X10^3/uL RBC (4.0-5.2) X10^6/uL Hgb (12.0-16.0) g/dL Hct (36-46) % MCV (80-100) fL MCH (26-34) PG MCHC (30-36) % RDW (11.6-14.8) % Plt Count (150-400) X10^3/uL Neut % (Auto) (50-75) % Lymph % (Auto) (25-40) % [place] % (Auto) (3-14) % Eos % (Auto) (2-4) % Baso % (Auto) (0-2) % Neut # (Auto) (4484-5839) /uL Lymph # (Auto) (7542-8616) /uL [place] # (Auto) (0-900) /uL Eos # (Auto) (0-450) /uL Baso # (Auto) (0-100) /uL D-Dimer (<500) ng/ml Sodium (137-145) mmol/L Potassium (3.4-5.1) mmol/L Chloride (98-107) mmol/L Carbon Dioxide (22-32) mmol/L BUN (7-17) mg/dL Creatinine (0.52-1.04) mg/dL Estimated GFR (>60) mL/min BUN/Creatinine Ratio (6-22) Glucose (70-100) mg/dL Lactate 1.3 (0.7-2.1) mmol/L Calcium (8.4-10.2) mg/dL Magnesium (1.6-2.3) mg/dL Total Bilirubin (0.2-1.3) mg/dL AST (14-36) IU/L ALT (<35) IU/L Alkaline Phosphatase (38-126) U/L Total Creatine Kinase (30-135) U/L CK-MB (CK-2) CK-MB (CK-2) Rel Index Troponin I (0.01-0.034) ng/mL Total Protein (6.3-8.2) g/dL Albumin (3.5-5.0) g/dL Globulin (1.7-4.1) g/dL Albumin/Globulin Ratio (1.0-2.8) Lipase (23-300) U/L TSH 2.45 (0.47-4.68) uIU/mL Point of Care Testing Test Results Negative Urine Dip Bedside Urine Glucose Negative Bedside Urine Bilirubin - Negative Bedside Urine Ketone +++ 80 Urine Specific [place] 1.010 Bedside Urine Occult Blood - Negative Bedside Urine pH 6.5 Bedside Urine Protein - Negative Bedside Urine Urobilinogen - Negative Bedside Urine Nitrite - Negative Bedside Urine Leukocytes - Negative Esterase Imaging Data Chest x-ray: Radiologist's Impresson: Signed Patient: Daniela Griffin MR#: [id number] : 1975 Acct:[id number] Age/Sex: 46 / F Date of Service: 11/24/21 Loc: ED Accession Number: [id number] ?? Procedure: XR chest 1V Ordering Provider: Verena Jiang D.O. PROCEDURE:? XR CHEST 1V ? INDICATIONS:? chest pain ? TECHNIQUE:? One view of the chest was acquired.? ? COMPARISON:? [facility], , XR CHEST 1V, 11/05/2021, 21:27. ? FINDINGS:? ? Surgical changes and devices:? None.? ? Lungs and pleura:? Lungs are clear.? No pleural effusions or pneumothorax.? ? Mediastinum:? Mediastinal contours appear normal.? Heart size is normal.? ? Bones and chest wall:? No suspicious bony lesions.? Overlying soft tissues appear unremarkable.? ? IMPRESSION:? ? 1.? No acute cardiopulmonary disease. ? ? ? Dictated by: Natanael Krishna M.D. on 11/24/2021 at 23:02 ? ? Approved by: Natanael Krishna M.D. on 11/24/2021 at 23:03 ? ECG Data Interpretation: Normal sinus rhythm rate 122 significant artifact noted no obvious ST changes PVC noted MDM Narrative Medical decision making narrative: Be persistently tachycardic despite IV fluids although has slowed significantly. She does have an elevated D-dimer although it is lower than what it was p reviously. She had a CT angio 2 weeks ago this time without significant shortness of breath or hypoxia see no need to repeat CT angio. She is having some fairly regular PVCs. She is in quite a bit of pain from her back pain hand as having spasms. Blood work is overall reassuring with a negative troponin. Bicarb slightly low at 21. Patient's heart rate has improved significantly with fluids Ativan and Toradol. She is feeling better. She does have irregular PVCs but is certainly not in bigeminy or trigeminy. No sign of infection at this time. She has chronic ongoing abdominal pain in GI issues pain isn't any worse today. Abdomen is reexamined not significantly tender at this time I see no need for any abdominal imaging. She states her daughter has a tachycardia problem she thinks maybe she has a tachycardia problem. To the point with PCP in 2 days. At this time recommend they talk about Zio patch Discharge Plan Departure Patient Disposition: Home Clinical Impression: Frequent PVCs Instructions: Premature Ventricular Beats Activity Restrictions/Additional Instructions: *You have been diagnosed with PVCs *What to do: At this time I recommend following up with her doctor as scheduled. Talked about a ZIO patch/Holter monitor. Blood work is overall reassuring no sign of infection. *Continue to take medications as directed *Follow up with your primary care provider in 2-3 days or call [phone] *Return to ER if you should have increasing palpitations, heart rate greater than 130 for more than 1 hour, or any new, worsening or concerning symptoms Prescriptions: No Action levetiracetam [Keppra] 1,000 mg tablet 1,000 mg PO BID norgestimate-ethinyl estradiol [Sprintec (28)] 0.25-35 mg-mcg tablet 1 tab PO DAILY Qty: 84 3RF dicyclomine 10 mg capsule 10 mg PO TID tizanidine 2 mg tablet 2 mg PO Q8H PRN acetaminophen 325 MG tablet 325 mg PO PRNQty: 0 oxybutynin chloride 5 MG tablet 5 mg PO BIDP Qty: 180 3RF cetirizine [Aller-Karan] 10 mg tablet 10 mg PO DAILY PRN cholecalciferol (vitamin D3) 25 mcg (1,000 unit) capsule 25 mcg PO DAILY multivitamin [Multiple Vitamins] Tablet 1 tab PO DAILY zinc gluconate 50 mg tablet 50 mg PO DAILY L.acidoph,saliva-B.bif-S.therm [Acidophilus Probiotic Blend] 175 mg capsule 1 cap PO DAILY omega 3-cbg-enu-fish oil 250-500-1,000 mg capsule PO calcium-magnesium 300-300 mg tablet 1 tab PO DAILY Rx Instructions: administer with a meal fluticasone propionate 50 mcg/actuation spray,suspension 1 spray intranasal DAILY Rx Instructions: administer into each nostril sertraline 100 mg tablet See Rx Instructions PO DAILY Qty: 30 5RF Rx Instructions: Take one half tablet daily for 1 week then increase to one whole tablet valacyclovir 500 mg tablet See Rx Instructions .ROUTE .COMPLEX Qty: 6 5RF Dose Instruction: take 1 tablet by mouth twice a day if needed Rx Instructions: take 1 tablet by mouth twice a day if needed lorazepam [Ativan] 0.5 mg tablet 0.5 mg PO TID PRN (Reason: anxiety) Qty: 10 0RF Referrals: Kristin Borden DO [Primary Care Provider] - Visit Report Forms: Patient Portal/API
[2021-11-25] MEDS: KETOROLAC 30 MG/ML VIAL 15 MG IV (00:30)
[2021-11-25] MEDS: LORazepam 2 MG/ML INJ 0.5 MG IV (00:30)
[2021-11-25 00:50] VITALS: BP 137/76; PULSE 115; RESP 16; O2SAT 96
[2021-11-25 01:05] VITALS: PULSE 108
[2021-11-25 01:38] VITALS: BP 137/76; PULSE 113; RESP 16; O2SAT 97
[2021-11-25 02:25] VITALS: BP 132/77; PULSE 99; RESP 16; O2SAT 98
== END 2021-11-25 02:32 | disposition home or self-care (01) ==
PROVIDERS: Emergency Provider Emergency Medicine; Family Provider Family Medicine; PCP Family Medicine
DX: I49.3 Ventricular premature depolarization (principal); R00.0 Tachycardia, unspecified; R10.30 Lower abdominal pain, unspecified
CPT/HCPCS: 36415; 71045; 80053; 81003; 81025; 82550; 82553; 83605; 83690; 83735; 84443; 84484; 85025; 85379; 93005; 96361; 96374; 96375; 99284; J1885; J2060

== ENCOUNTER → 2021-12-07 08:03 | Outpatient (CLI) | payer OTHER, MEDICAID, SELFPAY ==
--- NOTE | 2021-12-07 08:03 | DI.ECHO.S_ITS ---
[facility] +---------+ : : [address] : [address] : : : : [id number] : : : : Phone: [phone]+ Echocardiogram Report + + :Name: STUART ZHANG Study Date: 12/07/2021 Height: 65 in : :[facility] ReadingLocation: Weight: 150 lb : : Gender: Female BSA: 1.8 m2 : :: 1975 Age: 46 yrs BP: 127/82 mmHg: :Reason For Study: Arrhythmia, PVCs : :Ordering Physician: LARRY, : :MELISSA Steiner Performed By: Ashu Moreira : :Referring: MELISSA JUAREZ : + + Interpretation Summary Normal left ventricle size with low normal systolic function and ejection fraction 50-55%. Normal right ventricle and both atria. No valvular abnormality. Procedure: A two-dimensional transthoracic echocardiogram with color flow and Doppler was performed. The study quality was technically adequate. There is no prior echocardiogram noted for this patient. The patient was in normal sinus rhythm during the exam. Left Ventricle: The left ventricle is normal in size and wall thickness. Left ventricular systolic function is low normal. The ejection fraction is estimated to be 50-55%. There are no focal wall motion abnormalities. Diastolic parameters suggest probable normal left ventricular diastolic function and normal filling pressures. Right Ventricle: The right ventricle is normal in size and function. Atria: Both atria are normal in size. The interatrial septum grossly appears intact with no obvious evidence for an atrial septal defect. Mitral Valve: The mitral valve is normal in structure and function. There is trace mitral regurgitation. Aortic Valve: The aortic valve is normal in structure and function. No aortic regurgitation is present. Tricuspid Valve: The tricuspid valve is normal in structure and function. There is a trace or physiologic amount of tricuspid regurgitation. Pulmonary artery pressures cannot be estimated because of the lack of a measurable TR jet velocity. Pulmonic Valve: The pulmonic valve is normal in structure and function. There is no pulmonic valvular regurgitation. Great Vessels: The aortic root is normal size. The dimensions of the ascending aorta are normal. The IVC is of normal diameter and collapses greater than 50% with a sniff. This suggests a low right atrial pressure of 3 mm Hg. Pericardium/ Pleura There is no pericardial effusion. There is no pleural effusion. MMode/2D Measurements & Calculations LVIDd: 4.7 cm LVOT diam: 1.9 cm LVIDs: 3.3 cm Ao root diam: 2.6 cm FS: 29.8 % asc Aorta Diam: 2.7 cm IVSd: 0.80 cm LVPWd: 0.90 cm LV flores. diameter/BSA (cm/m^2): 2.7 LV sys. diameter/BSA (cm/m^2): 1.9 LA dimension: 3.5 cm RA long axis: 4.0 cm LA A2 area: 14.3 cm2 LA A4 area: 15.2 cm2 LA length (vol): 4.6 cm LA vol: 39.9 ml LA vol index: 22.8 ml/m2 TAPSE_phl: 2.3 cm Doppler Measurements & Calculations Ao V2 max: 155.0 cm/sec LVOT Max Deep: 115.0 cm/sec Ao V2 mean: 117.0 cm/sec LV V1 max P.3 mmHg Ao max P.0 mmHg LV V1 VTI: 23.5 cm Ao mean P.0 mmHg MINERVA(I,D): 2.0 cm2 Ao V2 VTI: 32.9 cm MINERVA(V,D): 2.1 cm2 sev ratio: 0.71 MINERVA indexed to BSA (cm^2/m^2): 1.2 MV E max deep: 101.0 cm/sec SV(LVOT): 66.6 ml MV A max deep: 71.6 cm/sec MV E/A: 1.4 Med Peak E' Deep: 9.2 cm/sec E/E' med: 11.0 Lat Peak E' Deep: 15.3 cm/sec E/E' lat: 6.6 E/e' average: 8.8 MV dec time: 0.14 sec AV VR_phl: 0.74 MV P1/2t-pr_phl: 41.0 msec MINERVA(VTI)/BSA_phl: 1.2 Electronically signed by: Luisa Domínguez on Reading Physician:12/07/2021 12:26 PM
== END ==
PROVIDERS: Family Provider Family Medicine; PCP Family Medicine; Referring Provider Physician Assistant; Visit Provider Physician Assistant
DX: I49.3 Ventricular premature depolarization (principal); R00.0 Tachycardia, unspecified
CPT/HCPCS: 93306

== ENCOUNTER → 2021-12-08 07:38 | Outpatient (CLI) | payer OTHER, MEDICAID, SELFPAY ==
[2021-12-08 09:01] LABS: Hemoglobin A1C% w Est Avg Glu 5.3 % (4.0-6.0)
[2021-12-08 09:19] LABS: Cholesterol 172 mg/dL (140-199); HDL Cholesterol 74 mg/dL (40-60); LDL Cholesterol Calculated 66 mg/dL (<100); Triglycerides 160 mg/dL (35-150)
== END ==
PROVIDERS: Family Provider Family Medicine; PCP Family Medicine; Referring Provider Physician Assistant; Visit Provider Physician Assistant
DX: R73.9 Hyperglycemia, unspecified (principal); Z13.220 Encounter for screening for lipoid disorders; Z13.6 Encounter for screening for cardiovascular disorders
CPT/HCPCS: 36415; 80061; 83036

== ENCOUNTER 2021-12-16 13:00 | Outpatient (RCR) | payer OTHER, MEDICAID, SELFPAY ==
--- NOTE | 2021-06-23 15:07 | PT.OIE ---
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) Pain in unspecified hip (06/23/21) Pain in unspecified knee (06/23/21) Low back pain, unspecified (06/23/21) Unspecified abnormalities of gait and mobility (06/23/21) Abnormal posture (06/23/21) Weakness (06/23/21) Past Medical History (Last Reviewed 06/11/21 @ 04:03 by Naman Church DO) Abnormal Pap smear of cervix Anemia (2003) Chicken pox (~1987) Choledocholithiasis CTS (carpal tunnel syndrome) (2007) Cyst of ovary (06/02/15) Frequent UTI Gallstone pancreatitis Hereditary spastic paraplegia History of cholecystectomy History of D&C History of ERCP (01/2016) Kidney stones (2004) Miscarriage Obesity (BMI 30-39.9) Ovarian cyst Seizures Past Surgical History (Last Reviewed 05/22/21 @ 19:09 by Eugenia Chavez PA-C) History of cholecystectomy History of D&C History of ERCP (01/2016) Visit Care Team Role Provider Type Kristin Borden DO Attending Provider Physician Family Provider Primary Care Provider Referring Provider Specialty: Family Practice Address: [address] [place] [address] Email: [email or web address] Physical Therapy Initial Evaluation PT-OP-A Visit Information Start: 06/22/21 17:38 Freq: Status: Active Protocol: Document 06/23/21 09:05 [facility] (Rec: 06/23/21 09:48 [facility] [id number]) Out-Patient Physical Therapy Visit Information Visit Information Visit Type Initial Evaluation Visit Note 24 visits Visit Start Time 09:05 Visit Stop Time 09:45 Total Visit Minutes 40 Visit Number 1 Number of FLIGHT SUPERINTENDENT Visits 0 PT-OP-B Current Condition Start: 06/22/21 17:38 Freq: Status: Active Protocol: Document 06/23/21 09:05 [facility] (Rec: 06/23/21 09:48 [facility] [id number]) Current Condition History of Current Condition History of Current Condition Pt reports she feels like her balance is getting worse. Her LBP has been worse on L side. She is working with a GI MD and she thinks she sees one next week. So far they have only done urine and blood testing and everything seems to be fine there. She feels like she has a fever at times. She takes tylenol every day to 2.5 days. Pt has an IUD and it is getting close to the point it may need to come out. Pt reports she feels extremely bloated and has to take imodium every now and then. Pt reports when she has to go have a BM it is an immediate need. She has been taking a digestive enzyme to help with meals. She has dec carbonated things and dec coffee. Pt reports back and GI issues started about 1 month ago. Pt reports B hips and knees (R>L typically) have been givign her trouble. she feels like her balance is a little worse recently. She has been using a trekking pole and keeping it with her depending on what she is doing . Prior Treatments and Tests PT in past which has helped Future Testing and Treatments Planned GI specialist follow up and Primary follow up Treatment Goals Patient/Caregiver Goals Improve mobility, improve balance, make walk more fluid, dec pain. Personal Factors Other Personal Factors That May Effect seizures, dizziness, back pain Therapy/Recovery , jaw pain, spastic paraplegia PT-OP-C Subjective Start: 06/22/21 17:38 Freq: Status: Active Protocol: Document 06/23/21 09:05 [facility] (Rec: 06/23/21 14:52 [facility] [id number]) Patient Questionnaires Foot & Ankle Ability Measure- ADL and Sports FAAM-ADL Score 54/84 FAAM-Sport Score 10/28 Lower Extremity Functional Scale LEFS Score 39/80 PT-OP-D Balance Start: 06/22/21 17:38 Freq: Status: Active Protocol: Document 06/23/21 09:05 [facility] (Rec: 06/23/21 09:48 [facility] [id number]) Balance Tests Single Limb Standing Single Limb- Right 5 sec w/lat shear of R hip Single Limb- Left 2 sec w/lat shear of L hip PT-OP-F Manual Assessment Start: 06/22/21 17:38 Freq: Status: Active Protocol: Document 06/23/21 09:05 [facility] (Rec: 06/23/21 09:48 [facility] [id number]) Manual Assessments Soft Tissue Assessment Soft Tissue Mobility Assessment L QL & L glutes tight & tender Joint Mobility Assessment Joint Mobility Assessment R ilac crest higher, equal greater trochanter PT-OP-J Posture/Palpation/Skin Start: 06/22/21 17:38 Freq: Status: Active Protocol: Document 06/23/21 09:05 [facility] (Rec: 06/23/21 09:48 [facility] [id number]) Posture Evaluation Leanne Postural Classification System Leanne Postural Classifications Posterior/Anterior Vertebral Compression Test 1 Lumbar Protective Mechanism Left AP 0 Lumbar Protective Mechanism Right AP 0 Lumbar Protective Mechanism Left PA 0 Lumbar Protective Mechanism Right PA 0 Comments Posture Comments trunk L rotated & L sidebend and R pelvic shear, ant pelvic tilt, knee hyperext B PT-OP-K Range of Motion Start: 06/22/21 17:38 Freq: Status: Active Protocol: Document 06/23/21 09:05 [facility] (Rec: 06/23/21 09:48 [facility] [id number]) Lumbar Spine Range of Motion Lumbar Spine Active Percentage Flexion 50 Extension 100 Rotation Left 70 Rotation Right 80 Lateral Flexion Left 60 Lateral Flexion Right 90 Comments pelvis rotates fwd w/L SB; pain L ext quadrant; when pelvis blocked hand to 2 in above patella PT-OP-L Special Tests Start: 06/22/21 17:38 Freq: Status: Active Protocol: Document 06/23/21 09:05 [facility] (Rec: 06/23/21 09:48 [facility] [id number]) Special Tests Lumbar Spine Special Tests Slump Test Results R slump LB symptoms w/dec symptoms w/neck flex Straight Leg Raise Test Results significant HS tightness and pain B knees at about 50 deg PT-OP-M Strength Start: 06/22/21 17:38 Freq: Status: Active Protocol: Document 06/23/21 09:05 [facility] (Rec: 06/23/21 09:48 [facility] [id number]) Hip Strength Hip Manual Muscle Testing Right Flexion (L2) 3 Fair Extension (S1) 3+ Fair+ Abduction 4- Good- Adduction 3+ Fair+ External Rotation 4 Good Internal Rotation 3+ Fair+ Comments pain hip flex Left Flexion (L2) 3 Fair Extension (S1) 3+ Fair+ Abduction 3+ Fair+ Adduction 4- Good- Internal Rotation 3+ Fair+ Comments pain hip flex Knee Strength Knee Manual Muscle Testing Right Flexion (S2) 5 Normal Extension (L3) 4+ Good+ Left Flexion (S2) 5 Normal Extension (L3) 4+ Good+ Ankle/Foot Strength Ankle and Foot Manual Muscle Testing Right Dorsiflexion (L4) 5 Normal Plantarflexion (S1) 5 Normal Comments 20 heel raises Left Dorsiflexion (L4) 5 Normal Plantarflexion (S1) 4 Good Comments pain in L LB, & L knee and L ankle (L ankle goes into more inversion) 15 heel raises PT-OP-T Assessment and Plan Start: 06/22/21 17:38 Freq: Status: Active Protocol: Document 06/23/21 09:05 [facility] (Rec: 06/23/21 09:48 [facility] [id number]) Physical Therapy Assessment Rehab Potential Rehabilitation Potential Good Evaluation Complexity Number of Personal Factors/Comorbidities 3 or More Number of Body Systems Impaired 4 or More Clinical Presentation at Evaluation Evolving Impairments Impairments Activity Tolerance,Balance, Functional Activities, Functional Mobility,Gait,Pain, Posture,ROM,Soft Tissue Mobility,Strength,Tone Goals pain Fdc Goal (LTG) Pt will report at least 80% reduction in back pain from start of therapy. LTG Duration 09/23/21 strength Short Term Goal (STG) Pt will be indep w/HEP STG Duration 08/05/21 Management Consultant Goal (LTG) Pt will score at least 4+/5 on all MMT of B LEs and at least 3/5 on LPM in all planes to show improved stability to dec instances of pain and dec risk for falls LTG Duration 09/23/21 SL Fdc Goal (LTG) pt will be able to do SLS for 10 sec B to show improve stability for gait and balance . LTG Duration 09/23/21 balance Short Term Goal (STG) Pt will score at least 20/30 on FGA to show dec risk for falls STG Duration 08/20/21 Management Consultant Goal (LTG) Pt will score at least 23/30 on FGA to show dec risk for falls LTG Duration 09/23/21 Assessment Summary Assessment Pt presents w/worsening back pain recently w/concurrent GI issues that may be related to LBP along w/notable dec balance that is limiting her function. She has limited spinal motion, dec core engagement, and dec LE strength which is all likely affecting her ability to balance and do functional activities. Her diagnosis of spastic paraplegia affects her gait mechanics and attributes to her overall dec balance. She would benefit from skilled PT to worko n manual restrictions of back and lower body along w/abdomen to improve movement an work on core stability, postural stability and balance. Physical Therapy Plan Frequency and Duration Frequency of Treatment 1-2x/week Duration of Treatment 3 months Plan of Care Start Date 06/23/21 Plan of Care End Date 09/23/21 Therapeutic Interventions Therapeutic Interventions Aquatic Therapy,Balance Training,Gait Training,Home Exercise Program,Joint Mobilizations,Manual Therapy, Neuromuscular Re-education, Orthotic/Prosthetic Management ,Patient/Caregiver Education, Self-Care/Home Management,Soft Tissue Mobilization,Taping, Therapeutic Activities, Therapeutic Exercises Modalities Cold Pack/Ice Massage,Electric Stimulation,Hot Packs, Traction- Mechanical, Ultrasound Next Visit Focus/Plan Next Note Type Treatment Note Next Visit Plan do DGI & FGA, start HEP: cat camel, tail wags, supine core progression started, manual to lumbar spine gentle
--- NOTE | 2021-06-23 15:07 | PT.OPPOC ---
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) Pain in unspecified hip (06/23/21) Pain in unspecified knee (06/23/21) Low back pain, unspecified (06/23/21) Unspecified abnormalities of gait and mobility (06/23/21) Abnormal posture (06/23/21) Weakness (06/23/21) Visit Care Team Role Provider Type Kristin Borden DO Attending Provider Physician Family Provider Primary Care Provider Referring Provider Specialty: Family Practice Address: [address] [place] [address], [place], [address] Email: [email or web address] Plan Of Care PT-OP-T Assessment and Plan Start: 06/22/21 17:38 Freq: Status: Active Protocol: Document 06/23/21 09:05 [facility] (Rec: 06/23/21 09:48 [facility] [id number]) Physical Therapy Assessment Rehab Potential Rehabilitation Potential Good Evaluation Complexity Number of Personal Factors/Comorbidities 3 or More Number of Body Systems Impaired 4 or More Clinical Presentation at Evaluation Evolving Impairments Impairments Activity Tolerance,Balance, Functional Activities, Functional Mobility,Gait,Pain, Posture,ROM,Soft Tissue Mobility,Strength,Tone Goals pain Alf Goal (LTG) Pt will report at least 80% reduction in back pain from start of therapy. LTG Duration 09/23/21 strength Short Term Goal (STG) Pt will be indep w/HEP STG Duration 08/05/21 Busher Helper Goal (LTG) Pt will score at least 4+/5 on all MMT of B LEs and at least 3/5 on LPM in all planes to show improved stability to dec instances of pain and dec risk for falls LTG Duration 09/23/21 SL Busher Helper Goal (LTG) pt will be able to do SLS for 10 sec B to show improve stability for gait and balance . LTG Duration 09/23/21 balance Short Term Goal (STG) Pt will score at least 20/30 on FGA to show dec risk for falls STG Duration 08/20/21 Busher Helper Goal (LTG) Pt will score at least 23/30 on FGA to show dec risk for falls LTG Duration 09/23/21 Assessment Summary Assessment Pt presents w/worsening back pain recently w/concurrent GI issues that may be related to LBP along w/notable dec balance that is limiting her function. She has limited spinal motion, dec core engagement, and dec LE strength which is all likely affecting her ability to balance and do functional activities. Her diagnosis of spastic paraplegia affects her gait mechanics and attributes to her overall dec balance. She would benefit from skilled PT to worko n manual restrictions of back and lower body along w/abdomen to improve movement an work on core stability, postural stability and balance. Physical Therapy Plan Frequency and Duration Frequency of Treatment 1-2x/week Duration of Treatment 3 months Plan of Care Start Date 06/23/21 Plan of Care End Date 09/23/21 Therapeutic Interventions Therapeutic Interventions Aquatic Therapy,Balance Training,Gait Training,Home Exercise Program,Joint Mobilizations,Manual Therapy, Neuromuscular Re-education, Orthotic/Prosthetic Management ,Patient/Caregiver Education, Self-Care/Home Management,Soft Tissue Mobilization,Taping, Therapeutic Activities, Therapeutic Exercises Modalities Cold Pack/Ice Massage,Electric Stimulation,Hot Packs, Traction- Mechanical, Ultrasound Next Visit Focus/Plan Next Note Type Treatment Note Next Visit Plan do DGI & FGA, start HEP: cat camel, tail wags, supine core progression started, manual to lumbar spine gentle Plan of Care Dates Plan of Care Start Date 06/23/21 Plan of Care End Date 09/23/21 Electronically Signed by: Amparo Stallworth, PT 06/23/21 2527 If you are in agreement with this Plan of Care, please return a signed and dated copy. I have reviewed this Plan of Care and certify that the skilled therapy services above are required to meet the patient?s needs. Physician Signature Date Printed Name and Credentials Clinical Instructor Signature Printed Name and Credentials
--- NOTE | 2021-07-08 09:05 | PT.OTN ---
Current Diagnoses Hereditary spastic paraplegia (07/08/21) Pain in unspecified hip (07/08/21) Pain in unspecified knee (07/08/21) Low back pain, unspecified (07/08/21) Unspecified abnormalities of gait and mobility (07/08/21) Abnormal posture (07/08/21) Weakness (07/08/21) Physical Therapy Treatment Note PT-OP-A Visit Information Start: 06/22/21 17:38 Freq: Status: Active Protocol: Document 07/08/21 08:19 [facility] (Rec: 07/08/21 09:04 [facility] [id number]) Out-Patient Physical Therapy Visit Information Visit Information Visit Type Treatment Note Visit Note 24 visits Visit Start Time 08:19 Visit Stop Time 09:10 Total Visit Minutes 51 Visit Number 2 Number of [employer] CERTIFIED NETWORK ASSOCIATE Visits 0 PT-OP-B Current Condition Start: 06/22/21 17:38 Freq: Status: Active Protocol: Document 06/23/21 09:05 [facility] (Rec: 06/23/21 09:48 [facility] [id number]) Current Condition History of Current Condition History of Current Condition Pt reports she feels like her balance is getting worse. Her LBP has been worse on L side. She is working with a GI MD and she thinks she sees one next week. So far they have only done urine and blood testing and everything seems to be fine there. She feels like she has a fever at times. She takes tylenol every day to 2.5 days. Pt has an IUD and it is getting close to the point it may need to come out. Pt reports she feels extremely bloated and has to take imodium every now and then. Pt reports when she has to go have a BM it is an immediate need. She has been taking a digestive enzyme to help with meals. She has dec carbonated things and dec coffee. Pt reports back and GI issues started about 1 month ago. Pt reports B hips and knees (R>L typically) have been givign her trouble. she feels like her balance is a little worse recently. She has been using a trekking pole and keeping it with her depending on what she is doing . Prior Treatments and Tests PT in past which has helped Future Testing and Treatments Planned GI specialist follow up and Primary follow up Treatment Goals Patient/Caregiver Goals Improve mobility, improve balance, make walk more fluid, dec pain. Personal Factors Other Personal Factors That May Effect seizures, dizziness, back pain Therapy/Recovery , jaw pain, spastic paraplegia PT-OP-C Subjective Start: 06/22/21 17:38 Freq: Status: Active Protocol: Document 07/08/21 08:19 [facility] (Rec: 07/08/21 09:04 [facility] [id number]) OP-PT Subjective Patient Comments Patient Comments Started F[employer] diet and that hs helped and she is taking less tylenol. She hasn't seen her primary yet d/t them changing appt time PT-OP-D Balance Start: 06/22/21 17:38 Freq: Status: Active Protocol: Document 06/23/21 09:05 [facility] (Rec: 06/23/21 09:48 [facility] [id number]) Balance Tests Single Limb Standing Single Limb- Right 5 sec w/lat shear of R hip Single Limb- Left 2 sec w/lat shear of L hip PT-OP-E Functional Tests Start: 06/22/21 17:38 Freq: Status: Active Protocol: Document 07/08/21 08:19 [facility] (Rec: 07/08/21 09:05 [facility] [id number]) Functional Tests Dynamic Gait Index (DGI) Score 19 Functional Gait Assessment Score 17 PT-OP-F Manual Assessment Start: 06/22/21 17:38 Freq: Status: Active Protocol: Document 06/23/21 09:05 [facility] (Rec: 06/23/21 09:48 [facility] [id number]) Manual Assessments Soft Tissue Assessment Soft Tissue Mobility Assessment L QL & L glutes tight & tender Joint Mobility Assessment Joint Mobility Assessment R ilac crest higher, equal greater trochanter PT-OP-J Posture/Palpation/Skin Start: 06/22/21 17:38 Freq: Status: Active Protocol: Document 06/23/21 09:05 [facility] (Rec: 06/23/21 09:48 [facility] [id number]) Posture Evaluation Leanne Postural Classification System Leanne Postural Classifications Posterior/Anterior Vertebral Compression Test 1 Lumbar Protective Mechanism Left AP 0 Lumbar Protective Mechanism Right AP 0 Lumbar Protective Mechanism Left PA 0 Lumbar Protective Mechanism Right PA 0 Comments Posture Comments trunk L rotated & L sidebend and R pelvic shear, ant pelvic tilt, knee hyperext B PT-OP-K Range of Motion Start: 06/22/21 17:38 Freq: Status: Active Protocol: Document 06/23/21 09:05 [facility] (Rec: 06/23/21 09:48 [facility] [id number]) Lumbar Spine Range of Motion Lumbar Spine Active Percentage Flexion 50 Extension 100 Rotation Left 70 Rotation Right 80 Lateral Flexion Left 60 Lateral Flexion Right 90 Comments pelvis rotates fwd w/L SB; pain L ext quadrant; when pelvis blocked hand to 2 in above patella PT-OP-L Special Tests Start: 06/22/21 17:38 Freq: Status: Active Protocol: Document 06/23/21 09:05 [facility] (Rec: 06/23/21 09:48 [facility] [id number]) Special Tests Lumbar Spine Special Tests Slump Test Results R slump LB symptoms w/dec symptoms w/neck flex Straight Leg Raise Test Results significant HS tightness and pain B knees at about 50 deg PT-OP-M Strength Start: 06/22/21 17:38 Freq: Status: Active Protocol: Document 06/23/21 09:05 [facility] (Rec: 06/23/21 09:48 [facility] [id number]) Hip Strength Hip Manual Muscle Testing Right Flexion (L2) 3 Fair Extension (S1) 3+ Fair+ Abduction 4- Good- Adduction 3+ Fair+ External Rotation 4 Good Internal Rotation 3+ Fair+ Comments pain hip flex Left Flexion (L2) 3 Fair Extension (S1) 3+ Fair+ Abduction 3+ Fair+ Adduction 4- Good- Internal Rotation 3+ Fair+ Comments pain hip flex Knee Strength Knee Manual Muscle Testing Right Flexion (S2) 5 Normal Extension (L3) 4+ Good+ Left Flexion (S2) 5 Normal Extension (L3) 4+ Good+ Ankle/Foot Strength Ankle and Foot Manual Muscle Testing Right Dorsiflexion (L4) 5 Normal Plantarflexion (S1) 5 Normal Comments 20 heel raises Left Dorsiflexion (L4) 5 Normal Plantarflexion (S1) 4 Good Comments pain in L LB, & L knee and L ankle (L ankle goes into more inversion) 15 heel raises PT-OP-Q Treatments Start: 06/22/21 17:38 Freq: Status: Active Protocol: Document 07/08/21 08:19 [facility] (Rec: 07/08/21 09:04 [facility] [id number]) Cardio Equipment Recumbent Elliptical (iiyuma) Duration (Minutes) 5 Resistance 4 Seat Position 4 Therapeutic Exercises Supine Exercises bridge Supine Exercise Name w/tilt first Side bilateral Reps/Minutes 10x5 sec hold pelvic tilt Reps/Minutes 15 Comments max cues Standing Exercises hip flexor stretch Side bilateral Reps/Minutes 30 sec Other Exercises tail wags Side bilateral Reps/Minutes 10 cat/camel Reps/Minutes 10 Manual Therapy Treatment Soft Tissue Mobilization lumbar Body Location B ES Mobilization Type Oscillations,Strumming Intensity/Depth Moderate Body Position Prone Neuro Re-Education Treatment Other Activities balance tests Comments DGI: FGA: PT-OP-R Modalities Start: 07/08/21 09:04 Freq: Status: Active Protocol: Document 07/08/21 08:19 [facility] (Rec: 07/08/21 09:05 [facility] [id number]) Hot Pack/Cold Pack Treatment Hot Pack Location lumbar Patient Position Prone Treatment Duration (minutes) 10 PT-OP-T Assessment and Plan Start: 06/22/21 17:38 Freq: Status: Active Protocol: Document 07/08/21 08:19 [facility] (Rec: 07/08/21 09:04 [facility] [id number]) Physical Therapy Assessment Goals pain Usp Goal (LTG) Pt will report at least 80% reduction in back pain from start of therapy. LTG Duration 09/23/21 strength Short Term Goal (STG) Pt will be indep w/HEP STG Duration 08/05/21 Save All Operator Goal (LTG) Pt will score at least 4+/5 on all MMT of B LEs and at least 3/5 on LPM in all planes to show improved stability to dec instances of pain and dec risk for falls LTG Duration 09/23/21 SL Usp Goal (LTG) pt will be able to do SLS for 10 sec B to show improve stability for gait and balance . LTG Duration 09/23/21 balance Short Term Goal (STG) Pt will score at least 20/30 on FGA to show dec risk for falls STG Duration 08/20/21 Usp Goal (LTG) Pt will score at least 23/30 on FGA to show dec risk for falls LTG Duration 09/23/21 Assessment Summary Assessment Pt tolerated exercises well but did have difficulty w/flex aspect of exercises (pelvic tilts & cat/camel). She requies cues for that. She shows risk for falls based on DGI and FGA scores. Physical Therapy Plan Frequency and Duration Frequency of Treatment 1-2x/week Duration of Treatment 3 months Plan of Care Start Date 06/23/21 Plan of Care End Date 09/23/21 Next Visit Focus/Plan Next Note Type Treatment Note Next Visit Plan review HEP, progress balance and lumbar manual techniques
--- NOTE | 2021-07-10 09:49 | PT.OTN ---
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) Pain in unspecified hip (07/10/21) Pain in unspecified knee (07/10/21) Low back pain, unspecified (07/10/21) Unspecified abnormalities of gait and mobility (07/10/21) Abnormal posture (07/10/21) Weakness (07/10/21) Physical Therapy Treatment Note PT-OP-A Visit Information Start: 06/22/21 17:38 Freq: Status: Active Protocol: Document 07/10/21 09:00 SP (Rec: 07/10/21 09:52 SP [id number]) Out-Patient Physical Therapy Visit Information Visit Information Visit Type Treatment Note Visit Note 05/14 visits Visit Start Time 09:00 Visit Stop Time 09:49 Total Visit Minutes 49 Visit Number 3 Number of LOCKSTITCH BACK MAKER Visits 1 PT-OP-B Current Condition Start: 06/22/21 17:38 Freq: Status: Active Protocol: Document 06/23/21 09:05 [facility] (Rec: 06/23/21 09:48 [facility] [id number]) Current Condition History of Current Condition History of Current Condition Pt reports she feels like her balance is getting worse. Her LBP has been worse on L side. She is working with a GI MD and she thinks she sees one next week. So far they have only done urine and blood testing and everything seems to be fine there. She feels like she has a fever at times. She takes tylenol every day to 2.5 days. Pt has an IUD and it is getting close to the point it may need to come out. Pt reports she feels extremely bloated and has to take imodium every now and then. Pt reports when she has to go have a BM it is an immediate need. She has been taking a digestive enzyme to help with meals. She has dec carbonated things and dec coffee. Pt reports back and GI issues started about 1 month ago. Pt reports B hips and knees (R>L typically) have been givign her trouble. she feels like her balance is a little worse recently. She has been using a trekking pole and keeping it with her depending on what she is doing . Prior Treatments and Tests PT in past which has helped Future Testing and Treatments Planned GI specialist follow up and Primary follow up Treatment Goals Patient/Caregiver Goals Improve mobility, improve balance, make walk more fluid, dec pain. Personal Factors Other Personal Factors That May Effect seizures, dizziness, back pain Therapy/Recovery , jaw pain, spastic paraplegia PT-OP-C Subjective Start: 06/22/21 17:38 Freq: Status: Active Protocol: Document 07/10/21 09:00 SP (Rec: 07/10/21 09:52 SP [id number]) OP-PT Subjective Patient Comments Patient Comments Pt states working on her HEP along with past ones. Pt states low back hurts but does all the time, tries not to allow it limit her. PT-OP-D Balance Start: 06/22/21 17:38 Freq: Status: Active Protocol: Document 06/23/21 09:05 [facility] (Rec: 06/23/21 09:48 [facility] [id number]) Balance Tests Single Limb Standing Single Limb- Right 5 sec w/lat shear of R hip Single Limb- Left 2 sec w/lat shear of L hip PT-OP-E Functional Tests Start: 06/22/21 17:38 Freq: Status: Active Protocol: Document 07/08/21 08:19 [facility] (Rec: 07/08/21 09:05 [facility] [id number]) Functional Tests Dynamic Gait Index (DGI) Score 19 Functional Gait Assessment Score 17 PT-OP-F Manual Assessment Start: 06/22/21 17:38 Freq: Status: Active Protocol: Document 06/23/21 09:05 [facility] (Rec: 06/23/21 09:48 [facility] [id number]) Manual Assessments Soft Tissue Assessment Soft Tissue Mobility Assessment L QL & L glutes tight & tender Joint Mobility Assessment Joint Mobility Assessment R ilac crest higher, equal greater trochanter PT-OP-J Posture/Palpation/Skin Start: 06/22/21 17:38 Freq: Status: Active Protocol: Document 06/23/21 09:05 [facility] (Rec: 06/23/21 09:48 [facility] [id number]) Posture Evaluation Leanne Postural Classification System Leanne Postural Classifications Posterior/Anterior Vertebral Compression Test 1 Lumbar Protective Mechanism Left AP 0 Lumbar Protective Mechanism Right AP 0 Lumbar Protective Mechanism Left PA 0 Lumbar Protective Mechanism Right PA 0 Comments Posture Comments trunk L rotated & L sidebend and R pelvic shear, ant pelvic tilt, knee hyperext B PT-OP-K Range of Motion Start: 06/22/21 17:38 Freq: Status: Active Protocol: Document 06/23/21 09:05 [facility] (Rec: 06/23/21 09:48 [facility] [id number]) Lumbar Spine Range of Motion Lumbar Spine Active Percentage Flexion 50 Extension 100 Rotation Left 70 Rotation Right 80 Lateral Flexion Left 60 Lateral Flexion Right 90 Comments pelvis rotates fwd w/L SB; pain L ext quadrant; when pelvis blocked hand to 2 in above patella PT-OP-L Special Tests Start: 06/22/21 17:38 Freq: Status: Active Protocol: Document 06/23/21 09:05 [facility] (Rec: 06/23/21 09:48 [facility] [id number]) Special Tests Lumbar Spine Special Tests Slump Test Results R slump LB symptoms w/dec symptoms w/neck flex Straight Leg Raise Test Results significant HS tightness and pain B knees at about 50 deg PT-OP-M Strength Start: 06/22/21 17:38 Freq: Status: Active Protocol: Document 06/23/21 09:05 [facility] (Rec: 06/23/21 09:48 [facility] [id number]) Hip Strength Hip Manual Muscle Testing Right Flexion (L2) 3 Fair Extension (S1) 3+ Fair+ Abduction 4- Good- Adduction 3+ Fair+ External Rotation 4 Good Internal Rotation 3+ Fair+ Comments pain hip flex Left Flexion (L2) 3 Fair Extension (S1) 3+ Fair+ Abduction 3+ Fair+ Adduction 4- Good- Internal Rotation 3+ Fair+ Comments pain hip flex Knee Strength Knee Manual Muscle Testing Right Flexion (S2) 5 Normal Extension (L3) 4+ Good+ Left Flexion (S2) 5 Normal Extension (L3) 4+ Good+ Ankle/Foot Strength Ankle and Foot Manual Muscle Testing Right Dorsiflexion (L4) 5 Normal Plantarflexion (S1) 5 Normal Comments 20 heel raises Left Dorsiflexion (L4) 5 Normal Plantarflexion (S1) 4 Good Comments pain in L LB, & L knee and L ankle (L ankle goes into more inversion) 15 heel raises PT-OP-Q Treatments Start: 06/22/21 17:38 Freq: Status: Active Protocol: Document 07/10/21 09:00 SP (Rec: 07/10/21 09:52 SP [id number]) Cardio Equipment Recumbent Elliptical (Biodex) Duration (Minutes) 5 Resistance 4 Seat Position 4 Other UE/LEs 918 steps Gym Equipment Therapeutic Ball seated Exercise Details Max cues for performance (PT only) Ball Size/Color 55cm Body Position Sitting Comments 1.pelvic tilts AP challenging, improved lateral wt shift tilts/sts x20 Therapeutic Exercises Supine Exercises TA April Supine Exercise Name added to HEP Side bilateral Resistance AROM Reps/Minutes x5 reps each LE Comments cued zip pants and pelvis still, no rocking- better form w/ slow pacing bridge Supine Exercise Name w/tilt first Side bilateral Reps/Minutes 10x5 sec hold Comments cued hold5 sec, good form after pelvic tilt Supine Exercise Name reviewed HEP Reps/Minutes 10 Comments min cues suck in belly like zip pants Standing Exercises hip flexor stretch Side bilateral Reps/Minutes 30 sec Comments Cued zipper suck in, allow heel up and pelvis forward good ant hip stretc Other Exercises tail wags Other Exercise Name on elbows due to wrist strain/ discomfort Side bilateral Resistance provided physical demonstration to follow Equipment Used in PT only at this time (in future give print out when confident in PT) Reps/Minutes x20 Comments challenging: max verbal and tactile cuing cat/camel Other Exercise Name reviewed HEP Reps/Minutes 10 Comments good form Neuro Re-Education Treatment Balance Activities tandem stance Details added to HEP Equipment rail/chair on side PRN hands hover Reps/Duration hold EO up to 6-10 sec Comments Extra time spent end postural alignment, set up. Self-Care/Home Management Treatment Education Patient Education Body Mechanics,Home Exercise Program,Posture Other Education added TA April, tandem stance balance for HEP. Extra time spent on end for TA, pelvic tilts and positioning/ cuing that works for her understanding. PT-OP-R Modalities Start: 07/08/21 09:04 Freq: Status: Active Protocol: Document 07/08/21 08:19 [facility] (Rec: 07/08/21 09:05 [facility] [id number]) Hot Pack/Cold Pack Treatment Hot Pack Location lumbar Patient Position Prone Treatment Duration (minutes) 10 PT-OP-T Assessment and Plan Start: 06/22/21 17:38 Freq: Status: Active Protocol: Document 07/10/21 09:00 SP (Rec: 07/10/21 09:52 SP [id number]) Physical Therapy Assessment Goals pain Alf Goal (LTG) Pt will report at least 80% reduction in back pain from start of therapy. LTG Duration 8/3/22 strength Short Term Goal (STG) Pt will be indep w/HEP STG Duration 08/05/21 [employer] Goal (LTG) Pt will score at least 4+/5 on all MMT of B LEs and at least 3/5 on LPM in all planes to show improved stability to dec instances of pain and dec risk for falls LTG Duration 09/23/21 SL [employer] Goal (LTG) pt will be able to do SLS for 10 sec B to show improve stability for gait and balance . LTG Duration 09/23/21 balance Short Term Goal (STG) Pt will score at least 20/30 on FGA to show dec risk for falls STG Duration 08/20/21 Alf Goal (LTG) Pt will score at least 23/30 on FGA to show dec risk for falls LTG Duration 09/23/21 Assessment Summary Assessment Pt tolerated exercises well, less cuing for TA facilitation supine so added TA SL march lifts. Good form during cat/ camel but had difficulty with tail wag sequencing concept in quadruped, provided seated Tball and improved lateral SB pelvis tilting. Pt improvement tandem stance at rail/ chair hover post cues for trunk alignment over BLE, soft knee, core engagement up to 10 sec EO no UE contact, ed continue at home. Physical Therapy Plan Frequency and Duration Frequency of Treatment 1-2x/week Duration of Treatment 3 months Plan of Care Start Date 06/23/21 Plan of Care End Date 09/23/21 Therapeutic Interventions Therapeutic Interventions Aquatic Therapy,Balance Training,Gait Training,Home Exercise Program,Joint Mobilizations,Manual Therapy, Neuromuscular Re-education, Orthotic/Prosthetic Management ,Patient/Caregiver Education, Self-Care/Home Management,Soft Tissue Mobilization,Taping, Therapeutic Activities, Therapeutic Exercises Modalities Cold Pack/Ice Massage,Electric Stimulation,Hot Packs, Traction- Mechanical, Ultrasound Next Visit Focus/Plan Next Note Type Treatment Note Next Visit Plan review HEP: quadruped cat/ camel, TA supine: april, bridge, tandem stance. POC: progress balance and lumbar manual techniques
--- NOTE | 2021-07-16 09:48 | PT.OTN ---
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) Pain in unspecified hip (07/16/21) Pain in unspecified knee (07/16/21) Low back pain, unspecified (07/16/21) Unspecified abnormalities of gait and mobility (07/16/21) Abnormal posture (07/16/21) Weakness (07/16/21) Physical Therapy Treatment Note PT-OP-A Visit Information Start: 06/22/21 17:38 Freq: Status: Active Protocol: Document 07/16/21 09:01 [facility] (Rec: 07/16/21 09:48 [facility] [id number]) Out-Patient Physical Therapy Visit Information Visit Information Visit Type Treatment Note Visit Note 06/14 visits Visit Start Time 09:02 Visit Stop Time 09:47 Total Visit Minutes 45 Visit Number 4 Number of LEGUILLON DEBEADER Visits 0 PT-OP-B Current Condition Start: 06/22/21 17:38 Freq: Status: Active Protocol: Document 06/23/21 09:05 [facility] (Rec: 06/23/21 09:48 [facility] [id number]) Current Condition History of Current Condition History of Current Condition Pt reports she feels like her balance is getting worse. Her LBP has been worse on L side. She is working with a GI MD and she thinks she sees one next week. So far they have only done urine and blood testing and everything seems to be fine there. She feels like she has a fever at times. She takes tylenol every day to 2.5 days. Pt has an IUD and it is getting close to the point it may need to come out. Pt reports she feels extremely bloated and has to take imodium every now and then. Pt reports when she has to go have a BM it is an immediate need. She has been taking a digestive enzyme to help with meals. She has dec carbonated things and dec coffee. Pt reports back and GI issues started about 1 month ago. Pt reports B hips and knees (R>L typically) have been givign her trouble. she feels like her balance is a little worse recently. She has been using a trekking pole and keeping it with her depending on what she is doing . Prior Treatments and Tests PT in past which has helped Future Testing and Treatments Planned GI specialist follow up and Primary follow up Treatment Goals Patient/Caregiver Goals Improve mobility, improve balance, make walk more fluid, dec pain. Personal Factors Other Personal Factors That May Effect seizures, dizziness, back pain Therapy/Recovery , jaw pain, spastic paraplegia PT-OP-C Subjective Start: 06/22/21 17:38 Freq: Status: Active Protocol: Document 07/10/21 09:00 SP (Rec: 07/10/21 09:52 SP [id number]) OP-PT Subjective Patient Comments Patient Comments Pt states working on her HEP along with past ones. Pt states low back hurts but does all the time, tries not to allow it limit her. PT-OP-D Balance Start: 06/22/21 17:38 Freq: Status: Active Protocol: Document 06/23/21 09:05 [facility] (Rec: 06/23/21 09:48 [facility] [id number]) Balance Tests Single Limb Standing Single Limb- Right 5 sec w/lat shear of R hip Single Limb- Left 2 sec w/lat shear of L hip PT-OP-E Functional Tests Start: 06/22/21 17:38 Freq: Status: Active Protocol: Document 07/08/21 08:19 [facility] (Rec: 07/08/21 09:05 [facility] [id number]) Functional Tests Dynamic Gait Index (DGI) Score 19 Functional Gait Assessment Score 17 PT-OP-F Manual Assessment Start: 06/22/21 17:38 Freq: Status: Active Protocol: Document 06/23/21 09:05 [facility] (Rec: 06/23/21 09:48 [facility] [id number]) Manual Assessments Soft Tissue Assessment Soft Tissue Mobility Assessment L QL & L glutes tight & tender Joint Mobility Assessment Joint Mobility Assessment R ilac crest higher, equal greater trochanter PT-OP-J Posture/Palpation/Skin Start: 06/22/21 17:38 Freq: Status: Active Protocol: Document 06/23/21 09:05 [facility] (Rec: 06/23/21 09:48 [facility] [id number]) Posture Evaluation Leanne Postural Classification System Leanne Postural Classifications Posterior/Anterior Vertebral Compression Test 1 Lumbar Protective Mechanism Left AP 0 Lumbar Protective Mechanism Right AP 0 Lumbar Protective Mechanism Left PA 0 Lumbar Protective Mechanism Right PA 0 Comments Posture Comments trunk L rotated & L sidebend and R pelvic shear, ant pelvic tilt, knee hyperext B PT-OP-K Range of Motion Start: 06/22/21 17:38 Freq: Status: Active Protocol: Document 06/23/21 09:05 [facility] (Rec: 06/23/21 09:48 [facility] [id number]) Lumbar Spine Range of Motion Lumbar Spine Active Percentage Flexion 50 Extension 100 Rotation Left 70 Rotation Right 80 Lateral Flexion Left 60 Lateral Flexion Right 90 Comments pelvis rotates fwd w/L SB; pain L ext quadrant; when pelvis blocked hand to 2 in above patella PT-OP-L Special Tests Start: 06/22/21 17:38 Freq: Status: Active Protocol: Document 06/23/21 09:05 [facility] (Rec: 06/23/21 09:48 [facility] [id number]) Special Tests Lumbar Spine Special Tests Slump Test Results R slump LB symptoms w/dec symptoms w/neck flex Straight Leg Raise Test Results significant HS tightness and pain B knees at about 50 deg PT-OP-M Strength Start: 06/22/21 17:38 Freq: Status: Active Protocol: Document 06/23/21 09:05 [facility] (Rec: 06/23/21 09:48 [facility] [id number]) Hip Strength Hip Manual Muscle Testing Right Flexion (L2) 3 Fair Extension (S1) 3+ Fair+ Abduction 4- Good- Adduction 3+ Fair+ External Rotation 4 Good Internal Rotation 3+ Fair+ Comments pain hip flex Left Flexion (L2) 3 Fair Extension (S1) 3+ Fair+ Abduction 3+ Fair+ Adduction 4- Good- Internal Rotation 3+ Fair+ Comments pain hip flex Knee Strength Knee Manual Muscle Testing Right Flexion (S2) 5 Normal Extension (L3) 4+ Good+ Left Flexion (S2) 5 Normal Extension (L3) 4+ Good+ Ankle/Foot Strength Ankle and Foot Manual Muscle Testing Right Dorsiflexion (L4) 5 Normal Plantarflexion (S1) 5 Normal Comments 20 heel raises Left Dorsiflexion (L4) 5 Normal Plantarflexion (S1) 4 Good Comments pain in L LB, & L knee and L ankle (L ankle goes into more inversion) 15 heel raises PT-OP-Q Treatments Start: 06/22/21 17:38 Freq: Status: Active Protocol: Document 07/16/21 09:01 [facility] (Rec: 07/16/21 09:48 [facility] [id number]) Cardio Equipment Recumbent Elliptical (Offerum) Duration (Minutes) 5 Resistance 6 Seat Position 4 Other UE/LEs Therapeutic Exercises Supine Exercises TA SL april Supine Exercise Name review HEP Side bilateral Resistance AROM Reps/Minutes x10 reps each LE Comments cues to avoid pelvis rot bridge Supine Exercise Name w/tilt first Side bilateral Reps/Minutes 5x5 sec hold Comments cued hold5 sec, good form after pelvic tilt Supine Exercise Name reviewed HEP Reps/Minutes 10 Comments mod cues to get pelvis to tilt further Standing Exercises side step Side bilateral Equipment Used lvl 1 Reps/Minutes 20ft Comments cues for foot position and core april Standing Exercise Name alt in mirror holding on trying to work on no lat shear of hip or body Side bilateral Reps/Minutes 5 Comments w/holds and max cues hip hike Side bilateral Equipment Used step w/rail Reps/Minutes 12 ea hip flexor stretch Side bilateral Reps/Minutes 30 sec Comments cued for tilt Other Exercises tail wags Side bilateral Reps/Minutes 10 Comments good form after demo cat/camel Other Exercise Name reviewed HEP Reps/Minutes 10 Comments good form w/o cues Manual Therapy Treatment Soft Tissue Mobilization hip flexor Body Location R psoas Mobilization Type Sustained Pressure Comments viky knife FM Joint Mobilizations innominate Joint flex B FM hip Joint inf glide B Direction FM lumbar Joint AP L3 & L5 FM viky knife PT-OP-R Modalities Start: 07/08/21 09:04 Freq: Status: Active Protocol: Document 07/08/21 08:19 [facility] (Rec: 07/08/21 09:05 [facility] [id number]) Hot Pack/Cold Pack Treatment Hot Pack Location lumbar Patient Position Prone Treatment Duration (minutes) 10 PT-OP-T Assessment and Plan Start: 06/22/21 17:38 Freq: Status: Active Protocol: Document 07/16/21 09:01 [facility] (Rec: 07/16/21 09:48 [facility] [id number]) Physical Therapy Assessment Goals pain Informatics Physician Goal (LTG) Pt will report at least 80% reduction in back pain from start of therapy. LTG Duration 09/23/21 strength Short Term Goal (STG) Pt will be indep w/HEP STG Duration 08/05/21 Informatics Physician Goal (LTG) Pt will score at least 4+/5 on all MMT of B LEs and at least 3/5 on LPM in all planes to show improved stability to dec instances of pain and dec risk for falls LTG Duration 09/23/21 SL Informatics Physician Goal (LTG) pt will be able to do SLS for 10 sec B to show improve stability for gait and balance . LTG Duration 09/23/21 balance Short Term Goal (STG) Pt will score at least 20/30 on FGA to show dec risk for falls STG Duration 08/20/21 Informatics Physician Goal (LTG) Pt will score at least 23/30 on FGA to show dec risk for falls LTG Duration 09/23/21 Assessment Summary Assessment Pt improved w/exericse performance and required less cueing. HIP abd are significantly weak which affect her gait and liekly back pain. Improved hip flex and pelvic tilt ability w/ manual Physical Therapy Plan Frequency and Duration Frequency of Treatment 1-2x/week Duration of Treatment 3 months Plan of Care Start Date 06/23/21 Plan of Care End Date 09/23/21 Next Visit Focus/Plan Next Note Type Treatment Note Next Visit Plan review: newer eercises w/ progression of balance and core, try tball tilts
--- NOTE | 2021-07-23 09:43 | PT.OTN ---
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) Pain in unspecified hip (07/23/21) Pain in unspecified knee (07/23/21) Low back pain, unspecified (07/23/21) Unspecified abnormalities of gait and mobility (07/23/21) Abnormal posture (07/23/21) Weakness (07/23/21) Physical Therapy Treatment Note PT-OP-A Visit Information Start: 06/22/21 17:38 Freq: Status: Active Protocol: Document 07/23/21 09:04 SP (Rec: 07/23/21 09:47 SP [id number]) Out-Patient Physical Therapy Visit Information Visit Information Visit Type Treatment Note Visit Note 07/14 Vitals post biodex and hurdles : bp 115/72 HR 80 Visit Start Time 09:04 Visit Stop Time 09:43 Total Visit Minutes 38 Visit Number 5 Number of GAS TURBINE MECHANIC Visits 1 PT-OP-B Current Condition Start: 06/22/21 17:38 Freq: Status: Active Protocol: Document 06/23/21 09:05 [facility] (Rec: 06/23/21 09:48 [facility] [id number]) Current Condition History of Current Condition History of Current Condition Pt reports she feels like her balance is getting worse. Her LBP has been worse on L side. She is working with a GI MD and she thinks she sees one next week. So far they have only done urine and blood testing and everything seems to be fine there. She feels like she has a fever at times. She takes tylenol every day to 2.5 days. Pt has an IUD and it is getting close to the point it may need to come out. Pt reports she feels extremely bloated and has to take imodium every now and then. Pt reports when she has to go have a BM it is an immediate need. She has been taking a digestive enzyme to help with meals. She has dec carbonated things and dec coffee. Pt reports back and GI issues started about 1 month ago. Pt reports B hips and knees (R>L typically) have been givign her trouble. she feels like her balance is a little worse recently. She has been using a trekking pole and keeping it with her depending on what she is doing . Prior Treatments and Tests PT in past which has helped Future Testing and Treatments Planned GI specialist follow up and Primary follow up Treatment Goals Patient/Caregiver Goals Improve mobility, improve balance, make walk more fluid, dec pain. Personal Factors Other Personal Factors That May Effect seizures, dizziness, back pain Therapy/Recovery , jaw pain, spastic paraplegia PT-OP-C Subjective Start: 06/22/21 17:38 Freq: Status: Active Protocol: Document 07/23/21 09:04 SP (Rec: 07/23/21 09:47 SP [id number]) OP-PT Subjective Patient Comments Patient Comments Pt reports was instructed to stop a medication Zeroxotine for depression and pain due to side effects having and will take a few days do clear system and noticed tires quickly and napping. Will be prescribed new med had prior ( for depression but didn't have pain relief additive) restart in couple weeks so might need adjustment in activity level. PT-OP-D Balance Start: 06/22/21 17:38 Freq: Status: Active Protocol: Document 06/23/21 09:05 [facility] (Rec: 06/23/21 09:48 [facility] [id number]) Balance Tests Single Limb Standing Single Limb- Right 5 sec w/lat shear of R hip Single Limb- Left 2 sec w/lat shear of L hip PT-OP-E Functional Tests Start: 06/22/21 17:38 Freq: Status: Active Protocol: Document 07/08/21 08:19 [facility] (Rec: 07/08/21 09:05 [facility] [id number]) Functional Tests Dynamic Gait Index (DGI) Score 19 Functional Gait Assessment Score 17 PT-OP-F Manual Assessment Start: 06/22/21 17:38 Freq: Status: Active Protocol: Document 06/23/21 09:05 [facility] (Rec: 06/23/21 09:48 [facility] [id number]) Manual Assessments Soft Tissue Assessment Soft Tissue Mobility Assessment L QL & L glutes tight & tender Joint Mobility Assessment Joint Mobility Assessment R ilac crest higher, equal greater trochanter PT-OP-J Posture/Palpation/Skin Start: 06/22/21 17:38 Freq: Status: Active Protocol: Document 06/23/21 09:05 [facility] (Rec: 06/23/21 09:48 [facility] [id number]) Posture Evaluation Leanne Postural Classification System Leanne Postural Classifications Posterior/Anterior Vertebral Compression Test 1 Lumbar Protective Mechanism Left AP 0 Lumbar Protective Mechanism Right AP 0 Lumbar Protective Mechanism Left PA 0 Lumbar Protective Mechanism Right PA 0 Comments Posture Comments trunk L rotated & L sidebend and R pelvic shear, ant pelvic tilt, knee hyperext B PT-OP-K Range of Motion Start: 06/22/21 17:38 Freq: Status: Active Protocol: Document 06/23/21 09:05 [facility] (Rec: 06/23/21 09:48 [facility] [id number]) Lumbar Spine Range of Motion Lumbar Spine Active Percentage Flexion 50 Extension 100 Rotation Left 70 Rotation Right 80 Lateral Flexion Left 60 Lateral Flexion Right 90 Comments pelvis rotates fwd w/L SB; pain L ext quadrant; when pelvis blocked hand to 2 in above patella PT-OP-L Special Tests Start: 06/22/21 17:38 Freq: Status: Active Protocol: Document 06/23/21 09:05 [facility] (Rec: 06/23/21 09:48 [facility] [id number]) Special Tests Lumbar Spine Special Tests Slump Test Results R slump LB symptoms w/dec symptoms w/neck flex Straight Leg Raise Test Results significant HS tightness and pain B knees at about 50 deg PT-OP-M Strength Start: 06/22/21 17:38 Freq: Status: Active Protocol: Document 06/23/21 09:05 [facility] (Rec: 06/23/21 09:48 [facility] [id number]) Hip Strength Hip Manual Muscle Testing Right Flexion (L2) 3 Fair Extension (S1) 3+ Fair+ Abduction 4- Good- Adduction 3+ Fair+ External Rotation 4 Good Internal Rotation 3+ Fair+ Comments pain hip flex Left Flexion (L2) 3 Fair Extension (S1) 3+ Fair+ Abduction 3+ Fair+ Adduction 4- Good- Internal Rotation 3+ Fair+ Comments pain hip flex Knee Strength Knee Manual Muscle Testing Right Flexion (S2) 5 Normal Extension (L3) 4+ Good+ Left Flexion (S2) 5 Normal Extension (L3) 4+ Good+ Ankle/Foot Strength Ankle and Foot Manual Muscle Testing Right Dorsiflexion (L4) 5 Normal Plantarflexion (S1) 5 Normal Comments 20 heel raises Left Dorsiflexion (L4) 5 Normal Plantarflexion (S1) 4 Good Comments pain in L LB, & L knee and L ankle (L ankle goes into more inversion) 15 heel raises PT-OP-Q Treatments Start: 06/22/21 17:38 Freq: Status: Active Protocol: Document 07/23/21 09:04 SP (Rec: 07/23/21 09:47 SP [id number]) Cardio Equipment Recumbent Elliptical (Biodex) Duration (Minutes) 5 Resistance 6>3 Seat Position 4 first notch Other UE/LEs Therapeutic Exercises Supine Exercises TA SL march Supine Exercise Name review HEP Side bilateral Resistance AROM Reps/Minutes x10 reps each LE Comments cues to avoid pelvis rock asc/ desc each LE more TA fac bridge Supine Exercise Name good self w/tilt first Side bilateral Reps/Minutes 5x5 sec hold Comments good form this tx 6/2 pelvic tilt Supine Exercise Name reviewed HEP- TA engagement then pelvic tilts Reps/Minutes 10 Comments min cues to get pelvis to tilt further Standing Exercises hip flexor stretch Side bilateral Reps/Minutes 30 sec Comments cued for tilt Other Exercises child's pose stretch Other Exercise Name reviewed past stretch HEP Resistance on elbows Reps/Minutes 30 x2 Comments cued wider B knees tail wags Other Exercise Name on elbows Side bilateral Reps/Minutes 10 Comments good form demonstration without cues today cat/camel Other Exercise Name reviewed HEP- on elbows Reps/Minutes 10 Comments good form w/o cues Neuro Re-Education Treatment Balance Activities zoran stepping Details fwd, side stepping 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 (Rec: 07/08/21 09:05 [facility] [id number]) Hot Pack/Cold Pack Treatment Hot Pack Location lumbar Patient Position Prone Treatment Duration (minutes) 10 PT-OP-T Assessment and Plan Start: 06/22/21 17:38 Freq: Status: Active Protocol: Document 07/23/21 09:04 SP (Rec: 07/23/21 09:47 SP [id number]) Physical Therapy Assessment Goals pain Camp Director Goal (LTG) Pt will report at least 80% reduction in back pain from start of therapy. LTG Duration 09/23/21 strength Short Term Goal (STG) Pt will be indep w/HEP STG Duration 6/15/22 Jail Goal (LTG) Pt will score at least 4+/5 on all MMT of B LEs and at least 3/5 on LPM in all planes to show improved stability to dec instances of pain and dec risk for falls LTG Duration 09/23/21 SL Jail Goal (LTG) pt will be able to do SLS for 10 sec B to show improve stability for gait and balance . LTG Duration 09/23/21 balance Short Term Goal (STG) Pt will score at least 20/30 on FGA to show dec risk for falls STG Duration 08/20/21 Jail Goal (LTG) Pt will score at least 23/30 on FGA to show dec risk for falls LTG Duration 09/23/21 Assessment Summary Assessment Pt improved zoran stepping and corner tandem balance today wtih cues for scap, core and hip abd engagement for stabilty, able hold balance 14 more seconds. Good self corrections with bridge pelvic tilt positioning with TA fac. Challenged supine pelvic tilts, improved demonstration quadruped A/P/Lateral. Pt tires quickly so needed rest breaks frequently. Physical Therapy Plan Frequency and Duration Frequency of Treatment 1-2x/week Duration of Treatment 3 months Plan of Care Start Date 06/23/21 Plan of Care End Date 09/23/21 Therapeutic Interventions Therapeutic Interventions Aquatic Therapy,Balance Training,Gait Training,Home Exercise Program,Joint Mobilizations,Manual Therapy, Neuromuscular Re-education, Orthotic/Prosthetic Management ,Patient/Caregiver Education, Self-Care/Home Management,Soft Tissue Mobilization,Taping, Therapeutic Activities, Therapeutic Exercises Modalities Cold Pack/Ice Massage,Electric Stimulation,Hot Packs, Traction- Mechanical, Ultrasound Next Visit Focus/Plan Next Note Type Treatment Note Next Visit Plan Next tx: tball sit pelvic tilts and progress balance and core.
--- NOTE | 2021-07-28 09:51 | PT.OTN ---
Current Diagnoses Hereditary spastic paraplegia (07/28/21) Pain in unspecified hip (07/28/21) Pain in unspecified knee (07/28/21) Low back pain, unspecified (07/28/21) Abnormal posture (07/28/21) Weakness (07/28/21) Physical Therapy Treatment Note PT-OP-A Visit Information Start: 06/22/21 17:38 Freq: Status: Active Protocol: Document 07/28/21 09:07 [facility] (Rec: 07/28/21 09:51 [facility] [id number]) Out-Patient Physical Therapy Visit Information Visit Information Visit Type Treatment Note Visit Note 08/14 Visit Start Time 09:05 Visit Stop Time 09:45 Total Visit Minutes 40 Visit Number 6 Number of PRICE CHECKER Visits 0 PT-OP-B Current Condition Start: 06/22/21 17:38 Freq: Status: Active Protocol: Document 06/23/21 09:05 [facility] (Rec: 06/23/21 09:48 [facility] [id number]) Current Condition History of Current Condition History of Current Condition Pt reports she feels like her balance is getting worse. Her LBP has been worse on L side. She is working with a GI MD and she thinks she sees one next week. So far they have only done urine and blood testing and everything seems to be fine there. She feels like she has a fever at times. She takes tylenol every day to 2.5 days. Pt has an IUD and it is getting close to the point it may need to come out. Pt reports she feels extremely bloated and has to take imodium every now and then. Pt reports when she has to go have a BM it is an immediate need. She has been taking a digestive enzyme to help with meals. She has dec carbonated things and dec coffee. Pt reports back and GI issues started about 1 month ago. Pt reports B hips and knees (R>L typically) have been givign her trouble. she feels like her balance is a little worse recently. She has been using a trekking pole and keeping it with her depending on what she is doing . Prior Treatments and Tests PT in past which has helped Future Testing and Treatments Planned GI specialist follow up and Primary follow up Treatment Goals Patient/Caregiver Goals Improve mobility, improve balance, make walk more fluid, dec pain. Personal Factors Other Personal Factors That May Effect seizures, dizziness, back pain Therapy/Recovery , jaw pain, spastic paraplegia PT-OP-C Subjective Start: 06/22/21 17:38 Freq: Status: Active Protocol: Document 07/28/21 09:07 [facility] (Rec: 07/28/21 09:51 [facility] [id number]) OP-PT Subjective Patient Comments Patient Comments Pt went off her diet w/issues w/meds, but is back on. Noticed more stomach pain w/ going off diet. She is feeling tired still from coming off med and weak. PT-OP-D Balance Start: 06/22/21 17:38 Freq: Status: Active Protocol: Document 06/23/21 09:05 [facility] (Rec: 06/23/21 09:48 [facility] [id number]) Balance Tests Single Limb Standing Single Limb- Right 5 sec w/lat shear of R hip Single Limb- Left 2 sec w/lat shear of L hip PT-OP-E Functional Tests Start: 06/22/21 17:38 Freq: Status: Active Protocol: Document 07/08/21 08:19 [facility] (Rec: 07/08/21 09:05 [facility] [id number]) Functional Tests Dynamic Gait Index (DGI) Score 19 Functional Gait Assessment Score 17 PT-OP-F Manual Assessment Start: 06/22/21 17:38 Freq: Status: Active Protocol: Document 06/23/21 09:05 [facility] (Rec: 06/23/21 09:48 [facility] [id number]) Manual Assessments Soft Tissue Assessment Soft Tissue Mobility Assessment L QL & L glutes tight & tender Joint Mobility Assessment Joint Mobility Assessment R ilac crest higher, equal greater trochanter PT-OP-J Posture/Palpation/Skin Start: 06/22/21 17:38 Freq: Status: Active Protocol: Document 06/23/21 09:05 [facility] (Rec: 06/23/21 09:48 [facility] [id number]) Posture Evaluation Leanne Postural Classification System Leanne Postural Classifications Posterior/Anterior Vertebral Compression Test 1 Lumbar Protective Mechanism Left AP 0 Lumbar Protective Mechanism Right AP 0 Lumbar Protective Mechanism Left PA 0 Lumbar Protective Mechanism Right PA 0 Comments Posture Comments trunk L rotated & L sidebend and R pelvic shear, ant pelvic tilt, knee hyperext B PT-OP-K Range of Motion Start: 06/22/21 17:38 Freq: Status: Active Protocol: Document 06/23/21 09:05 [facility] (Rec: 06/23/21 09:48 [facility] [id number]) Lumbar Spine Range of Motion Lumbar Spine Active Percentage Flexion 50 Extension 100 Rotation Left 70 Rotation Right 80 Lateral Flexion Left 60 Lateral Flexion Right 90 Comments pelvis rotates fwd w/L SB; pain L ext quadrant; when pelvis blocked hand to 2 in above patella PT-OP-L Special Tests Start: 06/22/21 17:38 Freq: Status: Active Protocol: Document 06/23/21 09:05 [facility] (Rec: 06/23/21 09:48 [facility] [id number]) Special Tests Lumbar Spine Special Tests Slump Test Results R slump LB symptoms w/dec symptoms w/neck flex Straight Leg Raise Test Results significant HS tightness and pain B knees at about 50 deg PT-OP-M Strength Start: 06/22/21 17:38 Freq: Status: Active Protocol: Document 06/23/21 09:05 [facility] (Rec: 06/23/21 09:48 [facility] [id number]) Hip Strength Hip Manual Muscle Testing Right Flexion (L2) 3 Fair Extension (S1) 3+ Fair+ Abduction 4- Good- Adduction 3+ Fair+ External Rotation 4 Good Internal Rotation 3+ Fair+ Comments pain hip flex Left Flexion (L2) 3 Fair Extension (S1) 3+ Fair+ Abduction 3+ Fair+ Adduction 4- Good- Internal Rotation 3+ Fair+ Comments pain hip flex Knee Strength Knee Manual Muscle Testing Right Flexion (S2) 5 Normal Extension (L3) 4+ Good+ Left Flexion (S2) 5 Normal Extension (L3) 4+ Good+ Ankle/Foot Strength Ankle and Foot Manual Muscle Testing Right Dorsiflexion (L4) 5 Normal Plantarflexion (S1) 5 Normal Comments 20 heel raises Left Dorsiflexion (L4) 5 Normal Plantarflexion (S1) 4 Good Comments pain in L LB, & L knee and L ankle (L ankle goes into more inversion) 15 heel raises PT-OP-Q Treatments Start: 06/22/21 17:38 Freq: Status: Active Protocol: Document 07/28/21 09:07 [facility] (Rec: 07/28/21 09:51 [facility] [id number]) Cardio Equipment Recumbent Stepper (Sci-Fit) Duration (Minutes) 5 Resistance 6 Seat Position 6 Gym Equipment Therapeutic Ball seated Exercise Details Max cues for performance Ball Size/Color 55cm Body Position Sitting Reps/Duration 15 ea Comments 1. pelvic tilt 2. pelvic circles B 3. marches Therapeutic Exercises Supine Exercises TA SL march Supine Exercise Name review HEP Side bilateral Resistance AROM Reps/Minutes x10 reps each LE Comments cues to avoid pelvis rock asc/ desc each LE more TA fac Manual Therapy Treatment Soft Tissue Mobilization lumbar Body Location B ql Mobilization Type Oscillations,Strumming Intensity/Depth Moderate Body Position Sidelying Comments w/c/r pelvic pnf Joint Mobilizations innominate Joint R gapping FM lumbar Comments gapping L4-5-S1 FM w/post dep R Neuro Re-Education Treatment Balance Activities head turns Details horizontal & vertical B Reps/Duration 4x50ft Comments fast walk zoran stepping Comments 1. tap fwd/back x8 B 2. reciprocal over 6 hurdles rail prn only x8 3. side step over hurdles (6) x2 B PT-OP-R Modalities Start: 07/08/21 09:04 Freq: Status: Active Protocol: Document 07/08/21 08:19 [facility] (Rec: 07/08/21 09:05 [facility] [id number]) Hot Pack/Cold Pack Treatment Hot Pack Location lumbar Patient Position Prone Treatment Duration (minutes) 10 PT-OP-T Assessment and Plan Start: 06/22/21 17:38 Freq: Status: Active Protocol: Document 07/28/21 09:07 [facility] (Rec: 07/28/21 09:51 [facility] [id number]) Physical Therapy Assessment Goals pain Cell Coverer Goal (LTG) Pt will report at least 80% reduction in back pain from start of therapy. LTG Duration 09/23/21 strength Short Term Goal (STG) Pt will be indep w/HEP STG Duration 08/05/21 [facility] Goal (LTG) Pt will score at least 4+/5 on all MMT of B LEs and at least 3/5 on LPM in all planes to show improved stability to dec instances of pain and dec risk for falls LTG Duration 09/23/21 SL [facility] Goal (LTG) pt will be able to do SLS for 10 sec B to show improve stability for gait and balance . LTG Duration 09/23/21 balance Short Term Goal (STG) Pt will score at least 20/30 on FGA to show dec risk for falls STG Duration 08/20/21 Cell Coverer Goal (LTG) Pt will score at least 23/30 on FGA to show dec risk for falls LTG Duration 09/23/21 Assessment Summary Assessment Pt had more tightness in R>L QL that improved w/manual. Much difficulty on tball w/ pelvic motions and requires tactile and VC and demo to improve form. Physical Therapy Plan Frequency and Duration Frequency of Treatment 1-2x/week Duration of Treatment 3 months Plan of Care Start Date 06/23/21 Plan of Care End Date 09/23/21 Next Visit Focus/Plan Next Note Type Treatment Note Next Visit Plan Next tx: review tball sit pelvic tilts and progress balance and core.
--- NOTE | 2021-07-30 09:45 | PT.OTN ---
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) Pain in unspecified hip (07/30/21) Pain in unspecified knee (07/30/21) Low back pain, unspecified (07/30/21) Abnormal posture (07/30/21) Weakness (07/30/21) Physical Therapy Treatment Note PT-OP-A Visit Information Start: 06/22/21 17:38 Freq: Status: Active Protocol: Document 07/30/21 09:02 SP (Rec: 07/30/21 09:49 SP [id number]) Out-Patient Physical Therapy Visit Information Visit Information Visit Type Treatment Note Visit Note 09/13 Visit Start Time 09:02 Visit Stop Time 09:45 Total Visit Minutes 43 Visit Number 7 Number of ASSISTANT PROPERTY MANAGER Visits 1 PT-OP-B Current Condition Start: 06/22/21 17:38 Freq: Status: Active Protocol: Document 06/23/21 09:05 [facility] (Rec: 06/23/21 09:48 [facility] [id number]) Current Condition History of Current Condition History of Current Condition Pt reports she feels like her balance is getting worse. Her LBP has been worse on L side. She is working with a GI MD and she thinks she sees one next week. So far they have only done urine and blood testing and everything seems to be fine there. She feels like she has a fever at times. She takes tylenol every day to 2.5 days. Pt has an IUD and it is getting close to the point it may need to come out. Pt reports she feels extremely bloated and has to take imodium every now and then. Pt reports when she has to go have a BM it is an immediate need. She has been taking a digestive enzyme to help with meals. She has dec carbonated things and dec coffee. Pt reports back and GI issues started about 1 month ago. Pt reports B hips and knees (R>L typically) have been givign her trouble. she feels like her balance is a little worse recently. She has been using a trekking pole and keeping it with her depending on what she is doing . Prior Treatments and Tests PT in past which has helped Future Testing and Treatments Planned GI specialist follow up and Primary follow up Treatment Goals Patient/Caregiver Goals Improve mobility, improve balance, make walk more fluid, dec pain. Personal Factors Other Personal Factors That May Effect seizures, dizziness, back pain Therapy/Recovery , jaw pain, spastic paraplegia PT-OP-C Subjective Start: 06/22/21 17:38 Freq: Status: Active Protocol: Document 07/30/21 09:02 SP (Rec: 07/30/21 09:49 SP [id number]) OP-PT Subjective Patient Comments Patient Comments Pt reports will be reintroducing the previous medication next week, still decreased energy level today and wants to do what can but not over exhaust that cant complete ADLs needed. PT-OP-D Balance Start: 06/22/21 17:38 Freq: Status: Active Protocol: Document 06/23/21 09:05 [facility] (Rec: 06/23/21 09:48 [facility] [id number]) Balance Tests Single Limb Standing Single Limb- Right 5 sec w/lat shear of R hip Single Limb- Left 2 sec w/lat shear of L hip PT-OP-E Functional Tests Start: 06/22/21 17:38 Freq: Status: Active Protocol: Document 07/08/21 08:19 [facility] (Rec: 07/08/21 09:05 [facility] [id number]) Functional Tests Dynamic Gait Index (DGI) Score 19 Functional Gait Assessment Score 17 PT-OP-F Manual Assessment Start: 06/22/21 17:38 Freq: Status: Active Protocol: Document 06/23/21 09:05 [facility] (Rec: 06/23/21 09:48 [facility] [id number]) Manual Assessments Soft Tissue Assessment Soft Tissue Mobility Assessment L QL & L glutes tight & tender Joint Mobility Assessment Joint Mobility Assessment R ilac crest higher, equal greater trochanter PT-OP-J Posture/Palpation/Skin Start: 06/22/21 17:38 Freq: Status: Active Protocol: Document 06/23/21 09:05 [facility] (Rec: 06/23/21 09:48 [facility] [id number]) Posture Evaluation Leanne Postural Classification System Leanne Postural Classifications Posterior/Anterior Vertebral Compression Test 1 Lumbar Protective Mechanism Left AP 0 Lumbar Protective Mechanism Right AP 0 Lumbar Protective Mechanism Left PA 0 Lumbar Protective Mechanism Right PA 0 Comments Posture Comments trunk L rotated & L sidebend and R pelvic shear, ant pelvic tilt, knee hyperext B PT-OP-K Range of Motion Start: 06/22/21 17:38 Freq: Status: Active Protocol: Document 06/23/21 09:05 [facility] (Rec: 06/23/21 09:48 [facility] [id number]) Lumbar Spine Range of Motion Lumbar Spine Active Percentage Flexion 50 Extension 100 Rotation Left 70 Rotation Right 80 Lateral Flexion Left 60 Lateral Flexion Right 90 Comments pelvis rotates fwd w/L SB; pain L ext quadrant; when pelvis blocked hand to 2 in above patella PT-OP-L Special Tests Start: 06/22/21 17:38 Freq: Status: Active Protocol: Document 06/23/21 09:05 [facility] (Rec: 06/23/21 09:48 [facility] [id number]) Special Tests Lumbar Spine Special Tests Slump Test Results R slump LB symptoms w/dec symptoms w/neck flex Straight Leg Raise Test Results significant HS tightness and pain B knees at about 50 deg PT-OP-M Strength Start: 06/22/21 17:38 Freq: Status: Active Protocol: Document 06/23/21 09:05 [facility] (Rec: 06/23/21 09:48 [facility] [id number]) Hip Strength Hip Manual Muscle Testing Right Flexion (L2) 3 Fair Extension (S1) 3+ Fair+ Abduction 4- Good- Adduction 3+ Fair+ External Rotation 4 Good Internal Rotation 3+ Fair+ Comments pain hip flex Left Flexion (L2) 3 Fair Extension (S1) 3+ Fair+ Abduction 3+ Fair+ Adduction 4- Good- Internal Rotation 3+ Fair+ Comments pain hip flex Knee Strength Knee Manual Muscle Testing Right Flexion (S2) 5 Normal Extension (L3) 4+ Good+ Left Flexion (S2) 5 Normal Extension (L3) 4+ Good+ Ankle/Foot Strength Ankle and Foot Manual Muscle Testing Right Dorsiflexion (L4) 5 Normal Plantarflexion (S1) 5 Normal Comments 20 heel raises Left Dorsiflexion (L4) 5 Normal Plantarflexion (S1) 4 Good Comments pain in L LB, & L knee and L ankle (L ankle goes into more inversion) 15 heel raises PT-OP-Q Treatments Start: 06/22/21 17:38 Freq: Status: Active Protocol: Document 07/30/21 09:02 SP (Rec: 07/30/21 09:49 SP [id number]) Cardio Equipment Recumbent Elliptical (Biodex) Duration (Minutes) 5 Resistance 6>3 Seat Position 4 first notch Other UE/LEs, 45 RPMs Gym Equipment Shuttle Balance red Details WBOS, NBOS, staggered stance: fwd/ bwd Reps/Duration 2 min Comments CGA5%A WBOS 5%A NBOS 25%A stagger cued core and alignment tires quickly Therapeutic Ball seated Exercise Details Min cues for performance Ball Size/Color 55cm Body Position Sitting Reps/Duration 15 ea table nearby contact PRN Comments 1. pelvic tilt 2. pelvic circles B 3. marches Better tilts with cues rock on sit bones f/b, tail wag lateral Therapeutic Exercises Supine Exercises TA SL march Supine Exercise Name review HEP Side bilateral Resistance AROM Reps/Minutes x10 reps each LE Comments occ cues to avoid pelvis rock asc/desc each LE more TA fac bridge Supine Exercise Name good self w/tilt first Side bilateral Reps/Minutes 5x5 sec hold Comments good form this tx 07/30 pelvic tilt Supine Exercise Name reviewed HEP- TA engagement then pelvic tilts Reps/Minutes 10 sec hold x5 reps Comments min cues to get pelvis to tilt further Neuro Re-Education Treatment Balance Activities head turns Details horizontal & vertical B Reps/Duration 50ft, 160 ft Comments fast walk, cued eccentric heel strike with shld blade squeeze. improved hip abd and trunk stability but tires quickly- completed end tx. zoran stepping Comments 1. heel toe/ taps- fwd/back x8 B 2. reciprocal over 6 hurdles rail prn only (1 time) x3 laps 3. side step over hurdles (6) x2 B PT-OP-R Modalities Start: 07/08/21 09:04 Freq: Status: Active Protocol: Document 07/08/21 08:19 [facility] (Rec: 07/08/21 09:05 [facility] [id number]) Hot Pack/Cold Pack Treatment Hot Pack Location lumbar Patient Position Prone Treatment Duration (minutes) 10 PT-OP-T Assessment and Plan Start: 06/22/21 17:38 Freq: Status: Active Protocol: Document 07/30/21 09:02 SP (Rec: 07/30/21 09:49 SP [id number]) Physical Therapy Assessment Goals pain Detention Goal (LTG) Pt will report at least 80% reduction in back pain from start of therapy. LTG Duration 09/23/21 strength Short Term Goal (STG) Pt will be indep w/HEP STG Duration 08/05/21 Tree Fruit And Nut Farming Supervisor Goal (LTG) Pt will score at least 4+/5 on all MMT of B LEs and at least 3/5 on LPM in all planes to show improved stability to dec instances of pain and dec risk for falls LTG Duration 09/23/21 SL Detention Goal (LTG) pt will be able to do SLS for 10 sec B to show improve stability for gait and balance . LTG Duration 09/23/21 balance Short Term Goal (STG) Pt will score at least 20/30 on FGA to show dec risk for falls STG Duration 08/20/21 [employer] Farming Supervisor Goal (LTG) Pt will score at least 23/30 on FGA to show dec risk for falls LTG Duration 09/23/21 Assessment Summary Assessment Pt improved self adjustments in eccentric heel strike during zoran stepping with cuing. She was able to walk further distance dynamic gait with head turns, cued for same core stability. Pt improved pelvic tilts seated on ball with cuing for rocking on sit bones and tail wag for performance. Pt needed rest breaks between activities for tiring recovery due to decreased endurance with adjustments in medications. Physical Therapy Plan Frequency and Duration Frequency of Treatment 1-2x/week Duration of Treatment 3 months Plan of Care Start Date 06/23/21 Plan of Care End Date 09/23/21 Therapeutic Interventions Therapeutic Interventions Aquatic Therapy,Balance Training,Gait Training,Home Exercise Program,Joint Mobilizations,Manual Therapy, Neuromuscular Re-education, Orthotic/Prosthetic Management ,Patient/Caregiver Education, Self-Care/Home Management,Soft Tissue Mobilization,Taping, Therapeutic Activities, Therapeutic Exercises Modalities Cold Pack/Ice Massage,Electric Stimulation,Hot Packs, Traction- Mechanical, Ultrasound Next Visit Focus/Plan Next Note Type Treatment Note Next Visit Plan Next tx: review tball sit pelvic tilts and progress balance and core with DF and eccentric heel strike hip/core controll.
--- NOTE | 2021-08-04 09:51 | PT.OTN ---
Current Diagnoses Hereditary spastic paraplegia (08/04/21) Pain in unspecified hip (08/04/21) Pain in unspecified knee (08/04/21) Low back pain, unspecified (08/04/21) Abnormal posture (08/04/21) Weakness (08/04/21) Physical Therapy Treatment Note PT-OP-A Visit Information Start: 06/22/21 17:38 Freq: Status: Active Protocol: Document 08/04/21 09:07 [facility] (Rec: 08/04/21 09:51 [facility] [id number]) Out-Patient Physical Therapy Visit Information Visit Information Visit Type Treatment Note Visit Note 10/14 Visit Start Time 09:05 Visit Stop Time 09:45 Total Visit Minutes 40 Visit Number 8 Number of INDUSTRIAL MANAGEMENT TEACHER Visits 0 PT-OP-B Current Condition Start: 06/22/21 17:38 Freq: Status: Active Protocol: Document 06/23/21 09:05 [facility] (Rec: 06/23/21 09:48 [facility] [id number]) Current Condition History of Current Condition History of Current Condition Pt reports she feels like her balance is getting worse. Her LBP has been worse on L side. She is working with a GI MD and she thinks she sees one next week. So far they have only done urine and blood testing and everything seems to be fine there. She feels like she has a fever at times. She takes tylenol every day to 2.5 days. Pt has an IUD and it is getting close to the point it may need to come out. Pt reports she feels extremely bloated and has to take imodium every now and then. Pt reports when she has to go have a BM it is an immediate need. She has been taking a digestive enzyme to help with meals. She has dec carbonated things and dec coffee. Pt reports back and GI issues started about 1 month ago. Pt reports B hips and knees (R>L typically) have been givign her trouble. she feels like her balance is a little worse recently. She has been using a trekking pole and keeping it with her depending on what she is doing . Prior Treatments and Tests PT in past which has helped Future Testing and Treatments Planned GI specialist follow up and Primary follow up Treatment Goals Patient/Caregiver Goals Improve mobility, improve balance, make walk more fluid, dec pain. Personal Factors Other Personal Factors That May Effect seizures, dizziness, back pain Therapy/Recovery , jaw pain, spastic paraplegia PT-OP-C Subjective Start: 06/22/21 17:38 Freq: Status: Active Protocol: Document 08/04/21 09:07 [facility] (Rec: 08/04/21 09:51 [facility] [id number]) OP-PT Subjective Patient Comments Patient Comments back has been ok PT-OP-D Balance Start: 06/22/21 17:38 Freq: Status: Active Protocol: Document 06/23/21 09:05 [facility] (Rec: 06/23/21 09:48 [facility] [id number]) Balance Tests Single Limb Standing Single Limb- Right 5 sec w/lat shear of R hip Single Limb- Left 2 sec w/lat shear of L hip PT-OP-E Functional Tests Start: 06/22/21 17:38 Freq: Status: Active Protocol: Document 07/08/21 08:19 [facility] (Rec: 07/08/21 09:05 [facility] [id number]) Functional Tests Dynamic Gait Index (DGI) Score 19 Functional Gait Assessment Score 17 PT-OP-F Manual Assessment Start: 06/22/21 17:38 Freq: Status: Active Protocol: Document 06/23/21 09:05 [facility] (Rec: 06/23/21 09:48 [facility] [id number]) Manual Assessments Soft Tissue Assessment Soft Tissue Mobility Assessment L QL & L glutes tight & tender Joint Mobility Assessment Joint Mobility Assessment R ilac crest higher, equal greater trochanter PT-OP-J Posture/Palpation/Skin Start: 06/22/21 17:38 Freq: Status: Active Protocol: Document 06/23/21 09:05 [facility] (Rec: 06/23/21 09:48 [facility] [id number]) Posture Evaluation [facility] Postural Classification System Leanne Postural Classifications Posterior/Anterior Vertebral Compression Test 1 Lumbar Protective Mechanism Left AP 0 Lumbar Protective Mechanism Right AP 0 Lumbar Protective Mechanism Left PA 0 Lumbar Protective Mechanism Right PA 0 Comments Posture Comments trunk L rotated & L sidebend and R pelvic shear, ant pelvic tilt, knee hyperext B PT-OP-K Range of Motion Start: 06/22/21 17:38 Freq: Status: Active Protocol: Document 06/23/21 09:05 [facility] (Rec: 06/23/21 09:48 [facility] [id number]) Lumbar Spine Range of Motion Lumbar Spine Active Percentage Flexion 50 Extension 100 Rotation Left 70 Rotation Right 80 Lateral Flexion Left 60 Lateral Flexion Right 90 Comments pelvis rotates fwd w/L SB; pain L ext quadrant; when pelvis blocked hand to 2 in above patella PT-OP-L Special Tests Start: 06/22/21 17:38 Freq: Status: Active Protocol: Document 06/23/21 09:05 [facility] (Rec: 06/23/21 09:48 [facility] [id number]) Special Tests Lumbar Spine Special Tests Slump Test Results R slump LB symptoms w/dec symptoms w/neck flex Straight Leg Raise Test Results significant HS tightness and pain B knees at about 50 deg PT-OP-M Strength Start: 06/22/21 17:38 Freq: Status: Active Protocol: Document 06/23/21 09:05 [facility] (Rec: 06/23/21 09:48 [facility] [id number]) Hip Strength Hip Manual Muscle Testing Right Flexion (L2) 3 Fair Extension (S1) 3+ Fair+ Abduction 4- Good- Adduction 3+ Fair+ External Rotation 4 Good Internal Rotation 3+ Fair+ Comments pain hip flex Left Flexion (L2) 3 Fair Extension (S1) 3+ Fair+ Abduction 3+ Fair+ Adduction 4- Good- Internal Rotation 3+ Fair+ Comments pain hip flex Knee Strength Knee Manual Muscle Testing Right Flexion (S2) 5 Normal Extension (L3) 4+ Good+ Left Flexion (S2) 5 Normal Extension (L3) 4+ Good+ Ankle/Foot Strength Ankle and Foot Manual Muscle Testing Right Dorsiflexion (L4) 5 Normal Plantarflexion (S1) 5 Normal Comments 20 heel raises Left Dorsiflexion (L4) 5 Normal Plantarflexion (S1) 4 Good Comments pain in L LB, & L knee and L ankle (L ankle goes into more inversion) 15 heel raises PT-OP-Q Treatments Start: 06/22/21 17:38 Freq: Status: Active Protocol: Document 08/04/21 09:07 [facility] (Rec: 08/04/21 09:51 [facility] [id number]) Cardio Equipment Recumbent Elliptical (Biodex) Duration (Minutes) 5 Resistance 7 Seat Position 4 first notch Other UE/LEs Gym Equipment Shuttle Balance red Comments fwd & side: WBOS & NBOS fwd: staggered stance occ use of rail to get balance Therapeutic Ball seated Exercise Details Mod cues for performance Ball Size/Color 65cm Body Position Sitting Reps/Duration 15 ea table nearby contact PRN Comments 1. pelvic tilt 2. pelvic circles B 3. marches 4. sit backs Manual Therapy Treatment Soft Tissue Mobilization lumbar Body Location B es Mobilization Type Oscillations,Strumming Intensity/Depth Moderate Body Position Sitting Comments w/fwd roll Neuro Re-Education Treatment Balance Activities zoran stepping Comments fwd over hurdles w/tpda of different colors x8-rail prn PT-OP-R Modalities Start: 07/08/21 09:04 Freq: Status: Active Protocol: Document 07/08/21 08:19 [facility] (Rec: 07/08/21 09:05 [facility] [id number]) Hot Pack/Cold Pack Treatment Hot Pack Location lumbar Patient Position Prone Treatment Duration (minutes) 10 PT-OP-T Assessment and Plan Start: 06/22/21 17:38 Freq: Status: Active Protocol: Document 08/04/21 09:07 [facility] (Rec: 08/04/21 09:51 [facility] [id number]) Physical Therapy Assessment Goals pain Apprentice Architect Goal (LTG) Pt will report at least 80% reduction in back pain from start of therapy. LTG Duration 09/23/21 strength Short Term Goal (STG) Pt will be indep w/HEP STG Duration 08/05/21 [facility] Goal (LTG) Pt will score at least 4+/5 on all MMT of B LEs and at least 3/5 on LPM in all planes to show improved stability to dec instances of pain and dec risk for falls LTG Duration 09/23/21 SL [facility] Goal (LTG) pt will be able to do SLS for 10 sec B to show improve stability for gait and balance . LTG Duration 09/23/21 balance Short Term Goal (STG) Pt will score at least 20/30 on FGA to show dec risk for falls STG Duration 08/20/21 [facility] Goal (LTG) Pt will score at least 23/30 on FGA to show dec risk for falls LTG Duration 09/23/21 Assessment Summary Assessment Pt did better with post tilts on ball w 65 cm ball and was able to start to get some post tilt but is still very limited. Improved stability w/ hurdles and was challenged by walk w/foam pads. Physical Therapy Plan Frequency and Duration Frequency of Treatment 1-2x/week Duration of Treatment 3 months Plan of Care Start Date 06/23/21 Plan of Care End Date 09/23/21 Next Visit Focus/Plan Next Note Type Treatment Note Next Visit Plan Next tx: review tball sit pelvic tilts and progress balance and core with DF and eccentric heel strike hip/core controll.
--- NOTE | 2021-08-06 09:45 | PT.OTN ---
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) Pain in unspecified hip (08/06/21) Pain in unspecified knee (08/06/21) Low back pain, unspecified (08/06/21) Abnormal posture (08/06/21) Weakness (08/06/21) Physical Therapy Treatment Note PT-OP-A Visit Information Start: 06/22/21 17:38 Freq: Status: Active Protocol: Document 08/06/21 09:03 SP (Rec: 08/06/21 09:49 SP [id number]) Out-Patient Physical Therapy Visit Information Visit Information Visit Type Treatment Note Visit Start Time 09:03 Visit Stop Time 09:45 Total Visit Minutes 42 Visit Number 9 Number of DRAMATIC CRITIC Visits 1 PT-OP-B Current Condition Start: 06/22/21 17:38 Freq: Status: Active Protocol: Document 06/23/21 09:05 [facility] (Rec: 06/23/21 09:48 [facility] [id number]) Current Condition History of Current Condition History of Current Condition Pt reports she feels like her balance is getting worse. Her LBP has been worse on L side. She is working with a GI MD and she thinks she sees one next week. So far they have only done urine and blood testing and everything seems to be fine there. She feels like she has a fever at times. She takes tylenol every day to 2.5 days. Pt has an IUD and it is getting close to the point it may need to come out. Pt reports she feels extremely bloated and has to take imodium every now and then. Pt reports when she has to go have a BM it is an immediate need. She has been taking a digestive enzyme to help with meals. She has dec carbonated things and dec coffee. Pt reports back and GI issues started about 1 month ago. Pt reports B hips and knees (R>L typically) have been givign her trouble. she feels like her balance is a little worse recently. She has been using a trekking pole and keeping it with her depending on what she is doing . Prior Treatments and Tests PT in past which has helped Future Testing and Treatments Planned GI specialist follow up and Primary follow up Treatment Goals Patient/Caregiver Goals Improve mobility, improve balance, make walk more fluid, dec pain. Personal Factors Other Personal Factors That May Effect seizures, dizziness, back pain Therapy/Recovery , jaw pain, spastic paraplegia PT-OP-C Subjective Start: 06/22/21 17:38 Freq: Status: Active Protocol: Document 08/06/21 09:03 SP (Rec: 08/06/21 09:49 SP [id number]) OP-PT Subjective Patient Comments Patient Comments Pt reported pretty tired today . PT-OP-D Balance Start: 06/22/21 17:38 Freq: Status: Active Protocol: Document 06/23/21 09:05 [facility] (Rec: 06/23/21 09:48 [facility] [id number]) Balance Tests Single Limb Standing Single Limb- Right 5 sec w/lat shear of R hip Single Limb- Left 2 sec w/lat shear of L hip PT-OP-E Functional Tests Start: 06/22/21 17:38 Freq: Status: Active Protocol: Document 07/08/21 08:19 [facility] (Rec: 07/08/21 09:05 [facility] [id number]) Functional Tests Dynamic Gait Index (DGI) Score 19 Functional Gait Assessment Score 17 PT-OP-F Manual Assessment Start: 06/22/21 17:38 Freq: Status: Active Protocol: Document 06/23/21 09:05 [facility] (Rec: 06/23/21 09:48 [facility] [id number]) Manual Assessments Soft Tissue Assessment Soft Tissue Mobility Assessment L QL & L glutes tight & tender Joint Mobility Assessment Joint Mobility Assessment R ilac crest higher, equal greater trochanter PT-OP-J Posture/Palpation/Skin Start: 06/22/21 17:38 Freq: Status: Active Protocol: Document 06/23/21 09:05 [facility] (Rec: 06/23/21 09:48 [facility] [id number]) Posture Evaluation [facility] Postural Classification System [facility] Postural Classifications Posterior/Anterior Vertebral Compression Test 1 Lumbar Protective Mechanism Left AP 0 Lumbar Protective Mechanism Right AP 0 Lumbar Protective Mechanism Left PA 0 Lumbar Protective Mechanism Right PA 0 Comments Posture Comments trunk L rotated & L sidebend and R pelvic shear, ant pelvic tilt, knee hyperext B PT-OP-K Range of Motion Start: 06/22/21 17:38 Freq: Status: Active Protocol: Document 06/23/21 09:05 [facility] (Rec: 06/23/21 09:48 [facility] [id number]) Lumbar Spine Range of Motion Lumbar Spine Active Percentage Flexion 50 Extension 100 Rotation Left 70 Rotation Right 80 Lateral Flexion Left 60 Lateral Flexion Right 90 Comments pelvis rotates fwd w/L SB; pain L ext quadrant; when pelvis blocked hand to 2 in above patella PT-OP-L Special Tests Start: 06/22/21 17:38 Freq: Status: Active Protocol: Document 06/23/21 09:05 [facility] (Rec: 06/23/21 09:48 [facility] [id number]) Special Tests Lumbar Spine Special Tests Slump Test Results R slump LB symptoms w/dec symptoms w/neck flex Straight Leg Raise Test Results significant HS tightness and pain B knees at about 50 deg PT-OP-M Strength Start: 06/22/21 17:38 Freq: Status: Active Protocol: Document 06/23/21 09:05 [facility] (Rec: 06/23/21 09:48 [facility] [id number]) Hip Strength Hip Manual Muscle Testing Right Flexion (L2) 3 Fair Extension (S1) 3+ Fair+ Abduction 4- Good- Adduction 3+ Fair+ External Rotation 4 Good Internal Rotation 3+ Fair+ Comments pain hip flex Left Flexion (L2) 3 Fair Extension (S1) 3+ Fair+ Abduction 3+ Fair+ Adduction 4- Good- Internal Rotation 3+ Fair+ Comments pain hip flex Knee Strength Knee Manual Muscle Testing Right Flexion (S2) 5 Normal Extension (L3) 4+ Good+ Left Flexion (S2) 5 Normal Extension (L3) 4+ Good+ Ankle/Foot Strength Ankle and Foot Manual Muscle Testing Right Dorsiflexion (L4) 5 Normal Plantarflexion (S1) 5 Normal Comments 20 heel raises Left Dorsiflexion (L4) 5 Normal Plantarflexion (S1) 4 Good Comments pain in L LB, & L knee and L ankle (L ankle goes into more inversion) 15 heel raises PT-OP-Q Treatments Start: 06/22/21 17:38 Freq: Status: Active Protocol: Document 08/06/21 09:03 SP (Rec: 08/06/21 09:49 SP [id number]) Cardio Equipment Recumbent Elliptical (Biodex) Duration (Minutes) 5 Resistance 7 Seat Position 4 first notch Other UE/LEs, 303 steps Gym Equipment Shuttle Balance red Comments fwd & side: WBOS & NBOS Head turns, unable do EC. Therapeutic Ball seated Exercise Details Mod cues for performance Ball Size/Color 65cm Body Position Sitting Reps/Duration 3x5 reps, nearby body column for contact PRN Comments 1. pelvic tilt- f/b/lateral 2. pelvic circles B 3. marches 4. sit backs Therapeutic Exercises Sitting Exercises DF TB Sitting Exercise Name added to HEP Side bilateral Resistance TB #2 Equipment Used therapist anchored with ed how can do home Reps/Minutes x10 Comments pre zoran stepping for foot clearance Standing Exercises calf stretch Standing Exercise Name gastroc/ soleus Side bilateral Equipment Used rail, CRISTIANA Reps/Minutes 30 x2 Comments good feedback stretch Other Exercises cat/camel Other Exercise Name reviewed HEP- on elbows Reps/Minutes x10 Comments good form w/o cues end tx ROM cool down Manual Therapy Treatment Soft Tissue Mobilization lumbar Body Location B ES and QL Mobilization Type Strumming Intensity/Depth Moderate Body Position Prone Comments over pillow Neuro Re-Education Treatment Balance Activities zoran stepping Comments fwd over hurdles w/tpda of different colors x8-rail prn PT-OP-R Modalities Start: 07/08/21 09:04 Freq: Status: Active Protocol: Document 07/08/21 08:19 [facility] (Rec: 07/08/21 09:05 [facility] [id number]) Hot Pack/Cold Pack Treatment Hot Pack Location lumbar Patient Position Prone Treatment Duration (minutes) 10 PT-OP-T Assessment and Plan Start: 06/22/21 17:38 Freq: Status: Active Protocol: Document 08/06/21 09:03 SP (Rec: 08/06/21 09:49 SP [id number]) Physical Therapy Assessment Goals pain [facility] Goal (LTG) Pt will report at least 80% reduction in back pain from start of therapy. LTG Duration 09/23/21 strength Short Term Goal (STG) Pt will be indep w/HEP STG Duration 08/05/21 [employer] Goal (LTG) Pt will score at least 4+/5 on all MMT of B LEs and at least 3/5 on LPM in all planes to show improved stability to dec instances of pain and dec risk for falls LTG Duration 09/23/21 SL [facility] Goal (LTG) pt will be able to do SLS for 10 sec B to show improve stability for gait and balance . LTG Duration 09/23/21 balance Short Term Goal (STG) Pt will score at least 20/30 on FGA to show dec risk for falls STG Duration 08/20/21 [facility] Goal (LTG) Pt will score at least 23/30 on FGA to show dec risk for falls LTG Duration 09/23/21 Assessment Summary Assessment Pt improved neutral pelvic alignment and core/ scapular complex corrections, only occasional cues during seated tball. Added seated resisted DF with improved heel toe DF performance during hurdles and gait leaving. Physical Therapy Plan Frequency and Duration Frequency of Treatment 1-2x/week Duration of Treatment 3 months Plan of Care Start Date 06/23/21 Plan of Care End Date 09/23/21 Therapeutic Interventions Therapeutic Interventions Aquatic Therapy,Balance Training,Gait Training,Home Exercise Program,Joint Mobilizations,Manual Therapy, Neuromuscular Re-education, Orthotic/Prosthetic Management ,Patient/Caregiver Education, Self-Care/Home Management,Soft Tissue Mobilization,Taping, Therapeutic Activities, Therapeutic Exercises Modalities Cold Pack/Ice Massage,Electric Stimulation,Hot Packs, Traction- Mechanical, Ultrasound Next Visit Focus/Plan Next Note Type Treatment Note Next Visit Plan Next tx: review tball sit pelvic tilts and progress balance and core with DF and eccentric heel strike hip/core controll.
--- NOTE | 2021-08-11 09:52 | PT.OTN ---
Current Diagnoses Hereditary spastic paraplegia (08/11/21) Pain in unspecified hip (08/11/21) Pain in unspecified knee (08/11/21) Low back pain, unspecified (08/11/21) Abnormal posture (08/11/21) Weakness (08/11/21) Physical Therapy Treatment Note PT-OP-A Visit Information Start: 06/22/21 17:38 Freq: Status: Active Protocol: Document 08/11/21 09:01 [facility] (Rec: 08/11/21 09:51 [facility] [id number]) Out-Patient Physical Therapy Visit Information Visit Information Visit Type Treatment Note Visit Note 12/14 Visit Start Time 09:05 Visit Stop Time 09:45 Total Visit Minutes 40 Visit Number 10 Number of ROLLER SETTER Visits 0 PT-OP-B Current Condition Start: 06/22/21 17:38 Freq: Status: Active Protocol: Document 06/23/21 09:05 [facility] (Rec: 06/23/21 09:48 [facility] [id number]) Current Condition History of Current Condition History of Current Condition Pt reports she feels like her balance is getting worse. Her LBP has been worse on L side. She is working with a GI MD and she thinks she sees one next week. So far they have only done urine and blood testing and everything seems to be fine there. She feels like she has a fever at times. She takes tylenol every day to 2.5 days. Pt has an IUD and it is getting close to the point it may need to come out. Pt reports she feels extremely bloated and has to take imodium every now and then. Pt reports when she has to go have a BM it is an immediate need. She has been taking a digestive enzyme to help with meals. She has dec carbonated things and dec coffee. Pt reports back and GI issues started about 1 month ago. Pt reports B hips and knees (R>L typically) have been givign her trouble. she feels like her balance is a little worse recently. She has been using a trekking pole and keeping it with her depending on what she is doing . Prior Treatments and Tests PT in past which has helped Future Testing and Treatments Planned GI specialist follow up and Primary follow up Treatment Goals Patient/Caregiver Goals Improve mobility, improve balance, make walk more fluid, dec pain. Personal Factors Other Personal Factors That May Effect seizures, dizziness, back pain Therapy/Recovery , jaw pain, spastic paraplegia PT-OP-C Subjective Start: 06/22/21 17:38 Freq: Status: Active Protocol: Document 08/11/21 09:01 [facility] (Rec: 08/11/21 09:51 [facility] [id number]) OP-PT Subjective Patient Comments Patient Comments Pt reports working pretty hard w/back exercises but it is a little mroe sore today PT-OP-D Balance Start: 06/22/21 17:38 Freq: Status: Active Protocol: Document 06/23/21 09:05 [facility] (Rec: 06/23/21 09:48 [facility] [id number]) Balance Tests Single Limb Standing Single Limb- Right 5 sec w/lat shear of R hip Single Limb- Left 2 sec w/lat shear of L hip PT-OP-E Functional Tests Start: 06/22/21 17:38 Freq: Status: Active Protocol: Document 07/08/21 08:19 [facility] (Rec: 07/08/21 09:05 [facility] [id number]) Functional Tests Dynamic Gait Index (DGI) Score 19 Functional Gait Assessment Score 17 PT-OP-F Manual Assessment Start: 06/22/21 17:38 Freq: Status: Active Protocol: Document 06/23/21 09:05 [facility] (Rec: 06/23/21 09:48 [facility] [id number]) Manual Assessments Soft Tissue Assessment Soft Tissue Mobility Assessment L QL & L glutes tight & tender Joint Mobility Assessment Joint Mobility Assessment R ilac crest higher, equal greater trochanter PT-OP-J Posture/Palpation/Skin Start: 06/22/21 17:38 Freq: Status: Active Protocol: Document 06/23/21 09:05 [facility] (Rec: 06/23/21 09:48 [facility] [id number]) Posture Evaluation [facility] Postural Classification System [facility] Postural Classifications Posterior/Anterior Vertebral Compression Test 1 Lumbar Protective Mechanism Left AP 0 Lumbar Protective Mechanism Right AP 0 Lumbar Protective Mechanism Left PA 0 Lumbar Protective Mechanism Right PA 0 Comments Posture Comments trunk L rotated & L sidebend and R pelvic shear, ant pelvic tilt, knee hyperext B PT-OP-K Range of Motion Start: 06/22/21 17:38 Freq: Status: Active Protocol: Document 06/23/21 09:05 [facility] (Rec: 06/23/21 09:48 [facility] [id number]) Lumbar Spine Range of Motion Lumbar Spine Active Percentage Flexion 50 Extension 100 Rotation Left 70 Rotation Right 80 Lateral Flexion Left 60 Lateral Flexion Right 90 Comments pelvis rotates fwd w/L SB; pain L ext quadrant; when pelvis blocked hand to 2 in above patella PT-OP-L Special Tests Start: 06/22/21 17:38 Freq: Status: Active Protocol: Document 06/23/21 09:05 [facility] (Rec: 06/23/21 09:48 [facility] [id number]) Special Tests Lumbar Spine Special Tests Slump Test Results R slump LB symptoms w/dec symptoms w/neck flex Straight Leg Raise Test Results significant HS tightness and pain B knees at about 50 deg PT-OP-M Strength Start: 06/22/21 17:38 Freq: Status: Active Protocol: Document 06/23/21 09:05 [facility] (Rec: 06/23/21 09:48 [facility] [id number]) Hip Strength Hip Manual Muscle Testing Right Flexion (L2) 3 Fair Extension (S1) 3+ Fair+ Abduction 4- Good- Adduction 3+ Fair+ External Rotation 4 Good Internal Rotation 3+ Fair+ Comments pain hip flex Left Flexion (L2) 3 Fair Extension (S1) 3+ Fair+ Abduction 3+ Fair+ Adduction 4- Good- Internal Rotation 3+ Fair+ Comments pain hip flex Knee Strength Knee Manual Muscle Testing Right Flexion (S2) 5 Normal Extension (L3) 4+ Good+ Left Flexion (S2) 5 Normal Extension (L3) 4+ Good+ Ankle/Foot Strength Ankle and Foot Manual Muscle Testing Right Dorsiflexion (L4) 5 Normal Plantarflexion (S1) 5 Normal Comments 20 heel raises Left Dorsiflexion (L4) 5 Normal Plantarflexion (S1) 4 Good Comments pain in L LB, & L knee and L ankle (L ankle goes into more inversion) 15 heel raises PT-OP-Q Treatments Start: 06/22/21 17:38 Freq: Status: Active Protocol: Document 08/11/21 09:01 [facility] (Rec: 08/11/21 09:51 [facility] [id number]) Gym Equipment Shuttle Balance red Comments fwd & side: WBOS & NBOS Head turns fwd;staggered stance Therapeutic Ball seated Exercise Details Mod cues for performance Ball Size/Color 65cm Body Position Sitting Comments 1. pelvic tilt- x15 2. pelvic circles 10 B 3. marches x15 B 4. sit backs x15 Manual Therapy Treatment Soft Tissue Mobilization lumbar Body Location L>R ES and QL Mobilization Type Strumming Intensity/Depth Moderate Body Position Sidelying Joint Mobilizations lumbar Comments 1. transverse R T11-L5 FM 2. gapping L3-5 FM Neuro Re-Education Treatment Balance Activities carioca Reps/Duration 12ft B SL Comments EC mini april x15 B PT-OP-R Modalities Start: 07/08/21 09:04 Freq: Status: Active Protocol: Document 07/08/21 08:19 [facility] (Rec: 07/08/21 09:05 [facility] [id number]) Hot Pack/Cold Pack Treatment Hot Pack Location lumbar Patient Position Prone Treatment Duration (minutes) 10 PT-OP-T Assessment and Plan Start: 06/22/21 17:38 Freq: Status: Active Protocol: Document 08/11/21 09:01 [facility] (Rec: 08/11/21 09:51 [facility] [id number]) Physical Therapy Assessment Goals pain [employer] Goal (LTG) Pt will report at least 80% reduction in back pain from start of therapy. LTG Duration 09/23/21 strength Short Term Goal (STG) Pt will be indep w/HEP STG Duration 08/05/21 [employer] Goal (LTG) Pt will score at least 4+/5 on all MMT of B LEs and at least 3/5 on LPM in all planes to show improved stability to dec instances of pain and dec risk for falls LTG Duration 09/23/21 SL [employer] Goal (LTG) pt will be able to do SLS for 10 sec B to show improve stability for gait and balance . LTG Duration 09/23/21 balance Short Term Goal (STG) Pt will score at least 20/30 on FGA to show dec risk for falls STG Duration 08/20/21 [employer] Goal (LTG) Pt will score at least 23/30 on FGA to show dec risk for falls LTG Duration 09/23/21 Assessment Summary Assessment Pt showed imrpoved ability to get lumbar flex today. She did well with exercises today despite inc challenge. Still difficulty w/marches on ball. Improved L SB w/manual Physical Therapy Plan Next Visit Focus/Plan Next Note Type Treatment Note Next Visit Plan cont to advance core ang glute stability, cont to work on ability to get lumbar flex
--- NOTE | 2021-08-19 12:11 | PT.OTN ---
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) Pain in unspecified hip (08/19/21) Pain in unspecified knee (08/19/21) Low back pain, unspecified (08/19/21) Abnormal posture (08/19/21) Weakness (08/19/21) Physical Therapy Treatment Note PT-OP-A Visit Information Start: 06/22/21 17:38 Freq: Status: Active Protocol: Document 08/19/21 11:21 [facility] (Rec: 08/19/21 12:11 [facility] [id number]) Out-Patient Physical Therapy Visit Information Visit Information Visit Type Treatment Note Visit Note 01/14 Visit Start Time 11:19 Visit Stop Time 11:57 Total Visit Minutes 38 Visit Number 11 Number of SLICE PLUG CUTTER OPERATOR Visits 0 PT-OP-B Current Condition Start: 06/22/21 17:38 Freq: Status: Active Protocol: Document 06/23/21 09:05 [facility] (Rec: 06/23/21 09:48 [facility] [id number]) Current Condition History of Current Condition History of Current Condition Pt reports she feels like her balance is getting worse. Her LBP has been worse on L side. She is working with a GI MD and she thinks she sees one next week. So far they have only done urine and blood testing and everything seems to be fine there. She feels like she has a fever at times. She takes tylenol every day to 2.5 days. Pt has an IUD and it is getting close to the point it may need to come out. Pt reports she feels extremely bloated and has to take imodium every now and then. Pt reports when she has to go have a BM it is an immediate need. She has been taking a digestive enzyme to help with meals. She has dec carbonated things and dec coffee. Pt reports back and GI issues started about 1 month ago. Pt reports B hips and knees (R>L typically) have been givign her trouble. she feels like her balance is a little worse recently. She has been using a trekking pole and keeping it with her depending on what she is doing . Prior Treatments and Tests PT in past which has helped Future Testing and Treatments Planned GI specialist follow up and Primary follow up Treatment Goals Patient/Caregiver Goals Improve mobility, improve balance, make walk more fluid, dec pain. Personal Factors Other Personal Factors That May Effect seizures, dizziness, back pain Therapy/Recovery , jaw pain, spastic paraplegia PT-OP-C Subjective Start: 06/22/21 17:38 Freq: Status: Active Protocol: Document 08/19/21 11:21 [facility] (Rec: 08/19/21 12:11 [facility] [id number]) OP-PT Subjective Patient Comments Patient Comments Pt reports she is pretty tired today.Notes she didn't sleep well and sleep has been off for the past couple weeks. Unsure if its related to the humidity. PT-OP-D Balance Start: 06/22/21 17:38 Freq: Status: Active Protocol: Document 06/23/21 09:05 [facility] (Rec: 06/23/21 09:48 [facility] [id number]) Balance Tests Single Limb Standing Single Limb- Right 5 sec w/lat shear of R hip Single Limb- Left 2 sec w/lat shear of L hip PT-OP-E Functional Tests Start: 06/22/21 17:38 Freq: Status: Active Protocol: Document 07/08/21 08:19 [facility] (Rec: 07/08/21 09:05 [facility] [id number]) Functional Tests Dynamic Gait Index (DGI) Score 19 Functional Gait Assessment Score 17 PT-OP-F Manual Assessment Start: 06/22/21 17:38 Freq: Status: Active Protocol: Document 06/23/21 09:05 [facility] (Rec: 06/23/21 09:48 [facility] [id number]) Manual Assessments Soft Tissue Assessment Soft Tissue Mobility Assessment L QL & L glutes tight & tender Joint Mobility Assessment Joint Mobility Assessment R ilac crest higher, equal greater trochanter PT-OP-J Posture/Palpation/Skin Start: 06/22/21 17:38 Freq: Status: Active Protocol: Document 06/23/21 09:05 [facility] (Rec: 06/23/21 09:48 [facility] [id number]) Posture Evaluation Leanne Postural Classification System Leanne Postural Classifications Posterior/Anterior Vertebral Compression Test 1 Lumbar Protective Mechanism Left AP 0 Lumbar Protective Mechanism Right AP 0 Lumbar Protective Mechanism Left PA 0 Lumbar Protective Mechanism Right PA 0 Comments Posture Comments trunk L rotated & L sidebend and R pelvic shear, ant pelvic tilt, knee hyperext B PT-OP-K Range of Motion Start: 06/22/21 17:38 Freq: Status: Active Protocol: Document 06/23/21 09:05 [facility] (Rec: 06/23/21 09:48 [facility] [id number]) Lumbar Spine Range of Motion Lumbar Spine Active Percentage Flexion 50 Extension 100 Rotation Left 70 Rotation Right 80 Lateral Flexion Left 60 Lateral Flexion Right 90 Comments pelvis rotates fwd w/L SB; pain L ext quadrant; when pelvis blocked hand to 2 in above patella PT-OP-L Special Tests Start: 06/22/21 17:38 Freq: Status: Active Protocol: Document 06/23/21 09:05 [facility] (Rec: 06/23/21 09:48 [facility] [id number]) Special Tests Lumbar Spine Special Tests Slump Test Results R slump LB symptoms w/dec symptoms w/neck flex Straight Leg Raise Test Results significant HS tightness and pain B knees at about 50 deg PT-OP-M Strength Start: 06/22/21 17:38 Freq: Status: Active Protocol: Document 06/23/21 09:05 [facility] (Rec: 06/23/21 09:48 [facility] [id number]) Hip Strength Hip Manual Muscle Testing Right Flexion (L2) 3 Fair Extension (S1) 3+ Fair+ Abduction 4- Good- Adduction 3+ Fair+ External Rotation 4 Good Internal Rotation 3+ Fair+ Comments pain hip flex Left Flexion (L2) 3 Fair Extension (S1) 3+ Fair+ Abduction 3+ Fair+ Adduction 4- Good- Internal Rotation 3+ Fair+ Comments pain hip flex Knee Strength Knee Manual Muscle Testing Right Flexion (S2) 5 Normal Extension (L3) 4+ Good+ Left Flexion (S2) 5 Normal Extension (L3) 4+ Good+ Ankle/Foot Strength Ankle and Foot Manual Muscle Testing Right Dorsiflexion (L4) 5 Normal Plantarflexion (S1) 5 Normal Comments 20 heel raises Left Dorsiflexion (L4) 5 Normal Plantarflexion (S1) 4 Good Comments pain in L LB, & L knee and L ankle (L ankle goes into more inversion) 15 heel raises PT-OP-Q Treatments Start: 06/22/21 17:38 Freq: Status: Active Protocol: Document 08/19/21 11:21 [facility] (Rec: 08/19/21 12:11 [facility] [id number]) Gym Equipment Therapeutic Ball seated Exercise Details Mod cues for performance Ball Size/Color 65cm Body Position Sitting Comments 1. pelvic tilt- x15 2. pelvic circles 10 B 3. marches x15 B 4. sit backs x15 Therapeutic Activity Therapeutic Activity sleep Comments s/l sleep prop w/towel under side & pillow btwn legs & under top arm supine sleep position w/ pillows under knees & towel under back Manual Therapy Treatment Soft Tissue Mobilization lumbar Body Location R>L ES and QL Mobilization Type Strumming Intensity/Depth Moderate Body Position Sidelying Joint Mobilizations lumbar Comments 1. transverse L L3-L5 FM 2. gapping T10-L2 FM PT-OP-R Modalities Start: 07/08/21 09:04 Freq: Status: Active Protocol: Document 07/08/21 08:19 [facility] (Rec: 07/08/21 09:05 [facility] [id number]) Hot Pack/Cold Pack Treatment Hot Pack Location lumbar Patient Position Prone Treatment Duration (minutes) 10 PT-OP-T Assessment and Plan Start: 06/22/21 17:38 Freq: Status: Active Protocol: Document 08/19/21 11:21 [facility] (Rec: 08/19/21 12:11 [facility] [id number]) Physical Therapy Assessment Goals pain Jigsaw Operator Goal (LTG) Pt will report at least 80% reduction in back pain from start of therapy. LTG Duration 09/23/21 strength Short Term Goal (STG) Pt will be indep w/HEP STG Duration 08/05/21 Jigsaw Operator Goal (LTG) Pt will score at least 4+/5 on all MMT of B LEs and at least 3/5 on LPM in all planes to show improved stability to dec instances of pain and dec risk for falls LTG Duration 09/23/21 SL Jigsaw Operator Goal (LTG) pt will be able to do SLS for 10 sec B to show improve stability for gait and balance . LTG Duration 09/23/21 balance Short Term Goal (STG) Pt will score at least 20/30 on FGA to show dec risk for falls STG Duration 08/20/21 Fdc Goal (LTG) Pt will score at least 23/30 on FGA to show dec risk for falls LTG Duration 09/23/21 Assessment Summary Assessment Pt was evidently fatigued today w/her gait pattern. She was given tools to help w/ gaining comfort w/sleeping for her back position. Physical Therapy Plan Frequency and Duration Frequency of Treatment 1-2x/week Duration of Treatment 3 months Plan of Care Start Date 06/23/21 Plan of Care End Date 09/23/21 Next Visit Focus/Plan Next Note Type Treatment Note Next Visit Plan cont to advance core and glute stability, cont to work on ability to get lumbar flex
--- NOTE | 2021-08-27 16:53 | PT.OTN ---
Current Diagnoses Hereditary spastic paraplegia (08/27/21) Pain in unspecified hip (08/27/21) Pain in unspecified knee (08/27/21) Low back pain, unspecified (08/27/21) Abnormal posture (08/27/21) Weakness (08/27/21) Physical Therapy Treatment Note PT-OP-A Visit Information Start: 06/22/21 17:38 Freq: Status: Active Protocol: Document 08/27/21 16:09 [facility] (Rec: 08/27/21 16:53 [facility] [id number]) Out-Patient Physical Therapy Visit Information Visit Information Visit Type Treatment Note Visit Note 02/13 Visit Start Time 16:07 Visit Stop Time 16:47 Total Visit Minutes 40 Visit Number 12 Number of SUPERVISOR PHOSPHORUS PROCESSING Visits 0 PT-OP-B Current Condition Start: 06/22/21 17:38 Freq: Status: Active Protocol: Document 06/23/21 09:05 [facility] (Rec: 06/23/21 09:48 [facility] [id number]) Current Condition History of Current Condition History of Current Condition Pt reports she feels like her balance is getting worse. Her LBP has been worse on L side. She is working with a GI MD and she thinks she sees one next week. So far they have only done urine and blood testing and everything seems to be fine there. She feels like she has a fever at times. She takes tylenol every day to 2.5 days. Pt has an IUD and it is getting close to the point it may need to come out. Pt reports she feels extremely bloated and has to take imodium every now and then. Pt reports when she has to go have a BM it is an immediate need. She has been taking a digestive enzyme to help with meals. She has dec carbonated things and dec coffee. Pt reports back and GI issues started about 1 month ago. Pt reports B hips and knees (R>L typically) have been givign her trouble. she feels like her balance is a little worse recently. She has been using a trekking pole and keeping it with her depending on what she is doing . Prior Treatments and Tests PT in past which has helped Future Testing and Treatments Planned GI specialist follow up and Primary follow up Treatment Goals Patient/Caregiver Goals Improve mobility, improve balance, make walk more fluid, dec pain. Personal Factors Other Personal Factors That May Effect seizures, dizziness, back pain Therapy/Recovery , jaw pain, spastic paraplegia PT-OP-C Subjective Start: 06/22/21 17:38 Freq: Status: Active Protocol: Document 08/27/21 16:09 [facility] (Rec: 08/27/21 16:53 [facility] [id number]) OP-PT Subjective Patient Comments Patient Comments Pt wants to focus on balance on knees and ankles. Carrying objects is difficult at home whe they are heavy PT-OP-D Balance Start: 06/22/21 17:38 Freq: Status: Active Protocol: Document 06/23/21 09:05 [facility] (Rec: 06/23/21 09:48 [facility] [id number]) Balance Tests Single Limb Standing Single Limb- Right 5 sec w/lat shear of R hip Single Limb- Left 2 sec w/lat shear of L hip PT-OP-E Functional Tests Start: 06/22/21 17:38 Freq: Status: Active Protocol: Document 07/08/21 08:19 [facility] (Rec: 07/08/21 09:05 [facility] [id number]) Functional Tests Dynamic Gait Index (DGI) Score 19 Functional Gait Assessment Score 17 PT-OP-F Manual Assessment Start: 06/22/21 17:38 Freq: Status: Active Protocol: Document 06/23/21 09:05 [facility] (Rec: 06/23/21 09:48 [facility] [id number]) Manual Assessments Soft Tissue Assessment Soft Tissue Mobility Assessment L QL & L glutes tight & tender Joint Mobility Assessment Joint Mobility Assessment R ilac crest higher, equal greater trochanter PT-OP-J Posture/Palpation/Skin Start: 06/22/21 17:38 Freq: Status: Active Protocol: Document 06/23/21 09:05 [facility] (Rec: 06/23/21 09:48 [facility] [id number]) Posture Evaluation Leanne Postural Classification System Leanne Postural Classifications Posterior/Anterior Vertebral Compression Test 1 Lumbar Protective Mechanism Left AP 0 Lumbar Protective Mechanism Right AP 0 Lumbar Protective Mechanism Left PA 0 Lumbar Protective Mechanism Right PA 0 Comments Posture Comments trunk L rotated & L sidebend and R pelvic shear, ant pelvic tilt, knee hyperext B PT-OP-K Range of Motion Start: 06/22/21 17:38 Freq: Status: Active Protocol: Document 06/23/21 09:05 [facility] (Rec: 06/23/21 09:48 [facility] [id number]) Lumbar Spine Range of Motion Lumbar Spine Active Percentage Flexion 50 Extension 100 Rotation Left 70 Rotation Right 80 Lateral Flexion Left 60 Lateral Flexion Right 90 Comments pelvis rotates fwd w/L SB; pain L ext quadrant; when pelvis blocked hand to 2 in above patella PT-OP-L Special Tests Start: 06/22/21 17:38 Freq: Status: Active Protocol: Document 06/23/21 09:05 [facility] (Rec: 06/23/21 09:48 [facility] [id number]) Special Tests Lumbar Spine Special Tests Slump Test Results R slump LB symptoms w/dec symptoms w/neck flex Straight Leg Raise Test Results significant HS tightness and pain B knees at about 50 deg PT-OP-M Strength Start: 06/22/21 17:38 Freq: Status: Active Protocol: Document 06/23/21 09:05 [facility] (Rec: 06/23/21 09:48 [facility] [id number]) Hip Strength Hip Manual Muscle Testing Right Flexion (L2) 3 Fair Extension (S1) 3+ Fair+ Abduction 4- Good- Adduction 3+ Fair+ External Rotation 4 Good Internal Rotation 3+ Fair+ Comments pain hip flex Left Flexion (L2) 3 Fair Extension (S1) 3+ Fair+ Abduction 3+ Fair+ Adduction 4- Good- Internal Rotation 3+ Fair+ Comments pain hip flex Knee Strength Knee Manual Muscle Testing Right Flexion (S2) 5 Normal Extension (L3) 4+ Good+ Left Flexion (S2) 5 Normal Extension (L3) 4+ Good+ Ankle/Foot Strength Ankle and Foot Manual Muscle Testing Right Dorsiflexion (L4) 5 Normal Plantarflexion (S1) 5 Normal Comments 20 heel raises Left Dorsiflexion (L4) 5 Normal Plantarflexion (S1) 4 Good Comments pain in L LB, & L knee and L ankle (L ankle goes into more inversion) 15 heel raises PT-OP-Q Treatments Start: 06/22/21 17:38 Freq: Status: Active Protocol: Document 08/27/21 16:09 [facility] (Rec: 08/27/21 16:53 [facility] [id number]) Cardio Equipment Elliptical Duration (Minutes) 5 Resistance 1 Gym Equipment Therapeutic Ball seated Exercise Details Mod cues for performance Ball Size/Color 65cm Body Position Sitting Comments 1. pelvic tilt- x15 2. pelvic circles 10 B 3. marches x15 B Neuro Re-Education Treatment Balance Activities tpads Details fwd walk over tpads & foam Comments 2x no wt, 2x 5lb wt B, 1x 10lb wt B bosu Details rail prn Comments 1. Blue side balance DL 2. step ups x8 B rail 2 fingers 3. marches B x10 rail 2 fingers 4. squats blue side x10 B 5. black side of bosu circles B 2 fingers on rail zoran stepping Comments fwd over hurdles x8 (2x no wt, 6x w/5lb B) lat over hurdles x2 B (5lb B) PT-OP-R Modalities Start: 07/08/21 09:04 Freq: Status: Active Protocol: Document 07/08/21 08:19 [facility] (Rec: 07/08/21 09:05 [facility] [id number]) Hot Pack/Cold Pack Treatment Hot Pack Location lumbar Patient Position Prone Treatment Duration (minutes) 10 PT-OP-T Assessment and Plan Start: 06/22/21 17:38 Freq: Status: Active Protocol: Document 08/27/21 16:09 [facility] (Rec: 08/27/21 16:53 [facility] [id number]) Physical Therapy Assessment Goals pain Skilled Nursing Goal (LTG) Pt will report at least 80% reduction in back pain from start of therapy. LTG Duration 09/23/21 strength Short Term Goal (STG) Pt will be indep w/HEP STG Duration 08/05/21 Tile Setter Supervisor Goal (LTG) Pt will score at least 4+/5 on all MMT of B LEs and at least 3/5 on LPM in all planes to show improved stability to dec instances of pain and dec risk for falls LTG Duration 09/23/21 SL Tile Setter Supervisor Goal (LTG) pt will be able to do SLS for 10 sec B to show improve stability for gait and balance . LTG Duration 09/23/21 balance Short Term Goal (STG) Pt will score at least 20/30 on FGA to show dec risk for falls STG Duration 08/20/21 Tile Setter Supervisor Goal (LTG) Pt will score at least 23/30 on FGA to show dec risk for falls LTG Duration 09/23/21 Assessment Summary Assessment Improved post til ttoday on ball but still requires assist and cues w/circles. Pt did fatigue w/balance activities today and showed difficulty w/ wts in hands. Physical Therapy Plan Frequency and Duration Frequency of Treatment 1-2x/week Duration of Treatment 3 months Plan of Care Start Date 06/23/21 Plan of Care End Date 09/23/21 Next Visit Focus/Plan Next Note Type Treatment Note Next Visit Plan cont to advance core and glute stability, cont to work on ability to get lumbar flex
--- NOTE | 2021-09-10 18:04 | PT.OTN ---
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) Pain in unspecified hip (09/10/21) Pain in unspecified knee (09/10/21) Low back pain, unspecified (09/10/21) Abnormal posture (09/10/21) Weakness (09/10/21) Physical Therapy Treatment Note PT-OP-A Visit Information Start: 06/22/21 17:38 Freq: Status: Active Protocol: Document 09/10/21 16:52 [facility] (Rec: 09/10/21 18:04 [facility] [id number]) Out-Patient Physical Therapy Visit Information Visit Information Visit Type Treatment Note Visit Note Visit Start Time 16:53 Visit Stop Time 17:32 Total Visit Minutes 39 Visit Number 13 Number of BARK GRINDER Visits 0 PT-OP-B Current Condition Start: 06/22/21 17:38 Freq: Status: Active Protocol: Document 06/23/21 09:05 [facility] (Rec: 06/23/21 09:48 [facility] [id number]) Current Condition History of Current Condition History of Current Condition Pt reports she feels like her balance is getting worse. Her LBP has been worse on L side. She is working with a GI MD and she thinks she sees one next week. So far they have only done urine and blood testing and everything seems to be fine there. She feels like she has a fever at times. She takes tylenol every day to 2.5 days. Pt has an IUD and it is getting close to the point it may need to come out. Pt reports she feels extremely bloated and has to take imodium every now and then. Pt reports when she has to go have a BM it is an immediate need. She has been taking a digestive enzyme to help with meals. She has dec carbonated things and dec coffee. Pt reports back and GI issues started about 1 month ago. Pt reports B hips and knees (R>L typically) have been givign her trouble. she feels like her balance is a little worse recently. She has been using a trekking pole and keeping it with her depending on what she is doing . Prior Treatments and Tests PT in past which has helped Future Testing and Treatments Planned GI specialist follow up and Primary follow up Treatment Goals Patient/Caregiver Goals Improve mobility, improve balance, make walk more fluid, dec pain. Personal Factors Other Personal Factors That May Effect seizures, dizziness, back pain Therapy/Recovery , jaw pain, spastic paraplegia PT-OP-C Subjective Start: 06/22/21 17:38 Freq: Status: Active Protocol: Document 09/10/21 16:52 [facility] (Rec: 09/10/21 18:04 [facility] [id number]) OP-PT Subjective Patient Comments Patient Comments Pt reports back is doing okay. She had one night of difficulty sleeping on tuesday. Unsure what kept her up PT-OP-D Balance Start: 06/22/21 17:38 Freq: Status: Active Protocol: Document 06/23/21 09:05 [facility] (Rec: 06/23/21 09:48 [facility] [id number]) Balance Tests Single Limb Standing Single Limb- Right 5 sec w/lat shear of R hip Single Limb- Left 2 sec w/lat shear of L hip PT-OP-E Functional Tests Start: 06/22/21 17:38 Freq: Status: Active Protocol: Document 07/08/21 08:19 [facility] (Rec: 07/08/21 09:05 [facility] [id number]) Functional Tests Dynamic Gait Index (DGI) Score 19 Functional Gait Assessment Score 17 PT-OP-F Manual Assessment Start: 06/22/21 17:38 Freq: Status: Active Protocol: Document 06/23/21 09:05 [facility] (Rec: 06/23/21 09:48 [facility] [id number]) Manual Assessments Soft Tissue Assessment Soft Tissue Mobility Assessment L QL & L glutes tight & tender Joint Mobility Assessment Joint Mobility Assessment R ilac crest higher, equal greater trochanter PT-OP-J Posture/Palpation/Skin Start: 06/22/21 17:38 Freq: Status: Active Protocol: Document 06/23/21 09:05 [facility] (Rec: 06/23/21 09:48 [facility] [id number]) Posture Evaluation Leanne Postural Classification System Leanne Postural Classifications Posterior/Anterior Vertebral Compression Test 1 Lumbar Protective Mechanism Left AP 0 Lumbar Protective Mechanism Right AP 0 Lumbar Protective Mechanism Left PA 0 Lumbar Protective Mechanism Right PA 0 Comments Posture Comments trunk L rotated & L sidebend and R pelvic shear, ant pelvic tilt, knee hyperext B PT-OP-K Range of Motion Start: 06/22/21 17:38 Freq: Status: Active Protocol: Document 06/23/21 09:05 [facility] (Rec: 06/23/21 09:48 [facility] [id number]) Lumbar Spine Range of Motion Lumbar Spine Active Percentage Flexion 50 Extension 100 Rotation Left 70 Rotation Right 80 Lateral Flexion Left 60 Lateral Flexion Right 90 Comments pelvis rotates fwd w/L SB; pain L ext quadrant; when pelvis blocked hand to 2 in above patella PT-OP-L Special Tests Start: 06/22/21 17:38 Freq: Status: Active Protocol: Document 06/23/21 09:05 [facility] (Rec: 06/23/21 09:48 [facility] [id number]) Special Tests Lumbar Spine Special Tests Slump Test Results R slump LB symptoms w/dec symptoms w/neck flex Straight Leg Raise Test Results significant HS tightness and pain B knees at about 50 deg PT-OP-M Strength Start: 06/22/21 17:38 Freq: Status: Active Protocol: Document 06/23/21 09:05 [facility] (Rec: 06/23/21 09:48 [facility] [id number]) Hip Strength Hip Manual Muscle Testing Right Flexion (L2) 3 Fair Extension (S1) 3+ Fair+ Abduction 4- Good- Adduction 3+ Fair+ External Rotation 4 Good Internal Rotation 3+ Fair+ Comments pain hip flex Left Flexion (L2) 3 Fair Extension (S1) 3+ Fair+ Abduction 3+ Fair+ Adduction 4- Good- Internal Rotation 3+ Fair+ Comments pain hip flex Knee Strength Knee Manual Muscle Testing Right Flexion (S2) 5 Normal Extension (L3) 4+ Good+ Left Flexion (S2) 5 Normal Extension (L3) 4+ Good+ Ankle/Foot Strength Ankle and Foot Manual Muscle Testing Right Dorsiflexion (L4) 5 Normal Plantarflexion (S1) 5 Normal Comments 20 heel raises Left Dorsiflexion (L4) 5 Normal Plantarflexion (S1) 4 Good Comments pain in L LB, & L knee and L ankle (L ankle goes into more inversion) 15 heel raises PT-OP-Q Treatments Start: 06/22/21 17:38 Freq: Status: Active Protocol: Document 09/10/21 16:52 [facility] (Rec: 09/10/21 18:04 [facility] [id number]) Cardio Equipment Recumbent Elliptical ([email or web address]) Duration (Minutes) 5 Resistance 7 Seat Position 4 first notch Other UE/LEs Therapeutic Exercises Standing Exercises step up Standing Exercise Name step up to SL Side bilateral Equipment Used 2lb wt on ankles, 5lb wts B Reps/Minutes 15 lung Standing Exercise Name walking Side bilateral Equipment Used rail prn Reps/Minutes 6x20ft april Standing Exercise Name knee flex to april w/focus on core & neutral spine Side bilateral Reps/Minutes 10 Neuro Re-Education Treatment Balance Activities EC Reps/Duration 4x Comments fast walk,2# B LEs, 5# in BUEs tpads Details fwd walk over tpads & foam Reps/Duration 10 Comments w/10lb wt B head turns Details horizontal & vertical B Reps/Duration 50ftx4 Comments fast walk,2# B LEs, 5# in BUEs zoran stepping Equipment 2 lb wt on ankles Comments fwd over hurdles (6) (8x w/10 lb B UEs) lat over hurdles x2 B (10lb B) PT-OP-R Modalities Start: 07/08/21 09:04 Freq: Status: Active Protocol: Document 07/08/21 08:19 [facility] (Rec: 07/08/21 09:05 [facility] [id number]) Hot Pack/Cold Pack Treatment Hot Pack Location lumbar Patient Position Prone Treatment Duration (minutes) 10 PT-OP-T Assessment and Plan Start: 06/22/21 17:38 Freq: Status: Active Protocol: Document 09/10/21 16:52 [facility] (Rec: 09/10/21 18:04 [facility] [id number]) Physical Therapy Assessment Goals pain Decommissioning Well Site Manager Goal (LTG) Pt will report at least 80% reduction in back pain from start of therapy. LTG Duration 09/23/21 strength Short Term Goal (STG) Pt will be indep w/HEP STG Duration 08/05/21 Decommissioning Well Site Manager Goal (LTG) Pt will score at least 4+/5 on all MMT of B LEs and at least 3/5 on LPM in all planes to show improved stability to dec instances of pain and dec risk for falls LTG Duration 09/23/21 SL Decommissioning Well Site Manager Goal (LTG) pt will be able to do SLS for 10 sec B to show improve stability for gait and balance . LTG Duration 09/23/21 balance Short Term Goal (STG) Pt will score at least 20/30 on FGA to show dec risk for falls STG Duration 08/20/21 Decommissioning Well Site Manager Goal (LTG) Pt will score at least 23/30 on FGA to show dec risk for falls LTG Duration 09/23/21 Assessment Summary Assessment pt did well with exercises today but was challenged when given load in her hands and at legs for balance and stability. Working on this d/t pt noting instabiltiy when carrying things at home. Pt had imrpoved lunge w/less arch after working on knee flex then april isolated in standing w/core focus. Physical Therapy Plan Frequency and Duration Frequency of Treatment 1-2x/week Duration of Treatment 3 months Plan of Care Start Date 06/23/21 Plan of Care End Date 09/23/21 Next Visit Focus/Plan Next Note Type Treatment Note Next Visit Plan cont to advance core and glute stability, cont to work on ability to get lumbar flex
--- NOTE | 2021-09-16 09:46 | PT.OTN ---
Current Diagnoses Hereditary spastic paraplegia (09/16/21) Pain in unspecified hip (09/16/21) Pain in unspecified knee (09/16/21) Low back pain, unspecified (09/16/21) Abnormal posture (09/16/21) Weakness (09/16/21) Physical Therapy Treatment Note PT-OP-A Visit Information Start: 06/22/21 17:38 Freq: Status: Active Protocol: Document 09/16/21 09:08 [facility] (Rec: 09/16/21 09:48 SP [id number]) Out-Patient Physical Therapy Visit Information Visit Information Visit Type Treatment Note Visit Note Visit Start Time 09:08 Visit Stop Time 09:46 Total Visit Minutes 38 Visit Number 14 Number of CARPENTER PACKING Visits 1 PT-OP-B Current Condition Start: 06/22/21 17:38 Freq: Status: Active Protocol: Document 06/23/21 09:05 [facility] (Rec: 06/23/21 09:48 [facility] [id number]) Current Condition History of Current Condition History of Current Condition Pt reports she feels like her balance is getting worse. Her LBP has been worse on L side. She is working with a GI MD and she thinks she sees one next week. So far they have only done urine and blood testing and everything seems to be fine there. She feels like she has a fever at times. She takes tylenol every day to 2.5 days. Pt has an IUD and it is getting close to the point it may need to come out. Pt reports she feels extremely bloated and has to take imodium every now and then. Pt reports when she has to go have a BM it is an immediate need. She has been taking a digestive enzyme to help with meals. She has dec carbonated things and dec coffee. Pt reports back and GI issues started about 1 month ago. Pt reports B hips and knees (R>L typically) have been givign her trouble. she feels like her balance is a little worse recently. She has been using a trekking pole and keeping it with her depending on what she is doing . Prior Treatments and Tests PT in past which has helped Future Testing and Treatments Planned GI specialist follow up and Primary follow up Treatment Goals Patient/Caregiver Goals Improve mobility, improve balance, make walk more fluid, dec pain. Personal Factors Other Personal Factors That May Effect seizures, dizziness, back pain Therapy/Recovery , jaw pain, spastic paraplegia PT-OP-C Subjective Start: 06/22/21 17:38 Freq: Status: Active Protocol: Document 09/16/21 09:08 [facility] (Rec: 09/16/21 09:48 SP [id number]) OP-PT Subjective Patient Comments Patient Comments Pt reported felt the increase wt with different activities was beneficial. PT-OP-D Balance Start: 06/22/21 17:38 Freq: Status: Active Protocol: Document 06/23/21 09:05 [facility] (Rec: 06/23/21 09:48 [facility] [id number]) Balance Tests Single Limb Standing Single Limb- Right 5 sec w/lat shear of R hip Single Limb- Left 2 sec w/lat shear of L hip PT-OP-E Functional Tests Start: 06/22/21 17:38 Freq: Status: Active Protocol: Document 07/08/21 08:19 [facility] (Rec: 07/08/21 09:05 [facility] [id number]) Functional Tests Dynamic Gait Index (DGI) Score 19 Functional Gait Assessment Score 17 PT-OP-F Manual Assessment Start: 06/22/21 17:38 Freq: Status: Active Protocol: Document 06/23/21 09:05 [facility] (Rec: 06/23/21 09:48 [facility] [id number]) Manual Assessments Soft Tissue Assessment Soft Tissue Mobility Assessment L QL & L glutes tight & tender Joint Mobility Assessment Joint Mobility Assessment R ilac crest higher, equal greater trochanter PT-OP-J Posture/Palpation/Skin Start: 06/22/21 17:38 Freq: Status: Active Protocol: Document 06/23/21 09:05 [facility] (Rec: 06/23/21 09:48 [facility] [id number]) Posture Evaluation Leanne Postural Classification System Leanne Postural Classifications Posterior/Anterior Vertebral Compression Test 1 Lumbar Protective Mechanism Left AP 0 Lumbar Protective Mechanism Right AP 0 Lumbar Protective Mechanism Left PA 0 Lumbar Protective Mechanism Right PA 0 Comments Posture Comments trunk L rotated & L sidebend and R pelvic shear, ant pelvic tilt, knee hyperext B PT-OP-K Range of Motion Start: 06/22/21 17:38 Freq: Status: Active Protocol: Document 06/23/21 09:05 [facility] (Rec: 06/23/21 09:48 [facility] [id number]) Lumbar Spine Range of Motion Lumbar Spine Active Percentage Flexion 50 Extension 100 Rotation Left 70 Rotation Right 80 Lateral Flexion Left 60 Lateral Flexion Right 90 Comments pelvis rotates fwd w/L SB; pain L ext quadrant; when pelvis blocked hand to 2 in above patella PT-OP-L Special Tests Start: 06/22/21 17:38 Freq: Status: Active Protocol: Document 06/23/21 09:05 [facility] (Rec: 06/23/21 09:48 [facility] [id number]) Special Tests Lumbar Spine Special Tests Slump Test Results R slump LB symptoms w/dec symptoms w/neck flex Straight Leg Raise Test Results significant HS tightness and pain B knees at about 50 deg PT-OP-M Strength Start: 06/22/21 17:38 Freq: Status: Active Protocol: Document 06/23/21 09:05 [facility] (Rec: 06/23/21 09:48 [facility] [id number]) Hip Strength Hip Manual Muscle Testing Right Flexion (L2) 3 Fair Extension (S1) 3+ Fair+ Abduction 4- Good- Adduction 3+ Fair+ External Rotation 4 Good Internal Rotation 3+ Fair+ Comments pain hip flex Left Flexion (L2) 3 Fair Extension (S1) 3+ Fair+ Abduction 3+ Fair+ Adduction 4- Good- Internal Rotation 3+ Fair+ Comments pain hip flex Knee Strength Knee Manual Muscle Testing Right Flexion (S2) 5 Normal Extension (L3) 4+ Good+ Left Flexion (S2) 5 Normal Extension (L3) 4+ Good+ Ankle/Foot Strength Ankle and Foot Manual Muscle Testing Right Dorsiflexion (L4) 5 Normal Plantarflexion (S1) 5 Normal Comments 20 heel raises Left Dorsiflexion (L4) 5 Normal Plantarflexion (S1) 4 Good Comments pain in L LB, & L knee and L ankle (L ankle goes into more inversion) 15 heel raises PT-OP-Q Treatments Start: 06/22/21 17:38 Freq: Status: Active Protocol: Document 09/16/21 09:08 SP (Rec: 09/16/21 09:48 SP [id number]) Cardio Equipment Recumbent Elliptical ([employer]) Duration (Minutes) 4 Resistance 7 Seat Position 4 first notch Other UE/LEs, 323 ft Therapeutic Exercises Standing Exercises step up Standing Exercise Name step up to eccentric down Side bilateral Equipment Used 5lb wt on ankles, 5lb wts B Reps/Minutes 15 Comments cued slow/quiet/soft heel strike eccentric herbert lunges Standing Exercise Name stationary x8 reps warm up, walking Equipment Used //bars PRN, flat disc for stride Reps/Minutes 10 ft x6 laps Comments cued space between feet Neuro Re-Education Treatment Balance Activities EC Reps/Duration 4x hallway (80ft) Comments fast walk,2# B LEs, 5# in BUEs head turns Details horizontal & vertical B Reps/Duration 50ftx4 Comments fast walk,2# B LEs, 5# in BUEs zoran stepping Equipment 5 lb wt on ankles Comments fwd over hurdles (4) (8x w/5> 10 lb B UEs) lat over hurdles x2 B (10lb B) PT-OP-R Modalities Start: 07/08/21 09:04 Freq: Status: Active Protocol: Document 07/08/21 08:19 [facility] (Rec: 07/08/21 09:05 [facility] [id number]) Hot Pack/Cold Pack Treatment Hot Pack Location lumbar Patient Position Prone Treatment Duration (minutes) 10 PT-OP-T Assessment and Plan Start: 06/22/21 17:38 Freq: Status: Active Protocol: Document 09/16/21 09:08 SP (Rec: 09/16/21 09:48 SP [id number]) Physical Therapy Assessment Goals pain [facility] Goal (LTG) Pt will report at least 80% reduction in back pain from start of therapy. LTG Duration 09/23/21 strength Short Term Goal (STG) Pt will be indep w/HEP STG Duration 08/05/21 Dental Practitioner Goal (LTG) Pt will score at least 4+/5 on all MMT of B LEs and at least 3/5 on LPM in all planes to show improved stability to dec instances of pain and dec risk for falls LTG Duration 09/23/21 SL Dental Practitioner Goal (LTG) pt will be able to do SLS for 10 sec B to show improve stability for gait and balance . LTG Duration 09/23/21 balance Short Term Goal (STG) Pt will score at least 20/30 on FGA to show dec risk for falls STG Duration 08/20/21 Dental Practitioner Goal (LTG) Pt will score at least 23/30 on FGA to show dec risk for falls LTG Duration 09/23/21 Assessment Summary Assessment Pt did well with increase wt today on BLE, cues for scap stab and soft LE heeltoe strike with improved stability over hurdles, EC in hallway lengths with noted improved increased stride today, couple trunk over sway but self recovery with core and hip abd fac corrections. Physical Therapy Plan Frequency and Duration Frequency of Treatment 1-2x/week Duration of Treatment 3 months Plan of Care Start Date 06/23/21 Plan of Care End Date 09/23/21 Therapeutic Interventions Therapeutic Interventions Aquatic Therapy,Balance Training,Gait Training,Home Exercise Program,Joint Mobilizations,Manual Therapy, Neuromuscular Re-education, Orthotic/Prosthetic Management ,Patient/Caregiver Education, Self-Care/Home Management,Soft Tissue Mobilization,Taping, Therapeutic Activities, Therapeutic Exercises Modalities Cold Pack/Ice Massage,Electric Stimulation,Hot Packs, Traction- Mechanical, Ultrasound Next Visit Focus/Plan Next Note Type Treatment Note Next Visit Plan cont to advance core and glute stability, cont to work on ability to get lumbar flex
--- NOTE | 2021-09-23 11:17 | PT.OTN ---
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) Pain in unspecified hip (09/23/21) Pain in unspecified knee (09/23/21) Low back pain, unspecified (09/23/21) Abnormal posture (09/23/21) Weakness (09/23/21) Physical Therapy Treatment Note PT-OP-A Visit Information Start: 06/22/21 17:38 Freq: Status: Active Protocol: Document 09/23/21 10:33 SP (Rec: 09/23/21 11:36 SP [id number]) Out-Patient Physical Therapy Visit Information Visit Information Visit Type Treatment Note Visit Note Visit Start Time 10:33 Visit Stop Time 11:17 Total Visit Minutes 44 Visit Number 15 Number of KNOCKER OUT Visits 2 PT-OP-B Current Condition Start: 06/22/21 17:38 Freq: Status: Active Protocol: Document 06/23/21 09:05 [facility] (Rec: 06/23/21 09:48 [facility] [id number]) Current Condition History of Current Condition History of Current Condition Pt reports she feels like her balance is getting worse. Her LBP has been worse on L side. She is working with a GI MD and she thinks she sees one next week. So far they have only done urine and blood testing and everything seems to be fine there. She feels like she has a fever at times. She takes tylenol every day to 2.5 days. Pt has an IUD and it is getting close to the point it may need to come out. Pt reports she feels extremely bloated and has to take imodium every now and then. Pt reports when she has to go have a BM it is an immediate need. She has been taking a digestive enzyme to help with meals. She has dec carbonated things and dec coffee. Pt reports back and GI issues started about 1 month ago. Pt reports B hips and knees (R>L typically) have been givign her trouble. she feels like her balance is a little worse recently. She has been using a trekking pole and keeping it with her depending on what she is doing . Prior Treatments and Tests PT in past which has helped Future Testing and Treatments Planned GI specialist follow up and Primary follow up Treatment Goals Patient/Caregiver Goals Improve mobility, improve balance, make walk more fluid, dec pain. Personal Factors Other Personal Factors That May Effect seizures, dizziness, back pain Therapy/Recovery , jaw pain, spastic paraplegia PT-OP-C Subjective Start: 06/22/21 17:38 Freq: Status: Active Protocol: Document 09/23/21 10:33 SP (Rec: 09/23/21 11:36 SP [id number]) OP-PT Subjective Patient Comments Patient Comments Pt reports states little tired but feel the wt activities have been helpful. PT-OP-D Balance Start: 06/22/21 17:38 Freq: Status: Active Protocol: Document 06/23/21 09:05 [facility] (Rec: 06/23/21 09:48 [facility] [id number]) Balance Tests Single Limb Standing Single Limb- Right 5 sec w/lat shear of R hip Single Limb- Left 2 sec w/lat shear of L hip PT-OP-E Functional Tests Start: 06/22/21 17:38 Freq: Status: Active Protocol: Document 07/08/21 08:19 [facility] (Rec: 07/08/21 09:05 [facility] [id number]) Functional Tests Dynamic Gait Index (DGI) Score 19 Functional Gait Assessment Score 17 PT-OP-F Manual Assessment Start: 06/22/21 17:38 Freq: Status: Active Protocol: Document 06/23/21 09:05 [facility] (Rec: 06/23/21 09:48 [facility] [id number]) Manual Assessments Soft Tissue Assessment Soft Tissue Mobility Assessment L QL & L glutes tight & tender Joint Mobility Assessment Joint Mobility Assessment R ilac crest higher, equal greater trochanter PT-OP-J Posture/Palpation/Skin Start: 06/22/21 17:38 Freq: Status: Active Protocol: Document 06/23/21 09:05 [facility] (Rec: 06/23/21 09:48 [facility] [id number]) Posture Evaluation Leanne Postural Classification System Leanne Postural Classifications Posterior/Anterior Vertebral Compression Test 1 Lumbar Protective Mechanism Left AP 0 Lumbar Protective Mechanism Right AP 0 Lumbar Protective Mechanism Left PA 0 Lumbar Protective Mechanism Right PA 0 Comments Posture Comments trunk L rotated & L sidebend and R pelvic shear, ant pelvic tilt, knee hyperext B PT-OP-K Range of Motion Start: 06/22/21 17:38 Freq: Status: Active Protocol: Document 06/23/21 09:05 [facility] (Rec: 06/23/21 09:48 [facility] [id number]) Lumbar Spine Range of Motion Lumbar Spine Active Percentage Flexion 50 Extension 100 Rotation Left 70 Rotation Right 80 Lateral Flexion Left 60 Lateral Flexion Right 90 Comments pelvis rotates fwd w/L SB; pain L ext quadrant; when pelvis blocked hand to 2 in above patella PT-OP-L Special Tests Start: 06/22/21 17:38 Freq: Status: Active Protocol: Document 06/23/21 09:05 [facility] (Rec: 06/23/21 09:48 [facility] [id number]) Special Tests Lumbar Spine Special Tests Slump Test Results R slump LB symptoms w/dec symptoms w/neck flex Straight Leg Raise Test Results significant HS tightness and pain B knees at about 50 deg PT-OP-M Strength Start: 06/22/21 17:38 Freq: Status: Active Protocol: Document 06/23/21 09:05 [facility] (Rec: 06/23/21 09:48 [facility] [id number]) Hip Strength Hip Manual Muscle Testing Right Flexion (L2) 3 Fair Extension (S1) 3+ Fair+ Abduction 4- Good- Adduction 3+ Fair+ External Rotation 4 Good Internal Rotation 3+ Fair+ Comments pain hip flex Left Flexion (L2) 3 Fair Extension (S1) 3+ Fair+ Abduction 3+ Fair+ Adduction 4- Good- Internal Rotation 3+ Fair+ Comments pain hip flex Knee Strength Knee Manual Muscle Testing Right Flexion (S2) 5 Normal Extension (L3) 4+ Good+ Left Flexion (S2) 5 Normal Extension (L3) 4+ Good+ Ankle/Foot Strength Ankle and Foot Manual Muscle Testing Right Dorsiflexion (L4) 5 Normal Plantarflexion (S1) 5 Normal Comments 20 heel raises Left Dorsiflexion (L4) 5 Normal Plantarflexion (S1) 4 Good Comments pain in L LB, & L knee and L ankle (L ankle goes into more inversion) 15 heel raises PT-OP-Q Treatments Start: 06/22/21 17:38 Freq: Status: Active Protocol: Document 09/23/21 10:33 SP (Rec: 09/23/21 11:36 SP [id number]) Cardio Equipment Recumbent Elliptical ([employer]) Duration (Minutes) 6 Resistance 7 Seat Position 4 first notch Other UE/LEs, 484 ft Therapeutic Exercises Standing Exercises step up Standing Exercise Name step taps, fwd/lat eccentric back down Side bilateral Equipment Used 2#>5lb wt on ankles, 5lb wts B Reps/Minutes 2x5 reps each LE leading, 5# BU DBs Comments cued slow/quiet/soft heel strike eccentric herbert Manual Therapy Treatment Soft Tissue Mobilization B calf Body Location B Mobilization Type Cross-Friction,Strumming Intensity/Depth Moderate Body Position Supine Comments knees bent B quad Body Location B Mobilization Type Cross-Friction,Myofascial Release Intensity/Depth Moderate Comments during soheila stretch Joint Mobilizations talocrual Joint B Direction AP Grade II Body Position Supine Reps/Duration 2 min Manual Techniques HS stretch Type Manual HS stretch sustained hold, w/ AP Body Location B Body Position Supine Reps/Duration 30 x2 Comments gentle stretch w/ feedback, cued neutral pelvis, no LB recruitment, states feel tight - improved end stretch Neuro Re-Education Treatment Balance Activities head turns Details horizontal & vertical B, quick pace, quick stop, quick pivot Equipment 2# B LEs, 5# in BUEs Reps/Duration 80ftx3 (hallway) Comments cued knee extension elongation w/ soft eccentric heel toe advancement, stable/level pelvis for decrease hip hike/ thrust advancement. zoran stepping Equipment 5 lb wt on ankles Comments fwd over hurdles (3) (2x w/5 lb B UEs) step to, step over step -cued heel toe, soft/quiet eccentric heel strike advancement, PT-OP-R Modalities Start: 07/08/21 09:04 Freq: Status: Active Protocol: Document 07/08/21 08:19 [facility] (Rec: 07/08/21 09:05 [facility] [id number]) Hot Pack/Cold Pack Treatment Hot Pack Location lumbar Patient Position Prone Treatment Duration (minutes) 10 PT-OP-T Assessment and Plan Start: 06/22/21 17:38 Freq: Status: Active Protocol: Document 09/23/21 10:33 SP (Rec: 09/23/21 11:36 SP [id number]) Physical Therapy Assessment Goals pain Intermediate Goal (LTG) Pt will report at least 80% reduction in back pain from start of therapy. LTG Duration 09/23/21 strength Short Term Goal (STG) Pt will be indep w/HEP STG Duration 08/05/21 Ship Joiner Goal (LTG) Pt will score at least 4+/5 on all MMT of B LEs and at least 3/5 on LPM in all planes to show improved stability to dec instances of pain and dec risk for falls LTG Duration 09/23/21 SL Intermediate Goal (LTG) pt will be able to do SLS for 10 sec B to show improve stability for gait and balance . LTG Duration 09/23/21 balance Short Term Goal (STG) Pt will score at least 20/30 on FGA to show dec risk for falls STG Duration 08/20/21 Intermediate Goal (LTG) Pt will score at least 23/30 on FGA to show dec risk for falls LTG Duration 09/23/21 Assessment Summary Assessment Pt improved foot clearance and stride only occasional cuing eccentric LE advancement and posturing stability with increased 5# load to BLEs/BUEs stationary patterning over obstacles with decrease hip hike/thrust /eccentric advancement for carryover during gait progress stability carrying groceries at home. Physical Therapy Plan Frequency and Duration Frequency of Treatment 1-2x/week Duration of Treatment 3 months Plan of Care Start Date 06/23/21 Plan of Care End Date 09/23/21 Therapeutic Interventions Therapeutic Interventions Aquatic Therapy,Balance Training,Gait Training,Home Exercise Program,Joint Mobilizations,Manual Therapy, Neuromuscular Re-education, Orthotic/Prosthetic Management ,Patient/Caregiver Education, Self-Care/Home Management,Soft Tissue Mobilization,Taping, Therapeutic Activities, Therapeutic Exercises Modalities Cold Pack/Ice Massage,Electric Stimulation,Hot Packs, Traction- Mechanical, Ultrasound Next Visit Focus/Plan Next Note Type Treatment Note Next Visit Plan cont to advance functional dynamic core and glute stability, cont to work on ability to get lumbar flex
--- NOTE | 2021-09-29 12:12 | PT.OTN ---
Current Diagnoses Hereditary spastic paraplegia (09/29/21) Pain in unspecified hip (09/29/21) Pain in unspecified knee (09/29/21) Low back pain, unspecified (09/29/21) Abnormal posture (09/29/21) Weakness (09/29/21) Physical Therapy Treatment Note PT-OP-A Visit Information Start: 06/22/21 17:38 Freq: Status: Active Protocol: Document 09/29/21 11:23 [facility] (Rec: 09/29/21 12:12 [facility] [id number]) Out-Patient Physical Therapy Visit Information Visit Information Visit Type Treatment Note Visit Note Visit Start Time 11:21 Visit Stop Time 12:00 Total Visit Minutes 39 Visit Number 16 Number of COAL GRADER Visits 0 PT-OP-B Current Condition Start: 06/22/21 17:38 Freq: Status: Active Protocol: Document 06/23/21 09:05 [facility] (Rec: 06/23/21 09:48 [facility] [id number]) Current Condition History of Current Condition History of Current Condition Pt reports she feels like her balance is getting worse. Her LBP has been worse on L side. She is working with a GI MD and she thinks she sees one next week. So far they have only done urine and blood testing and everything seems to be fine there. She feels like she has a fever at times. She takes tylenol every day to 2.5 days. Pt has an IUD and it is getting close to the point it may need to come out. Pt reports she feels extremely bloated and has to take imodium every now and then. Pt reports when she has to go have a BM it is an immediate need. She has been taking a digestive enzyme to help with meals. She has dec carbonated things and dec coffee. Pt reports back and GI issues started about 1 month ago. Pt reports B hips and knees (R>L typically) have been givign her trouble. she feels like her balance is a little worse recently. She has been using a trekking pole and keeping it with her depending on what she is doing . Prior Treatments and Tests PT in past which has helped Future Testing and Treatments Planned GI specialist follow up and Primary follow up Treatment Goals Patient/Caregiver Goals Improve mobility, improve balance, make walk more fluid, dec pain. Personal Factors Other Personal Factors That May Effect seizures, dizziness, back pain Therapy/Recovery , jaw pain, spastic paraplegia PT-OP-C Subjective Start: 06/22/21 17:38 Freq: Status: Active Protocol: Document 09/29/21 11:23 [facility] (Rec: 09/29/21 12:12 [facility] [id number]) OP-PT Subjective Patient Comments Patient Comments Pt reports she was stiff in the evenings when camping d/t heat. PT-OP-D Balance Start: 06/22/21 17:38 Freq: Status: Active Protocol: Document 09/29/21 11:23 [facility] (Rec: 09/29/21 12:12 [facility] [id number]) Balance Tests Single Limb Standing Single Limb- Right 21 sec Single Limb- Left 15 sec w/some UE use for stability PT-OP-E Functional Tests Start: 06/22/21 17:38 Freq: Status: Active Protocol: Document 09/29/21 11:23 [facility] (Rec: 09/29/21 12:12 [facility] [id number]) Functional Tests 30 Second Sit to Stand Test Score 13x Five Times Sit to Stand Test Score 11 sec Functional Gait Assessment Score 22 PT-OP-F Manual Assessment Start: 06/22/21 17:38 Freq: Status: Active Protocol: Document 06/23/21 09:05 [facility] (Rec: 06/23/21 09:48 [facility] [id number]) Manual Assessments Soft Tissue Assessment Soft Tissue Mobility Assessment L QL & L glutes tight & tender Joint Mobility Assessment Joint Mobility Assessment R ilac crest higher, equal greater trochanter PT-OP-J Posture/Palpation/Skin Start: 06/22/21 17:38 Freq: Status: Active Protocol: Document 09/29/21 11:23 [facility] (Rec: 09/29/21 12:12 [facility] [id number]) Posture Evaluation Leanne Postural Classification System Leanne Postural Classifications Posterior/Anterior Lumbar Protective Mechanism Left AP 0 Lumbar Protective Mechanism Right AP 0 Lumbar Protective Mechanism Left PA 1 Lumbar Protective Mechanism Right PA 0 PT-OP-K Range of Motion Start: 06/22/21 17:38 Freq: Status: Active Protocol: Document 06/23/21 09:05 [facility] (Rec: 06/23/21 09:48 [facility] [id number]) Lumbar Spine Range of Motion Lumbar Spine Active Percentage Flexion 50 Extension 100 Rotation Left 70 Rotation Right 80 Lateral Flexion Left 60 Lateral Flexion Right 90 Comments pelvis rotates fwd w/L SB; pain L ext quadrant; when pelvis blocked hand to 2 in above patella PT-OP-L Special Tests Start: 06/22/21 17:38 Freq: Status: Active Protocol: Document 06/23/21 09:05 [facility] (Rec: 06/23/21 09:48 [facility] [id number]) Special Tests Lumbar Spine Special Tests Slump Test Results R slump LB symptoms w/dec symptoms w/neck flex Straight Leg Raise Test Results significant HS tightness and pain B knees at about 50 deg PT-OP-M Strength Start: 06/22/21 17:38 Freq: Status: Active Protocol: Document 09/29/21 11:23 [facility] (Rec: 09/29/21 12:12 [facility] [id number]) Hip Strength Hip Manual Muscle Testing Right Flexion (L2) 3 Fair Extension (S1) 4- Good- Abduction 4 Good Adduction 4+ Good+ External Rotation 4 Good Internal Rotation 3+ Fair+ Comments pain hip IR Left Flexion (L2) 3 Fair Extension (S1) 3+ Fair+ Abduction 4- Good- Adduction 5 Normal External Rotation 4 Good Internal Rotation 4 Good Knee Strength Knee Manual Muscle Testing Right Flexion (S2) 5 Normal Extension (L3) 5 Normal Left Flexion (S2) 5 Normal Extension (L3) 5 Normal Ankle/Foot Strength Ankle and Foot Manual Muscle Testing Right Dorsiflexion (L4) 5 Normal Plantarflexion (S1) 5 Normal Comments 20 heel raises Left Dorsiflexion (L4) 5 Normal Plantarflexion (S1) 5 Normal Comments (L ankle goes into more inversion)20 heel raises PT-OP-Q Treatments Start: 06/22/21 17:38 Freq: Status: Active Protocol: Document 09/29/21 11:23 [facility] (Rec: 09/29/21 12:12 [facility] [id number]) Cardio Equipment Recumbent Bicycle Duration (Minutes) 6 Resistance 6 Seat Position 2 Other responded well, good hip loosening warm up reported Gym Equipment Shuttle Balance red Comments fwd & side: squats x10 PT-OP-R Modalities Start: 07/08/21 09:04 Freq: Status: Active Protocol: Document 07/08/21 08:19 [facility] (Rec: 07/08/21 09:05 [facility] [id number]) Hot Pack/Cold Pack Treatment Hot Pack Location lumbar Patient Position Prone Treatment Duration (minutes) 10 PT-OP-T Assessment and Plan Start: 06/22/21 17:38 Freq: Status: Active Protocol: Document 09/29/21 11:23 [facility] (Rec: 09/29/21 12:12 [facility] [id number]) Physical Therapy Assessment Goals pain Herb Doctor Goal (LTG) Pt will report at least 80% reduction in back pain from start of therapy. 09/29-40-50% improvement LTG Duration 12/30/21 strength Short Term Goal (STG) Pt will be indep w/HEP STG Duration achieved advancing as able Herb Doctor Goal (LTG) Pt will score at least 4+/5 on all MMT of B LEs and at least 3/5 on LPM in all planes to show improved stability to dec instances of pain and dec risk for falls 09/29-improved LTG Duration 12/30 SL Group Home Goal (LTG) pt will be able to do SLS for 10 sec B to show improve stability for gait and balance . LTG Duration achieved balance Short Term Goal (STG) Pt will score at least 20/30 on FGA to show dec risk for falls STG Duration achieved to 22/30 09/29 Group Home Goal (LTG) Pt will score at least 23/30 on FGA to show dec risk for falls LTG Duration 12/30 Assessment Summary Assessment Pt is making good progress w/ PT w/improved LE strength, improved balanec and dec back pain. She still struggles w/ postural stability but is able to get more post tilt. Cont PT to cont tow ork on balance, gait and full body strength/ stability. Physical Therapy Plan Frequency and Duration Frequency of Treatment 1x/Week Duration of Treatment 3 months Plan of Care Start Date 09/29/21 Plan of Care End Date 12/30/21 Therapeutic Interventions Therapeutic Interventions Aquatic Therapy,Balance Training,Gait Training,Home Exercise Program,Joint Mobilizations,Manual Therapy, Neuromuscular Re-education, Orthotic/Prosthetic Management ,Patient/Caregiver Education, Self-Care/Home Management,Soft Tissue Mobilization,Taping, Therapeutic Activities, Therapeutic Exercises Modalities Cold Pack/Ice Massage,Electric Stimulation,Hot Packs, Traction- Mechanical, Ultrasound Next Visit Focus/Plan Next Note Type Treatment Note Next Visit Plan cont to advance functional dynamic core and glute stability, cont to work on ability to get lumbar flex
--- NOTE | 2021-09-29 12:12 | PT.OPPOC ---
Physical, Occupational & Speech Therapy At [facility] Current Diagnoses Hereditary spastic paraplegia (09/29/21) Pain in unspecified hip (09/29/21) Pain in unspecified knee (09/29/21) Low back pain, unspecified (09/29/21) Abnormal posture (09/29/21) Weakness (09/29/21) Visit Care Team Role Provider Type Kristin Borden DO Attending Provider Physician Family Provider Primary Care Provider Referring Provider Specialty: Family Practice Address: [address] [place] [address] [place], [address] Email: [email or web address] Plan Of Care PT-OP-T Assessment and Plan Start: 06/22/21 17:38 Freq: Status: Active Protocol: Document 09/29/21 11:23 [facility] (Rec: 09/29/21 12:12 [facility] [id number]) Physical Therapy Assessment Goals pain Bowling Alley Attendant Goal (LTG) Pt will report at least 80% reduction in back pain from start of therapy. 09/29-40-50% improvement LTG Duration 12/30/21 strength Short Term Goal (STG) Pt will be indep w/HEP STG Duration achieved advancing as able Correction Goal (LTG) Pt will score at least 4+/5 on all MMT of B LEs and at least 3/5 on LPM in all planes to show improved stability to dec instances of pain and dec risk for falls 09/29-improved LTG Duration 12/30 SL Bowling Alley Attendant Goal (LTG) pt will be able to do SLS for 10 sec B to show improve stability for gait and balance . LTG Duration achieved balance Short Term Goal (STG) Pt will score at least 20/30 on FGA to show dec risk for falls STG Duration achieved to 22/30 09/29 Bowling Alley Attendant Goal (LTG) Pt will score at least 23/30 on FGA to show dec risk for falls LTG Duration 12/30 Assessment Summary Assessment Pt is making good progress w/ PT w/improved LE strength, improved balanec and dec back pain. She still struggles w/ postural stability but is able to get more post tilt. Cont PT to cont tow ork on balance, gait and full body strength/ stability. Physical Therapy Plan Frequency and Duration Frequency of Treatment 1x/Week Duration of Treatment 3 months Plan of Care Start Date 09/29/21 Plan of Care End Date 12/30/21 Therapeutic Interventions Therapeutic Interventions Aquatic Therapy,Balance Training,Gait Training,Home Exercise Program,Joint Mobilizations,Manual Therapy, Neuromuscular Re-education, Orthotic/Prosthetic Management ,Patient/Caregiver Education, Self-Care/Home Management,Soft Tissue Mobilization,Taping, Therapeutic Activities, Therapeutic Exercises Modalities Cold Pack/Ice Massage,Electric Stimulation,Hot Packs, Traction- Mechanical, Ultrasound Next Visit Focus/Plan Next Note Type Treatment Note Next Visit Plan cont to advance functional dynamic core and glute stability, cont to work on ability to get lumbar flex Plan of Care Dates Plan of Care Start Date 09/29/21 Plan of Care End Date 12/30/21 Electronically Signed by: Amparo Stallworth, PT 09/29/21 1263 If you are in agreement with this Plan of Care, please return a signed and dated copy. I have reviewed this Plan of Care and certify that the skilled therapy services above are required to meet the patient?s needs. Physician Signature Date Printed Name and Credentials Clinical Instructor Signature Printed Name and Credentials
--- NOTE | 2021-10-07 10:30 | PT.OTN ---
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) Pain in unspecified hip (10/07/21) Pain in unspecified knee (10/07/21) Low back pain, unspecified (10/07/21) Abnormal posture (10/07/21) Weakness (10/07/21) Physical Therapy Treatment Note PT-OP-A Visit Information Start: 06/22/21 17:38 Freq: Status: Active Protocol: Document 10/07/21 09:53 SP (Rec: 10/07/21 10:34 SP [id number]) Out-Patient Physical Therapy Visit Information Visit Information Visit Type Treatment Note Visit Note Visit Start Time 09:53 Visit Stop Time 10:31 Total Visit Minutes 38 Visit Number 17 Number of TRANSPLANTER ORCHID Visits 1 PT-OP-B Current Condition Start: 06/22/21 17:38 Freq: Status: Active Protocol: Document 06/23/21 09:05 [facility] (Rec: 06/23/21 09:48 [facility] [id number]) Current Condition History of Current Condition History of Current Condition Pt reports she feels like her balance is getting worse. Her LBP has been worse on L side. She is working with a GI MD and she thinks she sees one next week. So far they have only done urine and blood testing and everything seems to be fine there. She feels like she has a fever at times. She takes tylenol every day to 2.5 days. Pt has an IUD and it is getting close to the point it may need to come out. Pt reports she feels extremely bloated and has to take imodium every now and then. Pt reports when she has to go have a BM it is an immediate need. She has been taking a digestive enzyme to help with meals. She has dec carbonated things and dec coffee. Pt reports back and GI issues started about 1 month ago. Pt reports B hips and knees (R>L typically) have been givign her trouble. she feels like her balance is a little worse recently. She has been using a trekking pole and keeping it with her depending on what she is doing . Prior Treatments and Tests PT in past which has helped Future Testing and Treatments Planned GI specialist follow up and Primary follow up Treatment Goals Patient/Caregiver Goals Improve mobility, improve balance, make walk more fluid, dec pain. Personal Factors Other Personal Factors That May Effect seizures, dizziness, back pain Therapy/Recovery , jaw pain, spastic paraplegia PT-OP-C Subjective Start: 06/22/21 17:38 Freq: Status: Active Protocol: Document 10/07/21 09:53 SP (Rec: 10/07/21 10:34 SP [id number]) OP-PT Subjective Patient Comments Patient Comments Pt reports the heat is a factor with how sleep good and bad nights. She reports does walk out on uneven lawn but might utilize support of AD. PT-OP-D Balance Start: 06/22/21 17:38 Freq: Status: Active Protocol: Document 09/29/21 11:23 [facility] (Rec: 09/29/21 12:12 [facility] [id number]) Balance Tests Single Limb Standing Single Limb- Right 21 sec Single Limb- Left 15 sec w/some UE use for stability PT-OP-E Functional Tests Start: 06/22/21 17:38 Freq: Status: Active Protocol: Document 09/29/21 11:23 [facility] (Rec: 09/29/21 12:12 [facility] [id number]) Functional Tests 30 Second Sit to Stand Test Score 13x Five Times Sit to Stand Test Score 11 sec Functional Gait Assessment Score 22 PT-OP-F Manual Assessment Start: 06/22/21 17:38 Freq: Status: Active Protocol: Document 06/23/21 09:05 [facility] (Rec: 06/23/21 09:48 [facility] [id number]) Manual Assessments Soft Tissue Assessment Soft Tissue Mobility Assessment L QL & L glutes tight & tender Joint Mobility Assessment Joint Mobility Assessment R ilac crest higher, equal greater trochanter PT-OP-J Posture/Palpation/Skin Start: 06/22/21 17:38 Freq: Status: Active Protocol: Document 09/29/21 11:23 [facility] (Rec: 09/29/21 12:12 [facility] [id number]) Posture Evaluation Leanne Postural Classification System Leanne Postural Classifications Posterior/Anterior Lumbar Protective Mechanism Left AP 0 Lumbar Protective Mechanism Right AP 0 Lumbar Protective Mechanism Left PA 1 Lumbar Protective Mechanism Right PA 0 PT-OP-K Range of Motion Start: 06/22/21 17:38 Freq: Status: Active Protocol: Document 06/23/21 09:05 [facility] (Rec: 06/23/21 09:48 [facility] [id number]) Lumbar Spine Range of Motion Lumbar Spine Active Percentage Flexion 50 Extension 100 Rotation Left 70 Rotation Right 80 Lateral Flexion Left 60 Lateral Flexion Right 90 Comments pelvis rotates fwd w/L SB; pain L ext quadrant; when pelvis blocked hand to 2 in above patella PT-OP-L Special Tests Start: 06/22/21 17:38 Freq: Status: Active Protocol: Document 06/23/21 09:05 [facility] (Rec: 06/23/21 09:48 [facility] [id number]) Special Tests Lumbar Spine Special Tests Slump Test Results R slump LB symptoms w/dec symptoms w/neck flex Straight Leg Raise Test Results significant HS tightness and pain B knees at about 50 deg PT-OP-M Strength Start: 06/22/21 17:38 Freq: Status: Active Protocol: Document 09/29/21 11:23 [facility] (Rec: 09/29/21 12:12 [facility] [id number]) Hip Strength Hip Manual Muscle Testing Right Flexion (L2) 3 Fair Extension (S1) 4- Good- Abduction 4 Good Adduction 4+ Good+ External Rotation 4 Good Internal Rotation 3+ Fair+ Comments pain hip IR Left Flexion (L2) 3 Fair Extension (S1) 3+ Fair+ Abduction 4- Good- Adduction 5 Normal External Rotation 4 Good Internal Rotation 4 Good Knee Strength Knee Manual Muscle Testing Right Flexion (S2) 5 Normal Extension (L3) 5 Normal Left Flexion (S2) 5 Normal Extension (L3) 5 Normal Ankle/Foot Strength Ankle and Foot Manual Muscle Testing Right Dorsiflexion (L4) 5 Normal Plantarflexion (S1) 5 Normal Comments 20 heel raises Left Dorsiflexion (L4) 5 Normal Plantarflexion (S1) 5 Normal Comments (L ankle goes into more inversion)20 heel raises PT-OP-Q Treatments Start: 06/22/21 17:38 Freq: Status: Active Protocol: Document 10/07/21 09:53 SP (Rec: 10/07/21 10:34 SP [id number]) Cardio Equipment Recumbent Elliptical (Biodex) Duration (Minutes) 5 Resistance 7 Seat Position 4 first notch Other UE/LEs, 371ft Gym Equipment Shuttle Balance red Comments fwd & side: wt shift then squats x10 Therapeutic Exercises Standing Exercises hip ext Resistance #5 leg wt Reps/Minutes 10 reps each side Comments cued neutral LS/PPT, glut fac calf stretch Standing Exercise Name gastroc/ soleus Side bilateral Equipment Used rail Reps/Minutes 30 x2 Comments good feedback stretch hip flexor stretch Side bilateral Reps/Minutes 30 sec Comments cued for neutral LS pelvic tilt Neuro Re-Education Treatment Balance Activities MAP bldg stairs Surface 28 stairs Equipment 5# BUE Dbs, 2# leg wts BLE Comments ascend/descend head turns Details horizontal & vertical B, quick pace, quick stop, quick pivot Equipment 2# B LEs, 2# in BUEs Reps/Duration 80ftx2 (ER hallway) Comments cued knee extension elongation heel toe w/ soft eccentric heel toe advancement, TA fac w / neutral pelvis to decrease hip hike/thrust advancement. - improvement zoran stepping Surface firm Equipment 5 lb wt on ankles, 5 hurdles Comments fwd and side stepping over hurdles (2laps) (2x w/5 lb B UEs) step over step -cued heel toe, soft/quiet eccentric heel strike advancement PT-OP-R Modalities Start: 07/08/21 09:04 Freq: Status: Active Protocol: Document 07/08/21 08:19 [facility] (Rec: 07/08/21 09:05 [facility] [id number]) Hot Pack/Cold Pack Treatment Hot Pack Location lumbar Patient Position Prone Treatment Duration (minutes) 10 PT-OP-T Assessment and Plan Start: 06/22/21 17:38 Freq: Status: Active Protocol: Document 10/07/21 09:53 SP (Rec: 10/07/21 10:34 SP [id number]) Physical Therapy Assessment Goals pain Fci Goal (LTG) Pt will report at least 80% reduction in back pain from start of therapy. 09/29-40-50% improvement LTG Duration 12/30/21 strength Short Term Goal (STG) Pt will be indep w/HEP STG Duration achieved advancing as able Fci Goal (LTG) Pt will score at least 4+/5 on all MMT of B LEs and at least 3/5 on LPM in all planes to show improved stability to dec instances of pain and dec risk for falls 09/29-improved LTG Duration 12/30 SL Technical Operations Specialist Goal (LTG) pt will be able to do SLS for 10 sec B to show improve stability for gait and balance . LTG Duration achieved balance Short Term Goal (STG) Pt will score at least 20/30 on FGA to show dec risk for falls STG Duration achieved to 22/30 09/29 Technical Operations Specialist Goal (LTG) Pt will score at least 23/30 on FGA to show dec risk for falls LTG Duration 12/30 Assessment Summary Assessment Pt improvement in eccentric stepping with weighted UE/ LEs during step ups and hurdles today, progressed to MAP bldg stairs CGA for safety, no LOB. 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 Physical Therapy Plan Frequency and Duration Frequency of Treatment 1x/Week Duration of Treatment 3 months Plan of Care Start Date 09/29/21 Plan of Care End Date 12/30/21 Therapeutic Interventions Therapeutic Interventions Aquatic Therapy,Balance Training,Gait Training,Home Exercise Program,Joint Mobilizations,Manual Therapy, Neuromuscular Re-education, Orthotic/Prosthetic Management ,Patient/Caregiver Education, Self-Care/Home Management,Soft Tissue Mobilization,Taping, Therapeutic Activities, Therapeutic Exercises Modalities Cold Pack/Ice Massage,Electric Stimulation,Hot Packs, Traction- Mechanical, Ultrasound Next Visit Focus/Plan Next Note Type Treatment Note Next Visit Plan Assess response to MAP bld stairs. POC: cont to advance functional dynamic core and glute stability, cont to work on ability to get lumbar flex
--- NOTE | 2021-10-15 09:50 | PT.OTN ---
Current Diagnoses Hereditary spastic paraplegia (10/15/21) Pain in unspecified hip (10/15/21) Pain in unspecified knee (10/15/21) Low back pain, unspecified (10/15/21) Abnormal posture (10/15/21) Weakness (10/15/21) Physical Therapy Treatment Note PT-OP-A Visit Information Start: 06/22/21 17:38 Freq: Status: Active Protocol: Document 10/15/21 09:12 [facility] (Rec: 10/15/21 09:50 [facility] [id number]) Out-Patient Physical Therapy Visit Information Visit Information Visit Type Treatment Note Visit Start Time 09:05 Visit Stop Time 09:45 Total Visit Minutes 40 Visit Number 18 Number of TUBE DRAW HELPER Visits 0 PT-OP-B Current Condition Start: 06/22/21 17:38 Freq: Status: Active Protocol: Document 06/23/21 09:05 [facility] (Rec: 06/23/21 09:48 [facility] [id number]) Current Condition History of Current Condition History of Current Condition Pt reports she feels like her balance is getting worse. Her LBP has been worse on L side. She is working with a GI MD and she thinks she sees one next week. So far they have only done urine and blood testing and everything seems to be fine there. She feels like she has a fever at times. She takes tylenol every day to 2.5 days. Pt has an IUD and it is getting close to the point it may need to come out. Pt reports she feels extremely bloated and has to take imodium every now and then. Pt reports when she has to go have a BM it is an immediate need. She has been taking a digestive enzyme to help with meals. She has dec carbonated things and dec coffee. Pt reports back and GI issues started about 1 month ago. Pt reports B hips and knees (R>L typically) have been givign her trouble. she feels like her balance is a little worse recently. She has been using a trekking pole and keeping it with her depending on what she is doing . Prior Treatments and Tests PT in past which has helped Future Testing and Treatments Planned GI specialist follow up and Primary follow up Treatment Goals Patient/Caregiver Goals Improve mobility, improve balance, make walk more fluid, dec pain. Personal Factors Other Personal Factors That May Effect seizures, dizziness, back pain Therapy/Recovery , jaw pain, spastic paraplegia PT-OP-C Subjective Start: 06/22/21 17:38 Freq: Status: Active Protocol: Document 10/15/21 09:12 [facility] (Rec: 10/15/21 09:50 [facility] [id number]) OP-PT Subjective Patient Comments Patient Comments Pt reports fatigue from heat his week, Notes R back is ' locked up PT-OP-D Balance Start: 06/22/21 17:38 Freq: Status: Active Protocol: Document 09/29/21 11:23 [facility] (Rec: 09/29/21 12:12 [facility] [id number]) Balance Tests Single Limb Standing Single Limb- Right 21 sec Single Limb- Left 15 sec w/some UE use for stability PT-OP-E Functional Tests Start: 06/22/21 17:38 Freq: Status: Active Protocol: Document 09/29/21 11:23 [facility] (Rec: 09/29/21 12:12 [facility] [id number]) Functional Tests 30 Second Sit to Stand Test Score 13x Five Times Sit to Stand Test Score 11 sec Functional Gait Assessment Score 22 PT-OP-F Manual Assessment Start: 06/22/21 17:38 Freq: Status: Active Protocol: Document 06/23/21 09:05 [facility] (Rec: 06/23/21 09:48 [facility] [id number]) Manual Assessments Soft Tissue Assessment Soft Tissue Mobility Assessment L QL & L glutes tight & tender Joint Mobility Assessment Joint Mobility Assessment R ilac crest higher, equal greater trochanter PT-OP-J Posture/Palpation/Skin Start: 06/22/21 17:38 Freq: Status: Active Protocol: Document 09/29/21 11:23 [facility] (Rec: 09/29/21 12:12 [facility] [id number]) Posture Evaluation Leanne Postural Classification System Leanne Postural Classifications Posterior/Anterior Lumbar Protective Mechanism Left AP 0 Lumbar Protective Mechanism Right AP 0 Lumbar Protective Mechanism Left PA 1 Lumbar Protective Mechanism Right PA 0 PT-OP-K Range of Motion Start: 06/22/21 17:38 Freq: Status: Active Protocol: Document 06/23/21 09:05 [facility] (Rec: 06/23/21 09:48 [facility] [id number]) Lumbar Spine Range of Motion Lumbar Spine Active Percentage Flexion 50 Extension 100 Rotation Left 70 Rotation Right 80 Lateral Flexion Left 60 Lateral Flexion Right 90 Comments pelvis rotates fwd w/L SB; pain L ext quadrant; when pelvis blocked hand to 2 in above patella PT-OP-L Special Tests Start: 06/22/21 17:38 Freq: Status: Active Protocol: Document 06/23/21 09:05 [facility] (Rec: 06/23/21 09:48 [facility] [id number]) Special Tests Lumbar Spine Special Tests Slump Test Results R slump LB symptoms w/dec symptoms w/neck flex Straight Leg Raise Test Results significant HS tightness and pain B knees at about 50 deg PT-OP-M Strength Start: 06/22/21 17:38 Freq: Status: Active Protocol: Document 09/29/21 11:23 [facility] (Rec: 09/29/21 12:12 [facility] [id number]) Hip Strength Hip Manual Muscle Testing Right Flexion (L2) 3 Fair Extension (S1) 4- Good- Abduction 4 Good Adduction 4+ Good+ External Rotation 4 Good Internal Rotation 3+ Fair+ Comments pain hip IR Left Flexion (L2) 3 Fair Extension (S1) 3+ Fair+ Abduction 4- Good- Adduction 5 Normal External Rotation 4 Good Internal Rotation 4 Good Knee Strength Knee Manual Muscle Testing Right Flexion (S2) 5 Normal Extension (L3) 5 Normal Left Flexion (S2) 5 Normal Extension (L3) 5 Normal Ankle/Foot Strength Ankle and Foot Manual Muscle Testing Right Dorsiflexion (L4) 5 Normal Plantarflexion (S1) 5 Normal Comments 20 heel raises Left Dorsiflexion (L4) 5 Normal Plantarflexion (S1) 5 Normal Comments (L ankle goes into more inversion)20 heel raises PT-OP-Q Treatments Start: 06/22/21 17:38 Freq: Status: Active Protocol: Document 10/15/21 09:12 [facility] (Rec: 10/15/21 09:50 [facility] [id number]) Therapeutic Exercises Supine Exercises bridge Side bilateral Reps/Minutes 10 sec x2 pelvic tilt Reps/Minutes 5 Comments min cues to get pelvis to tilt further Sitting Exercises DF TB Sitting Exercise Name added to HEP Side bilateral Resistance TB #2 Reps/Minutes x8 Standing Exercises multifidi Standing Exercise Name sidestep Side bilateral Equipment Used lvl 1 2bands Reps/Minutes 3ea hip ext Resistance lvl 1 Reps/Minutes 5 Comments cued neutral LS/PPT, glut fac calf stretch Standing Exercise Name gastroc Side bilateral Equipment Used rail Reps/Minutes 30 Comments good feedback stretch side step Side bilateral Equipment Used lvl 2 Reps/Minutes 10ft Comments cues for foot position and core hip flexor stretch Side bilateral Reps/Minutes 30 sec Comments cued for neutral LS pelvic tilt Other Exercises cat/camel Reps/Minutes 5 Manual Therapy Treatment Soft Tissue Mobilization lumbar Body Location R ES and QL Mobilization Type Strumming Intensity/Depth Moderate Body Position Sidelying Comments w/PNF post dep Joint Mobilizations sacrum Joint caudal R FM innominate Joint R caudal and IR FM lumbar Joint L2-5 transverse R FM Neuro Re-Education Treatment Balance Activities bosu Comments 1. standing balance 2. standing squats x10 3. step ups x5 B 4. lunge x5 B SL Details SLS trials B tandem stance Details trials B PT-OP-R Modalities Start: 07/08/21 09:04 Freq: Status: Active Protocol: Document 07/08/21 08:19 [facility] (Rec: 07/08/21 09:05 [facility] [id number]) Hot Pack/Cold Pack Treatment Hot Pack Location lumbar Patient Position Prone Treatment Duration (minutes) 10 PT-OP-T Assessment and Plan Start: 06/22/21 17:38 Freq: Status: Active Protocol: Document 10/15/21 09:12 [facility] (Rec: 10/15/21 09:50 [facility] [id number]) Physical Therapy Assessment Goals pain Exercise Teacher Goal (LTG) Pt will report at least 80% reduction in back pain from start of therapy. 09/29-40-50% improvement LTG Duration 12/30/21 strength Short Term Goal (STG) Pt will be indep w/HEP STG Duration achieved advancing as able Shelter Goal (LTG) Pt will score at least 4+/5 on all MMT of B LEs and at least 3/5 on LPM in all planes to show improved stability to dec instances of pain and dec risk for falls 09/29-improved LTG Duration 12/30 SL Exercise Teacher Goal (LTG) pt will be able to do SLS for 10 sec B to show improve stability for gait and balance . LTG Duration achieved balance Short Term Goal (STG) Pt will score at least 20/30 on FGA to show dec risk for falls STG Duration achieved to 22/30 09/29 Exercise Teacher Goal (LTG) Pt will score at least 23/30 on FGA to show dec risk for falls LTG Duration 12/30 Assessment Summary Assessment Pt did well with new program for 2 different sets of workouts. no pain noted during . She had relief of back pain and improved pelvis and hip motion w/manual. Physical Therapy Plan Frequency and Duration Frequency of Treatment 1x/Week Duration of Treatment 3 months Plan of Care Start Date 09/29/21 Plan of Care End Date 12/30/21 Next Visit Focus/Plan Next Note Type Treatment Note Next Visit Plan cont to advance functional dynamic core and glute stability, cont to work on ability to get lumbar flex
--- NOTE | 2021-10-22 13:45 | PT.OTN ---
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) Pain in unspecified hip (10/22/21) Pain in unspecified knee (10/22/21) Low back pain, unspecified (10/22/21) Abnormal posture (10/22/21) Weakness (10/22/21) Physical Therapy Treatment Note PT-OP-A Visit Information Start: 06/22/21 17:38 Freq: Status: Active Protocol: Document 10/22/21 13:01 SP (Rec: 10/22/21 13:46 SP [id number]) Out-Patient Physical Therapy Visit Information Visit Information Visit Type Treatment Note Visit Start Time 13:01 Visit Stop Time 13:45 Total Visit Minutes 44 Visit Number 19 Number of COMMUNITY RELATIONS COORDINATOR Visits 1 PT-OP-B Current Condition Start: 06/22/21 17:38 Freq: Status: Active Protocol: Document 06/23/21 09:05 [facility] (Rec: 06/23/21 09:48 [facility] [id number]) Current Condition History of Current Condition History of Current Condition Pt reports she feels like her balance is getting worse. Her LBP has been worse on L side. She is working with a GI MD and she thinks she sees one next week. So far they have only done urine and blood testing and everything seems to be fine there. She feels like she has a fever at times. She takes tylenol every day to 2.5 days. Pt has an IUD and it is getting close to the point it may need to come out. Pt reports she feels extremely bloated and has to take imodium every now and then. Pt reports when she has to go have a BM it is an immediate need. She has been taking a digestive enzyme to help with meals. She has dec carbonated things and dec coffee. Pt reports back and GI issues started about 1 month ago. Pt reports B hips and knees (R>L typically) have been givign her trouble. she feels like her balance is a little worse recently. She has been using a trekking pole and keeping it with her depending on what she is doing . Prior Treatments and Tests PT in past which has helped Future Testing and Treatments Planned GI specialist follow up and Primary follow up Treatment Goals Patient/Caregiver Goals Improve mobility, improve balance, make walk more fluid, dec pain. 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 Not as good heel toe but trying be more aware. PT-OP-D Balance Start: 06/22/21 17:38 Freq: Status: Active Protocol: Document 09/29/21 11:23 [facility] (Rec: 09/29/21 12:12 [facility] [id number]) Balance Tests Single Limb Standing Single Limb- Right 21 sec Single Limb- Left 15 sec w/some UE use for stability PT-OP-E Functional Tests Start: 06/22/21 17:38 Freq: Status: Active Protocol: Document 09/29/21 11:23 [facility] (Rec: 09/29/21 12:12 [facility] [id number]) Functional Tests 30 Second Sit to Stand Test Score 13x Five Times Sit to Stand Test Score 11 sec Functional Gait Assessment Score 22 PT-OP-F Manual Assessment Start: 06/22/21 17:38 Freq: Status: Active Protocol: Document 06/23/21 09:05 [facility] (Rec: 06/23/21 09:48 [facility] [id number]) Manual Assessments Soft Tissue Assessment Soft Tissue Mobility Assessment L QL & L glutes tight & tender Joint Mobility Assessment Joint Mobility Assessment R ilac crest higher, equal greater trochanter PT-OP-J Posture/Palpation/Skin Start: 06/22/21 17:38 Freq: Status: Active Protocol: Document 09/29/21 11:23 [facility] (Rec: 09/29/21 12:12 [facility] [id number]) Posture Evaluation Leanne Postural Classification System Leanne Postural Classifications Posterior/Anterior Lumbar Protective Mechanism Left AP 0 Lumbar Protective Mechanism Right AP 0 Lumbar Protective Mechanism Left PA 1 Lumbar Protective Mechanism Right PA 0 PT-OP-K Range of Motion Start: 06/22/21 17:38 Freq: Status: Active Protocol: Document 06/23/21 09:05 [facility] (Rec: 06/23/21 09:48 [facility] [id number]) Lumbar Spine Range of Motion Lumbar Spine Active Percentage Flexion 50 Extension 100 Rotation Left 70 Rotation Right 80 Lateral Flexion Left 60 Lateral Flexion Right 90 Comments pelvis rotates fwd w/L SB; pain L ext quadrant; when pelvis blocked hand to 2 in above patella PT-OP-L Special Tests Start: 06/22/21 17:38 Freq: Status: Active Protocol: Document 06/23/21 09:05 [facility] (Rec: 06/23/21 09:48 [facility] [id number]) Special Tests Lumbar Spine Special Tests Slump Test Results R slump LB symptoms w/dec symptoms w/neck flex Straight Leg Raise Test Results significant HS tightness and pain B knees at about 50 deg PT-OP-M Strength Start: 06/22/21 17:38 Freq: Status: Active Protocol: Document 09/29/21 11:23 [facility] (Rec: 09/29/21 12:12 [facility] [id number]) Hip Strength Hip Manual Muscle Testing Right Flexion (L2) 3 Fair Extension (S1) 4- Good- Abduction 4 Good Adduction 4+ Good+ External Rotation 4 Good Internal Rotation 3+ Fair+ Comments pain hip IR Left Flexion (L2) 3 Fair Extension (S1) 3+ Fair+ Abduction 4- Good- Adduction 5 Normal External Rotation 4 Good Internal Rotation 4 Good Knee Strength Knee Manual Muscle Testing Right Flexion (S2) 5 Normal Extension (L3) 5 Normal Left Flexion (S2) 5 Normal Extension (L3) 5 Normal Ankle/Foot Strength Ankle and Foot Manual Muscle Testing Right Dorsiflexion (L4) 5 Normal Plantarflexion (S1) 5 Normal Comments 20 heel raises Left Dorsiflexion (L4) 5 Normal Plantarflexion (S1) 5 Normal Comments (L ankle goes into more inversion)20 heel raises PT-OP-Q Treatments Start: 06/22/21 17:38 Freq: Status: Active Protocol: Document 10/22/21 13:01 SP (Rec: 10/22/21 13:46 SP [id number]) Therapeutic Exercises Supine Exercises bridge Side bilateral Reps/Minutes 10 sec x2 pelvic tilt Reps/Minutes 5 Comments good PPT Sitting Exercises DF TB Sitting Exercise Name reviewed HEP Side bilateral Resistance TB #2 Reps/Minutes x2x10 each Comments occ cued set up and form. Standing Exercises multifidi Standing Exercise Name sidestep Side bilateral Equipment Used lvl 1 2bands (ankles, mid ang ) Reps/Minutes 3ea Comments cued PPT hip ext Resistance lvl 1 1 band around ankles- mid ang Equipment Used contact table Reps/Minutes 3 reps x3 each LE Comments cued neutral LS/PPT, glut fac calf stretch Standing Exercise Name gastroc and soleus Side bilateral Equipment Used rail contact Reps/Minutes 30 Comments good feedback stretch- cued PPT awareness side step Side bilateral Equipment Used lvl 2 Reps/Minutes 10ft x3 laps Comments cues for DF foot position forward to clear and core hip flexor stretch Side bilateral Reps/Minutes 30 sec Comments cued for neutral LS pelvic tilt Manual Therapy Treatment Soft Tissue Mobilization B calf Body Location B Mobilization Type Cross-Friction,Strumming Intensity/Depth Moderate Body Position Prone Comments feet off end table hip flexor Body Location R>L iliacus and psoas Mobilization Type Sustained Pressure Intensity/Depth Moderate Body Position Hooklying Comments viky knife FM downward pressure with exhale. Joint Mobilizations talocrual Joint B Direction PA, inferior Grade II Body Position Prone Reps/Duration 2 min Comments inferior glide and med/lat Neuro Re-Education Treatment Balance Activities head turns Details horizontal & vertical B, quick pace, quick stop, quick pivot Equipment No leg wts today Reps/Duration 170 ft Comments improved DF heel toe post manual/ stretching heel toe cued x1 for TA fac w/ neutral pelvis to decrease hip hike/ thrust advancement. - improvement correction PT-OP-R Modalities Start: 07/08/21 09:04 Freq: Status: Active Protocol: Document 07/08/21 08:19 [facility] (Rec: 07/08/21 09:05 [facility] [id number]) Hot Pack/Cold Pack Treatment Hot Pack Location lumbar Patient Position Prone Treatment Duration (minutes) 10 PT-OP-T Assessment and Plan Start: 06/22/21 17:38 Freq: Status: Active Protocol: Document 10/22/21 13:01 SP (Rec: 10/22/21 13:46 SP [id number]) Physical Therapy Assessment Goals pain Single Stroke Preformer Goal (LTG) Pt will report at least 80% reduction in back pain from start of therapy. 09/29-40-50% improvement LTG Duration 12/30/21 strength Short Term Goal (STG) Pt will be indep w/HEP STG Duration achieved advancing as able Single Stroke Preformer Goal (LTG) Pt will score at least 4+/5 on all MMT of B LEs and at least 3/5 on LPM in all planes to show improved stability to dec instances of pain and dec risk for falls 09/29-improved LTG Duration 12/30 SL Correction Goal (LTG) pt will be able to do SLS for 10 sec B to show improve stability for gait and balance . LTG Duration achieved balance Short Term Goal (STG) Pt will score at least 20/30 on FGA to show dec risk for falls STG Duration achieved to 22/30 09/29 Single Stroke Preformer Goal (LTG) Pt will score at least 23/30 on FGA to show dec risk for falls LTG Duration 12/30 Assessment Summary Assessment Pt improved DF and hip extension heel toe gait end tx post manual and stretching. Physical Therapy Plan Frequency and Duration Frequency of Treatment 1x/Week Duration of Treatment 3 months Plan of Care Start Date 09/29/21 Plan of Care End Date 12/30/21 Therapeutic Interventions Therapeutic Interventions Aquatic Therapy,Balance Training,Gait Training,Home Exercise Program,Joint Mobilizations,Manual Therapy, Neuromuscular Re-education, Orthotic/Prosthetic Management ,Patient/Caregiver Education, Self-Care/Home Management,Soft Tissue Mobilization,Taping, Therapeutic Activities, Therapeutic Exercises Modalities Cold Pack/Ice Massage,Electric Stimulation,Hot Packs, Traction- Mechanical, Ultrasound Next Visit Focus/Plan Next Note Type Treatment Note Next Visit Plan HEP review. POC: cont to advance functional dynamic core and glute stability, cont to work on ability to get lumbar flex
--- NOTE | 2021-11-10 12:11 | PT.OTN ---
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) Pain in unspecified hip (11/10/21) Pain in unspecified knee (11/10/21) Low back pain, unspecified (11/10/21) Abnormal posture (11/10/21) Weakness (11/10/21) Physical Therapy Treatment Note PT-OP-A Visit Information Start: 06/22/21 17:38 Freq: Status: Active Protocol: Document 11/10/21 11:19 [facility] (Rec: 11/10/21 12:11 [facility] [id number]) Out-Patient Physical Therapy Visit Information Visit Information Visit Type Treatment Note Visit Start Time 11:20 Visit Stop Time 12:00 Total Visit Minutes 40 Visit Number 20 Number of COMBINATION WORKER Visits 0 PT-OP-B Current Condition Start: 06/22/21 17:38 Freq: Status: Active Protocol: Document 06/23/21 09:05 [facility] (Rec: 06/23/21 09:48 [facility] [id number]) Current Condition History of Current Condition History of Current Condition Pt reports she feels like her balance is getting worse. Her LBP has been worse on L side. She is working with a GI MD and she thinks she sees one next week. So far they have only done urine and blood testing and everything seems to be fine there. She feels like she has a fever at times. She takes tylenol every day to 2.5 days. Pt has an IUD and it is getting close to the point it may need to come out. Pt reports she feels extremely bloated and has to take imodium every now and then. Pt reports when she has to go have a BM it is an immediate need. She has been taking a digestive enzyme to help with meals. She has dec carbonated things and dec coffee. Pt reports back and GI issues started about 1 month ago. Pt reports B hips and knees (R>L typically) have been givign her trouble. she feels like her balance is a little worse recently. She has been using a trekking pole and keeping it with her depending on what she is doing . Prior Treatments and Tests PT in past which has helped Future Testing and Treatments Planned GI specialist follow up and Primary follow up Treatment Goals Patient/Caregiver Goals Improve mobility, improve balance, make walk more fluid, dec pain. Personal Factors Other Personal Factors That May Effect seizures, dizziness, back pain Therapy/Recovery , jaw pain, spastic paraplegia PT-OP-C Subjective Start: 06/22/21 17:38 Freq: Status: Active Protocol: Document 11/10/21 11:19 [facility] (Rec: 11/10/21 12:11 [facility] [id number]) OP-PT Subjective Patient Comments Patient Comments Pt reports a in the family so has not been able to do much exercise. Pt reports back has been sore and L calf and B knees and would like to focus on this today. PT-OP-D Balance Start: 06/22/21 17:38 Freq: Status: Active Protocol: Document 09/29/21 11:23 [facility] (Rec: 09/29/21 12:12 [facility] [id number]) Balance Tests Single Limb Standing Single Limb- Right 21 sec Single Limb- Left 15 sec w/some UE use for stability PT-OP-E Functional Tests Start: 06/22/21 17:38 Freq: Status: Active Protocol: Document 09/29/21 11:23 [facility] (Rec: 09/29/21 12:12 [facility] [id number]) Functional Tests 30 Second Sit to Stand Test Score 13x Five Times Sit to Stand Test Score 11 sec Functional Gait Assessment Score 22 PT-OP-F Manual Assessment Start: 06/22/21 17:38 Freq: Status: Active Protocol: Document 06/23/21 09:05 [facility] (Rec: 06/23/21 09:48 [facility] [id number]) Manual Assessments Soft Tissue Assessment Soft Tissue Mobility Assessment L QL & L glutes tight & tender Joint Mobility Assessment Joint Mobility Assessment R ilac crest higher, equal greater trochanter PT-OP-J Posture/Palpation/Skin Start: 06/22/21 17:38 Freq: Status: Active Protocol: Document 09/29/21 11:23 [facility] (Rec: 09/29/21 12:12 [facility] [id number]) Posture Evaluation Leanne Postural Classification System Leanne Postural Classifications Posterior/Anterior Lumbar Protective Mechanism Left AP 0 Lumbar Protective Mechanism Right AP 0 Lumbar Protective Mechanism Left PA 1 Lumbar Protective Mechanism Right PA 0 PT-OP-K Range of Motion Start: 06/22/21 17:38 Freq: Status: Active Protocol: Document 06/23/21 09:05 [facility] (Rec: 06/23/21 09:48 [facility] [id number]) Lumbar Spine Range of Motion Lumbar Spine Active Percentage Flexion 50 Extension 100 Rotation Left 70 Rotation Right 80 Lateral Flexion Left 60 Lateral Flexion Right 90 Comments pelvis rotates fwd w/L SB; pain L ext quadrant; when pelvis blocked hand to 2 in above patella PT-OP-L Special Tests Start: 06/22/21 17:38 Freq: Status: Active Protocol: Document 06/23/21 09:05 [facility] (Rec: 06/23/21 09:48 [facility] [id number]) Special Tests Lumbar Spine Special Tests Slump Test Results R slump LB symptoms w/dec symptoms w/neck flex Straight Leg Raise Test Results significant HS tightness and pain B knees at about 50 deg PT-OP-M Strength Start: 06/22/21 17:38 Freq: Status: Active Protocol: Document 09/29/21 11:23 [facility] (Rec: 09/29/21 12:12 [facility] [id number]) Hip Strength Hip Manual Muscle Testing Right Flexion (L2) 3 Fair Extension (S1) 4- Good- Abduction 4 Good Adduction 4+ Good+ External Rotation 4 Good Internal Rotation 3+ Fair+ Comments pain hip IR Left Flexion (L2) 3 Fair Extension (S1) 3+ Fair+ Abduction 4- Good- Adduction 5 Normal External Rotation 4 Good Internal Rotation 4 Good Knee Strength Knee Manual Muscle Testing Right Flexion (S2) 5 Normal Extension (L3) 5 Normal Left Flexion (S2) 5 Normal Extension (L3) 5 Normal Ankle/Foot Strength Ankle and Foot Manual Muscle Testing Right Dorsiflexion (L4) 5 Normal Plantarflexion (S1) 5 Normal Comments 20 heel raises Left Dorsiflexion (L4) 5 Normal Plantarflexion (S1) 5 Normal Comments (L ankle goes into more inversion)20 heel raises PT-OP-Q Treatments Start: 06/22/21 17:38 Freq: Status: Active Protocol: Document 11/10/21 11:19 [facility] (Rec: 11/10/21 12:11 [facility] [id number]) Cardio Equipment Recumbent Elliptical (Biodex) Duration (Minutes) 5 Resistance 7 Seat Position 4 first notch Other UE/LEs Gym Equipment Therapeutic Ball seated Exercise Details Mod cues for performance Ball Size/Color 65cm Body Position Sitting Comments 1. pelvic tilt- x15 2. pelvic circles 10 B 3. marches x15 B Manual Therapy Treatment Soft Tissue Mobilization lumbar Body Location R>L ES and QL Mobilization Type Strumming Intensity/Depth Moderate Body Position Prone Joint Mobilizations sacrum Joint caudal L & UPA R FM innominate Joint B flex FM & IR FM hip Joint B Direction flex FM PT-OP-R Modalities Start: 07/08/21 09:04 Freq: Status: Active Protocol: Document 07/08/21 08:19 [facility] (Rec: 07/08/21 09:05 [facility] [id number]) Hot Pack/Cold Pack Treatment Hot Pack Location lumbar Patient Position Prone Treatment Duration (minutes) 10 PT-OP-T Assessment and Plan Start: 06/22/21 17:38 Freq: Status: Active Protocol: Document 11/10/21 11:19 [facility] (Rec: 11/10/21 12:11 [facility] [id number]) Physical Therapy Assessment Goals pain Penitentiary Goal (LTG) Pt will report at least 80% reduction in back pain from start of therapy. 09/29-40-50% improvement LTG Duration 12/30/21 strength Short Term Goal (STG) Pt will be indep w/HEP STG Duration achieved advancing as able Oil Sales And Service Rep Goal (LTG) Pt will score at least 4+/5 on all MMT of B LEs and at least 3/5 on LPM in all planes to show improved stability to dec instances of pain and dec risk for falls 09/29-improved LTG Duration 12/30 SL Oil Sales And Service Rep Goal (LTG) pt will be able to do SLS for 10 sec B to show improve stability for gait and balance . LTG Duration achieved balance Short Term Goal (STG) Pt will score at least 20/30 on FGA to show dec risk for falls STG Duration achieved to 22/30 09/29 Penitentiary Goal (LTG) Pt will score at least 23/30 on FGA to show dec risk for falls LTG Duration 12/30 Assessment Summary Assessment Pt required cues when working on spinal movemnt on ball today. focus on manual for pain relief as pt has been grieving recently and has had inc pain w/dec time for exercise. Physical Therapy Plan Frequency and Duration Frequency of Treatment 1x/Week Duration of Treatment 3 months Plan of Care Start Date 09/29/21 Plan of Care End Date 12/30/21 Next Visit Focus/Plan Next Note Type Treatment Note Next Visit Plan HEP review,cont to advance functional dynamic core and glute stability, cont to work on ability to get lumbar flex
--- NOTE | 2021-11-18 11:17 | PT.OTN ---
Current Diagnoses Hereditary spastic paraplegia (11/18/21) Pain in unspecified hip (11/18/21) Pain in unspecified knee (11/18/21) Low back pain, unspecified (11/18/21) Abnormal posture (11/18/21) Weakness (11/18/21) Physical Therapy Treatment Note PT-OP-A Visit Information Start: 06/22/21 17:38 Freq: Status: Active Protocol: Document 11/18/21 10:39 [facility] (Rec: 11/18/21 11:38 [facility] [id number]) Out-Patient Physical Therapy Visit Information Visit Information Visit Type Treatment Note Visit Start Time 10:39 Visit Stop Time 11:17 Total Visit Minutes 38 Visit Number 21 Number of QUARRY EQUIPMENT OPERATOR Visits 1 PT-OP-B Current Condition Start: 06/22/21 17:38 Freq: Status: Active Protocol: Document 06/23/21 09:05 [facility] (Rec: 06/23/21 09:48 [facility] [id number]) Current Condition History of Current Condition History of Current Condition Pt reports she feels like her balance is getting worse. Her LBP has been worse on L side. She is working with a GI MD and she thinks she sees one next week. So far they have only done urine and blood testing and everything seems to be fine there. She feels like she has a fever at times. She takes tylenol every day to 2.5 days. Pt has an IUD and it is getting close to the point it may need to come out. Pt reports she feels extremely bloated and has to take imodium every now and then. Pt reports when she has to go have a BM it is an immediate need. She has been taking a digestive enzyme to help with meals. She has dec carbonated things and dec coffee. Pt reports back and GI issues started about 1 month ago. Pt reports B hips and knees (R>L typically) have been givign her trouble. she feels like her balance is a little worse recently. She has been using a trekking pole and keeping it with her depending on what she is doing . Prior Treatments and Tests PT in past which has helped Future Testing and Treatments Planned GI specialist follow up and Primary follow up Treatment Goals Patient/Caregiver Goals Improve mobility, improve balance, make walk more fluid, dec pain. Personal Factors Other Personal Factors That May Effect seizures, dizziness, back pain Therapy/Recovery , jaw pain, spastic paraplegia PT-OP-C Subjective Start: 06/22/21 17:38 Freq: Status: Active Protocol: Document 11/18/21 10:39 [facility] (Rec: 11/18/21 11:38 [facility] [id number]) OP-PT Subjective Patient Comments Patient Comments Pt reported L>R ankles discomfort feels like going to roll ankles and L medial knee pain today and wants attention today. PT-OP-D Balance Start: 06/22/21 17:38 Freq: Status: Active Protocol: Document 09/29/21 11:23 [facility] (Rec: 09/29/21 12:12 [facility] [id number]) Balance Tests Single Limb Standing Single Limb- Right 21 sec Single Limb- Left 15 sec w/some UE use for stability PT-OP-E Functional Tests Start: 06/22/21 17:38 Freq: Status: Active Protocol: Document 09/29/21 11:23 [facility] (Rec: 09/29/21 12:12 [facility] [id number]) Functional Tests 30 Second Sit to Stand Test Score 13x Five Times Sit to Stand Test Score 11 sec Functional Gait Assessment Score 22 PT-OP-F Manual Assessment Start: 06/22/21 17:38 Freq: Status: Active Protocol: Document 06/23/21 09:05 [facility] (Rec: 06/23/21 09:48 [facility] [id number]) Manual Assessments Soft Tissue Assessment Soft Tissue Mobility Assessment L QL & L glutes tight & tender Joint Mobility Assessment Joint Mobility Assessment R ilac crest higher, equal greater trochanter PT-OP-J Posture/Palpation/Skin Start: 06/22/21 17:38 Freq: Status: Active Protocol: Document 09/29/21 11:23 [facility] (Rec: 09/29/21 12:12 [facility] [id number]) Posture Evaluation Leanne Postural Classification System Leanne Postural Classifications Posterior/Anterior Lumbar Protective Mechanism Left AP 0 Lumbar Protective Mechanism Right AP 0 Lumbar Protective Mechanism Left PA 1 Lumbar Protective Mechanism Right PA 0 PT-OP-K Range of Motion Start: 06/22/21 17:38 Freq: Status: Active Protocol: Document 06/23/21 09:05 [facility] (Rec: 06/23/21 09:48 [facility] [id number]) Lumbar Spine Range of Motion Lumbar Spine Active Percentage Flexion 50 Extension 100 Rotation Left 70 Rotation Right 80 Lateral Flexion Left 60 Lateral Flexion Right 90 Comments pelvis rotates fwd w/L SB; pain L ext quadrant; when pelvis blocked hand to 2 in above patella PT-OP-L Special Tests Start: 06/22/21 17:38 Freq: Status: Active Protocol: Document 06/23/21 09:05 [facility] (Rec: 06/23/21 09:48 [facility] [id number]) Special Tests Lumbar Spine Special Tests Slump Test Results R slump LB symptoms w/dec symptoms w/neck flex Straight Leg Raise Test Results significant HS tightness and pain B knees at about 50 deg PT-OP-M Strength Start: 06/22/21 17:38 Freq: Status: Active Protocol: Document 09/29/21 11:23 [facility] (Rec: 09/29/21 12:12 [facility] [id number]) Hip Strength Hip Manual Muscle Testing Right Flexion (L2) 3 Fair Extension (S1) 4- Good- Abduction 4 Good Adduction 4+ Good+ External Rotation 4 Good Internal Rotation 3+ Fair+ Comments pain hip IR Left Flexion (L2) 3 Fair Extension (S1) 3+ Fair+ Abduction 4- Good- Adduction 5 Normal External Rotation 4 Good Internal Rotation 4 Good Knee Strength Knee Manual Muscle Testing Right Flexion (S2) 5 Normal Extension (L3) 5 Normal Left Flexion (S2) 5 Normal Extension (L3) 5 Normal Ankle/Foot Strength Ankle and Foot Manual Muscle Testing Right Dorsiflexion (L4) 5 Normal Plantarflexion (S1) 5 Normal Comments 20 heel raises Left Dorsiflexion (L4) 5 Normal Plantarflexion (S1) 5 Normal Comments (L ankle goes into more inversion)20 heel raises PT-OP-Q Treatments Start: 06/22/21 17:38 Freq: Status: Active Protocol: Document 11/18/21 10:39 [facility] (Rec: 11/18/21 11:38 [facility] [id number]) Therapeutic Exercises Standing Exercises eversion Standing Exercise Name added to HEP for peroneal strengthening and ankle stab Side bilateral Resistance AROM Equipment Used table contact (doffed shoes) Reps/Minutes 2 sec hold x8 reps Comments good response, painfree and ankle/knee side step Standing Exercise Name added to HEP (didn't remember doing in past ) Side bilateral Equipment Used lvl 2 Reps/Minutes 10ft x3 laps Comments cues for DF foot position forward to clear and core Manual Therapy Treatment Soft Tissue Mobilization B adductor, tib ant, med calves Body Location L pes ancerine, B tib ant, medial calf Mobilization Type Cross-Friction,Myofascial Release,Strumming Intensity/Depth Moderate Body Position Hooklying Comments manual and passive stretch DF and EV with instruction verbal then demonstrated EV ROM Manual Techniques HS stretch Type Manual HS and adductor stretch sustained hold Body Location L Body Position Supine Reps/Duration 30 x2 Comments gentle stretch w/ feedback, cued neutral pelvis, no LB recruitment, states feel tight - improved end stretch, supported stable pelvis R during manual stretch, unable to perform self w/ strap or get good stretch standing so instructed self STM with rolling pin- good response decrease tension/ pain. PT-OP-R Modalities Start: 07/08/21 09:04 Freq: Status: Active Protocol: Document 07/08/21 08:19 [facility] (Rec: 07/08/21 09:05 [facility] [id number]) Hot Pack/Cold Pack Treatment Hot Pack Location lumbar Patient Position Prone Treatment Duration (minutes) 10 PT-OP-T Assessment and Plan Start: 06/22/21 17:38 Freq: Status: Active Protocol: Document 11/18/21 10:39 [facility] (Rec: 11/18/21 11:38 [facility] [id number]) Physical Therapy Assessment Goals pain Supervisor Grounds Goal (LTG) Pt will report at least 80% reduction in back pain from start of therapy. 09/29-40-50% improvement LTG Duration 12/30/21 strength Short Term Goal (STG) Pt will be indep w/HEP STG Duration achieved advancing as able Supervisor Grounds Goal (LTG) Pt will score at least 4+/5 on all MMT of B LEs and at least 3/5 on LPM in all planes to show improved stability to dec instances of pain and dec risk for falls 09/29-improved LTG Duration 12/30 SL Retirement Goal (LTG) pt will be able to do SLS for 10 sec B to show improve stability for gait and balance . LTG Duration achieved balance Short Term Goal (STG) Pt will score at least 20/30 on FGA to show dec risk for falls STG Duration achieved to 22/30 09/29 Retirement Goal (LTG) Pt will score at least 23/30 on FGA to show dec risk for falls LTG Duration 12/30 Assessment Summary Assessment Pt responded well to manual and instruction self STMs to distal adductor for decrease L knee pain and added eversion standing for ankle stability gait, improved with reintroduce band walk for home . Physical Therapy Plan Frequency and Duration Frequency of Treatment 1x/Week Duration of treatment (weeks) 12 Plan of Care Start Date 09/29/21 Plan of Care End Date 12/30/21 Therapeutic Interventions Therapeutic Interventions Aquatic Therapy,Balance Training,Gait Training,Home Exercise Program,Joint Mobilizations,Manual Therapy, Neuromuscular Re-education, Orthotic/Prosthetic Management ,Patient/Caregiver Education, Self-Care/Home Management,Soft Tissue Mobilization,Taping, Therapeutic Activities, Therapeutic Exercises Modalities Cold Pack/Ice Massage,Electric Stimulation,Hot Packs, Traction- Mechanical, Ultrasound Next Visit Focus/Plan Next Note Type Treatment Note Next Visit Plan HEP review,cont to advance functional dynamic core and glute stability, cont to work on ability to get lumbar flex
--- NOTE | 2021-12-02 12:02 | PT.OTN ---
Current Diagnoses Hereditary spastic paraplegia (12/02/21) Pain in unspecified hip (12/02/21) Pain in unspecified knee (12/02/21) Low back pain, unspecified (12/02/21) Abnormal posture (12/02/21) Weakness (12/02/21) Physical Therapy Treatment Note PT-OP-A Visit Information Start: 06/22/21 17:38 Freq: Status: Active Protocol: Document 12/02/21 10:36 [facility] (Rec: 12/02/21 12:02 [facility] [id number]) Out-Patient Physical Therapy Visit Information Visit Information Visit Type Treatment Note Visit Start Time 10:36 Visit Stop Time 11:15 Total Visit Minutes 39 Visit Number 22 Number of POWDER EXPERT Visits 0 PT-OP-B Current Condition Start: 06/22/21 17:38 Freq: Status: Active Protocol: Document 06/23/21 09:05 [facility] (Rec: 06/23/21 09:48 [facility] [id number]) Current Condition History of Current Condition History of Current Condition Pt reports she feels like her balance is getting worse. Her LBP has been worse on L side. She is working with a GI MD and she thinks she sees one next week. So far they have only done urine and blood testing and everything seems to be fine there. She feels like she has a fever at times. She takes tylenol every day to 2.5 days. Pt has an IUD and it is getting close to the point it may need to come out. Pt reports she feels extremely bloated and has to take imodium every now and then. Pt reports when she has to go have a BM it is an immediate need. She has been taking a digestive enzyme to help with meals. She has dec carbonated things and dec coffee. Pt reports back and GI issues started about 1 month ago. Pt reports B hips and knees (R>L typically) have been givign her trouble. she feels like her balance is a little worse recently. She has been using a trekking pole and keeping it with her depending on what she is doing . Prior Treatments and Tests PT in past which has helped Future Testing and Treatments Planned GI specialist follow up and Primary follow up Treatment Goals Patient/Caregiver Goals Improve mobility, improve balance, make walk more fluid, dec pain. Personal Factors Other Personal Factors That May Effect seizures, dizziness, back pain Therapy/Recovery , jaw pain, spastic paraplegia PT-OP-C Subjective Start: 06/22/21 17:38 Freq: Status: Active Protocol: Document 12/02/21 10:36 [facility] (Rec: 12/02/21 12:02 [facility] [id number]) OP-PT Subjective Patient Comments Patient Comments Pt reports went to the ER d/t inc HR and had inc back spasm when HR was increased. Has had more back pain in general recently. PT-OP-D Balance Start: 06/22/21 17:38 Freq: Status: Active Protocol: Document 09/29/21 11:23 [facility] (Rec: 09/29/21 12:12 [facility] [id number]) Balance Tests Single Limb Standing Single Limb- Right 21 sec Single Limb- Left 15 sec w/some UE use for stability PT-OP-E Functional Tests Start: 06/22/21 17:38 Freq: Status: Active Protocol: Document 09/29/21 11:23 [facility] (Rec: 09/29/21 12:12 [facility] [id number]) Functional Tests 30 Second Sit to Stand Test Score 13x Five Times Sit to Stand Test Score 11 sec Functional Gait Assessment Score 22 PT-OP-F Manual Assessment Start: 06/22/21 17:38 Freq: Status: Active Protocol: Document 06/23/21 09:05 [facility] (Rec: 06/23/21 09:48 [facility] [id number]) Manual Assessments Soft Tissue Assessment Soft Tissue Mobility Assessment L QL & L glutes tight & tender Joint Mobility Assessment Joint Mobility Assessment R ilac crest higher, equal greater trochanter PT-OP-J Posture/Palpation/Skin Start: 06/22/21 17:38 Freq: Status: Active Protocol: Document 09/29/21 11:23 [facility] (Rec: 09/29/21 12:12 [facility] [id number]) Posture Evaluation Leanne Postural Classification System Leanne Postural Classifications Posterior/Anterior Lumbar Protective Mechanism Left AP 0 Lumbar Protective Mechanism Right AP 0 Lumbar Protective Mechanism Left PA 1 Lumbar Protective Mechanism Right PA 0 PT-OP-K Range of Motion Start: 06/22/21 17:38 Freq: Status: Active Protocol: Document 06/23/21 09:05 [facility] (Rec: 06/23/21 09:48 [facility] [id number]) Lumbar Spine Range of Motion Lumbar Spine Active Percentage Flexion 50 Extension 100 Rotation Left 70 Rotation Right 80 Lateral Flexion Left 60 Lateral Flexion Right 90 Comments pelvis rotates fwd w/L SB; pain L ext quadrant; when pelvis blocked hand to 2 in above patella PT-OP-L Special Tests Start: 06/22/21 17:38 Freq: Status: Active Protocol: Document 06/23/21 09:05 [facility] (Rec: 06/23/21 09:48 [facility] [id number]) Special Tests Lumbar Spine Special Tests Slump Test Results R slump LB symptoms w/dec symptoms w/neck flex Straight Leg Raise Test Results significant HS tightness and pain B knees at about 50 deg PT-OP-M Strength Start: 06/22/21 17:38 Freq: Status: Active Protocol: Document 09/29/21 11:23 [facility] (Rec: 09/29/21 12:12 [facility] [id number]) Hip Strength Hip Manual Muscle Testing Right Flexion (L2) 3 Fair Extension (S1) 4- Good- Abduction 4 Good Adduction 4+ Good+ External Rotation 4 Good Internal Rotation 3+ Fair+ Comments pain hip IR Left Flexion (L2) 3 Fair Extension (S1) 3+ Fair+ Abduction 4- Good- Adduction 5 Normal External Rotation 4 Good Internal Rotation 4 Good Knee Strength Knee Manual Muscle Testing Right Flexion (S2) 5 Normal Extension (L3) 5 Normal Left Flexion (S2) 5 Normal Extension (L3) 5 Normal Ankle/Foot Strength Ankle and Foot Manual Muscle Testing Right Dorsiflexion (L4) 5 Normal Plantarflexion (S1) 5 Normal Comments 20 heel raises Left Dorsiflexion (L4) 5 Normal Plantarflexion (S1) 5 Normal Comments (L ankle goes into more inversion)20 heel raises PT-OP-Q Treatments Start: 06/22/21 17:38 Freq: Status: Active Protocol: Document 12/02/21 10:36 [facility] (Rec: 12/02/21 12:02 [facility] [id number]) Cardio Equipment Recumbent Stepper (Sci-Fit) Duration (Minutes) 6 Resistance 5 Seat Position 5 Therapeutic Exercises Supine Exercises stretch Supine Exercise Name 1.SKTC 2. DKTC 3.happy baby 4. HS and calf stretch Side bilateral Reps/Minutes 30s ec ea LTR Side bilateral Reps/Minutes 5sec x8 pelvic tilt Reps/Minutes 12 Comments max cues Manual Therapy Treatment Soft Tissue Mobilization lumbar Body Location B ES and QL Mobilization Type Strumming Intensity/Depth Moderate Body Position Sidelying Comments w/ant elevation/post dep Joint Mobilizations lumbar Comments gapping L 4-5 FM PT-OP-R Modalities Start: 07/08/21 09:04 Freq: Status: Active Protocol: Document 07/08/21 08:19 [facility] (Rec: 07/08/21 09:05 [facility] [id number]) Hot Pack/Cold Pack Treatment Hot Pack Location lumbar Patient Position Prone Treatment Duration (minutes) 10 PT-OP-T Assessment and Plan Start: 06/22/21 17:38 Freq: Status: Active Protocol: Document 12/02/21 10:36 [facility] (Rec: 12/02/21 12:02 [facility] [id number]) Physical Therapy Assessment Goals pain Motor Man Goal (LTG) Pt will report at least 80% reduction in back pain from start of therapy. 09/29-40-50% improvement LTG Duration 12/30/21 strength Short Term Goal (STG) Pt will be indep w/HEP STG Duration achieved advancing as able Motor Man Goal (LTG) Pt will score at least 4+/5 on all MMT of B LEs and at least 3/5 on LPM in all planes to show improved stability to dec instances of pain and dec risk for falls 09/29-improved LTG Duration 12/30 SL Motor Man Goal (LTG) pt will be able to do SLS for 10 sec B to show improve stability for gait and balance . LTG Duration achieved balance Short Term Goal (STG) Pt will score at least 20/30 on FGA to show dec risk for falls STG Duration achieved to 22/30 09/29 Residential Goal (LTG) Pt will score at least 23/30 on FGA to show dec risk for falls LTG Duration 12/30 Assessment Summary Assessment Pt did well with exercises and verbalizes udnerstanding on use of them when back is really painful and verbal reviewed the ones she has in her current HEP that may also help like cat/cow and chils pose Physical Therapy Plan Frequency and Duration Frequency of Treatment 1x/Week Duration of treatment (weeks) 12 Plan of Care Start Date 09/29/21 Plan of Care End Date 12/30/21 Next Visit Focus/Plan Next Note Type Treatment Note Next Visit Plan HEP review,cont to advance functional dynamic core and glute stability, cont to work on ability to get lumbar flex
--- NOTE | 2021-12-09 11:19 | PT.OTN ---
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) Pain in unspecified hip (12/09/21) Pain in unspecified knee (12/09/21) Low back pain, unspecified (12/09/21) Abnormal posture (12/09/21) Weakness (12/09/21) Physical Therapy Treatment Note PT-OP-A Visit Information Start: 06/22/21 17:38 Freq: Status: Active Protocol: Document 12/09/21 09:53 [facility] (Rec: 12/09/21 11:18 [facility] [id number]) Out-Patient Physical Therapy Visit Information Visit Information Visit Type Treatment Note Visit Start Time 09:51 Visit Stop Time 10:40 Total Visit Minutes 49 Visit Number 23 Number of SENIOR INSTRUMENTATION ENGINEER Visits 0 PT-OP-B Current Condition Start: 06/22/21 17:38 Freq: Status: Active Protocol: Document 06/23/21 09:05 [facility] (Rec: 06/23/21 09:48 [facility] [id number]) Current Condition History of Current Condition History of Current Condition Pt reports she feels like her balance is getting worse. Her LBP has been worse on L side. She is working with a GI MD and she thinks she sees one next week. So far they have only done urine and blood testing and everything seems to be fine there. She feels like she has a fever at times. She takes tylenol every day to 2.5 days. Pt has an IUD and it is getting close to the point it may need to come out. Pt reports she feels extremely bloated and has to take imodium every now and then. Pt reports when she has to go have a BM it is an immediate need. She has been taking a digestive enzyme to help with meals. She has dec carbonated things and dec coffee. Pt reports back and GI issues started about 1 month ago. Pt reports B hips and knees (R>L typically) have been givign her trouble. she feels like her balance is a little worse recently. She has been using a trekking pole and keeping it with her depending on what she is doing . Prior Treatments and Tests PT in past which has helped Future Testing and Treatments Planned GI specialist follow up and Primary follow up Treatment Goals Patient/Caregiver Goals Improve mobility, improve balance, make walk more fluid, dec pain. Personal Factors Other Personal Factors That May Effect seizures, dizziness, back pain Therapy/Recovery , jaw pain, spastic paraplegia PT-OP-C Subjective Start: 06/22/21 17:38 Freq: Status: Active Protocol: Document 12/09/21 09:53 [facility] (Rec: 12/09/21 11:18 [facility] [id number]) OP-PT Subjective Patient Comments Patient Comments Pt reports doing a little better. Notes her knees and calves have been giving her more trouble recently. Stretches are helpful to her back. She has been trying to be better about stretching first thing in the AM especially for her LB. PT-OP-D Balance Start: 06/22/21 17:38 Freq: Status: Active Protocol: Document 09/29/21 11:23 [facility] (Rec: 09/29/21 12:12 [facility] [id number]) Balance Tests Single Limb Standing Single Limb- Right 21 sec Single Limb- Left 15 sec w/some UE use for stability PT-OP-E Functional Tests Start: 06/22/21 17:38 Freq: Status: Active Protocol: Document 09/29/21 11:23 [facility] (Rec: 09/29/21 12:12 [facility] [id number]) Functional Tests 30 Second Sit to Stand Test Score 13x Five Times Sit to Stand Test Score 11 sec Functional Gait Assessment Score 22 PT-OP-F Manual Assessment Start: 06/22/21 17:38 Freq: Status: Active Protocol: Document 06/23/21 09:05 [facility] (Rec: 06/23/21 09:48 [facility] [id number]) Manual Assessments Soft Tissue Assessment Soft Tissue Mobility Assessment L QL & L glutes tight & tender Joint Mobility Assessment Joint Mobility Assessment R ilac crest higher, equal greater trochanter PT-OP-J Posture/Palpation/Skin Start: 06/22/21 17:38 Freq: Status: Active Protocol: Document 09/29/21 11:23 [facility] (Rec: 09/29/21 12:12 [facility] [id number]) Posture Evaluation Leanne Postural Classification System Leanne Postural Classifications Posterior/Anterior Lumbar Protective Mechanism Left AP 0 Lumbar Protective Mechanism Right AP 0 Lumbar Protective Mechanism Left PA 1 Lumbar Protective Mechanism Right PA 0 PT-OP-K Range of Motion Start: 06/22/21 17:38 Freq: Status: Active Protocol: Document 06/23/21 09:05 [facility] (Rec: 06/23/21 09:48 [facility] [id number]) Lumbar Spine Range of Motion Lumbar Spine Active Percentage Flexion 50 Extension 100 Rotation Left 70 Rotation Right 80 Lateral Flexion Left 60 Lateral Flexion Right 90 Comments pelvis rotates fwd w/L SB; pain L ext quadrant; when pelvis blocked hand to 2 in above patella PT-OP-L Special Tests Start: 06/22/21 17:38 Freq: Status: Active Protocol: Document 06/23/21 09:05 [facility] (Rec: 06/23/21 09:48 [facility] [id number]) Special Tests Lumbar Spine Special Tests Slump Test Results R slump LB symptoms w/dec symptoms w/neck flex Straight Leg Raise Test Results significant HS tightness and pain B knees at about 50 deg PT-OP-M Strength Start: 06/22/21 17:38 Freq: Status: Active Protocol: Document 09/29/21 11:23 [facility] (Rec: 09/29/21 12:12 [facility] [id number]) Hip Strength Hip Manual Muscle Testing Right Flexion (L2) 3 Fair Extension (S1) 4- Good- Abduction 4 Good Adduction 4+ Good+ External Rotation 4 Good Internal Rotation 3+ Fair+ Comments pain hip IR Left Flexion (L2) 3 Fair Extension (S1) 3+ Fair+ Abduction 4- Good- Adduction 5 Normal External Rotation 4 Good Internal Rotation 4 Good Knee Strength Knee Manual Muscle Testing Right Flexion (S2) 5 Normal Extension (L3) 5 Normal Left Flexion (S2) 5 Normal Extension (L3) 5 Normal Ankle/Foot Strength Ankle and Foot Manual Muscle Testing Right Dorsiflexion (L4) 5 Normal Plantarflexion (S1) 5 Normal Comments 20 heel raises Left Dorsiflexion (L4) 5 Normal Plantarflexion (S1) 5 Normal Comments (L ankle goes into more inversion)20 heel raises PT-OP-Q Treatments Start: 06/22/21 17:38 Freq: Status: Active Protocol: Document 12/09/21 09:53 [facility] (Rec: 12/09/21 11:18 [facility] [id number]) Therapeutic Exercises Sitting Exercises DF TB Sitting Exercise Name reviewed HEP Side bilateral Resistance TB #2 Reps/Minutes x10 each Comments occ cued set up and form. Standing Exercises pec stretch Standing Exercise Name corner Side bilateral Reps/Minutes 30 sec squat Standing Exercise Name on bosu w/cues for knee position Side bilateral Reps/Minutes 12 DF Standing Exercise Name wall roll up w/DF Side bilateral Reps/Minutes 15 lunges Standing Exercise Name onto bosu Side bilateral Equipment Used cues for back and knee position Reps/Minutes 10 calf stretch Side bilateral Equipment Used step Reps/Minutes 30 sec Therapeutic Activity Therapeutic Activity posture Reps/Minutes 8 min Comments use of mirror working on unlocking knees and pelvis & ribcage position Manual Therapy Treatment Soft Tissue Mobilization B calf Body Location B Mobilization Type Cross-Friction,Strumming Intensity/Depth Moderate Body Position Prone Comments feet off end table Joint Mobilizations thoracic Comments PA T3-7 FM PT-OP-R Modalities Start: 07/08/21 09:04 Freq: Status: Active Protocol: Document 12/09/21 09:53 [facility] (Rec: 12/09/21 11:18 [facility] [id number]) Hot Pack/Cold Pack Treatment Hot Pack Location lumbar Patient Position Prone Treatment Duration (minutes) 10 PT-OP-T Assessment and Plan Start: 06/22/21 17:38 Freq: Status: Active Protocol: Document 12/09/21 09:53 [facility] (Rec: 12/09/21 11:18 [facility] [id number]) Physical Therapy Assessment Goals pain Fpc Goal (LTG) Pt will report at least 80% reduction in back pain from start of therapy. 09/29-40-50% improvement LTG Duration 12/30/21 strength Short Term Goal (STG) Pt will be indep w/HEP STG Duration achieved advancing as able Push Bench Operator Helper Goal (LTG) Pt will score at least 4+/5 on all MMT of B LEs and at least 3/5 on LPM in all planes to show improved stability to dec instances of pain and dec risk for falls 09/29-improved LTG Duration 12/30 SL Push Bench Operator Helper Goal (LTG) pt will be able to do SLS for 10 sec B to show improve stability for gait and balance . LTG Duration achieved balance Short Term Goal (STG) Pt will score at least 20/30 on FGA to show dec risk for falls STG Duration achieved to 22/30 09/29 Push Bench Operator Helper Goal (LTG) Pt will score at least 23/30 on FGA to show dec risk for falls LTG Duration 12/30 Assessment Summary Assessment Pt did well with exercises today and just required cues for posture andposition of her knees. Improved awareness of posture today. Physical Therapy Plan Frequency and Duration Frequency of Treatment 1x/Week Duration of treatment (weeks) 12 Plan of Care Start Date 09/29/21 Plan of Care End Date 12/22/21 Next Visit Focus/Plan Next Note Type Discharge Summary Next Visit Plan Review HEP as needed and wrap up pt to indep program
--- NOTE | 2021-12-16 13:50 | PT.OTN ---
Current Diagnoses Hereditary spastic paraplegia (12/16/21) Pain in unspecified hip (12/16/21) Pain in unspecified knee (12/16/21) Low back pain, unspecified (12/16/21) Abnormal posture (12/16/21) Weakness (12/16/21) Physical Therapy Treatment Note PT-OP-A Visit Information Start: 06/22/21 17:38 Freq: Status: Active Protocol: Document 12/16/21 12:59 [facility] (Rec: 12/16/21 13:50 [facility] [id number]) Out-Patient Physical Therapy Visit Information Visit Information Visit Type Discharge Summary Visit Start Time 13:03 Visit Stop Time 13:43 Total Visit Minutes 40 Visit Number 24 Number of CASINO CASHIER Visits 0 PT-OP-B Current Condition Start: 06/22/21 17:38 Freq: Status: Active Protocol: Document 06/23/21 09:05 [facility] (Rec: 06/23/21 09:48 [facility] [id number]) Current Condition History of Current Condition History of Current Condition Pt reports she feels like her balance is getting worse. Her LBP has been worse on L side. She is working with a GI MD and she thinks she sees one next week. So far they have only done urine and blood testing and everything seems to be fine there. She feels like she has a fever at times. She takes tylenol every day to 2.5 days. Pt has an IUD and it is getting close to the point it may need to come out. Pt reports she feels extremely bloated and has to take imodium every now and then. Pt reports when she has to go have a BM it is an immediate need. She has been taking a digestive enzyme to help with meals. She has dec carbonated things and dec coffee. Pt reports back and GI issues started about 1 month ago. Pt reports B hips and knees (R>L typically) have been givign her trouble. she feels like her balance is a little worse recently. She has been using a trekking pole and keeping it with her depending on what she is doing . Prior Treatments and Tests PT in past which has helped Future Testing and Treatments Planned GI specialist follow up and Primary follow up Treatment Goals Patient/Caregiver Goals Improve mobility, improve balance, make walk more fluid, dec pain. Personal Factors Other Personal Factors That May Effect seizures, dizziness, back pain Therapy/Recovery , jaw pain, spastic paraplegia PT-OP-C Subjective Start: 06/22/21 17:38 Freq: Status: Active Protocol: Document 12/16/21 12:59 [facility] (Rec: 12/16/21 13:50 [id number]-PT Subjective Patient Comments Patient Comments Pt feels ready to do exercises at home. Back is doing better . Has been doing some more stretching and starting to try doing the strength stuff. Pt saw new Neurologist yesterday and he wants to add another med. PT-OP-D Balance Start: 06/22/21 17:38 Freq: Status: Active Protocol: Document 09/29/21 11:23 [facility] (Rec: 09/29/21 12:12 [id number] Balance Tests Single Limb Standing Single Limb- Right 21 sec Single Limb- Left 15 sec w/some UE use for stability PT-OP-E Functional Tests Start: 06/22/21 17:38 Freq: Status: Active Protocol: Document 12/16/21 12:59 [facility] (Rec: 12/16/21 13:50 [place] [id number]) Functional Tests Functional Gait Assessment Score 25 PT-OP-F Manual Assessment Start: 06/22/21 17:38 Freq: Status: Active Protocol: Document 06/23/21 09:05 [facility] (Rec: 06/23/21 09:48 [facility] [id number]) Manual Assessments Soft Tissue Assessment Soft Tissue Mobility Assessment L QL & L glutes tight & tender Joint Mobility Assessment Joint Mobility Assessment R ilac crest higher, equal greater trochanter PT-OP-J Posture/Palpation/Skin Start: 06/22/21 17:38 Freq: Status: Active Protocol: Document 09/29/21 11:23 [facility] (Rec: 09/29/21 12:12 [facility] [id number]) Posture Evaluation Leanne Postural Classification System Leanne Postural Classifications Posterior/Anterior Lumbar Protective Mechanism Left AP 0 Lumbar Protective Mechanism Right AP 0 Lumbar Protective Mechanism Left PA 1 Lumbar Protective Mechanism Right PA 0 PT-OP-K Range of Motion Start: 06/22/21 17:38 Freq: Status: Active Protocol: Document 06/23/21 09:05 [facility] (Rec: 06/23/21 09:48 [facility] [id number]) Lumbar Spine Range of Motion Lumbar Spine Active Percentage Flexion 50 Extension 100 Rotation Left 70 Rotation Right 80 Lateral Flexion Left 60 Lateral Flexion Right 90 Comments pelvis rotates fwd w/L SB; pain L ext quadrant; when pelvis blocked hand to 2 in above patella PT-OP-L Special Tests Start: 06/22/21 17:38 Freq: Status: Active Protocol: Document 06/23/21 09:05 [facility] (Rec: 06/23/21 09:48 [facility] [id number]) Special Tests Lumbar Spine Special Tests Slump Test Results R slump LB symptoms w/dec symptoms w/neck flex Straight Leg Raise Test Results significant HS tightness and pain B knees at about 50 deg PT-OP-M Strength Start: 06/22/21 17:38 Freq: Status: Active Protocol: Document 12/16/21 12:59 [facility] (Rec: 12/16/21 13:50 [facility] [id number]) Hip Strength Hip Manual Muscle Testing Right Flexion (L2) 3+ Fair+ Extension (S1) 4+ Good+ Abduction 5 Normal Adduction 5 Normal External Rotation 5 Normal Internal Rotation 4 Good Left Flexion (L2) 3+ Fair+ Extension (S1) 4+ Good+ Abduction 4+ Good+ Adduction 5 Normal External Rotation 4 Good Internal Rotation 5 Normal Knee Strength Knee Manual Muscle Testing Right Flexion (S2) 5 Normal Extension (L3) 5 Normal Left Flexion (S2) 5 Normal Extension (L3) 5 Normal Ankle/Foot Strength Ankle and Foot Manual Muscle Testing Right Dorsiflexion (L4) 5 Normal Plantarflexion (S1) 5 Normal Comments 20 heel raises Left Dorsiflexion (L4) 5 Normal Plantarflexion (S1) 5 Normal Comments (L ankle goes into more inversion)20 heel raises PT-OP-Q Treatments Start: 06/22/21 17:38 Freq: Status: Active Protocol: Document 12/16/21 12:59 [facility] (Rec: 12/16/21 13:50 [facility] [id number]) Cardio Equipment Recumbent Elliptical (Biodex) Duration (Minutes) 5 Resistance 6 Seat Position 4 first notch Manual Therapy Treatment Soft Tissue Mobilization hip flexor Body Location B iliacus Mobilization Type Sustained Pressure Intensity/Depth Moderate Body Position Hooklying Comments in soheila test position Joint Mobilizations talocrual Comments AP tib & AP talus FM & gapping cuboid & cuneform techniques PT-OP-R Modalities Start: 07/08/21 09:04 Freq: Status: Active Protocol: Document 12/09/21 09:53 [facility] (Rec: 12/09/21 11:18 [facility] [id number]) Hot Pack/Cold Pack Treatment Hot Pack Location lumbar Patient Position Prone Treatment Duration (minutes) 10 PT-OP-T Assessment and Plan Start: 06/22/21 17:38 Freq: Status: Active Protocol: Document 12/16/21 12:59 [facility] (Rec: 12/16/21 13:50 [facility] [id number]) Physical Therapy Assessment Goals pain Cell Repairer Goal (LTG) Pt will report at least 80% reduction in back pain from start of therapy. 09/29-40-50% improvement LTG Duration recent worsening d/t stress strength Short Term Goal (STG) Pt will be indep w/HEP STG Duration achieved advancing as able Cell Repairer Goal (LTG) Pt will score at least 4+/5 on all MMT of B LEs and at least 3/5 on LPM in all planes to show improved stability to dec instances of pain and dec risk for falls 09/29-improved 12/16-3/5 L PA; 1/5 all other, improved LE strength LTG Duration Improved SL Cell Repairer Goal (LTG) pt will be able to do SLS for 10 sec B to show improve stability for gait and balance . LTG Duration achieved balance Short Term Goal (STG) Pt will score at least 20/30 on FGA to show dec risk for falls STG Duration achieved to 22/30 [facility] Goal (LTG) Pt will score at least 23/30 on FGA to show dec risk for falls LTG Duration achieved to 25 Assessment Summary Assessment Pt did well with testing today and shows improved balance ands trength. She has HEP that she feels comfortable wt and is DC to [facility] at this time. Physical Therapy Plan Discharge Physical Therapy Discharge Reasons Goals Met
== END 2021-12-22 11:26 | disposition home or self-care (01) ==
LOC: PHYS 13:00
PROVIDERS: Family Provider Family Medicine; PCP Family Medicine; Referring Provider Family Medicine; Visit Provider Family Medicine
DX: G11.4 Hereditary spastic paraplegia (principal); M54.50 Low back pain, unspecified; M25.559 Pain in unspecified hip; M25.569 Pain in unspecified knee; R53.1 Weakness; R29.3 Abnormal posture
CPT/HCPCS: 97110; 97112; 97140; 97162; 97530

== ENCOUNTER → 2022-01-06 07:55 | Outpatient (CLI) | payer OTHER, MEDICAID, SELFPAY ==
[2022-01-06 10:17] LABS: Cholesterol 180 mg/dL (140-199); HDL Cholesterol 76 mg/dL (40-60); LDL Cholesterol Calculated 71 mg/dL (<100); Triglycerides 163 mg/dL (35-150)
== END ==
PROVIDERS: Family Provider Family Medicine; PCP Family Medicine; Referring Provider Nurse Practitioner Family; Visit Provider Nurse Practitioner Family
DX: R00.2 Palpitations (principal); R00.0 Tachycardia, unspecified; I49.3 Ventricular premature depolarization
CPT/HCPCS: 36415; 80061

== ENCOUNTER → 2023-11-07 17:52 | Outpatient (CLI) | payer OTHER, MEDICAID, SELFPAY ==
[2023-11-07 18:47] LABS: Influenza A - CEPHEID Flu A NEGATIVE (NEGATIVE); Influenza B - CEPHEID Flu B NEGATIVE (NEGATIVE); Respiratory Syncytial Virus Negative (Negative)
[2023-11-07 18:52] LABS: COVID-19 CEPHEID 4-PLEX PCR POSITIVE (Negative)
== END ==
PROVIDERS: Family Provider Family Medicine; PCP Family Medicine; Visit Provider Nurse Practitioner Family
DX: R05.1 Acute cough (principal)
CPT/HCPCS: 87635; 87400 ×2; 87420; 0241U

== ENCOUNTER → 2024-02-17 15:16 | Outpatient (CLI) | payer OTHER, SELFPAY ==
--- NOTE | 2024-02-17 15:17 | DI.MG.S_ITS ---
BILATERAL DIGITAL SCREENING MAMMOGRAM 3D/2D WITH CAD: 02/17/2024 CLINICAL: Routine screening. Baseline exam. No prior exams were available for comparison. The breasts are heterogeneously dense, which may obscure small masses (category c / 51-75% glandular tissue). Current study was also evaluated with a Computer Aided Detection (CAD) system. No significant masses, calcifications, or other findings are seen in either breast. IMPRESSION: NEGATIVE There is no mammographic evidence of malignancy. A 1 year screening mammogram is recommended. Based on the Tyrer Cuzick model (a risk assessment model) the patient's lifetime risk is 9.9% and her 10 year risk is 1.9%. According to the ACR, ACS, and NCCN guidelines, an annual breast MRI exam along with mammogram is recommended if the patient's lifetime risk is 20% or greater. This exam was interpreted at Station ID: [id number]. NOTE: For mammograms, a report in lay terms will be sent to the patient. Approximately 15% of breast malignancies will not be visualized mammographically. In the management of a palpable breast mass, a negative mammogram must not discourage biopsy of a clinically suspicious lesion. Electronically Signed By: Marie Washington M.D., Ph.D. franky/elbert:02/20/2024 05:08:01 letter sent: Normal Exam ACR BI-RADS Category 1: Negative
== END ==
PROVIDERS: Family Provider Family Medicine; PCP Registered Nurse; Referring Provider Registered Nurse; Visit Provider Registered Nurse
DX: Z12.31 Encounter for screening mammogram for malignant neoplasm of breast (principal); R92.333 Mammographic heterogeneous density, bilateral breasts
CPT/HCPCS: 77063; 77067

== ENCOUNTER → 2024-05-28 12:57 | Outpatient (CLI) | payer OTHER, SELFPAY | PROVIDERS: Family Provider Family Medicine; PCP Registered Nurse; Visit Provider Registered Nurse | DX: R30.0 Dysuria (principal) | CPT/HCPCS: 87086 ==

== ENCOUNTER 2024-05-30 12:04 | Emergency (ER) | payer OTHER, SELFPAY ==
[2024-05-30 12:18] VITALS: BP 121/76; PULSE 121; RESP 15; TEMP 36.8; O2SAT 100; BMI 31.0
--- NOTE | 2024-05-30 12:54 | ED.BACK ---
HPI - Back Pain/Injury <Kyleigh Azevedo PA-C - Last Filed: 05/30/24 16:40> General Chief Complaint: Back Pain/Injury Stated Complaint: lower back and abd px Time Seen by Provider: 05/30/24 12:42 Source: patient History of Present Illness HPI Narrative: Ms. Griffin is a pleasant 48-year-old female with a past medical history of hereditary spastic paraplegia, epilepsy, IBS, MDD, lumbar DDD, GERD who presents to the emergency department for left low back pain and diffuse/epigastric abdominal pain x4 days. Patient reports she has also been constipated during this time, has been using MiraLax. States that the pain primarily started in her low back and felt somewhat like her typical low back pain but since localized to the left side of her low back. She also is having some diffuse central abdominal pain worse in the epigastric region. She has not had a bowel movement in the last 4 days. She reports mild nausea and decreased appetite but no vomiting. States that she has not had dysuria or hematuria but because of her hereditary spastic paraplegia, she often does not feel typical UTI type symptoms. States that she had a negative urinalysis on Tuesday at the walk-in clinic. She denies fevers, chills, flu-like symptoms. Reports taking ibuprofen around 9:00 a.m. this morning which helped slightly. Surgical history includes cholecystectomy in 2016. Related Data Home Medications Medication Instructions Recorded Confirmed acetaminophen 325 mg tablet 325 mg PO PRN ##0 01/29/16 05/28/24 L.acidophil,salivari-Bifido 1 cap PO DAILY 07/21/21 05/28/24 bifidum-Strep thermoph 175 mg capsule (Acidophilus Probiotic Blend) calcium-magnesium 300 mg-300 mg 1 tab PO DAILY 07/21/21 05/28/24 tablet cetirizine 10 mg tablet (Aller-Karan) 10 mg PO DAILY PRN 07/21/21 05/28/24 cholecalciferol (vitamin D3) 25 25 mcg PO DAILY 07/21/21 05/28/24 mcg (1,000 unit) capsule fluticasone propionate 50 1 spray intranasal DAILY 07/21/21 05/28/24 mcg/actuation nasal spray,suspension multivitamin (Multiple Vitamins 1 tab PO DAILY 05/31/22 04/07/25 tablet) omega 0-cva-gvh-fish oil 250 cap PO 07/21/21 05/28/24 mg-500 mg-1,000 mg capsule dicyclomine 10 mg capsule 10 mg PO TID PRN 11/26/21 05/28/24 levetiracetam 1,000 mg tablet 1,000 mg PO .COMPLEX 07/02/22 05/28/24 (Keppra) diazepam 5 mg tablet 5 mg PO DAILY PRN 05/28/24 05/28/24 fesoterodine 8 mg tablet,extended 8 mg PO DAILY 05/28/24 05/28/24 release 24 hr Previous Rx's Medication Instructions Recorded norgestimate 0.25 mg-ethinyl See Rx Instructions .Route 04/19/22 estradiol 35 mcg tablet .COMPLEX #84 tabs Disabled Parking #1 ea 07/02/22 oxybutynin chloride 5 mg tablet 15 mg (3 x 5 mg) PO DAILY #180 tabs 07/02/22 sertraline 100 mg tablet 150 mg (1.5 x 100 mg) PO DAILY 07/02/22 #135 tabs valacyclovir 500 mg tablet See Rx Instructions .Route 07/02/22 .COMPLEX #6 tabs methocarbamol 500 mg tablet 500 mg PO TID PRN muscle pain #20 05/28/24 tabs ketorolac 10 mg tablet 10 mg PO Q8H PRN pain #14 tabs 05/30/24 ondansetron 4 mg disintegrating 4 mg PO Q8H PRN nausea and 05/30/24 tablet vomiting #14 tabs sulfamethoxazole 800 1 tab PO Q12H 5 days #10 tabs 05/30/24 mg-trimethoprim 160 mg tablet (Bactrim DS) Allergies Allergy/AdvReac Type Severity Reaction Status Date / Time No Known Drug Allergies Allergy Verified 05/30/24 12:22 Review of Systems <Kyleigh Azevedo PA-C - Last Filed: 05/30/24 16:40> Review of Systems ROS Unobtainable: All systems reviewed & are unremarkable except as noted in HPI and below Patient History <Kyleigh Azevedo PA-C - Last Filed: 05/30/24 16:40> Medical History History of gestational diabetes IBS (irritable bowel syndrome) Obesity (BMI 30-39.9) Hereditary spastic paraplegia Anemia (2003) Chicken pox (~1987) CTS (carpal tunnel syndrome) (2007) Seizures Ovarian cyst Miscarriage Abnormal Pap smear of cervix Kidney stones (2004) Frequent UTI Gallstone pancreatitis Cyst of ovary (06/02/15) Choledocholithiasis Surgical History History of cholecystectomy History of ERCP (01/2016) History of D&C Family History Grandfather Diabetes mellitus Grandmother Paraplegia Grandmother Pre-diabetes Brother No problems noted. Father No problems noted. Mother No problems noted. Grandfather No problems noted. Social History Smoking Status: Never smoker alcohol intake: current (1 cup a week) substance use type: does not use Smoking Status: Never smoker alcohol intake frequency: a few times a week Alcohol type: beer Exam <Kyleigh Azevedo PA-C - Last Filed: 05/30/24 16:40> Narrative Exam Narrative: GENERAL: 48 year old patient appears stated age. Well-developed patient, in no acute distress. Wear wrist braces and uses cane to ambulate. HEAD: Atraumatic. Normocephalic. EYES: No scleral icterus. No injection or drainage. ENT: Nose without bleeding, purulent drainage. NECK: Trachea midline. Cervical ROM intact. CARDIOVASCULAR: Increased rate and regular rhythm. RESPIRATORY: ?Nonlabored respirations. ?Speaking in clear, full sentences. ?Clear to auscultation. Breath sounds equal bilaterally. No wheezes, rales, or rhonchi. ? GASTROINTESTINAL: Abdomen soft, nondistended, bowel sounds present. She is tenderness to palpation of the epigastric and periumbilical region, she also has tenderness in the left lumbar paraspinal region. No rebound or guarding. EXTREMITIES: No edema or joint tenderness. BACK: No midline spinal tenderness. No CVA tenderness. She does have left lumbar paraspinal muscle tenderness. NEURO: Alert and oriented. Clear speech. SKIN: No rash or erythema of visible areas Initial Vital Signs Initial Vital Signs: Vital Signs Temperature 98.2 F 05/30/24 12:18 Pulse Rate 121 H 05/30/24 12:18 Respiratory Rate 15 05/30/24 12:18 Blood Pressure 121/76 05/30/24 12:18 Pulse Oximetry 100 05/30/24 12:18 Oxygen Delivery Method Room Air 05/30/24 12:18 <Stephen Thurston MD - Last Filed: 05/30/24 20:05> Initial Vital Signs Initial Vital Signs: Vital Signs Temperature 98.2 F 05/30/24 12:18 Pulse Rate 121 H 05/30/24 12:18 Respiratory Rate 15 05/30/24 12:18 Blood Pressure 121/76 05/30/24 12:18 Pulse Oximetry 100 05/30/24 12:18 Oxygen Delivery Method Room Air 05/30/24 12:18 Course <Kyleigh Azevedo PA-C - Last Filed: 05/30/24 16:40> Orders Ordered: ED Orders 05/30/24 13:05 CT abdomen pelvis w con Stat 05/30/24 13:10 Complete Blood Count AUTO DIFF Stat Lactate (Lactic Acid) Stat 05/30/24 14:10 Comprehensive Metabolic Panel Stat Lipase Stat 05/30/24 14:55 Urine Culture Stat Urine Microscopic Stat Discontinued Medications Al Hydrox/Mg Hydrox/Simethicone 20 ml/ Lidocaine HCl 15 ml 0 ml PO NOW ONE Stop: 05/30/24 13:06 Last Admin: 05/30/24 13:19 Dose: 35 ml Documented By: CARROLL Sodium Chloride (Normal Saline 0.9%) 1,000 mls @ 1,000 mls/hr IV BOLUS ONE Stop: 05/30/24 14:04 Last Infusion: 05/30/24 14:20 Dose: Infused Documented By: Admin: 05/30/24 13:18 Dose: 1,000 mls/hr Documented By: CARROLL Ketorolac Tromethamine (Ketorolac 30 Mg/Ml Vial) 15 mg IV NOW ONE Stop: 05/30/24 13:06 Last Admin: 05/30/24 13:20 Dose: 15 mg Documented By: CARROLL Ondansetron HCl (Ondansetron 4 Mg/2 Ml Inj) 4 mg IV NOW PRN PRN Reason: Nausea And Vomiting Ondansetron HCl (Ondansetron 4 Mg Odt) 4 mg PO NOW PRN PRN Reason: Nausea And Vomiting Ondansetron HCl (Ondansetron 4 Mg/2 Ml Inj) 4 mg IV NOW ONE Stop: 05/30/24 13:06 Last Admin: 05/30/24 13:19 Dose: 4 mg Documented By: CARROLL Vital Signs Vital signs: Vital Signs - 8 hr 05/30/24 12:18 05/30/24 15:03 05/30/24 17:10 Temperature 98.2 F 98.6 F Pulse Rate 121 H 102 H 93 H Respiratory Rate 15 16 16 Blood Pressure 121/76 128/72 Pulse Oximetry 100 100 97 Oxygen Delivery Method Room Air Room Air Room Air <Stephen Thurston MD - Last Filed: 05/30/24 20:05> Orders Ordered: ED Orders 05/30/24 13:05 CT abdomen pelvis w con Stat 05/30/24 13:10 Complete Blood Count AUTO DIFF Stat Lactate (Lactic Acid) Stat 05/30/24 14:10 Comprehensive Metabolic Panel Stat Lipase Stat 05/30/24 14:55 Urine Culture Stat Urine Microscopic Stat Discontinued Medications Al Hydrox/Mg Hydrox/Simethicone 20 ml/ Lidocaine HCl 15 ml 0 ml PO NOW ONE Stop: 05/30/24 13:06 Last Admin: 05/30/24 13:19 Dose: 35 ml Documented By: CARROLL Sodium Chloride (Normal Saline 0.9%) 1,000 mls @ 1,000 mls/hr IV BOLUS ONE Stop: 05/30/24 14:04 Last Infusion: 05/30/24 14:20 Dose: Infused Documented By: Admin: 05/30/24 13:18 Dose: 1,000 mls/hr Documented By: CARROLL Ketorolac Tromethamine (Ketorolac 30 Mg/Ml Vial) 15 mg IV NOW ONE Stop: 05/30/24 13:06 Last Admin: 05/30/24 13:20 Dose: 15 mg Documented By: CARROLL Ondansetron HCl (Ondansetron 4 Mg/2 Ml Inj) 4 mg IV NOW PRN PRN Reason: Nausea And Vomiting Ondansetron HCl (Ondansetron 4 Mg Odt) 4 mg PO NOW PRN PRN Reason: Nausea And Vomiting Ondansetron HCl (Ondansetron 4 Mg/2 Ml Inj) 4 mg IV NOW ONE Stop: 05/30/24 13:06 Last Admin: 05/30/24 13:19 Dose: 4 mg Documented By: CARROLL Vital Signs Vital signs: Vital Signs - 8 hr 05/30/24 12:18 05/30/24 15:03 05/30/24 17:10 Temperature 98.2 F 98.6 F Pulse Rate 121 H 102 H 93 H Respiratory Rate 15 16 16 Blood Pressure 121/76 128/72 Pulse Oximetry 100 100 97 Oxygen Delivery Method Room Air Room Air Room Air MDM - Back Pain/Injury <Kyleigh Azevedo PA-C - Last Filed: 05/30/24 16:40> Medical Records Attestation: I reviewed the patient's medical records. Medical records narrative: Walk-in clinic visit on 05/28/2024 for UTI type symptoms and low back pain. Negative urinalysis. Patient was prescribed methocarbamol muscle relaxer to help with musculoskeletal back pain. Lab Data 05/30/24 13:10 05/30/24 14:10 Labs: Lab Results 05/30/24 05/30/24 05/30/24 Range/Units 13:10 14:10 14:55 WBC 5.6 (4.5-11.0) X10^3/uL RBC 4.22 (4.0-5.2) X10^6/uL Hgb 13.3 (12.0-16.0) g/dL Hct 39.7 (36-46) % MCV 94.0 (80-100) fL MCH 31.5 (26-34) PG MCHC 33.5 (30-36) % RDW 12.5 (11.6-14.8) % Plt Count 257 (150-400) X10^3/uL Neut % (Auto) 80.1 H (50-75) % Lymph % (Auto) 14.8 L (25-40) % [place] % (Auto) 4.3 (3-14) % Eos % (Auto) 0.3 L (2-4) % Baso % (Auto) 0.5 (0-2) % Neut # (Auto) 4500 (2966-4238) /uL Lymph # (Auto) 800 L (8037-7839) /uL [place] # (Auto) 200 (0-900) /uL Eos # (Auto) 0 (0-450) /uL Baso # (Auto) 0 (0-100) /uL Sodium 136 L (137-145) mmol/L Potassium 3.8 (3.4-5.1) mmol/L Chloride 106 (98-107) mmol/L Carbon Dioxide 24 (22-32) mmol/L BUN 11 (7-17) mg/dL Creatinine 0.73 (0.52-1.04) mg/dL Estimated GFR > 60 (>60) mL/min BUN/Creatinine Ratio 15.1 (6-22) Glucose 99 (70-100) mg/dL Lactate 1.1 (0.7-2.1) mmol/L Calcium 8.3 L (8.4-10.2) mg/dL Total Bilirubin 0.4 (0.2-1.3) mg/dL AST 26 (14-36) IU/L ALT 25 (<35) IU/L Alkaline Phosphatase 67 (38-126) U/L Total Protein 6.8 (6.3-8.2) g/dL Albumin 3.9 (3.5-5.0) g/dL Globulin 2.9 (1.7-4.1) g/dL Albumin/Globulin Ratio 1.3 (1.0-2.8) Lipase 48 (23-300) U/L Urine RBC None seen (0-5/HPF) Urine WBC 5-10/hpf H (0-5/HPF) Ur Squamous Epith Cells 5-10 /hpf H (0-5/HPF) Urine Bacteria Few (2-10) H (None) Ur Culture Indicated? Specimen cultured Vol Urine Centrifuged 10ml (spun) Point of Care Testing Test Results Negative Urine Dip Bedside Urine Glucose Negative Bedside Urine Bilirubin - Negative Bedside Urine Ketone - Negative Urine Specific [place] 1.010 Bedside Urine Occult Blood +/- Bedside Urine pH 6.0 Bedside Urine Protein - Negative Bedside Urine Urobilinogen - Negative Bedside Urine Nitrite - Negative Bedside Urine Leukocytes ++ [address] scan - abdomen/pelvis: Radiologist's Impression: PROCEDURE: CT ABDOMEN PELVIS W CON INDICATIONS: L low back and diffuse/epigastric abd pain; constipation TECHNIQUE: After the administration of intravenous contrast, axial sections acquired from the lung bases to the pubic symphysis. Coronal and sagittal reformats were performed. For radiation dose reduction, the following was used: automated exposure control, adjustment of mA and/or kV according to patient size. COMPARISON: [facility], CT, ABDOMEN/PELVIS WITH CONTRAST, 12/15/2016, 8:01. FINDINGS: Image quality: Diagnostic. Lower Chest: No significant findings. ABDOMEN: Liver: No solid mass. Gallbladder: Surgically absent. Biliary ducts: No biliary dilation. Pancreas: No ductal dilation. Spleen: Size is within normal limits. Adrenal Glands: No adrenal nodules. Kidneys and Ureters: No hydronephrosis. No solid mass. No complex renal cystic lesion which requires follow up. Stomach and Bowel: Normal colonic caliber, without significant wall thickening. Moderate to large stool burden throughout the colon. Peritoneum: No abnormal intraperitoneal fluid. No free air. Minimal mesenteric stranding (2/78) with associated prominent, nonenlarged lymph nodes. Ventral Wall: No significant ventral hernia. Abdominal Nodes: No retroperitoneal or mesenteric adenopathy by size criteria. Vessels: Aorta and inferior vena cava are normal in size. PELVIS: Pelvic Organs: Unremarkable. Bladder: No bladder wall thickening, accounting for underdistention. Pelvic Nodes: No enlarged lymph nodes. Miscellaneous: No inguinal hernias are seen. Bones: No aggressive osseous abnormality. Mild degenerative changes of the spine. IMPRESSION: 1. Minimal mesenteric stranding with associated prominent, nonenlarged lymph nodes. Findings may represent mesenteric panniculitis. 2. Moderate to large stool burden throughout the colon. MDM Narrative Medical decision making narrative: 48-year-old female with a past medical history of hereditary spastic paraplegia, epilepsy, IBS, MDD, lumbar DDD, GERD who presents to the emergency department for left low back pain and diffuse/epigastric abdominal pain x4 days. Differential diagnosis includes but is not limited to musculoskeletal back pain, pyelonephritis, diverticulitis, colitis, peptic ulcer disease, GERD, UTI, etc. On exam patient is in no acute distress, nontoxic appearing, vital signs within normal limits except for elevated heart rate. Prior record review reveals persistently elevated heart rates, patient states that ever since her mom 2.5 years ago she has had tachycardia whenever around healthcare providers. Physical exam reveals left lumbar paraspinal tenderness and central abdominal tenderness. No rebound or guarding. No CVA tenderness or midline spinal tenderness. She was previously evaluated at the walk-in clinic for UTI type symptoms associated with her low back pain 2 days ago, urinalysis was negative. We will treat symptoms with fluids, Toradol, GI cocktail and obtain abdominal lab work including lactate and CT abdomen and pelvis with IV contrast. Pain resolved with ED treatment. CT reveals minimal mesenteric stranding with associated prominent, nonenlarged lymph nodes. Findings may represent mesenteric panniculitis. Moderate to large stool burden throughout the colon. Labs reveal normal WBC count 5.6, sodium 136, potassium 3.8, normal renal function with a BUN of 11 creatinine 0.73. UA reveals minimal WBC, squamous epithelial cells, bacteria. Patient states that she was unable to provide a very clean catch and would like to hold off on antibiotics until culture results which I am agreeable to however she was prescribed Bactrim b.i.d. x5 days for potential UTI. Recommended Toradol, Zofran if needed for pain/nausea, MiraLax for constipation, rest, hydration. We discussed strict ED return precautions. Patient is feeling much better, abdominal exam benign, agreeable to the plan. She is stable for discharge home. <Stephen Thurston MD - Last Filed: 05/30/24 20:05> Lab Data Labs: Lab Results 05/30/24 05/30/24 05/30/24 Range/Units 13:10 14:10 14:55 WBC 5.6 (4.5-11.0) X10^3/uL RBC 4.22 (4.0-5.2) X10^6/uL Hgb 13.3 (12.0-16.0) g/dL Hct 39.7 (36-46) % MCV 94.0 (80-100) fL MCH 31.5 (26-34) PG MCHC 33.5 (30-36) % RDW 12.5 (11.6-14.8) % Plt Count 257 (150-400) X10^3/uL Neut % (Auto) 80.1 H (50-75) % Lymph % (Auto) 14.8 L (25-40) % [place] % (Auto) 4.3 (3-14) % Eos % (Auto) 0.3 L (2-4) % Baso % (Auto) 0.5 (0-2) % Neut # (Auto) 4500 (1777-9992) /uL Lymph # (Auto) 800 L (8611-7381) /uL [place] # (Auto) 200 (0-900) /uL Eos # (Auto) 0 (0-450) /uL Baso # (Auto) 0 (0-100) /uL Sodium 136 L (137-145) mmol/L Potassium 3.8 (3.4-5.1) mmol/L Chloride 106 (98-107) mmol/L Carbon Dioxide 24 (22-32) mmol/L BUN 11 (7-17) mg/dL Creatinine 0.73 (0.52-1.04) mg/dL Estimated GFR > 60 (>60) mL/min BUN/Creatinine Ratio 15.1 (6-22) Glucose 99 (70-100) mg/dL Lactate 1.1 (0.7-2.1) mmol/L Calcium 8.3 L (8.4-10.2) mg/dL Total Bilirubin 0.4 (0.2-1.3) mg/dL AST 26 (14-36) IU/L ALT 25 (<35) IU/L Alkaline Phosphatase 67 (38-126) U/L Total Protein 6.8 (6.3-8.2) g/dL Albumin 3.9 (3.5-5.0) g/dL Globulin 2.9 (1.7-4.1) g/dL Albumin/Globulin Ratio 1.3 (1.0-2.8) Lipase 48 (23-300) U/L Urine RBC None seen (0-5/HPF) Urine WBC 5-10/hpf H (0-5/HPF) Ur Squamous Epith Cells 5-10 /hpf H (0-5/HPF) Urine Bacteria Few (2-10) H (None) Ur Culture Indicated? Specimen cultured Vol Urine Centrifuged 10ml (spun) Point of Care Testing Test Results Negative Urine Dip Bedside Urine Glucose Negative Bedside Urine Bilirubin - Negative Bedside Urine Ketone - Negative Urine Specific [place] 1.010 Bedside Urine Occult Blood +/- Bedside Urine pH 6.0 Bedside Urine Protein - Negative Bedside Urine Urobilinogen - Negative Bedside Urine Nitrite - Negative Bedside Urine Leukocytes ++ 125 Esterase Discharge Plan Departure Patient Disposition: Home Clinical Impression: Mesenteric panniculitis Constipation Qualifiers: Constipation type: unspecified constipation type Qualified Code(s): K59.00 - Constipation, unspecified Instructions: DI for Constipation Activity Restrictions/Additional Instructions: Dear Carolyne Gaby, Thank you for coming to the emergency department. Today you were evaluated for low back and abdominal pain. Your CT scan reveals significant constipation in addition to some inflammation of the mesentery around her bowels. Please use the prescribed anti-inflammatory pain medication if needed, in addition to the nausea medication. I have also prescribed you an antibiotic for urinary tract infection however as we discussed if you would like to wait to take this antibiotic until the culture result is back that is OK or you can start it today. Please rest, hydrate, use MiraLax 1-2 times daily to help with constipation, and follow up with the primary care doctor. Return to the emergency department if you develop any new or worsening symptoms. Please follow up with your primary care doctor within the next 2-3 days for ER follow-up. (If you do not have a PCP you can call [phone]. ?to schedule an appointment with an [facility] Primary Care Provider) IF YOU DEVELOP ANY NEW OR WORSENING SYMPTOMS, RETURN TO THE ER! Please read the attached instructions, they highlight more specific treatments and interventions for you at home. Thank you for letting me participate in your care, Kyleigh Azevedo PA-C Prescriptions: New ketorolac 10 mg tablet 10 mg PO Q8H PRN (Reason: pain) Qty: 14 0RF Rx Instructions: maximum total duration of 5 days from all oral, intranasal, or parenteral formulations ondansetron 4 mg tablet,disintegrating 4 mg PO Q8H PRN (Reason: nausea and vomiting) Qty: 14 0RF sulfamethoxazole-trimethoprim [Bactrim DS] 800-160 mg tablet 1 tab PO Q12H 5 Days Qty: 10 0RF No Action levetiracetam [Keppra] 1,000 mg tablet 1,000 mg PO .COMPLEX Rx Instructions: 1,000 mg orally 1000 mg in the morning and 1500 mg at night; oxybutynin chloride 5 mg tablet 15 mg PO DAILY Qty: 180 3RF sertraline 100 mg tablet 150 mg PO DAILY Qty: 135 3RF valacyclovir 500 mg tablet See Rx Instructions .ROUTE .COMPLEX Qty: 6 5RF Dose Instruction: take 1 tablet by mouth twice a day if needed Rx Instructions: take 1 tablet by mouth twice a day if needed (DME) Disabled Parking See Rx Instructions .ROUTE .MEDSUPPLY Qty: 1 0RF Rx Instructions: I find this patient to be medically disabled and qualified for Permanent Disabled Parking as indicated, and signed, on the Accompanying Disabled Parking Application for Individuals diazepam 5 mg tablet 5 mg PO DAILY PRN fesoterodine 8 mg tablet extended release 24 hr 8 mg PO DAILY methocarbamol 500 mg tablet 500 mg PO TID PRN (Reason: muscle pain) Qty: 20 0RF dicyclomine 10 mg capsule 10 mg PO TID PRN acetaminophen 325 MG tablet 325 mg PO PRNQty: 0 cetirizine [Aller-Karan] 10 mg tablet 10 mg PO DAILY PRN cholecalciferol (vitamin D3) 25 mcg (1,000 unit) capsule 25 mcg PO DAILY multivitamin [Multiple Vitamins] Tablet 1 tab PO DAILY L.acidoph,saliva-B.bif-S.therm [Acidophilus Probiotic Blend] 175 mg capsule 1 cap PO DAILY omega 3-pbn-uqg-fish oil 250-500-1,000 mg capsule PO calcium-magnesium 300-300 mg tablet 1 tab PO DAILY Rx Instructions: administer with a meal fluticasone propionate 50 mcg/actuation spray,suspension 1 spray intranasal DAILY Rx Instructions: administer into each nostril norgestimate-ethinyl estradiol 0.25-35 mg-mcg tablet See Rx Instructions .ROUTE .COMPLEX Qty: 84 3RF Dose Instruction: take 1 tablet by mouth once daily . CAN SKIP THE [place] TABLETS Rx Instructions: take 1 tablet by mouth once daily . CAN SKIP THE [place] TABLETS Referrals: Jennifer Ellis ARNP [Primary Care Provider] - Stand Alone Forms: Patient Portal/API/Survey ED Sign-out <Stephen Thurston MD - Last Filed: 05/30/24 20:05> Cosign ED Attending Tay Attestation: I was immediately available in the department for consultation. This documentation has been reviewed and I agree with assessment and plan. Supervised by Stephen Thurston MD
--- NOTE | 2024-05-30 13:05 | DI.CT.S_ITS ---
PROCEDURE: CT ABDOMEN PELVIS W CON INDICATIONS: L low back and diffuse/epigastric abd pain; constipation TECHNIQUE: After the administration of intravenous contrast, axial sections acquired from the lung bases to the pubic symphysis. Coronal and sagittal reformats were performed. For radiation dose reduction, the following was used: automated exposure control, adjustment of mA and/or kV according to patient size. COMPARISON: [facility], CT, ABDOMEN/PELVIS WITH CONTRAST, 12/15/2016, 8:01. FINDINGS: Image quality: Diagnostic. Lower Chest: No significant findings. ABDOMEN: Liver: No solid mass. Gallbladder: Surgically absent. Biliary ducts: No biliary dilation. Pancreas: No ductal dilation. Spleen: Size is within normal limits. Adrenal Glands: No adrenal nodules. Kidneys and Ureters: No hydronephrosis. No solid mass. No complex renal cystic lesion which requires follow up. Stomach and Bowel: Normal colonic caliber, without significant wall thickening. Moderate to large stool burden throughout the colon. Peritoneum: No abnormal intraperitoneal fluid. No free air. Minimal mesenteric stranding (2/78) with associated prominent, nonenlarged lymph nodes. Ventral Wall: No significant ventral hernia. Abdominal Nodes: No retroperitoneal or mesenteric adenopathy by size criteria. Vessels: Aorta and inferior vena cava are normal in size. PELVIS: Pelvic Organs: Unremarkable. Bladder: No bladder wall thickening, accounting for underdistention. Pelvic Nodes: No enlarged lymph nodes. Miscellaneous: No inguinal hernias are seen. Bones: No aggressive osseous abnormality. Mild degenerative changes of the spine. IMPRESSION: 1. Minimal mesenteric stranding with associated prominent, nonenlarged lymph nodes. Findings may represent mesenteric panniculitis. 2. Moderate to large stool burden throughout the colon. Dictated by: Des Rhodes M.D. on 05/30/2024 at 15:14 Approved by: Des Rhodes M.D. on 05/30/2024 at 15:26
[2024-05-30 13:18] LABS: Add Manual Diff / Slide Review NO; Basophils Absolute Auto 0 /uL (0-100); Basophils Percent Auto 0.5 % (0-2); Eosinophils Absolute Auto 0 /uL (0-450); Eosinophils Percent Auto 0.3 % (2-4); Hematocrit 39.7 % (36-46); Hemoglobin 13.3 g/dL (12.0-16.0); Lymphocytes Absolute Auto 800 /uL (1100-4500); Lymphocytes Percent Auto 14.8 % (25-40); Mean Corpuscular HGB Conc 33.5 % (30-36); Mean Corpuscular Hemoglobin 31.5 PG (26-34); Monocytes Absolute Auto 200 /uL (0-900); Monocytes Percent Auto 4.3 % (3-14); Neutrophils Absolute Auto 4500 /uL (1500-7000); Neutrophils Percent Auto 80.1 % (50-75); Platelet Count 257 X10^3/uL (150-400); Red Blood Cell Count 4.22 X10^6/uL (4.0-5.2); Red Cell Distribution Width 12.5 % (11.6-14.8); White Blood Cell Count 5.6 X10^3/uL (4.5-11.0)
[2024-05-30] MEDS: SODIUM CHLORIDE 0.9% 1,000 ML 1000 ML IV (13:18)
[2024-05-30] MEDS: ONDANSETRON 4 MG/2 ML INJ IV (13:19)
[2024-05-30] MEDS: MAG HYDROX/ALUMINUM/SIMETH SUS 20 ML, LIDOCAINE VISCOUS 2% 15 ML PO (13:19)
[2024-05-30] MEDS: KETOROLAC 30 MG/ML VIAL 15 MG IV (13:20)
[2024-05-30 13:28] LABS: Lactate (Lactic Acid) 1.1 mmol/L (0.7-2.1)
[2024-05-30 14:51] LABS: Alanine Aminotransferase 25 IU/L (<35); Albumin 3.9 g/dL (3.5-5.0); Albumin Globulin Ratio 1.3 (1.0-2.8); Alkaline Phosphatase 67 U/L (38-126); Aspartate Aminotransferase 26 IU/L (14-36); BUN Creatinine Ratio 15.1 (6-22); Bilirubin Total 0.4 mg/dL (0.2-1.3); Blood Urea Nitrogen 11 mg/dL (7-17); Calcium 8.3 mg/dL (8.4-10.2); Carbon Dioxide 24 mmol/L (22-32); Chloride 106 mmol/L (98-107); Estimated Glomerular Filt Rate > 60 mL/min (>60); Globulin 2.9 g/dL (1.7-4.1); Glucose 99 mg/dL (70-100); HEMOLYSIS < 15 (0-50); Lipase 48 U/L (23-300); Potassium 3.8 mmol/L (3.4-5.1); Sodium 136 mmol/L (137-145); Total Protein 6.8 g/dL (6.3-8.2)
[2024-05-30 15:03] VITALS: PULSE 102; RESP 16; O2SAT 100
[2024-05-30 15:34] LABS: Bacteria Urine Few (2-10); Culture Indicated Urine Specimen Cultured; RBC Urine None Seen (0-5/HPF); Squamous Epithelial Cell Urine 5-10 /HPF (0-5/HPF); Urine Volume 10mL (spun); WBC Urine 5-10/HPF (0-5/HPF)
[2024-05-30 17:10] VITALS: BP 128/72; PULSE 93; RESP 16; TEMP 37; O2SAT 97
== END 2024-05-30 17:11 | disposition home or self-care (01) ==
PROVIDERS: Emergency Medicine; Emergency Provider Physician Assistant; Family Provider Family Medicine; PCP Registered Nurse
DX: K65.4 Sclerosing mesenteritis (principal); K59.00 Constipation, unspecified; R10.13 Epigastric pain; R11.0 Nausea
CPT/HCPCS: 36415; 74177; 80053; 81003; 81015; 81025; 83605; 83690; 85025; 87086; 96361; 96374; 96375; 99284; J1885; J2405; Q9967

== ENCOUNTER 2024-12-06 10:41 | Emergency (ER) | payer OTHER, SELFPAY ==
--- NOTE | 2024-12-06 10:44 | DI.RAD.S_ITS ---
PROCEDURE: XR TIBIA FIBULA LT 2V INDICATIONS: fall trauma TECHNIQUE: 2 views of the tibia and fibula were acquired. COMPARISON: None. FINDINGS AND IMPRESSION: No displaced fracture or dislocation. No suspicious soft tissue calcifications. If there is high concern for occult injury, consider repeat radiography in about 7 days or cross-sectional imaging. Dictated by: Sean Miller M.D. on 12/06/2024 at 11:15 Approved by: Sean Miller M.D. on 12/06/2024 at 11:15
[2024-12-06 10:48] VITALS: BP 135/75; PULSE 110; RESP 18; TEMP 37.1; O2SAT 100; BMI 29.2
--- NOTE | 2024-12-06 11:34 | ED_ITS ---
<Statement entered by Matt Farmer, DO - 12/06/24 18:54> Co-sign statement: I was available for consultation during this patient's emergency department visit. This chart is being signed by myself for administrative purposes only. I do not have direct contact with this patient during this visit. They were seen independently by the APC. HPI - Extremity Injury (Lower) General Chief Complaint: Extremity Injury, Lower Stated Complaint: Fell hurt left ankle x 1 day Time Seen by Provider: 12/06/24 10:44 Source: patient Mode of arrival: Wheelchair History of Present Illness HPI Narrative: Ms. Griffin is a very pleasant 49-year-old female with a past medical history of hereditary spastic paraplegia, epilepsy, IBS, MDD, lumbar DDD, GERD who presents to the emergency department for left lateral ankle pain x1 day. Patient states because of her HSP, her left foot/ankle often deviate medially and last night while walking in her home she accidentally rolled the left ankle even further inward causing pain on the lateral ankle and foot. She did not injure anything else. She has had persistent pain of the lateral foot/ankle since then, has been needing to crawl on her hands and knees as she typically ambulates with walking sticks but has pain with bearign weight on the L foot. Denies any injuries to the head, upper extremities or right lower extremity. No open wounds or deformities. No medications prior to arrival. Related Data Home Medications ?Medication ?Instructions ?Recorded ?Confirmed acetaminophen 325 mg tablet 325 mg PO PRN ##0 01/29/16 05/28/24 L.acidophil,salivari-Bifido 1 cap PO DAILY 07/21/21 bifidum-Strep thermoph 175 mg capsule (Acidophilus Probiotic Blend) calcium-magnesium 300 mg-300 mg 1 tab PO DAILY 2 05/28/24 tablet cetirizine 10 mg tablet (Aller-Karan) 10 mg PO DAILY PRN 07/21/21 05/28/24 cholecalciferol (vitamin D3) 25 25 mcg PO DAILY 05/28/24 mcg (1,000 unit) capsule fluticasone propionate 50 1 spray intranasal DAILY 05/28/24 mcg/actuation nasal spray,suspension multivitamin (Multiple Vitamins 1 tab PO DAILY 2 05/28/24 tablet) omega 5-lmu-fvf-fish oil 250 cap PO 07/21/21 05/28/24 mg-500 mg-1,000 mg capsule dicyclomine 10 mg capsule 10 mg PO TID PRN 11/26/21 levetiracetam 1,000 mg tablet 1,000 mg PO .COMPLEX 02/1205/28/24 (Keppra) diazepam 5 mg tablet 5 mg PO DAILY PRN 05/28/24 0 05/28/24 fesoterodine 8 mg tablet,extended 8 mg PO DAILY 05/28/24 release 24 hr Previous Rx's ?Medication ?Instructions ?Recorded norgestimate 0.25 mg-ethinyl See Rx Instructions .Rout e 04/19/22 estradiol 0.035 mg tablet .COMPLEX #84 tabs Disabled Parking #1 ea 07/02/22 oxybutynin chloride 5 mg tablet 15 mg (3 x 5 mg) PO DA THIAGO #180 tabs 07/02/22 sertraline 100 mg tablet 150 mg (1.5 x 100 mg) PO TERRENCE LY 07/02/22 #135 tabs valacyclovir 500 mg tablet See Rx Instructions .Route 07/02/22 .COMPLEX #6 tabs methocarbamol 500 mg tablet 500 mg PO TID PRN muscle p ain #20 05/28/24 tabs ketorolac 10 mg tablet 10 mg PO Q8H PRN pain #14 ta bs 05/30/24 ondansetron 4 mg disintegrating 4 mg PO Q8H PRN nausea and 05/30/24 tablet vomiting #14 tabs Allergies Allergy/AdvReac Type Severity Reaction Status Date / Time No Known Drug Allergies Allergy Verified 05/30/24 12:22 Review of Systems Review of Systems ROS Unobtainable: All systems reviewed & are unremarkable except as noted in HPI and below Patient History Medical History History of gestational diabetes IBS (irritable bowel syndrome) Obesity (BMI 30-39.9) Hereditary spastic paraplegia Anemia (2003) Chicken pox (~1987) CTS (carpal tunnel syndrome) (2007) Seizures Ovarian cyst Miscarriage Abnormal Pap smear of cervix Kidney stones (2004) Frequent UTI Gallstone pancreatitis Cyst of ovary (06/02/15) Choledocholithiasis Surgical History History of cholecystectomy History of ERCP (01/2016) History of D&C Family History Grandfather Diabetes mellitus Grandmother Paraplegia Grandmother Pre-diabetes Brother No problems noted. Father No problems noted. Mother No problems noted. Grandfather No problems noted. Social History Smoking Status: Never smoker alcohol intake: current (1 cup a week) substance use type: does not use Smoking Status: Never smoker alcohol intake frequency: a few times a week Alcohol type: beer Exam Narrative Exam Narrative: GENERAL: 49 year old patient appears stated age. Well-developed patient, in no acute distress. HEAD: Atraumatic. Normocephalic. EYES: No scleral icterus. No injection or drainage. NECK: Trachea midline. Cervical ROM intact. CARDIOVASCULAR: Regular rate RESPIRATORY: ?Nonlabored respirations. ?Speaking in clear, full sentences. ? EXTREMITIES: Chronic medial deviation of L ankle. There is tenderness to palpation of the left dorsal midfoot and the lateral metatarsal region. TTP just distal to the lateral malleolus. No medial or lateral malleolus tenderness, no ang tenderness, or knee tenderness. 2+ DP pulse palpable, brisk cap refill in the toes. NEURO: AOx3. ?Clear speech. ? SKIN: No rash or erythema of visible areas Initial Vital Signs Initial Vital Signs: Vital Signs Temperature 98.7 F 12/06/24 10:48 Pulse Rate 110 H 12/06/24 10:48 Respiratory Rate 18 12/06/24 10:48 Blood Pressure 135/75 12/06/24 10:48 Pulse Oximetry 100 12/06/24 10:48 Oxygen Delivery Method Room Air 12/06/24 10:48 Procedures Orthopedic Splinting/Casting Injury #1: Side: left Lower Extremity Injury Location: foot Lower Extremity Immobilizer: posterior splint and stirrup splint Other Orthopedic Equipment: other (Rx for knee scooter, pt cannot use crutches ) Post splinting neuro exam: intact and no change Post splinting vascular exam: no change Placed by: Nursing (and myself, together) Course Orders Ordered: ED Orders 12/06/24 10:44 XR tibia fibula LT 2V Stat 12/06/24 11:42 XR foot LT min 3V Stat 12/06/24 13:27 Consult to [facility] Stat Discontinued Medications Acetaminophen (Acetaminophen 325 Mg Tablet) 975 mg PO NOW ONE Stop: 12/06/24 11:43 Last Admin: 12/06/24 11:56 Dose: 975 mg Documented By: JACKIE Ibuprofen (Ibuprofen 400 Mg Tablet) 400 mg PO NOW ONE Stop: 12/06/24 11:43 Last Admin: 12/06/24 11:56 Dose: 400 mg Documented By: JACKIE Vital Signs Vital signs: Vital Signs - 8 hr 12/06/24 10:48 12/06/24 14:15 Temperature 98.7 F 99 F Pulse Rate 110 H 88 Respiratory Rate 18 16 Blood Pressure 135/75 133/70 Pulse Oximetry 100 98 Oxygen Delivery Method Room Air Room Air MDM - Extremity Injury (Lower) Medical Records Attestation: I reviewed the patient's medical records. Imaging Data XR Left Foot: My Impression: On my independent interpretation of the left foot x-ray, there is a fracture of the 5th metatarsal shaft Radiologist's Impression: PROCEDURE: XR FOOT LT MIN 3V INDICATIONS: LATERAL foot and ankle pain; neg tib fib TECHNIQUE: 3 views of the foot were acquired. COMPARISON: [facility], , XR TIBIA FIBULA LT 2V, 12/06/2024, 10:43. FINDINGS: Bones: There is a mildly displaced fracture through the proximal shaft of the 5th metatarsal. No additional fractures are detected. Incidental note is made of an accessory ossicle, an os tibiale externum. Soft tissues: No tibiotalar joint effusion. Achilles tendon appears normal. IMPRESSION: Mildly displaced 5th metatarsal fracture. Dictated by: Dionicio Boothe M.D. on 12/06/2024 at 11:09 Approved by: Dionicio Boothe M.D. on 12/06/2024 at 11:11 XR Left Tib Fib: Radiologist's Impression: PROCEDURE: XR TIBIA FIBULA LT 2V INDICATIONS: fall trauma TECHNIQUE: 2 views of the tibia and fibula were acquired. COMPARISON: None. FINDINGS AND IMPRESSION: No displaced fracture or dislocation. No suspicious soft tissue calcifications. If there is high concern for occult injury, consider repeat radiography in about 7 days or cross-sectional imaging. Dictated by: Sean Miller M.D. on 12/06/2024 at 11:15 Approved by: Sean Miller M.D. on 12/06/2024 at 11:15 [facility] Narrative Medical decision making narrative: 49-year-old female with a past medical history of hereditary spastic paraplegia, epilepsy, IBS, MDD, lumbar DDD, GERD who presents to the emergency department for left lateral ankle pain x1 day. Differential diagnosis includes but isn't limited to lateral ankle sprain, strain, fracture, dislocation, metatarsal fracture, foot fracture, contusion, etc. On exam patient is in no acute distress, nontoxic appearing, vital signs appropriate except for mildly elevated heart rate which appears to be chronic for her. Patient has focal lateral ankle/foot pain, she described more as her ankle however on physical exam she actually was mainly only tender over the foot. Her lower extremity is neurovascularly intact. A tib-fib x-ray was obtained in triage which is negative for fracture dislocation however we will need foot x-ray as well. After shared decision-making with the patient, we will treat pain with ibuprofen and acetaminophen at this time. On my independent interpretation left foot x-ray reveals a fracture of the shaft of the 5th metatarsal. Radiologist report reveals a mildly displaced 5th metatarsal fracture. Patient was paced into a posterior short-leg splint with a stirrup by myself and nursing staff, patient was neurovascularly intact both before and after application of the splint. Because of patient's hereditary spastic paraplegia, she is unable to ambulate using crutches, therefore I did write her a script for durable medical equipment/left knee scooter, whenever she also verbalized that she will attempt to get a wheelchair or scooter for home from a local store [employer] if necessary as well, she believes she may have a wheelchair at home. She understands that she should not bear weight on this fracture and that she will need to follow up with Orthopedics for further management. Discussed supportive care including rice therapy, ibuprofen, acetaminophen in addition to strict ER return precautions. Patient verbalized understanding of all information is agreeable with the plan. She is stable for discharge home, VS WNL, she does have a ride coming to pick her up. Discharge Plan Departure Patient Disposition: Home Clinical Impression: Sprain of lateral ligament of ankle joint Fracture of metatarsal of left foot, closed Qualifiers: Encounter type: initial encounter Metatarsal bone: fifth Fracture alignment: displaced Qualified Code(s): S92.352A - Displaced fracture of fifth metatarsal bone, left foot, initial encounter for closed fracture Instructions: DI for Foot Fracture Activity Restrictions/Additional Instructions: Dear Ms. Griffin, Thank you for coming to the emergency department. I am very sorry that you injured her left foot/ankle. X-ray today did reveal a mildly displaced fracture through the shaft of the 5th metatarsal. You have been placed into a temporary splint. Please keep the splint dry. It is very important to call and schedule an appointment with [facility] for further management of the broken bone. It is important to not bear any weight onto the left foot. As we discussed, please use a scooter or a wheelchair if possible. Please use RICE therapy for your pain in addition to ibuprofen/acetaminophen. Rest the painful area. Ice the area of pain/swelling for at least 15 minutes, 4x a day. Compress the area of swelling using a brace, wrap, or splint if applied. Elevate the painful or swollen extremity by supporting it above the level of the heart with pillows when sitting or laying. Please take Ibuprofen (Motrin/Advil) or Acetaminophen (Tylenol) for pain. These are available over the counter. You may take Ibuprofen 600 mg every 8 hours with food for pain. You may also take Acetaminophen 650 mg every 4-6 hours for pain. Do not exceed 3000 mg of Tylenol a day as this can cause liver damage. Do not drink alcohol with either of these medications. Please return to the emergency department if you develop any new or worsening symptoms, severe pain, numbness tingling weakness or color change of the toes or any other concern. Please follow up with your primary care doctor within the next 2-3 days for ER follow-up. (If you do not have a PCP you can call [phone]. ?to schedule an appointment with an [facility] Primary Care Provider) IF YOU DEVELOP ANY NEW OR WORSENING SYMPTOMS, RETURN TO THE ER! Please read the attached instructions, they highlight more specific treatments and interventions for you at home. Thank you for letting me participate in your care, LORRIE CurtisC Prescriptions: No Action levetiracetam [Keppra] 1,000 mg tablet 1,000 mg PO .COMPLEX Rx Instructions: 1,000 mg orally 1000 mg in the morning and 1500 mg at night; oxybutynin chloride 5 mg tablet 15 mg PO DAILY Qty: 180 3RF sertraline 100 mg tablet 150 mg PO DAILY Qty: 135 3RF valacyclovir 500 mg tablet See Rx Instructions .ROUTE .COMPLEX Qty: 6 5RF Dose Instruction: take 1 tablet by mouth twice a day if needed Rx Instructions: take 1 tablet by mouth twice a day if needed (DME) Disabled Parking See Rx Instructions .ROUTE .MEDSUPPLY Qty: 1 0RF Rx Instructions: I find this patient to be medically disabled and qualified for Permanent Disabled Parking as indicated, and signed, on the Accompanying Disabled Parking Application for Individuals diazepam 5 mg tablet 5 mg PO DAILY PRN fesoterodine 8 mg tablet extended release 24 hr 8 mg PO DAILY methocarbamol 500 mg tablet 500 mg PO TID PRN (Reason: muscle pain) Qty: 20 0RF dicyclomine 10 mg capsule 10 mg PO TID PRN acetaminophen 325 MG tablet 325 mg PO PRNQty: 0 cetirizine [Aller-Karan] 10 mg tablet 10 mg PO DAILY PRN cholecalciferol (vitamin D3) 25 mcg (1,000 unit) capsule 25 mcg PO DAILY multivitamin [Multiple Vitamins] Tablet 1 tab PO DAILY L.acidoph,saliva-B.bif-S.therm [Acidophilus Probiotic Blend] 175 mg capsule 1 cap PO DAILY omega 2-aof-bqo-fish oil 250-500-1,000 mg capsule PO calcium-magnesium 300-300 mg tablet 1 tab PO DAILY Rx Instructions: administer with a meal fluticasone propionate 50 mcg/actuation spray,suspension 1 spray intranasal DAILY Rx Instructions: administer into each nostril norgestimate-ethinyl estradiol 0.25-35 mg-mcg tablet See Rx Instructions .ROUTE .COMPLEX Qty: 84 3RF Dose Instruction: take 1 tablet by mouth once daily . CAN SKIP THE PLACEBO TABLETS Rx Instructions: take 1 tablet by mouth once daily . CAN SKIP THE PLACEBO TABLETS ketorolac 10 mg tablet 10 mg PO Q8H PRN (Reason: pain) Qty: 14 0RF Rx Instructions: maximum total duration of 5 days from all oral, intranasal, or parenteral formulations ondansetron 4 mg tablet,disintegrating 4 mg PO Q8H PRN (Reason: nausea and vomiting) Qty: 14 0RF Referrals: Jennifer Ellis ARNP [Primary Care Provider, Family Practice] Soham Santamaria MD [Physician, Orthopedic Surgery] Referral Note: Left 5th metatarsal fracture Stand Alone Forms: Patient Portal/API
--- NOTE | 2024-12-06 11:42 | DI.RAD.S_ITS ---
PROCEDURE: XR FOOT LT MIN 3V INDICATIONS: LATERAL foot and ankle pain; neg tib fib TECHNIQUE: 3 views of the foot were acquired. COMPARISON: [facility], CR, XR TIBIA FIBULA LT 2V, 12/06/2024, 10:43. FINDINGS: Bones: There is a mildly displaced fracture through the proximal shaft of the 5th metatarsal. No additional fractures are detected. Incidental note is made of an accessory ossicle, an os tibiale externum. Soft tissues: No tibiotalar joint effusion. Achilles tendon appears normal. IMPRESSION: Mildly displaced 5th metatarsal fracture. Dictated by: Dionicio Boothe M.D. on 12/06/2024 at 11:09 Approved by: Dionicio Boothe M.D. on 12/06/2024 at 11:11
[2024-12-06] MEDS: ACETAMINOPHEN 325 MG TABLET 975 MG PO (11:56)
[2024-12-06] MEDS: IBUPROFEN 400 MG TABLET PO (11:56)
[2024-12-06 14:15] VITALS: BP 133/70; PULSE 88; RESP 16; TEMP 37.2; O2SAT 98
== END 2024-12-06 14:58 | disposition home or self-care (01) ==
PROVIDERS: Emergency Provider Physician Assistant; Family Provider Family Medicine; PCP Registered Nurse
DX: S93.402A Sprain of unspecified ligament of left ankle, initial encounter (principal); S92.352A Displaced fracture of fifth metatarsal bone, left foot, initial encounter for closed fracture; R00.0 Tachycardia, unspecified; X50.1XXA Overexertion from prolonged static or awkward postures, initial encounter
CPT/HCPCS: 73590; 73630; 99283